=== PATIENT | male | born 1950 | race Caucasian/White ===

== ENCOUNTER 2023-08-07 17:28 | Inpatient (IN) | payer OTHER, SELFPAY ==
[2023-08-07] VITALS (11 sets, daily range): BP systolic 91–186; BP diastolic 47–79; BMI 28.7
--- NOTE | 2023-08-07 15:18 | ED.MUSCINJ ---
HPI-Injury
General
Chief Complaint: Fall
Source: patient
Exam Limitations: none
Time Seen by Provider: 08/07/23 14:55
Nursing documentation reviewed up to this point in time: agreed with
Travel History
Have you had any contact with someone who has COVID-19?: No
Do you have any symptoms of coronavirus? Fever > 100 degrees, chills, cough, shortness of breath, sore throat, loss of taste or smell, muscle aches, or headache?: No
History of Present Illness-Injury
Is this injury a work related problem?: No
Is pt an associate of [facility]?: No
Initial Injury comments:
Patient states he tripped and fell in his driveway yesterday afternoon. Denies hitting his head. States he crawled back into his home. Notice this AM that he has a large laceration to medial right ankle. Unable to bear weight. Brought to ED via
EMS for eval.
Past History
Past History
ED Past Medical History: HTN, NIDDM and Other (Diabetic neuropathy BLE)
ED Past Surgical History: Other (wisdom teeth, cataracts)
Social History
Tobacco: Non-smoker
Drug: None
Review of Systems
Review of Systems
Allergies reviewed?: Yes
All Other Systems: ROS reviewed and negative except as documented in HPI and ROS
Constitutional: Reports no symptoms
EENT: Reports no symptoms
Respiratory: Reports no symptoms
Cardiac: Reports no symptoms
ABD/GI: Reports no symptoms
Musculoskeletal: Reports joint pain (pain to right ankle)
Skin: Reports other (Large laceration to right medial ankle)
Neurological: Reports no symptoms
Psychiatric: Reports no symptoms
Musculoskeletal Injury Exam
Musculoskeletal Injury Exam
Right Ankle:
Pain with Movement?: Severe
Tender to palpation?: Moderate
Soft tissue swelling?: Moderate
External deformity and angulation?: Moderate
Joint effusion?: None
Contusion?: None
Hematoma-local bleeding into tissue?: Moderate
Strain- Sprain- Tear (Connective tissue injury)?: Moderate
Crepitus with movement?: No
Joint instability?: Yes
Malalignment/deformity?: Yes
Range of motion: Limited
Distal skin color and temperature: normal-warm & good color
Capillary Refill: normal
Normal distal neurovascular exam?: Yes
Peripheral Pulses: posterior tibial (right): 3+ and dorsalis pedis (right): 3+
Skin Exam
Laceration
Right Medial Ankle:
Orientation: horizontal
Type of Laceration: complex
Any active bleeding?: no active bleeding
Distal skin color and temperature: normal-warm & good color
Normal distal neurovascular exam: Yes
Range of motion: limited
Phy Exam
General Physical Exam
General Presentation: well appearing and no apparent distress
General age: appears stated age
General Skin: warm and dry
General Habitus: normal
General Mental: alert
Neurological Exam
Neurological Exam: alert, oriented x3 and CN II-XII intact
Musculoskeletal Exam
Musculoskeletal Exam: neuro vasc intact and other (No tenderness proximal tib/fib)
Skin Exam
Skin Exam: warm/dry, no rash and other (large laceration over medial malleolus, suspect exposed bone)
Psychiatric Exam
Psychiatric Exam: normal mood/affect
Injury Course
Orders/Labs/Results
Orders:
Orders
08/07/23 15:11
Ankle, Right 3 view CR [CR Ankle - Right Min 3 Views *] Urgent
Comment:
Reason For Exam: trauma
08/07/23 15:12
Complete Blood Count/With Diff Urgent
08/07/23 15:14
CMP [Comprehensive Metabolic Panel] Urgent
08/07/23 15:30
HYDROmorphone [Dilaudid] 0.5 mg IV NOW STA
Ondansetron Injectable [Zofran] 4 mg IV NOW STA
08/07/23 15:31
HYDROmorphone [Dilaudid] 0.5 mg .ROUTE .STK-MED ONE
Ondansetron Injectable [Zofran] 4 mg .ROUTE .STK-MED ONE
08/07/23 15:34
Vancomycin [Vancocin] 2,000 mg 0.9% Sodium Chloride 500 ml [Nss] 500 ml IV NOW
08/07/23 16:18
Tetanus/Diphth/Acelpertussis [Adacel] 0.5 ml IM .ONCE ONE
08/07/23 16:52
EKG [Electrocardiogram (*1)] Stat
Reason for Study: PreOp
08/07/23 16:54
Admit/Transfer Patient As Directed
Co-Sign Provider:
Level of Care: Inpatient admission
Assign to:: Telemetry
Physician / Group: [place]get[place]/Hospitalist
Diagnosis: open right ankle fracture
Reason for Telemetry: Arrhythmia
Date to Stop Telemetry: 08/10/23
Time to Stop Telemetry: 11:00
Reason for Hospitalization: open right ankle fracture, IDDM
Expected length of stay greater than two midnights?: Yes
ELOS- Estimated Length of Stay in days: 3
I certify the patient meets the requirements for IP care: Yes
0.9% Sodium Chloride 500 ml [Nss] 500 ml IV BOLUS
08/07/23 17:01
Code Status As Directed
Resuscitation Status: Full Code
08/07/23 17:11
HYDROmorphone [Dilaudid] 0.25 mg IV PACU-Q5MPRN PRN
HYDROmorphone [Dilaudid] 0.5 mg IV PACU-Q5MPRN PRN
Meperidine [Demerol] 12.5 mg IV PACU-Q5MPRN PRN
Ondansetron Injectable [Zofran] 4 mg IV PACU-ONCEPRN PRN
Prochlorperazine [Compazine] 5 mg IV PACU-ONCEPRN PRN
Notify MD As Directed
Notify physician if: for SDS patients with known or suspected sleep obstructive sleep apnea, monitor in the
PACU.
Notify MD for any apneic/desaturation episodes
O2 Therapy [RESP] Urgent
Titrate/Wean O2 to maintain O2 sat greater than (%): 92
Special Instructions: -Provide supplemental oxygen to achieve O2 sat of 92% or greater.
-After 15 min, may wean O2 and discontinue if patient is able to maintain O2 sat of 92%
or greater during recovery period.
If patient is a discharge home, without oxygen therapy, notify anestheiologist if
unable to maintain O2 SAT of 92% or greater on room air for MD clearance.
08/07/23 17:12
Type+Screen Urgent
[employer] [facility] Wristband Number:
08/07/23 17:15
Normosol (Mult Electrolytes) [Normosol-R] 1,000 ml IV PER PROTOCOL
08/07/23 17:24
Dexamethasone Sod Phosphate [Decadron] 20 mg .ROUTE .STK-MED ONE
Fentanyl Citrate/Pf [Sublimaze] 100 mcg .ROUTE .STK-MED ONE
Lidocaine HCl/Pf [Xylocaine-Mpf 1% Vial] 50 mg .ROUTE .STK-MED ONE
Midazolam HCl [Versed] 2 mg .ROUTE .STK-MED ONE
Ondansetron Injectable [Zofran] 4 mg .ROUTE .STK-MED ONE
Propofol [Diprivan] 20 ml .ROUTE .STK-MED
Rocuronium [place] [Rocuronium] 50 mg .ROUTE .STK-MED ONE
08/07/23 20:13
0.9% Sodium Chloride 1000 ml [Nss] 1,000 ml IV 100 mls/hr
Acetaminophen [Tylenol] 650 mg PO Q4HWA
Dextrose 50%-Water [Dextrose 50% Syringe] 12.5 grams IV [id number] PRN
Docusate Sodium [Colace] 100 mg PO BID
Glucagon [GlucaGen] 1 mg IM PRN PRN
HYDROmorphone [Dilaudid] 0.5 mg IV Q3HPRN PRN
Magnesium Hydroxide [Milk of Magnesia] 30 ml PO DAILYPRN PRN
Oxycodone [Roxicodone] 5 mg PO Q4HPRN PRN
Sennosides [Senokot] 17.2 mg PO BID
Tamsulosin [Flomax] 0.4 mg PO DAILYPRN PRN
VANCOMYCIN Pharmacy to Dose [VANCOCIN Pharmacy to Dose] 1 each Pharmacy To Prepare [Call Pharmacy To Prepare] 0 ml IV PER PROTOCOL
08/07/23 20:13
ORTHOPEDIC CONSULT Routine
Consulting Provider: Willard Tinajero
Was physician already notified: Yes
Reason for consult: open ankle fracture, right
Activity As Directed
Activity Level: With Assistance
Bedside Glucose Monitoring As Directed
Frequency: AC&HS
Additional Instructions:: Change to q6h if pt on TPN, tube feeding or not eating
Bladder Scan As Directed
Follow Bladder Retention/Intermittent Cath Algorithm?: Yes
PRN if no void in __ hours: 6
Comment: if not voiding 6 hrs upon arrival to floor, bladder scan & follow algorithm
Cold Application As Directed
Location: apply ice to affected area
Frequency: PRN
Duration of Application: No longer than 20 minutes
Method of Delivery: Ice packs
Comment: R ankle
Elevate Extremity As Directed
Extremity:: RLE
Intake/ Output As Directed
Frequency: Per unit guidelines
Neurovascular Checks As Directed
Location: Right Lower extremity
Frequency: q4h
Pneumatic Compression Sleeves As Directed
Type: Knee high
Comment: LLE for now pending Orthopedic recs
Straight Cath As Directed
Frequency: Per Retention Algorithm
Additional Instructions: straight cath as needed per acute urinary retention algorithm for 24 hrs
Additional Instructions: for bladder scan greater than 400 mL
Vital Signs As Directed
Frequency: Per unit guidelines
Ot Eval And Treat Routine
Pt Eval And Treat Routine
Treatment: per Ortho, post-op
Activity Level: With Assistance
DX Deep Vein Thrombosis Video Routine
08/07/23 22:00
Pregabalin [Lyrica] 100 mg PO TID
08/08/23 07:07
Complete Blood Count/With Diff IN AM
Comprehensive Metabolic Panel IN AM
Glycohemoglobin (HgbA1c) IN AM
08/08/23 07:30
Insulin Aspart Corrective Mod [Novolog Flexpen-Moderate Resistance] See Protocol SC AC
08/08/23 08:00
Atorvastatin [Lipitor] 20 mg PO DAILY
Losartan [Cozaar] 25 mg PO DAILY
08/08/23 18:00
Enoxaparin Sodium [Lovenox] 40 mg SC QPM
08/10/23 11:00
DC Protocol for Telemetry ONCE
Abnormal Lab Results
08/07/23 08/07/23
15:12 15:14
WBC 14.6 H 10^3/uL
(4.8-10.8)
RBC 4.32 L 10^6/uL
(4.70-6.10)
Hct 36.9 L %
(39.0-52.0)
MPV 11.1 H fL
(7.4-10.4)
Abs Immat Gran (auto) 0.1 H 10^3/uL
(0-0.05)
Absolute Neuts (auto) 11.9 H 10^3/uL
(1.4-6.5)
Absolute Lymphs (auto) 1.1 L 10^3/uL
(1.2-3.4)
Absolute Monos (auto) 1.5 H 10^3/uL
(0.1-0.6)
Neutrophils % 81.2 H %
(42.2-75.2)
Lymphocytes % 7.3 L %
(20.5-51.1)
Monocytes % 10.5 H %
(1.7-9.3)
BUN 30 H mg/dl
(9-20)
Total Bilirubin 2.3 H mg/dl
(0.2-1.3)
08/07/23 15:12
08/07/23 15:14
*Radiology
Radiology exam reviewed: radiology read reviewed
*Pulse Oximetry
Patient hypoxic: no
*Critical Care Note
Total Time (30-74mins, 75-104mins- exclusive of procedures): Not Applicable
ED Attending Note
-
Portions of this chart may have been created with voice recognition software.� Occasional wrong word or��sound alike� substitutions may have occurred due to the inherent limitations of voice recognition software.
Discharge Plan
Departure
Patient Disposition: Admit
Date of Disposition: 08/07/23
Time of Disposition: 16:13
Presentation/result/management discussed w/ accepting MD/DO: Hospitalist
Patient with high blood pressure during this ER visit?: No
Condition: Fair
Covid-19: Not Applicable
Discharge Problem:
Open fracture ankle, bimalleolar
Interventions
Interventions:
*Risk Screen - Suicide Last Done: 08/07/23 14:53
*General Assessment Last Done: 08/07/23 14:53
*Neglect/Abuse Screening Last Done: 08/07/23 14:53
*ED COVID-19 Vaccine History Last Done: 08/07/23 14:53
*Nursing Disposition Last Done: 08/07/23 17:31
ED- Neurological Assessment Last Done: 08/07/23 15:43
ED-Skin Assessment Last Done: 08/07/23 16:45
Discharge Date and Time
Discharge Date/Time: 08/07/23 17:32
[2023-08-07 15:22] LABS: % Basophils 0.5 % (0-2); % Eosinophils 0.1 % (0-6); % Immature Granulocytes 0.4 % (0-0.5); % Lymphocytes 7.3 % (20.5-51.1); % Monocytes 10.5 % (1.7-9.3); % Neutrophils 81.2 % (42.2-75.2); Absolute Basophils 0.1 10^3/uL (0-0.2); Absolute Immature Granulocytes 0.1 10^3/uL (0-0.05); Absolute Lymphocytes 1.1 10^3/uL (1.2-3.4); Absolute Monocytes 1.5 10^3/uL (0.1-0.6); Absolute Neutrophils 11.9 10^3/uL (1.4-6.5); Hematocrit 36.9 % (39.0-52.0); Mean Corp Hgb Conc. 35.2 g/dL (33.0-37.0); Mean Corpuscular Hgb 30.1 pg (27.0-31.0); Mean Corpuscular Volume 85.4 fL (80.0-94.0); Mean Platelet Volume 11.1 fL (7.4-10.4); Nucleated Red Blood Cells % 0 % (-); Platelet Count 201 10^3/uL (130-400); Red Blood Cell Count 4.32 10^6/uL (4.70-6.10); Red Cell Dist. Width 13.6 % (11.5-14.5); White Blood Cell Count 14.6 10^3/uL (4.8-10.8)
[2023-08-07 15:34] LABS: ALT (SGPT) 22 U/L (0-50); AST (SGOT) 34 U/L (17-59); Albumin 3.9 g/dl (3.5-5.0); Alkaline Phosphatase 120 U/L (38-126); Blood Urea Nitrogen 30 mg/dl (9-20); Calcium 9.1 mg/dl (8.4-10.2); Carbon Dioxide 25 mmol/L (22-30); Chloride 105 mmol/L (98-107); Estimated Creatinine Clearance 48 ml/min; Glucose 98 mg/dl (70-99); Potassium 4.2 mmol/L (3.5-5.1); Sodium 139 mmol/L (135-145); Total Bilirubin 2.3 mg/dl (0.2-1.3); Total Protein 6.6 g/dl (6.3-8.2); eGFR 57.65
[2023-08-07] MEDS: ZOFRAN 4 MG IV (15:34)
[2023-08-07] MEDS: DILAUDID 0.5 MG IV (15:35)
[2023-08-07] MEDS: VANCOCIN 540 MG IV (15:52)
--- NOTE | 2023-08-07 16:26 | HPS.HSE ---
Family Physician
-
Family Physician: Asha Vivas
Chief Complaint
-
trip and fall
History of Present Illness
The patient is a 73 yo male with PMH significant for IDDM, retinopathy, and peripheral neuropathy, who presents to the ED via EMS due to trip and fall in his driveway yesterday afternoon. He notes that he fell twice over the past 2 days, and is not
clear on which day he may have broken the ankle. He denies noticing bleeding nor laceration. He had been crawling on his floor due to pain and inability to bear weight, for the past 2 days, with very little to no oral intake. He has not had food
since yesterday, and only 2 sips of water today. He was able to take his 31 units of long-acting insulin at 4 pm today, and has not had his oral Losartan as he could not reach it. He noticed a large laceration this morning. He called EMS today. He
denies LOC, no hitting his head, no syncope, no headache, no CP, no SOB, no palpitations, no n/v/d.
Labs in ED: WBC 14.6, Creat 1.3, T Bilirubin 2.3
Ankle x-ray- Possible nondisplaced medial malleolar fracture. Open. This could be confirmed by CT examination, Tibiotalar subluxation, Comminuted displaced right distal fibular metadiaphyseal fracture.
ED Txt: Ortho consulted, plan for OR 1.5 hours
Zofran 4 mg IV, Dilaudid 0.5 mg IV, TDAP, IV Vancomycin 2000 mg
Medical History
Past Medical History
Past Medical History: Reports HTN, Hypercholesterolemia, IDDM (Diabetic polyneuropathy, diabetic retinopathy) and Psychiatric (severe recurrent MDD)
Past Surgical History: Reports Other ([place] teeth, cataracts)
Social History
Tobacco: Non-smoker
Alcohol: None
Drug: None
Family History
Family History: Cancer
Allergies / Home Medications
Allergies reflects when Allergies were last updated in [facility].
Home Medications with original date entered in [facility]
Allergy/Medication List:
Allergies
Allergy/AdvReac Type Severity Reaction Status Date / Time
Penicillins Allergy at 9 Verified 08/07/23 15:22
years old,
shortness
of breath
Home Medications
atorvastatin 20 mg tablet 20 mg PO DAILY High Cholesterol 08/07/23
insulin aspart U-100 100 unit/mL (3 mL) subcutaneous pen (Novolog FlexPen U-100 Insulin aspart) 8 - 10 unit SC AC Diabetes 08/07/23
insulin degludec 100 unit/mL (3 mL) subcutaneous pen (Tresiba FlexTouch U-100 insulin) 31 unit SC BID Diabetes 08/07/23
losartan 25 mg tablet 25 mg PO DAILY Blood Pressure 08/07/23
metformin 500 mg tablet 1,000 mg PO DAILY@1700 Diabetes 08/07/23
metformin 500 mg tablet 500 mg PO DAILY@1200 Diabetes 08/07/23
oxycodone-acetaminophen 5 mg-325 mg tablet 1 tab PO BIDPRN PRN SEVERE PAIN 08/07/23
pregabalin 100 mg capsule 100 mg PO TID Pain 08/07/23
Review of Systems
-
A 12 point ROS was completed and negative except as noted: Yes
Physical Exam
Vital Signs
Vital Signs
Temp Pulse Resp BP Pulse Ox
99.6 F 90 13 186/66 99
08/07/23 14:53 08/07/23 14:53 08/07/23 14:53 08/07/23 14:53 08/07/23 14:53
Physical Exam
General: Well Developed, Well Nourished, No Apparent Distress, Comfortable and Conversant
HEENT: NormoCephalic, Anicteric and Moist mucous membranes
Respiratory: Clear
Cardiac: S1/S2 and Regular Rhythm
GI: Soft, Non Tender and Non Distended
Musculoskeletal: No Clubbing, No Cyanosis and Other (RLE adelia wrapped/bandaged)
Neuro: AO x 3, No Motor Deficits and Nonfocal/grossly intact
Psych: Calm
Laboratory Results
-
08/07/23 15:12
08/07/23 15:14
Laboratory Results
Total Bilirubin 2.3 mg/dl (0.2-1.3) H 08/07/23 15:14
AST 34 U/L (17-59) 08/07/23 15:14
ALT 22 U/L (0-50) 08/07/23 15:14
Alkaline Phosphatase 120 U/L (38-126) 08/07/23 15:14
Impression/Plan
-
IMPRESSION:The patient is a 73 yo male with PMH significant for IDDM, retinopathy, and peripheral neuropathy, who presents to the ED via EMS due to trip and fall in his driveway yesterday afternoon. He notes that he fell twice over the past 2 days,
and is not clear on which day he may have broken the ankle. He denies noticing bleeding nor laceration.
Labs in ED: WBC 14.6, Creat 1.3, T Bilirubin 2.3
Ankle x-ray- Possible nondisplaced medial malleolar fracture. Open. This could be confirmed by CT examination, Tibiotalar subluxation, Comminuted displaced right distal fibular metadiaphyseal fracture.
ED Txt: Ortho consulted, plan for OR 1.5 hours
Zofran 4 mg IV, Dilaudid 0.5 mg IV, TDAP, IV Vancomycin 2000 mg
# Open right ankle fracture, medial malleolar fracture with tibiotalar subluxation and comminuted displaced right distal fibular metadiaphyseal fracture following mechanical fall, no evidence for syncope, likely due to peripheral neuropathy. Higher
risk for infection due to open fracture.
-Orthopedic consulted from ED and plan is to take emergently to the OR today
-admit to tele
-EKG pending for pre-op work-up
-IVF 1 Liter bolus followed by 100 mL per hour for 1 bag
-IV Vancomycin in ED and daily for now
-NPO
-elevate extremity, neurovascular checks q4H
-pain management - scheduled Tylenol and prn opioids
-bowel regimen
#Leukocytosis, likely reactive
-monitor, repeat CBC in am and monitor for signs and symptoms of acute infection from fracture
#IDDM
-will reduce long-acting insulin by half while NPO - typically he takes 31 u BID Tresiba, will half to 16 u BID for now until he is eating
-SSI prn
-hold metformin for now
#Likely NATA due to pre-renal azotemia, dehydration from decreased oral intake for 2 days, patient denies history of CKD
-IVF for now
-repeat electrolytes and kidney function in am
-monitor I/O
-renally dose Vancomycin per Pharmacy protocol
#HTN
-continue Losartan daily for now and monitor lytes, renal function
#Peripheral neuropathy
-continue Pregabalin
-he takes percocet BID prn, will use post-op pain regimen here and monitor
#TBili 2.3
-no abdominal symptoms, repeat CMP in am, monitor, LFTs otherwise WNL
DVT Proph- Lovenox to start post-op tomorrow, PCSs LLE for now and per Ortho recs post-op
Full Code
[2023-08-07] MEDS: ADACEL 0.5 ML IM (16:34)
[2023-08-07] MEDS: NSS 500 IV (17:11)
[2023-08-07 18:02] LABS: Glucose - Point of Care 72 mg/dl (70-99)
[2023-08-07 20:06] LABS: Glucose - Point of Care 80 mg/dl (70-99)
[2023-08-07] MEDS: NSS 1000 IV (20:51)
[2023-08-07 21:26] LABS: Glucose - Point of Care 90 mg/dl (70-99)
--- NOTE | 2023-08-07 21:29 | PHA.VAN.IN ---
Assessment
- Assessment
Renal Function: Unknown baseline
Plan
- Plan
Initial / Loading Dose: vanc 2000mg administered @ 1552
Maintenance Regimen: dosing by level
Monitoring: random level 08/07 0600
Pharmacokinetics Vancomycin I
- -
Patient Age: 73
Patient Sex: Male
Vancomycin Day #: 1
Indication: Bone And Joint
Requesting Provider: Dr. Dalal
Pertinent Antimicrobial Allergies:
penicillin - at 9 years of age; shortness of breath
Height / Weight:
Height 5 ft 8 in
Actual Weight 85.6 kg
- Vital Signs / Lab Results
Temp Pulse Resp BP Pulse Ox
99.8 F 93 18 165/73 97
08/07/23 21:07 08/07/23 21:07 08/07/23 21:07 08/07/23 21:07 08/07/23 21:07
Lab Results - Hematology
08/07/23
15:12
WBC 14.6 H
Lab Results - Chemistry
08/07/23
15:14
BUN 30 H
Creatinine 1.3
Estimated Creat Clear 48
Albumin 3.9
[2023-08-07 21:55] LABS: INR 1.29; PT 15.9 Sec (11.4-14.6)
[2023-08-07] MEDS: LYRICA 100 MG PO (22:42)
[2023-08-07] MEDS: COLACE PO (22:42)
[2023-08-07] MEDS: TYLENOL PO ×2 (22:42→23:56)
[2023-08-07] MEDS: SENOKOT PO (22:42)
[2023-08-07] MEDS: LANTUS SC (22:43)
--- NOTE | 2023-08-07 23:44 | TRANSFER ---
Report received from PROCESSING SUPERVISOR Graciela - pt arrived to floor at 2056 via bed s/p ORIF right ankle. 1/2 splint wrapped w adelia CDI. pt w chronic neuropathy - however can feel toes being touched, + right pedal pulse. Denied pain. Oriented to room, unit, and
weight bearing status. Call tristan within reach, bed in lowest position. Assessment ongoing.
[2023-08-08] VITALS (8 sets, daily range): BP systolic 127–156; BP diastolic 60–80; PULSE 81–82; O2SAT 99
[2023-08-08] MEDS: ROXICODONE 5 MG PO ×3 (01:59→22:52)
[2023-08-08] MEDS: TYLENOL PO (04:59)
[2023-08-08 07:21] LABS: Glucose - Point of Care 80 mg/dl (70-99)
[2023-08-08] MEDS: NOVOLOG FLEXPEN-MODERATE RESISTANCE SC (07:21)
[2023-08-08] MEDS: LANTUS SC (07:23)
[2023-08-08 07:51] LABS: % Basophils 0.3 % (0-2); % Immature Granulocytes 0.6 % (0-0.5); % Lymphocytes 6.1 % (20.5-51.1); % Monocytes 8.7 % (1.7-9.3); % Neutrophils 84.3 % (42.2-75.2); Absolute Immature Granulocytes 0.1 10^3/uL (0-0.05); Absolute Monocytes 1.4 10^3/uL (0.1-0.6); Absolute Neutrophils 13.4 10^3/uL (1.4-6.5); Hematocrit 35.3 % (39.0-52.0); Hemoglobin 11.9 g/dL (13.0-18.0); Mean Corp Hgb Conc. 33.7 g/dL (33.0-37.0); Mean Corpuscular Hgb 29.5 pg (27.0-31.0); Mean Corpuscular Volume 87.6 fL (80.0-94.0); Mean Platelet Volume 11.4 fL (7.4-10.4); Nucleated Red Blood Cells % 0 % (-); Platelet Count 192 10^3/uL (130-400); Red Blood Cell Count 4.03 10^6/uL (4.70-6.10); Red Cell Dist. Width 13.9 % (11.5-14.5); White Blood Cell Count 15.9 10^3/uL (4.8-10.8)
[2023-08-08] MEDS: COLACE PO ×2 (07:52→21:49)
[2023-08-08] MEDS: LIPITOR 20 MG PO (07:52)
[2023-08-08] MEDS: LYRICA 100 MG PO ×3 (07:52→21:55)
[2023-08-08] MEDS: TYLENOL 650 MG PO ×4 (07:52→21:57)
[2023-08-08] MEDS: COZAAR 25 MG PO (07:53)
[2023-08-08] MEDS: SENOKOT PO ×2 (07:53→21:50)
--- NOTE | 2023-08-08 07:58 | W.PN.ORTHO ---
Today's Communication / Plan
-
73 yo M POD1 right ankle ORIF under the direction of Dr. Carmona
--Strict non-weight bearing to RLE. We appreciate the assistance of PT/OT.
--Recommend ASA 325 mg daily x4 weeks for DVT ppx.
--Maintain splint until 2 week post-op visit.
--Case management consult for dc planning. Dc once medically stable.
--Patient stable post-operatively from an orthopedic standpoint. Orthopedics will sign off for now. Please reach out with any additional orthopedic questions or concerns.
Assessment
.
Distal Motor Intact: Yes
Dressing:
Clean, dry and intact.
Plan
.
Surgery / Date: ORIF R ankle
DVT Prophylaxis: Aspirin
Activity:
Out of bed.
PT/OT
Subjective
.
.:
Mr. Horowitz is POD1 following his right ankle ORIF performed by Dr. Tinajero. He is resting comfortably in bed, and reports any pain is well controlled at present. He has no questions or concerns at this time.
Vital Signs and Labs
.
Vital Signs and Labs:
Lab Results
08/08/23 07:07
Temp Pulse Resp BP Pulse Ox
98.9 F 80 18 152/69 98
08/08/23 03:27 08/08/23 07:53 08/08/23 03:27 08/08/23 07:53 08/08/23 03:27
PT 15.9 Sec (11.4-14.6) H 08/07/23 21:37
INR 1.29 08/07/23 21:37
Physical Exam
-
Directed exam of the right ankle reveals post-operative splint clean, dry and intact. Good color of toes. Patient able to wiggle toes. Sensation intact to light touch above and below splint. Capillary refill <2 seconds.
[2023-08-08 08:08] LABS: Vancomycin Random 12.2 ug/ml
[2023-08-08 08:18] LABS: ALT (SGPT) 20 U/L (0-50); AST (SGOT) 35 U/L (17-59); Albumin 3.3 g/dl (3.5-5.0); Alkaline Phosphatase 109 U/L (38-126); Blood Urea Nitrogen 29 mg/dl (9-20); Calcium 8.2 mg/dl (8.4-10.2); Carbon Dioxide 21 mmol/L (22-30); Chloride 106 mmol/L (98-107); Estimated Creatinine Clearance 52 ml/min; Glucose 83 mg/dl (70-99); Potassium 4.4 mmol/L (3.5-5.1); Sodium 140 mmol/L (135-145); Total Bilirubin 1.6 mg/dl (0.2-1.3); eGFR > 60.00
--- NOTE | 2023-08-08 08:47 | W.PN.HOSP.TC ---
Addendum entered and electronically signed by Jaye Moy MD 08/08/23 13:50:
Addendum
Patient needs a wheelchair to ambulate in the home and to perform activities of daily living. Patient needs a bedside commode since he will be confined to the first floor which does not have bathroom facility.
end
Original Note:
Today's Communication/Plan
-
.
Assessment / Plan
Assessment / Plan
Physical Exam
General: Well Developed, Well Nourished, No Apparent Distress, Comfortable and Conversant
HEENT: Normocephalic, Anicteric and Moist mucous membranes
Respiratory: Clear
Cardiac: S1/S2 and Regular Rhythm
GI: Soft, Non Tender and Non Distended
Musculoskeletal: No Clubbing, No Cyanosis and Other (RLE dressing)
Neuro: AO x 3, No Motor Deficits and Nonfocal/grossly intact
Psych: Calm
# Open right ankle fracture, medial malleolar fracture with tibiotalar subluxation and comminuted displaced right distal fibular metadiaphyseal fracture following mechanical fall, no evidence for syncope, likely due to peripheral neuropathy.
S/P right ankle ORIF on 08/[address] Tinajero.
Ortho recommended : Strict non-weight bearing to RLE. Recommend ASA 325 mg daily x4 weeks for DVT ppx. Maintain splint until 2 week post-op visit.
- c/w pain control
# mild acute blood loss anemia.
#Leukocytosis, likely reactive
-No fevers.
#IDDM
- post op now, can resume his home regimen
start diabetic diet
#Mild renal insufficiency
His creatinine 1.3 then down to 1.2 with GFR >60
Patient denied history of CKD
-s/p IVF
#Essential HTN
-continue Losartan daily for now and monitor lytes, renal function
#Peripheral diabetic neuropathy/ Chronic pain syndrome with opioid dependency
-continue Pregabalin
-he takes Percocet BID prn,
#TBili 2.3
-no abdominal symptoms, LFTs otherwise WNL
DVT Proph- DVT prophylaxis with Aspirin.
Full Code
Total time spent to see the patient, examine the patient on the floor, review data and lab results, discuss treatment plan with patient, ortho, nursing staff around 55 minutes
Anticipated Discharge: 24 - 48 hours
Subjective/Interval History
-
Date of Service: August 08, 2023
He feels better, no chest pain, no sob
No significant pain in leg
Objective Data
-
Labs:
Laboratory Results
08/07/23 08/08/23
21:37 07:07
WBC 15.9 H
Hgb 11.9 L
Hct 35.3 L
Plt Count 192
PT 15.9 H
INR 1.29
Sodium 140
Potassium 4.4
Chloride 106
Carbon Dioxide 21 L
BUN 29 H
Creatinine 1.2
Glucose 83
Calcium 8.2 L
Total Bilirubin 1.6 H
AST 35
ALT 20
Alkaline Phosphatase 109
Vital Signs:
Vital Signs
Temp Pulse Resp BP Pulse Ox
99.4 F 80 17 152/69 94
08/08/23 07:30 08/08/23 07:53 08/08/23 07:30 08/08/23 07:53 08/08/23 07:30
I&O
08/07/23 08/08/23 08/09/23
06:59 06:59 06:59
Intake Total 1580 / 1580
Output Total 300 / 300
Balance 1280 / 1280
--- NOTE | 2023-08-08 08:47 | PHA.VAN.FU ---
Vancomycin Assessment / Plan
- Assessment
Renal Function: Stable
WBC's are: Trending Up
In the past 24 hrs, patient has been: Afebrile
- Assessment - Therapeutic Drug Monitoring
Random Level: 12.2 - drawn ~15H after 2g loading dose
- Dosing Plan
Dosing by Level: Re-dose today (Vanc 1250mg)
- Monitoring Plan
Random Level: 08/08 0600
- Follow Up
Pharmacy will continue to follow.
Vancomycin Follow UP
- -
Patient Age: 73
Patient Sex: Male
Vancomycin Day #: 2
Indication: Bone And Joint
Requesting Provider: Dr. Dalal
Pertinent Antimicrobial Allergies:
penicillin - at 9 years of age; shortness of breath
Height / Weight:
Height 5 ft 8 in
Actual Weight 85.6 kg
Pertinent Past Medical History: DM
- Vital Signs / Lab Results
Temp Pulse Resp BP Pulse Ox
99.4 F 80 17 152/69 94
08/08/23 07:30 08/08/23 07:53 08/08/23 07:30 08/08/23 07:53 08/08/23 07:30
Lab Results - Hematology
08/07/23 08/08/23
15:12 07:07
WBC 14.6 H 15.9 H
Lab Results - Chemistry
08/07/23 08/08/23
15:14 07:07
BUN 30 H 29 H
Creatinine 1.3 1.2
Estimated Creat Clear 48 52
Albumin 3.9 3.3 L
Therapeutic Drug Monitoring
Random Vancomycin 12.2 ug/ml 08/08/23 07:07
[2023-08-08 08:53] LABS: Glycohemoglobin (HgbA1c) 6.6 % (4.0-5.6)
[2023-08-08] MEDS: VANCOCIN 275 MG IV (09:39)
--- NOTE | 2023-08-08 12:10 | CON.ID ---
Consultation
-
Date/Time Consultation Requested: August 08, 2023 0610
Date/Time Consultation Performed: August 08, 2023 1211
Requesting Provider: Dr. Gwen Moy
Performing Provider: Dr. Alondra Medrano
Reason for Consultation: Ankle open fracture
Chief Complaint / Past History
Chief Complaint
Ankle fracture
History of Present Illness
73-year-old male with diabetes mellitus, neuropathy, who fell twice once at his friend's home and then on his driveway. He developed significant right ankle pain but did not seek medical care. He was crawling on his knees for 2 days. He tried to
keep his ankle off of the floor. He was dressing the laceration himself. When he undressed the bandage he noted a large deep wound and therefore he called EMS. He was brought to the hospital yesterday. Wound was deemed, type III with bone
exposed. X-ray shows comminuted distal fibula fracture. He was taken to the OR right away status post incision, and irrigation, debridement down to bone followed by ORIF. He received vancomycin preop and postop. Regarding penicillin allergy, it
occurred at age 9 when he developed shortness of breath. He reports he has tolerated penicillins substitute.
Past History
Additional Past Medical History:
Diabetes mellitus
Neuropathy
Hypertension
Dyslipidemia
Depression
Allergy History:
Penicillins Allergy (Verified 08/07/23 15:22)
at 9 years old, shortness of breath
Medications Reviewed: Yes
Current Antibiotics:
Vancomycin
Social History
Tobacco: Non-Smoker
Alcohol: None
Drug: None
Living: Alone
Family History
Family History: Not Pertinent
Review of Systems
Review of Systems
General: Negative Fever or Chills
HEENT: Negative Sinus Problems, Headache or Pharyngitis
Respiratory: Negative Dyspnea or Cough
Gasteroenterology: Other (no diarrhea); Negative Nausea or Vomiting
Genital / Urological: Negative Dysuria or Flank Pain
Endocrine: Negative Weakness
Skin / Hair / Nails: Negative Rash
Neurological: Negative Headache or Dizziness
All systems: All other systems were reviewed and were negative
Vital Signs
Temp Pulse Resp BP Pulse Ox
99.2 F 91 18 151/61 97
08/08/23 11:05 08/08/23 11:05 08/08/23 11:05 08/08/23 11:05 08/08/23 11:05
Physical Exam
Physical Exam
Constitutional: No Acute Distress and Comfortable
Eyes: No Conjunctival Hemorrhage and Sclera Anicteric
Cardiovascular: Regular Rate and S1/S2
Pulmonary: Clear
Gastrointestinal: Soft, Non Tender, Non Distended and Normal Bowel Sounds
Wound: Other (Right foot dressing dry)
Neurological: AO x 3
Lab / Diagnostic Study Results
08/08/23 07:07
08/08/23 07:07
Abs Immat Gran (auto) 0.1 10^3/uL (0-0.05) H 08/08/23 07:07
Absolute Neuts (auto) 13.4 10^3/uL (1.4-6.5) H 08/08/23 07:07
Absolute Lymphs (auto) 1.0 10^3/uL (1.2-3.4) L 08/08/23 07:07
Absolute Monos (auto) 1.4 10^3/uL (0.1-0.6) H 08/08/23 07:07
Absolute Basos (auto) 0.0 10^3/uL (0-0.2) 08/08/23 07:07
Immature Gran % 0.6 % (0-0.5) H 08/08/23 07:07
Neutrophils % 84.3 % (42.2-75.2) H 08/08/23 07:07
Lymphocytes % 6.1 % (20.5-51.1) L 08/08/23 07:07
Monocytes % 8.7 % (1.7-9.3) 08/08/23 07:07
Eosinophils % 0.0 % (0-6) 08/08/23 07:07
Basophils % 0.3 % (0-2) 08/08/23 07:07
PT 15.9 Sec (11.4-14.6) H 08/07/23 21:37
INR 1.29 08/07/23 21:37
Microbiology Results
08/07/23 ankle XRAY: Possible nondisplaced medial malleolar fracture. Open. Tibiotalar subluxation. Comminuted displaced right distal fibular metadiaphyseal fracture.
Assessment / Plan
# Open bilateral malleolar ankle fracture with exposed bone
# Leukocytosis - reactive
# PCN allergy, tolerated cephalosporins
- 08/06 s/p I+D, ORIF
- Add ceftriaxone and metronidazole.
- At time of discharge, transition to cefdinir 300mg po bid plus metronidazole 500mg po tid through 08/10/23.
[2023-08-08 12:15] LABS: Glucose - Point of Care 216 mg/dl (70-99)
[2023-08-08] MEDS: NOVOLOG FLEXPEN-MODERATE RESISTANCE 3 UNITS SC (12:42)
[2023-08-08] MEDS: STERILE WATER FOR INJECTION 20 ML IV (13:21)
[2023-08-08] MEDS: FLAGYL 500 MG PO ×2 (13:21→21:55)
[2023-08-08] MEDS: ROCEPHIN 2000 MG IV (13:21)
--- NOTE | 2023-08-08 15:13 | CM ---
met with patient at bedside.patient lives alone in house with 1 carine,his bed and bathroom is on the second level.he has no bathroom on the first level where he will be sleeping on the couch on that level.his pcp is dr huang and he uses [facility] in
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
he is pod#1 sp right ankle orif after he fell and fx his right ankle.he is non wt bearing on r leg.he is on iv abx.patient was seen by therapy who rec home with assistance vs snf.patient does not want to go to snf.i have ordered a bedside commode
and wc from megan at [facility].patient will need a walker for dc home.he will also need home pt.call placed to skylar jarrett with vn.plan home with home pt.he states he does have a friend who can give him some assistance.
[2023-08-08 16:23] LABS: Glucose - Point of Care 257 mg/dl (70-99)
[2023-08-08] MEDS: NOVOLOG FLEXPEN-MODERATE RESISTANCE 5 UNITS SC (16:37)
[2023-08-08 21:48] LABS: Glucose - Point of Care 299 mg/dl (70-99)
[2023-08-08] MEDS: LANTUS 0.160000000000000003 UNITS SC (21:54)
[2023-08-09] VITALS (7 sets, daily range): BP systolic 124–167; BP diastolic 56–94; PULSE 86; O2SAT 98
[2023-08-09] MEDS: TYLENOL PO ×2 (00:53→04:56)
[2023-08-09] MEDS: FLAGYL 500 MG PO ×3 (05:10→21:14)
[2023-08-09 06:06] LABS: Hematocrit 33.8 % (39.0-52.0); Hemoglobin 11.6 g/dL (13.0-18.0); Mean Corp Hgb Conc. 34.3 g/dL (33.0-37.0); Mean Corpuscular Hgb 29.7 pg (27.0-31.0); Mean Corpuscular Volume 86.4 fL (80.0-94.0); Mean Platelet Volume 10.9 fL (7.4-10.4); Platelet Count 199 10^3/uL (130-400); Red Blood Cell Count 3.91 10^6/uL (4.70-6.10); Red Cell Dist. Width 13.8 % (11.5-14.5); White Blood Cell Count 12.3 10^3/uL (4.8-10.8)
[2023-08-09 06:20] LABS: Vancomycin Random 12.4 ug/ml
[2023-08-09 06:32] LABS: Blood Urea Nitrogen 37 mg/dl (9-20); Calcium 7.8 mg/dl (8.4-10.2); Carbon Dioxide 21 mmol/L (22-30); Chloride 107 mmol/L (98-107); Estimated Creatinine Clearance 52 ml/min; Glucose 279 mg/dl (70-99); Potassium 4.4 mmol/L (3.5-5.1); Sodium 138 mmol/L (135-145); eGFR > 60.00
--- NOTE | 2023-08-09 07:25 | W.PN.ORTHO ---
Today's Communication / Plan
-
PT/OT
Nonweightbearing right lower extremity
Ice with elevation to control swelling and pain
Aspirin for DVT prophylactics
Antibiotics per ID recommendations
Return to office 2 weeks
Assessment
.
Distal Motor Intact: Yes
Dressing:
Clean, dry and intact.
Plan
.
Surgery / Date: ORIF R ankle
DVT Prophylaxis: Aspirin
Activity:
Out of bed.
PT/OT
Subjective
.
.:
Patient resting comfortably.
Vital Signs and Labs
.
Vital Signs and Labs:
Lab Results
08/09/23 05:26
08/09/23 05:26
Temp Pulse Resp BP Pulse Ox
99.4 F 88 19 160/94 96
08/09/23 04:22 08/09/23 04:22 08/09/23 04:22 08/09/23 04:22 08/09/23 04:22
PT 15.9 Sec (11.4-14.6) H 08/07/23 21:37
INR 1.29 08/07/23 21:37
[2023-08-09] MEDS: NOVOLOG FLEXPEN-MODERATE RESISTANCE 5 UNITS SC ×2 (07:26→17:40)
[2023-08-09] MEDS: LANTUS 0.160000000000000003 UNITS SC ×2 (07:26→21:13)
[2023-08-09 07:27] LABS: Glucose - Point of Care 298 mg/dl (70-99)
[2023-08-09] MEDS: TYLENOL 650 MG PO ×4 (07:28→21:00)
[2023-08-09] MEDS: LYRICA 100 MG PO ×3 (07:28→21:14)
[2023-08-09] MEDS: SENOKOT PO ×2 (07:29→21:13)
[2023-08-09] MEDS: COLACE PO ×2 (07:29→21:13)
[2023-08-09] MEDS: LIPITOR 20 MG PO (07:29)
[2023-08-09] MEDS: COZAAR 25 MG PO (07:30)
--- NOTE | 2023-08-09 09:14 | W.PN.HOSP.TC ---
Today's Communication/Plan
-
likely dc in am
Assessment / Plan
Assessment / Plan
Physical Exam
General: Well Developed, Well Nourished, No Apparent Distress, Comfortable and Conversant
HEENT: Normocephalic, Anicteric and Moist mucous membranes
Respiratory: Clear
Cardiac: S1/S2 and Regular Rhythm
GI: Soft, Non Tender and Non Distended
Musculoskeletal: No Clubbing, No Cyanosis and Other (RLE dressing)
Neuro: AO x 3, No Motor Deficits and Nonfocal/grossly intact
Psych: Calm
# Open right ankle fracture, medial malleolar fracture with tibiotalar subluxation and comminuted displaced right distal fibular metadiaphyseal fracture following mechanical fall, no evidence for syncope, likely due to peripheral neuropathy.
S/P right ankle ORIF on 08/[address] Tinajero.
Ortho recommended : Strict non-weight bearing to RLE. Recommend ASA 325 mg daily x4 weeks for DVT ppx. Maintain splint until 2 week post-op visit.
- c/w pain control
# Open wound and exposed bone X 2 days
d/w ortho, reported that wound looked not clean
d/w ID doctor, started on Rocephin and Flagyl. WBC is coming down. No fevers. Appreciate ID help
# mild acute blood loss anemia.
# Soft heart murmur
pt denies cardiac symptoms, offered to have echo but he would like to do Echo in OP setting setting with his PCP.
#Leukocytosis, likely reactive
-No fevers.
#IDDM
- AM BS 298
HGB A1C 6.6
started diabetic diet
#Mild renal insufficiency
His creatinine 1.3 then down to 1.2 with GFR >60
Patient denied history of CKD
-s/p IVF
#Essential HTN
-continue Losartan daily for now and monitor lytes, renal function
#Peripheral diabetic neuropathy/ Chronic pain syndrome with opioid dependency
-continue Pregabalin
-he takes Percocet BID prn,
#TBili 2.3, down to 1.6
-no abdominal symptoms, LFTs otherwise WNL
DVT Proph- DVT prophylaxis with Aspirin.
Full Code
Total time spent to see the patient, examine the patient on the floor, review data and lab results, discuss treatment plan with patient, ID doctor, nursing staff around 55 minutes
Anticipated Discharge: Within 24 hours
Subjective/Interval History
-
Date of Service: August 09, 2023
No significant pain in leg
No chest pain or sob
Objective Data
-
Labs:
Laboratory Results
08/09/23
05:26
WBC 12.3 H
Hgb 11.6 L
Hct 33.8 L
Plt Count 199
Sodium 138
Potassium 4.4
Chloride 107
Carbon Dioxide 21 L
BUN 37 H
Creatinine 1.2
Glucose 279 H
Calcium 7.8 L
Vital Signs:
Vital Signs
Temp Pulse Resp BP Pulse Ox
99.2 F 90 17 167/71 96
08/09/23 07:45 08/09/23 07:45 08/09/23 07:45 08/09/23 07:45 08/09/23 08:00
I&O
08/08/23 08/09/23 08/10/23
06:59 06:59 06:59
Intake Total 1580 / 1580 775 / 775
Output Total 300 / 300 950 / 950
Balance 1280 / 1280 -175 / -175
--- NOTE | 2023-08-09 09:26 | PHA.VAN.FU ---
Vancomycin Assessment / Plan
- Assessment
Renal Function: Stable
WBC's are: Trending Down
In the past 24 hrs, patient has been: Afebrile
Concomitant Antimicrobials: ceftriaxone, metronidazole
- Assessment - Therapeutic Drug Monitoring
Random Level: 12.4 - drawn ~20H after previous dose of 1250mg
- Dosing Plan
Dosing by Level: Re-dose today (1250mg)
- Monitoring Plan
Random Level: 08/09 06
- Follow Up
Pharmacy will continue to follow.
Vancomycin Follow UP
- -
Patient Age: 73
Patient Sex: Male
Vancomycin Day #: 3
Indication: [facility]
Requesting Provider: Dr. Dalal / Mitchell
Pertinent Antimicrobial Allergies:
penicillin - at 9 years of age; shortness of breath
Height / Weight:
Height 5 ft 8 in
Actual Weight 85.6 kg
Pertinent Past Medical History: DM
- Vital Signs / Lab Results
Temp Pulse Resp BP Pulse Ox
99.2 F 90 17 167/71 96
08/09/23 07:45 08/09/23 07:45 08/09/23 07:45 08/09/23 07:45 08/09/23 08:00
Lab Results - Hematology
08/07/23 08/08/23 08/09/23
15:12 07:07 05:26
WBC 14.6 H 15.9 H 12.3 H
Lab Results - Chemistry
08/07/23 08/08/23 08/09/23
15:14 07:07 05:26
BUN 30 H 29 H 37 H
Creatinine 1.3 1.2 1.2
Estimated Creat Clear 48 52 52
Albumin 3.9 3.3 L
Therapeutic Drug Monitoring
Random Vancomycin 12.4 ug/ml 08/09/23 05:26
[2023-08-09] MEDS: VANCOCIN 275 MG IV (09:44)
--- NOTE | 2023-08-09 11:52 | W.PN.ID1 ---
Date of Service
Date of Service: August 09, 2023
Today's Communication
Tomorrow last day of abx's.
Assessment / Plan
# Open bilateral malleolar ankle fracture with exposed bone
# Leukocytosis - reactive, trending down
# PCN allergy, tolerated cephalosporins
- 08/06 s/p I+D, ORIF
- Continue Vancomycin, ceftriaxone and metronidazole.
- At time of discharge, transition to cefdinir 300mg po bid plus metronidazole 500mg po tid through 08/10/23.
#Additional Past Medical History:
Diabetes mellitus
Neuropathy
Hypertension
Dyslipidemia
Depression
Chief Complaint
-: Other (open fracture)
Subjective / Review of Systems
No post-op pain.
Vital Signs / Physical Exam
Vital Signs
Vital Signs
Temp Pulse Resp BP Pulse Ox
100.0 F 83 17 124/56 97
08/09/23 11:39 08/09/23 11:39 08/09/23 11:39 08/09/23 11:39 08/09/23 11:39
Physical Exam
Constitutional: No Acute Distress and Comfortable
Cardiovascular: Regular Rate and S1/S2
Pulmonary: Clear
Gastrointestinal: Soft, Non Tender, Non Distended and Normal Bowel Sounds
Neurological: AO x 3
Objective Data
Lab Data
Lab Results
08/09/23 05:26
08/09/23 05:26
PT 15.9 Sec (11.4-14.6) H 08/07/23 21:37
INR 1.29 08/07/23 21:37
Estimated Creat Clear 52 ml/min 08/09/23 05:26
Total Bilirubin 1.6 mg/dl (0.2-1.3) H 08/08/23 07:07
AST 35 U/L (17-59) 08/08/23 07:07
ALT 20 U/L (0-50) 08/08/23 07:07
Alkaline Phosphatase 109 U/L (38-126) 08/08/23 07:07
Most recent labs reviewed.
08/07/23 ankle XRAY: Possible nondisplaced medial malleolar fracture. Open. Tibiotalar subluxation. Comminuted displaced right distal fibular metadiaphyseal fracture.
[2023-08-09 12:01] LABS: Glucose - Point of Care 194 mg/dl (70-99)
[2023-08-09] MEDS: NOVOLOG FLEXPEN-MODERATE RESISTANCE 1 UNITS SC (12:03)
[2023-08-09] MEDS: ROCEPHIN 2000 MG IV (13:22)
[2023-08-09] MEDS: STERILE WATER FOR INJECTION 20 ML IV (13:22)
--- NOTE | 2023-08-09 15:37 | CM ---
met with patient at bedside.he is sp orif right ankle open fracture.he will be finished his iv abx tomorrow.he will probably dc home tomorrow.i have ordered a bedside commode from [employer] and he can call them at [phone] before he leaves the
hospital to let thn know when he will arrive home so they can deliver the commode.i have asked pt if they can offer patient a walker for home use.e has declined a w/c and has declined home physical therapy stating he is a private person.patient
signed imm letter.he will have a friend transport him home.plan home with no services.
[2023-08-09 17:25] LABS: Glucose - Point of Care 256 mg/dl (70-99)
[2023-08-09 21:11] LABS: Glucose - Point of Care 245 mg/dl (70-99)
[2023-08-10] VITALS (8 sets, daily range): BP systolic 136–189; BP diastolic 59–89; PULSE 88–89; O2SAT 98
[2023-08-10] MEDS: TYLENOL PO ×2 (01:00→09:41)
[2023-08-10] MEDS: TYLENOL 650 MG PO ×4 (03:23→21:47)
[2023-08-10] MEDS: FLAGYL 500 MG PO ×3 (05:45→21:49)
[2023-08-10 07:57] LABS: Glucose - Point of Care 294 mg/dl (70-99)
--- NOTE | 2023-08-10 09:13 | W.PN.HOSP.TC ---
Today's Communication/Plan
-
dc in am
Assessment / Plan
Assessment / Plan
Physical Exam
General: Well Developed, Well Nourished, No Apparent Distress, Comfortable and Conversant
HEENT: Normocephalic, Anicteric and Moist mucous membranes
Respiratory: Clear
Cardiac: S1/S2 and Regular Rhythm
GI: Soft, Non Tender and Non Distended
Musculoskeletal: No Clubbing, No Cyanosis and Other (RLE dressing)
Neuro: AO x 3, No Motor Deficits and Nonfocal/grossly intact
Psych: Calm
# Open right ankle fracture, medial malleolar fracture with tibiotalar subluxation and comminuted displaced right distal fibular metadiaphyseal fracture following mechanical fall, no evidence for syncope, likely due to peripheral neuropathy.
S/P right ankle ORIF on 08/[address] Tinajero.
Ortho recommended : Strict non-weight bearing to RLE. Recommend ASA 325 mg daily x4 weeks for DVT ppx. Maintain splint until 2 week post-op visit.
- c/w pain control
# Open wound and exposed bone X 2 days
d/w ortho, reported that wound looked not clean
d/w ID doctor, started on Rocephin and Flagyl. WBC is coming down. had fever 100.6 at 3 am, recheck WBC
Appreciate ID help: ok to go on oral ABx when ready
# mild acute blood loss anemia.
# Soft heart murmur
pt denies cardiac symptoms, offered to have echo but he would like to do Echo in OP setting setting with his PCP.
#Leukocytosis, likely reactive
-No fevers.
#IDDM
- AM BS 294
HGB A1C 6.6
started diabetic diet
#Mild renal insufficiency
His creatinine 1.3 then down to 1.2 with GFR >60
Patient denied history of CKD
-s/p IVF
#Essential HTN
-continue Losartan daily for now and monitor lytes, renal function
#Peripheral diabetic neuropathy/ Chronic pain syndrome with opioid dependency
-continue Pregabalin
-he takes Percocet BID prn,
#TBili 2.3, down to 1.6
-no abdominal symptoms, LFTs otherwise WNL
DVT Proph- DVT prophylaxis with Aspirin.
Full Code
Total time spent to see the patient, examine the patient on the floor, review data and lab results, discuss treatment plan with patient, ID doctor, nursing staff around 55 minutes
Anticipated Discharge: Within 24 hours
Subjective/Interval History
-
Date of Service: August 10, 2023
No chest pain, no sob
Had fever one time earlier today
Objective Data
-
Vital Signs:
Vital Signs
Temp Pulse Resp BP Pulse Ox
98.9 F 84 17 153/74 96
08/10/23 07:18 08/10/23 07:18 08/10/23 07:18 08/10/23 07:18 08/10/23 07:18
I&O
08/09/23 08/10/23 08/11/23
06:59 06:59 06:59
Intake Total 775 / 775 1475 / 1475
Output Total 950 / 950 950 / 950
Balance -175 / -175 525 / 525
[2023-08-10] MEDS: NOVOLOG FLEXPEN-MODERATE RESISTANCE 5 UNITS SC ×2 (09:20→12:02)
[2023-08-10] MEDS: LIPITOR 20 MG PO (09:21)
[2023-08-10] MEDS: COZAAR 25 MG PO (09:21)
[2023-08-10] MEDS: LYRICA 100 MG PO ×3 (09:24→21:50)
[2023-08-10] MEDS: COLACE PO ×2 (09:25→20:00)
[2023-08-10] MEDS: SENOKOT PO ×2 (09:25→20:00)
[2023-08-10] MEDS: ROXICODONE 5 MG PO ×3 (09:28→21:53)
[2023-08-10] MEDS: LANTUS 0.160000000000000003 UNITS SC (09:30)
[2023-08-10 11:22] LABS: Glucose - Point of Care 278 mg/dl (70-99)
[2023-08-10] MEDS: LANTUS 0.149999999999999994 UNITS SC (12:02)
[2023-08-10] MEDS: NOVOLOG FLEXPEN 8 UNITS SC ×2 (12:03→17:30)
--- NOTE | 2023-08-10 12:40 | W.PN.ID1 ---
Date of Service
Date of Service: August 10, 2023
Today's Communication
Follow fever.
Assessment / Plan
# Open bilateral malleolar ankle fracture with exposed bone;
POD #3 I+D, ORIF
# Leukocytosis - trending down
# Low grade fever today - suspect post-op fever within the 72 hour window
- Today is last day prophylactic Vancomycin, ceftriaxone and metronidazole (72h post-op)
- Monitor temps. Can dc home tomorrow if afebrile x 24hrs.
#Additional Past Medical History:
Diabetes mellitus
Neuropathy
Hypertension
Dyslipidemia
Depression
Chief Complaint
-: Other (open fracture)
Subjective / Review of Systems
Did not notice fever overnight.
No cough/diarrhea/urinary sxs.
Vital Signs / Physical Exam
Vital Signs
Vital Signs
Temp Pulse Resp BP Pulse Ox
100.4 F H 87 16 165/75 98
08/10/23 11:12 08/10/23 11:12 08/10/23 11:12 08/10/23 11:12 08/10/23 11:12
Selected Entries
08/10/23
03:21 08/10/23
11:12
Temp 100.6 F H 100.4 F H
Physical Exam
Constitutional: No Acute Distress and Comfortable
Eyes: Sclera Anicteric
Cardiovascular: Regular Rate and S1/S2
Pulmonary: Clear
Gastrointestinal: Soft, Non Tender, Non Distended and Normal Bowel Sounds
Wound: Other (right foot dressing dry)
Neurological: AO x 3
Objective Data
Lab Data
Lab Results
08/09/23 05:26
08/09/23 05:26
PT 15.9 Sec (11.4-14.6) H 08/07/23 21:37
INR 1.29 08/07/23 21:37
Estimated Creat Clear 52 ml/min 08/09/23 05:26
Total Bilirubin 1.6 mg/dl (0.2-1.3) H 08/08/23 07:07
AST 35 U/L (17-59) 08/08/23 07:07
ALT 20 U/L (0-50) 08/08/23 07:07
Alkaline Phosphatase 109 U/L (38-126) 08/08/23 07:07
Most recent labs reviewed.
08/07/23 ankle XRAY: Possible nondisplaced medial malleolar fracture. Open. Tibiotalar subluxation. Comminuted displaced right distal fibular metadiaphyseal fracture.
[2023-08-10] MEDS: VANCOCIN 275 MG IV (13:38)
[2023-08-10] MEDS: STERILE WATER FOR INJECTION 20 ML IV (13:44)
[2023-08-10] MEDS: ROCEPHIN 2000 MG IV (13:44)
--- NOTE | 2023-08-10 16:31 | CM ---
met with patient at bedside.he is sp i+D/orif right ankle pod#3.finished iv abx.spiked a fever and dc held today.patient reused wc because he states it will not fit into his apt.i have asked attending to write a script for home walker.she will
placed in chart tomorrow.therapy will them deliver a walker to patient.megan from [employer] will deliver bedside commode to patient's house when he returns home.i have instructed patient to call main office at [phone] to let them know patient
is home.he again refused home pt.plan home with no services.patient signed imm letter.
[2023-08-10 16:55] LABS: Glucose - Point of Care 220 mg/dl (70-99)
[2023-08-10] MEDS: NOVOLOG FLEXPEN-MODERATE RESISTANCE 3 UNITS SC (17:31)
--- NOTE | 2023-08-10 20:14 | PTCARENOTE ---
Low grade fever through-out shift. NV checks, no drainage on dressing. Comfortable with Oxycodone 5mg. Did notify Dr. Moy, she said ID will see him tomorrow.
[2023-08-10 21:47] LABS: Glucose - Point of Care 185 mg/dl (70-99)
[2023-08-10] MEDS: LANTUS 0.309999999999999998 UNITS SC (21:49)
[2023-08-11 03:17] VITALS: BP 155/80
[2023-08-11] MEDS: ROXICODONE 5 MG PO ×4 (03:19→22:18)
[2023-08-11] MEDS: TYLENOL 650 MG PO ×4 (03:19→21:11)
[2023-08-11] MEDS: FLAGYL 500 MG PO (06:14)
[2023-08-11] MEDS: LYRICA 100 MG PO ×3 (06:19→21:11)
[2023-08-11 07:30] LABS: Glucose - Point of Care 172 mg/dl (70-99)
[2023-08-11 08:04] VITALS: BP 170/89
[2023-08-11] MEDS: LANTUS 0.309999999999999998 UNITS SC ×2 (08:09→22:19)
[2023-08-11] MEDS: NOVOLOG FLEXPEN-MODERATE RESISTANCE 1 UNITS SC ×3 (08:09→16:29)
[2023-08-11] MEDS: COZAAR 25 MG PO (08:09)
[2023-08-11] MEDS: NOVOLOG FLEXPEN SC ×3 (08:13→16:27)
[2023-08-11] MEDS: COLACE PO (08:13)
[2023-08-11] MEDS: SENOKOT PO (08:13)
[2023-08-11] MEDS: TYLENOL PO ×2 (08:13)
--- NOTE | 2023-08-11 10:17 | W.PN.HOSP.TC ---
Today's Communication/Plan
-
f/w ID recommendation
Monitor fever
Assessment / Plan
Assessment / Plan
Physical Exam
General: Well Developed, Well Nourished, No Apparent Distress, Comfortable and Conversant
HEENT: Normocephalic, Anicteric and Moist mucous membranes
Respiratory: Clear
Cardiac: S1/S2 and Regular Rhythm
GI: Soft, Non Tender and Non Distended
Musculoskeletal: No Clubbing, No Cyanosis and Other (RLE dressing)
Neuro: AO x 3, No Motor Deficits and Nonfocal/grossly intact
Psych: Calm
# Open right ankle fracture, medial malleolar fracture with tibiotalar subluxation and comminuted displaced right distal fibular metadiaphyseal fracture following mechanical fall, no evidence for syncope, likely due to peripheral neuropathy.
S/P right ankle ORIF on 08/[address] Tinajero.
Ortho recommended : Strict non-weight bearing to RLE. Recommend ASA 325 mg daily x4 weeks for DVT ppx. Maintain splint until 2 week post-op visit.
- c/w pain control
# Open wound and exposed bone X 2 days
some fever in last 24 hours, will d/w ID
started on Rocephin and Flagyl. WBC was coming down.
Appreciate ID help:
# mild acute blood loss anemia.
# Soft heart murmur
pt denies cardiac symptoms, offered to have echo but he would like to do Echo in OP setting setting with his PCP.
#Leukocytosis, likely reactive
-No fevers.
#IDDM
- AM BS 294
HGB A1C 6.6
started diabetic diet
#Mild renal insufficiency
His creatinine 1.3 then down to 1.2 with GFR >60
Patient denied history of CKD
-s/p IVF
#Essential HTN
-continue Losartan daily for now and monitor lytes, renal function
#Peripheral diabetic neuropathy/ Chronic pain syndrome with opioid dependency
-continue Pregabalin
-he takes Percocet BID prn,
#TBili 2.3, down to 1.6
-no abdominal symptoms, LFTs otherwise WNL
DVT Proph- DVT prophylaxis with Aspirin.
Full Code
Total time spent to see the patient, examine the patient on the floor, review data and lab results, discuss treatment plan with patient, ID doctor, nursing staff around 55 minutes
Anticipated Discharge: Within 24 hours
Subjective/Interval History
-
Date of Service: August 11, 2023
fever last night
low grade this morning at 99
No pain in leg
Objective Data
-
Vital Signs:
Vital Signs
Temp Pulse Resp BP Pulse Ox
99.6 F 84 16 170/89 97
08/11/23 08:04 08/11/23 08:04 08/11/23 08:04 08/11/23 08:09 08/11/23 08:04
I&O
08/10/23 08/11/23 08/12/23
06:59 06:59 06:59
Intake Total 1475 / 1475 900 / 900
Output Total 950 / 950
Balance 525 / 525 900 / 900
--- NOTE | 2023-08-11 11:14 | W.PN.ID1 ---
Date of Service
Date of Service: August 11, 2023
Today's Communication
Check CBC and CXR.
Assessment / Plan
# Open bilateral malleolar ankle fracture with exposed bone;
POD #3 I+D, ORIF
# Leukocytosis - trending down
# fever again today
- Yesterday was last day prophylactic Vancomycin, ceftriaxone and metronidazole (72h post-op)
- Given ongoing fever, will recheck CBC, CXR. Further workup thereafter if necessary.
- Continue to monitor temps.
#Additional Past Medical History:
Diabetes mellitus
Neuropathy
Hypertension
Dyslipidemia
Depression
Chief Complaint
-: Fever and Other (open fracture right ankle)
Subjective / Review of Systems
Patient seen and examined. Fever recorded overnight. At present, patient admits to some mild right inguinal discomfort, but denies specific pain or swelling in the right lower extremity. He denies any cough or congestion.
Vital Signs / Physical Exam
Vital Signs
Vital Signs
Temp Pulse Resp BP Pulse Ox
99.6 F 84 16 170/89 97
08/11/23 08:04 08/11/23 08:04 08/11/23 08:04 08/11/23 08:09 08/11/23 08:04
Physical Exam
Constitutional: No Acute Distress, Comfortable and Non-toxic
Head: Normocephalic
Eyes: Pupils Equal, Pupils Round and Sclera Anicteric
Cardiovascular: S1/S2; Negative S3/S4 or Murmur
Pulmonary: Clear; Negative Wheezes, Rales or Rhonchi
Gastrointestinal: Soft, Non Tender and Non Distended
Extremities: Edema (RLE) and Other (No inguinal adenopathy or swelling.); Negative Erythema
Skin: Warm and Dry
Neurological: Awake and Alert
Psychological: Calm
Objective Data
Lab Data
Lab Results
08/09/23 05:26
08/09/23 05:26
PT 15.9 Sec (11.4-14.6) H 08/07/23 21:37
INR 1.29 08/07/23 21:37
Estimated Creat Clear 52 ml/min 08/09/23 05:26
Total Bilirubin 1.6 mg/dl (0.2-1.3) H 08/08/23 07:07
AST 35 U/L (17-59) 08/08/23 07:07
ALT 20 U/L (0-50) 08/08/23 07:07
Alkaline Phosphatase 109 U/L (38-126) 08/08/23 07:07
Most recent labs reviewed.
08/07/23 ankle XRAY: Possible nondisplaced medial malleolar fracture. Open. Tibiotalar subluxation. Comminuted displaced right distal fibular metadiaphyseal fracture.
Care Review
Plan reviewed with: Physician (Hospitalist)
[2023-08-11 11:36] LABS: Glucose - Point of Care 171 mg/dl (70-99)
[2023-08-11 11:59] LABS: % Basophils 0.6 % (0-2); % Eosinophils 1.8 % (0-6); % Immature Granulocytes 0.4 % (0-0.5); % Lymphocytes 10.9 % (20.5-51.1); % Monocytes 9.2 % (1.7-9.3); % Neutrophils 77.1 % (42.2-75.2); Absolute Basophils 0.1 10^3/uL (0-0.2); Absolute Eosinophils 0.2 10^3/uL (0-0.7); Absolute Lymphocytes 1.1 10^3/uL (1.2-3.4); Absolute Monocytes 0.9 10^3/uL (0.1-0.6); Absolute Neutrophils 7.8 10^3/uL (1.4-6.5); Hematocrit 33.6 % (39.0-52.0); Hemoglobin 11.8 g/dL (13.0-18.0); Mean Corp Hgb Conc. 35.1 g/dL (33.0-37.0); Mean Corpuscular Hgb 29.9 pg (27.0-31.0); Mean Corpuscular Volume 85.1 fL (80.0-94.0); Mean Platelet Volume 10.5 fL (7.4-10.4); Nucleated Red Blood Cells % 0 % (-); Platelet Count 273 10^3/uL (130-400); Red Blood Cell Count 3.95 10^6/uL (4.70-6.10); Red Cell Dist. Width 13.8 % (11.5-14.5); White Blood Cell Count 10.1 10^3/uL (4.8-10.8)
[2023-08-11] MEDS: COMPAZINE 10 MG IV (13:12)
[2023-08-11 15:46] VITALS: BP 127/5
[2023-08-11] MEDS: LIPITOR 20 MG PO (16:24)
[2023-08-11 16:30] LABS: Glucose - Point of Care 151 mg/dl (70-99)
[2023-08-11 21:05] LABS: Glucose - Point of Care 97 mg/dl (70-99)
[2023-08-11] MEDS: COLACE 100 MG PO (21:12)
[2023-08-11] MEDS: SENOKOT 17.1999999999999993 MG PO (21:12)
[2023-08-11 23:00] VITALS: BP 162/77
[2023-08-12] MEDS: TYLENOL PO ×2 (00:28→04:52)
[2023-08-12 07:36] VITALS: BP 193/92
[2023-08-12] MEDS: COZAAR 25 MG PO (07:42)
[2023-08-12] MEDS: NOVOLOG FLEXPEN-MODERATE RESISTANCE SC ×2 (07:42→12:23)
[2023-08-12] MEDS: NOVOLOG FLEXPEN SC (07:42)
[2023-08-12] MEDS: ROXICODONE 5 MG PO ×2 (07:43→13:40)
[2023-08-12] MEDS: LYRICA 100 MG PO (07:43)
[2023-08-12] MEDS: LIPITOR 20 MG PO (07:43)
[2023-08-12] MEDS: COLACE 100 MG PO (07:44)
[2023-08-12] MEDS: LANTUS 0.309999999999999998 UNITS SC (07:44)
[2023-08-12] MEDS: TYLENOL 650 MG PO ×2 (07:44→13:40)
[2023-08-12] MEDS: SENOKOT 17.1999999999999993 MG PO (07:44)
[2023-08-12 07:48] LABS: Glucose - Point of Care 112 mg/dl (70-99)
--- NOTE | 2023-08-12 11:18 | W.PN.HOSP.TC ---
Today's Communication/Plan
-
dc
Assessment / Plan
Assessment / Plan
Physical Exam
General: Well Developed, Well Nourished, No Apparent Distress, Comfortable and Conversant
HEENT: Normocephalic, Anicteric and Moist mucous membranes
Respiratory: Clear
Cardiac: S1/S2 and Regular Rhythm
GI: Soft, Non Tender and Non Distended
Musculoskeletal: No Clubbing, No Cyanosis and Other (RLE dressing)
Neuro: AO x 3, No Motor Deficits and Nonfocal/grossly intact
Psych: Calm
# Open right ankle fracture, medial malleolar fracture with tibiotalar subluxation and comminuted displaced right distal fibular metadiaphyseal fracture following mechanical fall, no evidence for syncope, likely due to peripheral neuropathy.
S/P right ankle ORIF on 08/[address] Tinajero.
Ortho recommended : Strict non-weight bearing to RLE. Recommend ASA 325 mg daily x4 weeks for DVT ppx. Maintain splint until 2 week post-op visit.
- c/w pain control
# Open wound and exposed bone
He had fever last night also, d/w ID, keep off ABx for now and can go home w/o ABx as pt finished course in the hospital, possible drug fever.
started on Rocephin and Flagyl. WBC is normal. Chest x ray no acute findings.
Appreciate ID help.
# mild acute blood loss anemia.
# Soft heart murmur
pt denies cardiac symptoms, offered to have echo but he would like to do Echo in OP setting setting with his PCP.
#Leukocytosis, likely reactive
-No fevers.
#IDDM
- AM BS 294
HGB A1C 6.6
started diabetic diet
#Mild renal insufficiency
His creatinine 1.3 then down to 1.2 with GFR >60
Patient denied history of CKD
-s/p IVF
#Essential HTN
-continue Losartan daily for now and monitor lytes, renal function
#Peripheral diabetic neuropathy/ Chronic pain syndrome with opioid dependency
-continue Pregabalin
-he takes Percocet BID prn,
#TBili 2.3, down to 1.6
-no abdominal symptoms, LFTs otherwise WNL
DVT Proph- DVT prophylaxis with Aspirin.
Full Code
Total discharge time spent to see the patient, examine the patient on the floor, review data and lab results, discuss discharge plan with patient, ID doctor, nursing staff around 67 minutes
Anticipated Discharge: Today
Subjective/Interval History
-
Date of Service: August 12, 2023
he is feeling better
No fevers
Objective Data
-
Vital Signs:
Vital Signs
Temp Pulse Resp BP Pulse Ox
99 F 88 18 193/92 98
08/12/23 07:36 08/12/23 07:36 08/12/23 07:36 08/12/23 07:42 08/12/23 07:36
I&O
08/11/23 08/12/23 08/13/23
06:59 06:59 06:59
Intake Total 900 / 900 620 / 620
Output Total 775 / 775
Balance 900 / 900 -155 / -155
[2023-08-12 11:31] VITALS: BP 152/85
[2023-08-12 12:21] LABS: Glucose - Point of Care 82 mg/dl (70-99)
--- NOTE | 2023-08-12 13:14 | CM ---
Reviewed the chart notes and spoke with the patient at the bedside. IMM signed and placed on chart. Patient to be discharged today to home. Patient declined VN offer. Patient provided with Arik from [employer]'s phone number to call when home
for bsc delivery. Patient's friend will provide transportation. CM continues to be available to patient/family and is monitoring medical plan for needs at discharge.
Plan: Discharge to home today.
--- NOTE | 2023-08-12 13:19 | W.DCSUMMARY ---
Discharge Summary
Discharge Data
Date of Admission: 08/07/23
Date of Discharge: 08/12/23
-
Pending Results: No
Hospital Course
73 years old male who had a history of falls twice developed significant right ankle pain with skin laceration but did not seek medical care. He was crawling on his knees for 2 days. Patient had history of diabetes and diabetic neuropathy. He
was dressing the laceration himself. He later noticed that he had a large deep wound and called ambulance. Imaging studies showed comminuted distal fibula fracture. He was taken to the operation room by orthopedic doctor Dr Tinajero for wound
cleaning, irrigation, debridement down to the bone followed by open reduction and internal fixation. He received intravenous antibiotic perioperatively. Patient was followed by orthopedic doctor. He was also followed by infectious diseases
publicity consultant. He received intravenous antibiotic and finished course of treatment in the hospital. Leukocytosis resolved. Patient developed fever and gastrointestinal symptoms. He did not have urinary symptoms or respiratory symptoms. Chest
radiography came back with no acute findings. Infectious disease doctor suspected drug fever and discontinued antibiotic. Fever resolved and patient started to feel better. Infectious disease doctor recommended to keep off antibiotic and follow
with wound care as instructed by the orthopedic doctor. Patient remained hemodynamically stable. He was evaluated by physical therapy and recommended home health services. Patient was followed by adult protective caseworker. He was discharged in a stable
condition on short course of doxycycline(he verbalized understanding to potential side effects) and 325 mg aspirin for deep venous thrombosis prophylaxis. Patient had pain medicine at home and was advised to follow-up with his pain management
doctor.
Discharge Plan
-
Patient Disposition: Home with Home Care
Discharge Diagnosis/Procedures: Open right ankle fracture, medial malleolar fracture with tibiotalar subluxation and comminuted displaced right distal fibular metadiaphyseal fracture following mechanical fall s/p right ankle open reduction and
internal fixation on 08/[address] Tinajero.
Doxycycline is a prophylactic antibiotic, use for short course. It can cause photosensitivity so avoid direct sun exposure. Use Aspirin 325 mg for deep venous thrombosis of prophylaxis.
Diet: As tolerated and Diabetic, Carb Controlled
Referrals:
Willard Tinajero MD [Active] - in two weeks
Asha Vivas MD [Family Provider] -
Prescriptions:
New
aspirin 325 mg tablet
325 mg PO DAILY Qty: 30 0RF
doxycycline hyclate 100 mg capsule
100 mg PO BID Qty: 6 0RF
Continued
metformin 500 mg tablet
500 mg PO DAILY@1200
metformin 500 mg tablet
1,000 mg PO DAILY@1700
atorvastatin 20 mg tablet
20 mg PO DAILY
oxycodone-acetaminophen 5-325 mg tablet
1 tab PO BIDPRN PRN (Reason: SEVERE PAIN)
losartan 25 mg tablet
25 mg PO DAILY
insulin aspart U-100 [Novolog FlexPen U-100 Insulin] 100 unit/mL (3 mL) insulin pen
8 - 10 unit SC AC
pregabalin 100 mg capsule
100 mg PO TID
insulin degludec [Tresiba FlexTouch U-100] 100 unit/mL (3 mL) insulin pen
31 unit SC BID
Discharge Orders:
Discharge Patient (As Directed); Ordered 08/12/23
Ordered By: Jaye Moy
Discharge Date and Time
Discharge Date/Time: 08/12/23 15:06
Print Language: TOGOLESE
[2023-08-12] MEDS: NOVOLOG FLEXPEN 8 UNITS SC (13:41)
[2023-08-12 14:54] VITALS: BP 150/75
[2023-08-12] MEDS: ASPIRIN 325 MG PO (14:56)
--- NOTE | 2023-08-12 15:28 | PTCARENOTE ---
Discharge instructions given to patient. Rn educated patient on the importance of taking the aspirin and antibiotics as prescribed. Discharged with walker. Patient confirmed that he had the number to call for the delivery of the commode. Patient
discharged to [facility] via wheelchair with staff.
== END 2023-08-12 15:06 | disposition home or self-care (01) | DRG 493 ==
LOC: 2 SOUTH 17:28
PROVIDERS: Internal Medicine Infectious Disease; Nurse Practitioner; ADMITTING PHYSICIAN Internal Medicine; ATTENDING PHYSICIAN Internal Medicine; CONSULT PHYSICIAN Internal Medicine Infectious Disease; CONSULT PHYSICIAN Orthopaedic Surgery Hand Surgery; EMERGENCY PHYSICIAN Emergency Medicine; FAMILY PHYSICIAN Family Medicine
PROC: 3E0234Z Introduction of Serum, Toxoid and Vaccine into Muscle, Percutaneous Approach (ICD-10-PCS; 2023-08-07)
PROC: 0QDG0ZZ Extraction of Right Tibia, Open Approach (ICD-10-PCS; 2023-08-07)
PROC: 0QSJ04Z Reposition Right Fibula with Internal Fixation Device, Open Approach (ICD-10-PCS; 2023-08-07)
DX: S82.841B Displaced bimalleolar fracture of right lower leg, initial encounter for open fracture type I or II (principal); D62 Acute posthemorrhagic anemia; F33.8 Other recurrent depressive disorders; N17.8 Other acute kidney failure; E11.42 Type 2 diabetes mellitus with diabetic polyneuropathy; E11.319 Type 2 diabetes mellitus with unspecified diabetic retinopathy without macular edema; S93.01XA Subluxation of right ankle joint, initial encounter; T36.8X5A Adverse effect of other systemic antibiotics, initial encounter; E78.00 Pure hypercholesterolemia, unspecified; E80.7 Disorder of bilirubin metabolism, unspecified; D72.828 Other elevated white blood cell count; E86.0 Dehydration; R79.89 Other specified abnormal findings of blood chemistry; N28.9 Disorder of kidney and ureter, unspecified; I10 Essential (primary) hypertension; R01.1 Cardiac murmur, unspecified; R50.2 Drug induced fever; G89.4 Chronic pain syndrome; Z88.0 Allergy status to penicillin; Z79.4 Long term (current) use of insulin; Z79.84 Long term (current) use of oral hypoglycemic drugs; Z79.891 Long term (current) use of opiate analgesic; W01.0XXA Fall on same level from slipping, tripping and stumbling without subsequent striking against object, initial encounter; Z23 Encounter for immunization
CPT/HCPCS: 71046; 73610; 80048; 80053; 80202; 82962; 83036; 85025; 85027; 85610; 86850; 86900; 86901; 90471; 90715; 93005; 96365; 96366; 96375; 97116; 97163; 97167; 97535; 99285; C1713

== ENCOUNTER 2023-08-30 18:11 | Inpatient (IN) | payer OTHER, SELFPAY ==
[2023-08-30 14:31] VITALS: BP 166/67
--- NOTE | 2023-08-30 15:40 | ED.GENMED ---
History of Present Illness
General
Chief Complaint: Post Operative Problem(s)
Source: patient
Exam Limitations: none
Time Seen by Provider: 08/30/23 15:15
Nursing documentation reviewed up to this point in time: agreed with
History of Present Illness
History of Present Illness:
73 y/o M with h/o IDDM, diabetic neuropathy
fell 08/04 and presented on 08/06 for NWB juni pain and laceration
he apparently had been crawling around for a day before coming in
he had ORIF of his open bimall fx on 08/[address] guevara
continued IV abx (had ID consult) was sent home with a few days of cefdinir
lives alone
has been partially weight bearing or dragging the leg and trying to avoid weight bearing
no fever/chills
went to post op ortho check 2 days ago, and saw the PA. went home and yesterday was called after the PA spoke with dr. lyons from ID. after that discussion itw as recommended that pt come for IV abx. i reviewed the note written in [facility] regarding
the converstaion between ortho and serena and they recommended deep wound culture and iv cefepime
pt says he couldn't get here until a neighbor could drive him today
no complaints
pt was poor historian
Past History
Past History
ED Past Medical History: HTN, NIDDM and Other (Diabetic neuropathy BLE)
ED Past Surgical History: Other (wisdom teeth, cataracts)
Social History
Tobacco: Non-smoker
Drug: None
Review of Systems
Review of Systems
Allergies reviewed?: Yes
All Other Systems: Not applicable
Phy Exam
Physical Exam
Physical Exam:
GENERAL: Alert , in no apparent distress, comfortable at rest
HEAD: NCAT
CV: 2+ DP PULSES B/L
NEUROLOGICAL: Alert and oriented, no focal neuro deficits, , 5/5 strength, diminished overall sensation foot on right
SKIN: Warm and dry,
right lateral incision site closed, no erythhema, nontender
left medial horizontal incision with sutures and appears to have some granulation within the center of the incision and some 3 cm surrounding erythema
no weeping
nontender but pt has neuropathy
MUSCULOSKELETAL:some overal swelling of the ankle
the incision sites are apprxoimated
medially with some erythema
no weeping
normal foot
PSYCH: Normal and appropriate interaction.
Course
Orders/Labs/Results
Orders:
Orders
08/30/23 15:52
Ankle, Right 3 view CR [CR Ankle - Right Min 3 Views *] Urgent
Comment:
Reason For Exam: right ankle ORIF, oncern for infection
08/30/23 15:58
Basic Metabolic Panel Urgent
CRP [C-Reactive Protein] Urgent
Complete Blood Count/With Diff Urgent
ESR [Erythrocyte Sed Rate] Urgent
Blood Culture Urgent
MARIA T Source: Blood/Venous
Specimen Description:
08/30/23 16:48
Wound Culture [Wound/Abscess/Other Culture] Urgent
MARIA T Source: Ankle
Specimen Description: Right
Date Specimen was Collected: 08/30/23
Time Specimen was Collected: 17:01
Cefepime HCl [Maxipime] 2,000 mg IV NOW STA
08/30/23 16:57
Sterile Water [Sterile Water For Injection] 10 ml .ROUTE .ST-MED ONE
Abnormal Lab Results
08/30/23
15:58
RBC 4.17 L 10^6/uL
(4.70-6.10)
Hgb 11.7 L g/dL
(13.0-18.0)
Hct 36.4 L %
(39.0-52.0)
MCHC 32.1 L g/dL
(33.0-37.0)
MPV 10.8 H fL
(7.4-10.4)
Absolute Neuts (auto) 7.2 H 10^3/uL
(1.4-6.5)
Absolute Monos (auto) 0.8 H 10^3/uL
(0.1-0.6)
Lymphocytes % 14.9 L %
(20.5-51.1)
Glucose 162 H mg/dl
(70-99)
C-Reactive Protein 67.20 H mg/L
(0.0-10.00)
08/30/23 15:58
08/30/23 15:58
Vital Signs
Initial and Last Documented VS:
Initial Vital Signs
Temp Pulse Resp BP Pulse Ox
98.2 F 82 16 166/67 98
08/30/23 14:31 08/30/23 14:31 08/30/23 14:31 08/30/23 14:31 08/30/23 14:31
Last Documented Vital Signs
Temp Pulse Resp BP Pulse Ox
98.2 F 82 16 166/67 98
08/30/23 14:31 08/30/23 14:31 08/30/23 14:31 08/30/23 14:31 08/30/23 14:31
MDM/Problems Addressed
Differential Diagnosis Includes:
post op infection, cellulitis, granulation tissue
MDM/Problems Addressed:
73 y/o M IDDM, s/p ORIF of open R ankle fx ritting on 08/06 after crawling around for 2 days on it; dirty wound; on iv abx and d/c 08/11 on cefdinir for a few days; here after seeing ortho 2 days ago concerned for post op infx; d/w serena who
recommended deep culture and iv cefepime
*Critical Care Note
Total Time (30-74mins, 75-104mins- exclusive of procedures): Not Applicable
ED Attending Note
-
Portions of this chart may have been created with voice recognition software.� Occasional wrong word or��sound alike� substitutions may have occurred due to the inherent limitations of voice recognition software.
Discharge Plan
Departure
Patient Disposition: Admit
Date of Disposition: 08/30/23
Time of Disposition: 16:49
Admit to: Med/Surg
Presentation/result/management discussed w/ accepting MD/DO: Hospitalist
Condition: Fair
Covid-19: Not Applicable
Discharge Problem:
Post op infection
Prescriptions:
No Action
metformin 500 mg tablet
500 mg PO NOON PRN (Reason: Diabetes)
Patient Comments:
08/30/2023, when pt. skips lunch they do not take this med.
metformin 500 mg tablet
1,000 mg PO QPM
atorvastatin 20 mg tablet
20 mg PO DAILY
oxycodone-acetaminophen 5-325 mg tablet
1 tab PO Q8HPRN PRN (Reason: SEVERE PAIN)
losartan 25 mg tablet
25 mg PO DAILY
insulin aspart U-100 [Novolog FlexPen U-100 Insulin] 100 unit/mL (3 mL) insulin pen
5 - 10 sliding scale dose SC AC
Patient Comments:
08/30/2023, pt. unsure of sliding scale.
pregabalin 100 mg capsule
100 mg PO Q8H@0700,15,23
insulin degludec [Tresiba FlexTouch U-100] 100 unit/mL (3 mL) insulin pen
31 - 32 unit SC BID
aspirin 325 mg tablet
325 mg PO DAILY Qty: 30 0RF
sulfamethoxazole-trimethoprim 800-160 mg tablet
1 tab PO BID
Patient Comments:
08/30/2023, filled on 08/28/2023 and instructed to take 1 tab BID for 10 days. Pt. has taken 3 pills so far.
Referrals:
Asha Vivas MD [Family Provider] -
Interventions
Interventions:
*Risk Screen - Suicide Last Done: 08/30/23 14:31
*General Assessment Last Done: 08/30/23 14:31
*Neglect/Abuse Screening Last Done: 08/30/23 14:31
Discharge Date and Time
Print Language: YI
[2023-08-30 16:20] LABS: % Basophils 0.9 % (0-2); % Eosinophils 3.6 % (0-6); % Immature Granulocytes 0.2 % (0-0.5); % Lymphocytes 14.9 % (20.5-51.1); % Monocytes 7.8 % (1.7-9.3); % Neutrophils 72.6 % (42.2-75.2); Absolute Basophils 0.1 10^3/uL (0-0.2); Absolute Eosinophils 0.4 10^3/uL (0-0.7); Absolute Lymphocytes 1.5 10^3/uL (1.2-3.4); Absolute Monocytes 0.8 10^3/uL (0.1-0.6); Absolute Neutrophils 7.2 10^3/uL (1.4-6.5); Hematocrit 36.4 % (39.0-52.0); Hemoglobin 11.7 g/dL (13.0-18.0); Mean Corp Hgb Conc. 32.1 g/dL (33.0-37.0); Mean Corpuscular Hgb 28.1 pg (27.0-31.0); Mean Corpuscular Volume 87.3 fL (80.0-94.0); Mean Platelet Volume 10.8 fL (7.4-10.4); Nucleated Red Blood Cells % 0 % (-); Platelet Count 292 10^3/uL (130-400); Red Blood Cell Count 4.17 10^6/uL (4.70-6.10); Red Cell Dist. Width 13.3 % (11.5-14.5); White Blood Cell Count 9.9 10^3/uL (4.8-10.8)
[2023-08-30 16:31] LABS: Blood Urea Nitrogen 18 mg/dl (9-20); Calcium 9.2 mg/dl (8.4-10.2); Carbon Dioxide 25 mmol/L (22-30); Chloride 104 mmol/L (98-107); Glucose 162 mg/dl (70-99); Sodium 138 mmol/L (135-145); eGFR > 60.00
[2023-08-30] MEDS: MAXIPIME 2000 MG IV (17:07)
[2023-08-30 17:10] LABS: Erythrocyte Sed Rate 53 mm/hour (0-20)
--- NOTE | 2023-08-30 18:02 | HPS.HSE ---
Family Physician
-
Family Physician: Asha Vivas
Chief Complaint
-
ankle infection
History of Present Illness
73-year-old male past medical history of recent open right ankle fracture status post ORIF on 08/06, heart murmur, diabetes, CKD, hypertension, diabetes, diabetic neuropathy, diabetic retinopathy, chronic pain with opiate dependency, blood loss
anemia sent in by orthopedic doctor for potential postoperative wound infection.
Patient recently fell and had a open right ankle fracture with a dirty wound status post ORIF on 08/06. He received postoperative IV antibiotics and was discharged on 08/11 on cefdinir. He saw orthopedics 2 days ago who was concerned for
postoperative infection. He was started on Bactrim and recommended to come to the hospital today. He denies any fevers or chills. He denies any worsening pain of the ankle.
He denies smoking or alcohol use.
Medical History
Past Medical History
Past Medical History: Reports Other (recent open right ankle fracture status post ORIF on 08/06, heart murmur, diabetes, CKD, hypertension, diabetes, diabetic neuropathy, diabetic retinopathy, chronic pain with opiate dependency, blood loss anemia)
Past Surgical History: Reports Other ((wisdom teeth, cataracts))
Social History
Tobacco: Non-smoker
Alcohol: None
Drug: None
Family History
Family History: Not pertinent
Allergies / Home Medications
Allergies reflects when Allergies were last updated in [employer].
Home Medications with original date entered in [employer]
Allergy/Medication List:
Allergies
Allergy/AdvReac Type Severity Reaction Status Date / Time
Penicillins Allergy at 9 Verified 08/30/23 14:30
years old,
shortness
of breath
Home Medications
atorvastatin 20 mg tablet 20 mg PO DAILY High Cholesterol 08/07/23
insulin aspart U-100 100 unit/mL (3 mL) subcutaneous pen (Novolog FlexPen U-100 Insulin aspart) 5 - 10 sliding scale dose SC AC Diabetes 08/07/23
insulin degludec 100 unit/mL (3 mL) subcutaneous pen (Tresiba FlexTouch U-100 insulin) 31 - 32 unit SC BID Diabetes 08/07/23
losartan 25 mg tablet 25 mg PO DAILY Blood Pressure 08/07/23
metformin 500 mg tablet 1,000 mg PO QPM Diabetes 08/07/23
metformin 500 mg tablet 500 mg PO NOON PRN Diabetes 08/07/23
oxycodone-acetaminophen 5 mg-325 mg tablet 1 tab PO Q8HPRN PRN SEVERE PAIN 08/07/23
pregabalin 100 mg capsule 100 mg PO Q8H@0700,15,23 Pain 08/07/23
aspirin 325 mg tablet 325 mg PO DAILY #30 tabs 08/12/23
sulfamethoxazole 800 mg-trimethoprim 160 mg tablet 1 tab PO BID 08/30/23
Review of Systems
-
History Source: Patient
A 12 point ROS was completed and negative except as noted: Yes
Constitutional: Reports No Symptoms
EENT: Reports No Symptoms
Respiratory: Reports No Symptoms
Cardiac: Reports No Symptoms
Abdomen/GI: Reports No Symptoms
: Reports No Symptoms
Musculoskeletal: Reports No Symptoms
Skin: Reports See HPI
Neurological: Reports No Symptoms
Endocrine: Reports No Symptoms
Hematologic/Lymphatic: Reports No Symptoms
Psych: Reports No Symptoms
Physical Exam
Vital Signs
Vital Signs
Temp Pulse Resp BP Pulse Ox
98.2 F 82 16 166/67 98
08/30/23 14:31 08/30/23 14:31 08/30/23 14:31 08/30/23 14:31 08/30/23 14:31
Physical Exam
General: Well Developed, Well Nourished and No Apparent Distress
HEENT: NormoCephalic, Moist mucous membranes and Atraumatic
Respiratory: Clear
Cardiac: S1/S2 and Regular Rhythm; No Murmur or Rub
GI: Soft, Non Tender, Non Distended and Normal Bowel Sounds; No Organomegaly
Rectal: Deferred by Provider
Musculoskeletal: No Clubbing, No Cyanosis and No Edema
Skin: No Rash
Neuro: Nonfocal/grossly intact
Laboratory Results
-
08/30/23 15:58
08/30/23 15:58
Laboratory Results
Total Bilirubin Cancelled 08/30/23 15:58
AST Cancelled 08/30/23 15:58
ALT Cancelled 08/30/23 15:58
Alkaline Phosphatase Cancelled 08/30/23 15:58
Data Reviewed
-
Lab Data: Labs Reviewed by me
Old Records: Reviewed
Impression/Plan
-
IMPRESSION:
PLAN:
# Possible postoperative wound infection
# Open right ankle fracture/wound with exposed bone, medial malleolus fracture tibiotalar subluxation comminuted displaced right distal fibular metadiaphyseal fracture following mechanical fall status post ORIF on 08/06
-Check wound culture
-Check blood culture
-ID recommending cefepime
-Ortho consulted
Postoperative blood loss anemia
-Hemoglobin 11.7 from 13 previous
Heart murmur
-Outpatient follow-up with primary for echo
Type 2 diabetes
-Continue 31 units Lantus
-Insulin sliding scale
-Hold metformin
Diabetic neuropathy/chronic pain with opiate dependence
-Continue pregabalin
-Continue Percocet
Diabetic retinopathy
Chronic kidney disease
-Renal function at baseline
-Continue losartan
Essential hypertension
Full code
DVT prophylaxis�aspirin
Diabetic diet
[2023-08-30 19:57] VITALS: BP 125/53; BMI 27.5
[2023-08-30 21:21] LABS: Glucose - Point of Care 73 mg/dl (70-99)
[2023-08-30] MEDS: PERCOCET 5/325 1 TABLET PO (21:28)
[2023-08-30] MEDS: LANTUS 0.31 UNITS SC (21:31)
[2023-08-30] MEDS: LYRICA 100 MG PO (22:07)
[2023-08-30 23:37] VITALS: BP 141/63
[2023-08-31] MEDS: MAXIPIME 2000 MG IV ×2 (06:01→17:28)
[2023-08-31] MEDS: STERILE WATER FOR INJECTION 10 ML IV ×2 (06:02→17:29)
[2023-08-31 06:52] LABS: % Eosinophils 6.5 % (0-6); % Immature Granulocytes 0.3 % (0-0.5); % Lymphocytes 18.5 % (20.5-51.1); % Monocytes 8.7 % (1.7-9.3); Absolute Basophils 0.1 10^3/uL (0-0.2); Absolute Eosinophils 0.6 10^3/uL (0-0.7); Absolute Lymphocytes 1.6 10^3/uL (1.2-3.4); Absolute Monocytes 0.8 10^3/uL (0.1-0.6); Absolute Neutrophils 5.6 10^3/uL (1.4-6.5); Hematocrit 33.1 % (39.0-52.0); Hemoglobin 10.5 g/dL (13.0-18.0); Mean Corp Hgb Conc. 31.7 g/dL (33.0-37.0); Mean Corpuscular Hgb 27.9 pg (27.0-31.0); Mean Corpuscular Volume 87.8 fL (80.0-94.0); Mean Platelet Volume 10.7 fL (7.4-10.4); Nucleated Red Blood Cells % 0 % (-); Platelet Count 268 10^3/uL (130-400); Red Blood Cell Count 3.77 10^6/uL (4.70-6.10); Red Cell Dist. Width 13.3 % (11.5-14.5); White Blood Cell Count 8.6 10^3/uL (4.8-10.8)
[2023-08-31 07:00] VITALS: BP 107/54
[2023-08-31 07:19] LABS: ALT (SGPT) 17 U/L (0-50); AST (SGOT) 24 U/L (17-59); Alkaline Phosphatase 97 U/L (38-126); Blood Urea Nitrogen 17 mg/dl (9-20); Calcium 8.7 mg/dl (8.4-10.2); Carbon Dioxide 29 mmol/L (22-30); Chloride 106 mmol/L (98-107); Estimated Creatinine Clearance 57 ml/min; Glucose 35 mg/dl (70-99); Potassium 4.3 mmol/L (3.5-5.1); Sodium 140 mmol/L (135-145); Total Bilirubin 0.5 mg/dl (0.2-1.3); Total Protein 5.5 g/dl (6.3-8.2); eGFR > 60.00
[2023-08-31 07:45] LABS: Glucose - Point of Care 51 mg/dl (70-99)
[2023-08-31] MEDS: ASPIRIN 325 MG PO (07:46)
[2023-08-31] MEDS: PERCOCET 5/325 1 TABLET PO ×2 (07:46→16:20)
[2023-08-31] MEDS: LIPITOR 20 MG PO (07:46)
[2023-08-31] MEDS: COZAAR 25 MG PO (07:47)
[2023-08-31] MEDS: LYRICA 100 MG PO ×3 (07:48→22:10)
--- NOTE | 2023-08-31 07:53 | CON.ID ---
Consultation
-
Date/Time Consultation Requested: 08/30/20231945
Date/Time Consultation Performed: 08/31/2023 07:30
Requesting Provider: Dr. Hummel
Performing Provider: Dr. Ricardo
Reason for Consultation: Right medial ankle wound
Chief Complaint / Past History
History of Present Illness
Jacques Horowitz is a 73-year-old man being evaluated at the request of Cornelio Lopez in regards to a right medial ankle wound. History is obtained from chart review, along with patient interview.
The patient has an underlying history of diabetes mellitus, along with neuropathy, and was recently admitted to [facility] on 08/06 following several falls. According to reviewed notes, around that time he fell once at his friend's home,
and then on his driveway. Following the falls he developed significant ankle pain, but did not immediately seek medical care and was reportedly crawling on his knees for approximately 2 days to keep his ankle off the floor. When evaluated in the
ER he was found to have a large and deep wound of the ankle, with imaging revealing a comminuted distal fibular fracture. He was taken to the OR emergently and underwent ORIF. He received appropriate postop prophylactic antibiotics, and was
discharged to home on 08/11.
He recently followed up with Orthopedics in the outpatient setting, and was noted to have dehiscence of the medial ankle wound. ID at that point recommended admission to the hospital for further care, and the patient presented yesterday to the
hospital.
Patient reports strict nonweightbearing at home. He notes that the dressing had not been changed between the time of his discharge and evaluation through orthopedics office. He denies any pain in the area.
Past History
Additional Past Medical History:
DM
Neuropathy
HTN
Dyslipidemia
Depression
Additional Past Surgical History:
Right comminuted distal fibula fracture, s/p ORIF 08/08/2023
Allergy History:
Penicillins Allergy (Verified 08/30/23 14:30)
at 9 years old, shortness of breath
Medications Reviewed: Yes
Current Antibiotics:
Cefepime 2 g IV every 12 hours
Social History
Tobacco: Non-Smoker
Alcohol: None
Drug: None
Personal: Single
Living: Alone
Employment: Retired
Family History
Family History: Not Pertinent
Review of Systems
Vital Signs
Temp Pulse Resp BP Pulse Ox
97.7 F 74 17 107/54 95
08/31/23 07:00 08/31/23 07:47 08/31/23 07:00 08/31/23 07:47 08/31/23 07:00
Physical Exam
Physical Exam
Constitutional: No Acute Distress, Comfortable and Non-toxic
Head: Normocephalic
Eyes: Pupils Equal, Pupils Round, No Conjunctival Hemorrhage and Sclera Anicteric
Oral: No Thrush
Cardiovascular: Regular Rate and S1/S2; Negative S3/S4
Pulmonary: Clear; Negative Wheezes, Rales or Rhonchi
Gastrointestinal: Soft, Non Tender and Non Distended
Genito-Urinary: Negative Ferguson
Extremities: Negative Edema, Cyanosis or Erythema
Wound: Other (Right medial ankle wound essentially dry. Wound dehiscence noted prior, but little drainage at this point in time. Positive periwound erythema with moderate warmth.)
Neurological: Awake and Alert
Psychological: Calm
.
Lab / Diagnostic Study Results
08/31/23 06:25
08/31/23 06:25
Abs Immat Gran (auto) 0.0 10^3/uL (0-0.05) 08/31/23 06:25
Absolute Neuts (auto) 5.6 10^3/uL (1.4-6.5) 08/31/23 06:25
Absolute Lymphs (auto) 1.6 10^3/uL (1.2-3.4) 08/31/23 06:25
Absolute Monos (auto) 0.8 10^3/uL (0.1-0.6) H 08/31/23 06:25
Absolute Basos (auto) 0.1 10^3/uL (0-0.2) 08/31/23 06:25
Immature Gran % 0.3 % (0-0.5) 08/31/23 06:25
Neutrophils % 65.0 % (42.2-75.2) 08/31/23 06:25
Lymphocytes % 18.5 % (20.5-51.1) L 08/31/23 06:25
Monocytes % 8.7 % (1.7-9.3) 08/31/23 06:25
Eosinophils % 6.5 % (0-6) H 08/31/23 06:25
Basophils % 1.0 % (0-2) 08/31/23 06:25
ESR 53 mm/hour (0-20) H 08/30/23 15:58
C-Reactive Protein 67.20 mg/L (0.0-10.00) H 08/30/23 15:58
Microbiology Results
Micro:
08/30/23 17:11 Wound Culture - Pending
Ankle - Right Gram Stain - Pending
08/30/23 15:58 Blood Culture - Pending
Blood/Venous
Imaging:
08/30/2023 X-ray right ankle: Plate and screw hardware transfixing is a comminuted fracture of the distal fibula. No periprosthetic osteolysis. The alignment at the ankle mortise is maintained. Small displaced fracture fragments are noted around
the ankle. Soft tissue swelling is noted in the ankle area. Mild soft tissue gas in the posterior soft tissues at the level of the tibiotalar and subtalar joints is noted.
08/29/2023 Right ankle photo (as taken in Orthopedics office)
Assessment / Plan
Right medial ankle wound with dehiscence
Suspected wound infection
Right ankle cellulitis
Hx recent right ankle comminuted fracture with exposed bone
DM
Neuropathy
HTN
Dyslipidemia
Depression
Recommendations:
Given initial open fracture and exposure to the environment, patient at risk for deeper infection. Additionally wound healing may be difficult secondary to underlying DM and neuropathy.
Continue with empiric cefepime for the present.
Wound culture was obtained in the ER. I have obtained an additional wound culture from a small area of drainage.
Await further culture data to guide antimicrobial selection and de-escalation.
Continue with local care to the wound bed. I have discussed with [facility] nurse extensively.
Care Review
Plan reviewed with: Physician (Orthopedics)
[2023-08-31 08:17] LABS: Glucose - Point of Care 50 mg/dl (70-99)
--- NOTE | 2023-08-31 08:35 | WOUNDNOTE ---
L 2ND TOE
[2023-08-31] MEDS: NOVOLOG FLEXPEN-LOW RESISTANCE SC ×3 (08:37→17:16)
[2023-08-31] MEDS: LANTUS SC (08:38)
[2023-08-31 08:44] LABS: Glucose - Point of Care 75 mg/dl (70-99)
--- NOTE | 2023-08-31 08:48 | WOUNDNOTE ---
[facility] RN note: Patient admitted with post op wound infection R medial ankle. s/p ORIF 08/07/23 from previous fall. Patient lives alone.
See H&P for complete history.
PMH: ORIF 08/07/23, heart murmur, DM, CKD, HTN, neuropathy, chronic pain with opiate dependency.
Wound Location and type/assessment: Patient admitted with: R medial ankle full thickness incisional wound, unsure of tissue depth d/t bernal/brown necrotic cover, small serous drainage. +Surrounding erythema. +Palpable R pedal pulse. R lateral ankle
incision dry/scabbed with steri-strips covering. Scabbed abrasion on R dorsal great toe and L dorsal 2nd toe with local erythema. Sacrum blanchable red.
Appetite: good.
Pressure redistribution devices in place: [employer] Accumax. Patient can move self. He is aware he is NWB RLE. RLE splint in place.
Plan: RLE splint removed and reapplied after wound care with help from Dr. Ricardo and then ANA LILIA Powell. Dr. Ricardo obtained a wound culture. Notified RN Graciela who will send to lab. Instructed patient pressure injury prevention measures. Patient stated
he hasn't been checking his blood sugars at home. RLE elevated on pillow. Air chair cushion under LLE. Instructed patient to make appointment next week with [facility].
Discussed care and confirmed orders with Dr. Ricardo and Rashid Vickers, Daryl ALTAMIRANO.
Care plan updated and will follow as needed.
Note to case management requested for discharge: VN for wound care.
Recommend follow up at wound care center upon discharge.
--- NOTE | 2023-08-31 09:45 | W.PN.UPDATE ---
Update Note
Progress Note Update
Patient pleasantly conversational this morning, enjoying breakfast. No significant complaints, just a little frustrated. Patient is just beyond 3 weeks from his RIGHT ankle ORIF for OPEN fracture. Procedure was performed by Dr. Tinajero (06 August
24). Last Sunday outpatient we had some concerns for his wound. He was started on po ABX but ultimately presented to the ER for admission and IV ABX. appreciate Dr. Ricardo and the wound care team's efforts at this point. Deeper culture of
the wound (pending) was obtained today by Dr. Ricardo. anticipate polymicrobial findings, but this may help better direct IV ABX. he is currently splinted but the wound was viewed via pictures today. Sutures are in place. Definitely looks better
than it did earlier in the week. Wound edges are sloughing. There is some granulation noted. At this point no surgical indication. Will continue with wound care as an inpatient with home care wound care planned 3xs weekly upon D/c. Dr. Ricardo
to determine outpatient oral ABX treatment. We will be adding some Santyl to the wound as well. He will remain NWB in his splint. Close follow-up outpatient with Dr. Ricardo as well as our office (mid next week for suture removal). Would leave
the sutures in place for now. Will follow
--- NOTE | 2023-08-31 10:35 | W.PN.HOSP.TC ---
Addendum entered and electronically signed by Cornelio Veras MD 08/31/23 21:57:
Attending Addendum-
I saw and evaluated the patient. I reviewed the resident�s note and agree with findings and plan as documented in the resident�s note. Sub: Patient denies pain as has decreased sensation in b/l LE. Denies CP SOB called by nursing re hypoglycemia
this am. resolved with OJ. Full 12 point ROS reviewed and negative except as documented Exam: Vitals reviewed in chart GEN-NAD, Heart RRR no M/R/G lungs clear abd soft RLE bandaged moves toes + sensation- LLE foot second toe healing ulcer present
+sensation, DP pulses present but faint
# Open right ankle fracture/wound with exposed bone, medial malleolus fracture tibiotalar subluxation comminuted displaced right distal fibular metadiaphyseal fracture following mechanical fall status post ORIF on 08/06
- NWB ortho input appreciated
# Postoperative wound infection
- Appreciate ID input- deep cx taken an sent for analysis- 08/30
- follow wound culture
- follow blood culture
- cont cefepime for now day #2
- await sensitivities- likely to be polymicrobial
- wound care c/s placed
# Left 2nd toe ulcer
- POA
- check art us/jonas
# Postoperative blood loss anemia
-Hemoglobin 10.5 from 13 previous
- cont to monitor closely for transfusion
# IDDM
- hypoglycemia this am
- last hba1c 6.6 (08/19)
- home dose tresiba 31u BID
- change to lantus 31 units q hs
- patient requires extensive diabetic education- c/s placed
- start Insulin sliding scale
- Hold metformin for now
# Diabetic neuropathy/chronic pain with opiate dependence
-Continue pregabalin
-Continue Percocet
Diabetic retinopathy
# CKD3a
-CR @ baseline 1.1
-Continue losartan
# Essential hypertension
- cont losartan
- astable monitor
# HLD- cont atorvastatin
Full code
DVT prophylaxis�aspirin
Diabetic diet
Time spent coordinating care, review of plan of care with resident, personally reviewed records in EMR, med rec, consults, notes, labs, radiology, d/w nursing � 60 mins
Original Note:
Today's Communication/Plan
-
Wound management, IV antibiotics, culture and sensitivity pending
Assessment / Plan
Assessment / Plan
# Possible postoperative wound infection
# Open right ankle fracture/wound with exposed bone, medial malleolus fracture tibiotalar subluxation comminuted displaced right distal fibular metadiaphyseal fracture following mechanical fall status post ORIF on 08/06
-Wound culture was obtained in the ER and additional wound culture was obtained the morning after.
-Blood cultures were drawn in the ED, ID recommended to not order second set as they are not needed and there is a blood culture shortage currently.
-ID recommending continuing empiric IV cefepime 2000 mg,
-Once culture and sensitivities have returned at which point he can be transition to p.o. antibiotics.
-Bilateral arterial lower extremity Doppler and JONAS was ordered.
-Case management was consulted, to help alleviate barriers of care the patient was facing. There were multiple occasions where the patient had to delay his care due to living alone.
-Wound care consulted
-Ortho consulted
Postoperative blood loss anemia
-Hemoglobin 10.5 decreased from 11.7 yesterday
Likely represents dilutional anemia
Heart murmur
-Outpatient follow-up with primary for echo
Type 2 diabetes
-Sugars were 162 on admission
-Patient had episodes of hypoglycemia this morning his sugars were 35 and 51 on Accu-Cheks. Patient received orange juice and sugars returned to normal levels afterwards. He reports having no symptoms at the time.
-Insulin Lantus was changed from twice daily to once a day.
-Insulin sliding scale
-Hold metformin
Diabetic neuropathy/chronic pain with opiate dependence
-Continue pregabalin
-Continue Percocet
Diabetic retinopathy
Chronic kidney disease
-Renal function at baseline
-Continue losartan
Essential hypertension
Full code
DVT prophylaxis�aspirin
Diabetic diet
Anticipated Discharge: > 48 hours
Subjective/Interval History
-
Date of Service: August 31, 2023
Patient was having episodes of hypoglycemia in the morning which resolved with orange juice
Objective Data
-
Labs:
Laboratory Results
08/31/23
06:25
WBC 8.6
Hgb 10.5 L
Hct 33.1 L
Plt Count 268
Sodium 140
Potassium 4.3
Chloride 106
Carbon Dioxide 29
BUN 17
Creatinine 1.1
Glucose 35 L*
Calcium 8.7
Total Bilirubin 0.5
AST 24
ALT 17
Alkaline Phosphatase 97
Vital Signs:
Vital Signs
Temp Pulse Resp BP Pulse Ox
97.7 F 74 17 107/54 95
08/31/23 07:00 08/31/23 07:47 08/31/23 07:00 08/31/23 07:47 08/31/23 07:00
I&O
08/30/23 08/31/23 09/01/23
06:59 06:59 06:59
Output Total 400 / 400
Balance -400 / -400
Review of Systems
-
History Source: Patient
Constitutional: Reports No Symptoms; Denies Fever, Fatigue, Night Sweats or Chills
Respiratory: Reports No Symptoms
Cardiac: Reports No Symptoms
Abdomen/GI: Reports No Symptoms; Denies Abdominal Pain
Genitourinary: Reports No Symptoms
Physical Exam
-
General: Well Developed
Respiratory: Clear to Auscultation; Negative Wheezes
Cardiac: Regular Rhythm and S1/S2; Negative Murmur
GI: Soft, Nontender and Nondistended
Skin: Warm
Neuro: Awake, Alert, Oriented and AO x 3
Psych: Calm
Data Reviewed
-
Labs: Labs Reviewed by me and Discussed with Physician
[2023-08-31 11:03] LABS: Glucose - Point of Care 124 mg/dl (70-99)
[2023-08-31 14:29] VITALS: BP 170/83
--- NOTE | 2023-08-31 15:24 | PN.DE ---
Diabetes Education
- -
08/31/2023 Diabetes Education Consult
Patient admitted with non healing wound. PMH type 2 diabetes, neuropathy, HTN, hyperlipidemia, depression. 08/04 fracture R ankle, repaired 08/06, went to ortho recheck 08/27, told to come to hospital for IV antibiotic. Prior to admission patient
states he was taking Tresiba 31 units BID with metformin 500 mg @ 12 noon and 1000 mg BID and 8 to 10 units of novolog AC. A1C 6.6
Patient glucose this AM 35.
Discussed with patient his insulin doses and injection technique. He is quite annoyed to discuss this, he states he does what he is told [address] Vivas and 8 to 10 novolog. He states he cannot get to his glucose monitor due to his
ankle injury. Recommended he place the meter in a convenient location for when he is home.
I did suggest that his glucose may be running low at home and reviewed the s/s of hypoglycemia. He states he does NOT need instruction or a refresher on insulin administration.
Discussed with patient that his doses of insulin may be changed after this admission. His response is 'Whatever'.
--- NOTE | 2023-08-31 15:56 | CM ---
Reviewed chart, met with patient to obtain information for assessment. Patient is
--- NOTE | 2023-08-31 15:57 | CM ---
Reviewed chart, met with patient to obtain information for assessment. Patient stated that he lives in a two story home with one step to enter by himself. He has a brother who lives nearby who is supportive. Patient stated that he is independent
with his ADLs, personal care, dressing, bathing and ambulates with a walker. 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
Patient has not had VN services in the past.
He has not been to a SNF.
Patient has a prescription plan and uses, [facility] in [place] for all medications.
His PCP is, Dr. Asha Vivas.
Patient stated that he feels he will be able to return home at discharge and hopes to switch to PO abx.
Plan: Case management will continue to follow and assist with discharge planning. Patient will return home when stable.
[2023-08-31 16:52] LABS: Glucose - Point of Care 126 mg/dl (70-99)
[2023-08-31 21:46] LABS: Glucose - Point of Care 193 mg/dl (70-99)
[2023-08-31] MEDS: LANTUS 0.31 UNITS SC (22:10)
[2023-08-31 23:05] VITALS: BP 143/70
[2023-09-01] MEDS: PERCOCET 5/325 1 TABLET PO ×2 (00:21→08:22)
[2023-09-01 03:02] LABS: Glucose - Point of Care 40 mg/dl (70-99)
[2023-09-01 03:24] LABS: Glucose - Point of Care 45 mg/dl (70-99)
[2023-09-01 03:44] LABS: Glucose - Point of Care 48 mg/dl (70-99)
[2023-09-01] MEDS: DEXTROSE 50% SYRINGE 12.5 GRAMS IV (04:00)
[2023-09-01 04:25] LABS: Glucose - Point of Care 126 mg/dl (70-99)
[2023-09-01] MEDS: MAXIPIME 2000 MG IV ×2 (05:38→17:37)
[2023-09-01] MEDS: STERILE WATER FOR INJECTION 10 ML IV ×2 (05:38→17:36)
--- NOTE | 2023-09-01 06:18 | PTCARENOTE ---
Patients BS @0300 is 40, 4 oz juice given, recheck in 15 mins BS 45, 4 oz juice given, recheck in 15 mins BS 48. [employer] made aware, ordered to give D50. D50 given per protocol, Recheck in 15 mins BS 126. Patient was AAOx3 and asymptomatic throughout
hypoglycemic episode.
[2023-09-01 07:00] VITALS: BP 148/88
[2023-09-01 07:43] LABS: Glucose - Point of Care 57 mg/dl (70-99)
[2023-09-01 08:02] LABS: Glucose - Point of Care 53 mg/dl (70-99)
[2023-09-01] MEDS: LYRICA 100 MG PO ×3 (08:20→23:34)
[2023-09-01] MEDS: COZAAR 25 MG PO (08:20)
[2023-09-01] MEDS: ASPIRIN 325 MG PO (08:21)
[2023-09-01] MEDS: LIPITOR 20 MG PO (08:21)
[2023-09-01] MEDS: SANTYL OINTMENT 1 APPLIC TOPICAL (08:21)
[2023-09-01] MEDS: NOVOLOG FLEXPEN-LOW RESISTANCE SC (08:22)
[2023-09-01] MEDS: BACTROBAN 2% OINTMENT 1 APPLIC TOPICAL (08:25)
[2023-09-01 08:31] LABS: Glucose - Point of Care 73 mg/dl (70-99)
--- NOTE | 2023-09-01 09:55 | W.PN.ORTHO ---
Today's Communication / Plan
-
73-year-old male status post right ankle ORIF for open ankle fracture DOS 07 August 2023.
-Nonweightbearing right lower extremity; splint in place
-Infectious disease on board; no growth to date on current cultures blood present of likely polymicrobial.
-Dressing was taken down today; topical mupirocin and Santyl was applied towards medial wound and rewrapped with nonadherent dressing followed by Kerlix and reapplied splint
-Wound care planned 3 times weekly for dressing changes and monitoring.
-Close follow-up next week for monitoring with wound. Will continue to follow while in house
-DVT PPx 325 mg daily
Assessment
.
Dressing:
Clean, dry and intact.
Plan
.
Activity:
Out of bed.
PT/OT
Subjective
.
.:
Patient resting comfortably.
Vital Signs and Labs
.
Vital Signs and Labs:
Lab Results
08/31/23 06:25
08/31/23 06:25
Temp Pulse Resp BP Pulse Ox
97.8 F 73 14 148/88 96
09/01/23 07:00 09/01/23 07:00 09/01/23 07:00 09/01/23 07:00 09/01/23 07:00
--- NOTE | 2023-09-01 10:06 | W.PN.HOSP.TC ---
Addendum entered and electronically signed by Cornelio Veras MD 09/01/23 23:12:
Attending Addendum-
I saw and evaluated the patient. I reviewed the resident�s note and agree with findings and plan as documented in the resident�s note. Sub: Patient denies pain. Would like to go home. Denies CP SOB. Full 12 point ROS reviewed and negative except as
documented Exam: Vitals reviewed in chart GEN-NAD, Heart RRR no M/R/G lungs clear abd soft RLE bandaged moves toes + sensation- LLE foot second toe healing ulcer present +sensation, DP pulses present but faint
Plan:
# Open right ankle fracture/wound with exposed bone, medial malleolus fracture tibiotalar subluxation comminuted displaced right distal fibular metadiaphyseal fracture following mechanical fall status post ORIF on 08/06
- NWB ortho input appreciated cont splint
# Postoperative wound infection
- Appreciate ID input- deep cx taken an sent for analysis- 08/30
- wound culture- NGTD
- blood culture-NGTD
- cont cefepime for now day #3
- add metronidazole- day #1
- await sensitivities- did receive abx prior to cx
- wound care c/s appreciated
- cont wound care per surgery
# Left 2nd toe ulcer
- POA
- check art us/jonas- 08/30-
1. Right ankle-brachial indices were not obtained secondary to bandages. The right toe brachial index is in the normal range at 0.88. Right lower extremity arteries show no signs of significant inflow disease. No focal flow-limiting arterial
stenosis is identified.
2. Left ankle-brachial index in the normal range at 1.21. The toe brachial index is slightly diminished at 0.56. As on the right, there are multiphasic waveforms from the common femoral artery through the popliteal artery. No focal flow-limiting
stenosis is identified. Findings therefore suggest infrapopliteal small vessel disease on the left.
- f/u vasc as OP
# Postoperative blood loss anemia
-Hemoglobin 11.3 from 13 previous
- cont to monitor closely for transfusion
# IDDM
- better controlled
- last hba1c 6.6 (08/19)
- home dose Tresiba 31u BID
- cont lantus 31 units q hs
- patient requires extensive diabetic education- continue to reinforce daily
- cont Insulin sliding scale
- restart metformin at 500mg PO bid
# Diabetic neuropathy/chronic pain with opiate dependence
-Continue pregabalin
-Continue Percocet
Diabetic retinopathy
# CKD3a
-CR @ baseline 1.1
-Continue losartan
# Essential hypertension
- cont losartan
- stable monitor
# HLD- cont atorvastatin
Full code
DVT prophylaxis�aspirin
Dispo- DC home in am if able
Time spent coordinating care, review of plan of care with resident, personally reviewed records in EMR, med rec, consults, notes, labs, d/w nursing � 52 mins
Original Note:
Today's Communication/Plan
-
Wound care, diabetes education consults
Assessment / Plan
Assessment / Plan
# Possible postoperative wound infection
# Open right ankle fracture/wound with exposed bone, medial malleolus fracture tibiotalar subluxation comminuted displaced right distal fibular metadiaphyseal fracture following mechanical fall status post ORIF on 08/06
-Wound culture was obtained in the ER and additional wound culture was obtained the morning after.
-Blood cultures were drawn in the ED, ID recommended to not order second set as they are not needed and there is a blood culture shortage currently.
-ID recommending continuing empiric IV cefepime 2000 mg, day 3
-ID also recommended starting empiric metronidazole 500 mg p.o. 3 times daily
-Metronidazole initiated, day 1
-MRSA screen sent
-Once culture and sensitivities have returned at which point he can be transition to p.o. antibiotics.
-Bilateral arterial lower extremity Doppler and JONAS performed yesterday, results showed no stenosis in the right leg right toe JONAS 0.88. Left leg has infrapopliteal small vessel disease left leg JONAS was 1.21, left toe JONAS was 0.56.
-Case management was consulted, to help alleviate barriers of care the patient was facing. There were multiple occasions where the patient had to delay his care due to living alone.
-Wound care consulted
-Ortho consulted
-Orthopedics mention that wound healing, they recommended setting up home wound care 3 times per week. They recommended following up with their office next week for suture removal. Orthopedics will follow
-Ortho initiated Santyl
Postoperative blood loss anemia
-Hemoglobin stable at 11.3
-No active bleeding
Heart murmur
-Outpatient follow-up with primary for echo
Type 2 diabetes
-Sugars were 162 on admission
-Patient had episodes of hypoglycemia this morning his sugars were 52 this morning, resolved to 73 with breakfast.
-Patient still experiencing episode of hypoglycemia overnight, patient states he did not eat dinner. Unknown if hypoglycemia is due to not eating or high dose of basal insulin.
-Will continue to monitor on current regiment
-Insulin Lantus was changed from twice daily to once a day yesterday
-Insulin sliding scale
-Restart metformin 500 mg twice daily p.o.
Diabetic neuropathy/chronic pain with opiate dependence
-Continue pregabalin 100 mg p.o. every 8 hours
-Continue Percocet 5/325 p.o. every 8 hours as needed
Chronic kidney disease
-Renal function at baseline
-Continue losartan
Essential hypertension
-Patient takes losartan 25 mg p.o.
-Continue home meds
Full code
DVT prophylaxis�aspirin
Diabetic diet
Anticipated Discharge: 24 - 48 hours
Subjective/Interval History
-
Date of Service: September 01, 2023
Event of hypoglycemia in morning blood sugar 52, patient did not eat dinner last night
Objective Data
-
Labs:
Laboratory Results
09/01/23
09:59
WBC Pending
Hgb Pending
Hct Pending
Plt Count Pending
Sodium Pending
Potassium Pending
Chloride Pending
Carbon Dioxide Pending
BUN Pending
Creatinine Pending
Glucose Pending
Calcium Pending
Vital Signs:
Vital Signs
Temp Pulse Resp BP Pulse Ox
97.8 F 73 14 148/88 96
09/01/23 07:00 09/01/23 07:00 09/01/23 07:00 09/01/23 07:00 09/01/23 07:00
I&O
08/31/23 09/01/23 09/02/23
06:59 06:59 06:59
Intake Total 1320 / 1320
Output Total 400 / 400 1000 / 1000
Balance -400 / -400 320 / 320
Review of Systems
-
History Source: Patient
Constitutional: Reports No Appetite; Denies Fever, Night Sweats or Chills
Respiratory: Reports No Symptoms
Cardiac: Reports No Symptoms
Abdomen/GI: Reports No Symptoms
Musculoskeletal: Reports No Symptoms
Skin: Reports Sores
Neuro: Reports No Symptoms
Physical Exam
-
General: Well Developed, Well Nourished, No Apparent Distress and Comfortable
Respiratory: Clear to Auscultation; Negative Wheezes
Cardiac: Regular Rhythm and S1/S2; Negative Murmur
GI: Soft, Nontender and Nondistended
Musculoskeletal: No Edema; Negative Cyanosis, Edema, Right Lower Extrem or Edema, Left Lower Extrem
Skin: Warm, Dry and Other (Wounds present on bilateral feet, healing)
Neuro: Awake, Alert, Oriented, AO x 3 and No Motor Deficits
Psych: Calm
Data Reviewed
-
Ultrasound: Report Reviewed by me and Discussed with Physician
Labs: Labs Reviewed by me and Discussed with Physician
[2023-09-01 11:33] LABS: % Basophils 1.3 % (0-2); % Eosinophils 7.5 % (0-6); % Immature Granulocytes 0.3 % (0-0.5); % Lymphocytes 17.7 % (20.5-51.1); % Monocytes 8.6 % (1.7-9.3); % Neutrophils 64.6 % (42.2-75.2); Absolute Basophils 0.1 10^3/uL (0-0.2); Absolute Eosinophils 0.6 10^3/uL (0-0.7); Absolute Lymphocytes 1.3 10^3/uL (1.2-3.4); Absolute Monocytes 0.7 10^3/uL (0.1-0.6); Absolute Neutrophils 4.9 10^3/uL (1.4-6.5); Hematocrit 33.8 % (39.0-52.0); Hemoglobin 11.3 g/dL (13.0-18.0); Mean Corp Hgb Conc. 33.4 g/dL (33.0-37.0); Mean Corpuscular Hgb 28.6 pg (27.0-31.0); Mean Corpuscular Volume 85.6 fL (80.0-94.0); Mean Platelet Volume 10.5 fL (7.4-10.4); Nucleated Red Blood Cells % 0 % (-); Platelet Count 301 10^3/uL (130-400); Red Blood Cell Count 3.95 10^6/uL (4.70-6.10); Red Cell Dist. Width 13.2 % (11.5-14.5); White Blood Cell Count 7.6 10^3/uL (4.8-10.8)
[2023-09-01 11:52] LABS: Glucose - Point of Care 173 mg/dl (70-99)
[2023-09-01 11:58] LABS: Blood Urea Nitrogen 17 mg/dl (9-20); Carbon Dioxide 29 mmol/L (22-30); Chloride 102 mmol/L (98-107); Estimated Creatinine Clearance 57 ml/min; Glucose 169 mg/dl (70-99); Potassium 5.1 mmol/L (3.5-5.1); Sodium 138 mmol/L (135-145); eGFR > 60.00
[2023-09-01] MEDS: NOVOLOG FLEXPEN-LOW RESISTANCE 1 UNITS SC (12:42)
--- NOTE | 2023-09-01 12:52 | W.PN.ID1 ---
Date of Service
Date of Service: September 01, 2023
Today's Communication
continue cefepime
mrsa screen
add metronidazole
follow clinically
Assessment / Plan
Right medial ankle wound with dehiscence
Suspected wound infection
Right ankle cellulitis
Hx recent right ankle comminuted fracture with exposed bone
DM
Neuropathy
HTN
Dyslipidemia
Depression
Recommendations:
Given initial open fracture and exposure to the environment, patient at risk for deeper infection. Additionally wound healing may be difficult secondary to underlying DM and neuropathy. Note patient was on bactrim prior to obtaining the current
cultures.
Has been seen by orthopedics service and no surgery or debridement is planned at this time
Continue with empiric cefepime for the present.
Start empiric metronidazole 500 mg PO TID. Gas in the tissues on our Xray which could be post operative. Agree that most likely a polymicrobial infection.
MRSA screen sent
Wound cultures x2 gram stain negative, no growth
Will try to coordinate my visit tomorrow with nursing to minimize dressing take downs
Continue with local care to the wound bed. Dr Ricardo discussed with [facility] nurse extensively 08/30
Follow clinically
Chief Complaint
-: Other
Subjective / Review of Systems
afebrile
bp stable
without leukocytosis or L shift
cr stable
wound culture x2 no growth
JONAS suggests infrapopliteal disease
reviewed records available in ecw from orthopedics office.
There were no cultures sent outpatient. At the time of that evaluation not reporting fevers, chills or night sweats. Dehiscence was noted i nthe office with purulence. Xray was done image not found though I can see that it was supposed to be
attached to the note. Surgical PAs interpretation shows screw fixation of right bimalleolar equivalent ankle fracture without hardwear complication.
Patient was started empirically on bactrim 08/27
Xray here: Plate and screw hardware transfixes a comminuted fracture of the distal fibula. No periprosthetic osteolysis. The alignment at the ankle mortise is maintained. Small displaced fracture fragments about the ankle. Soft tissue swelling about
the ankle, nonspecific. Mild soft tissue gas in the posterior soft tissues at the level of the tibiotalar and subtalar joints.
Pateint is noncommittal on his progress. He states that providers have been saying that the wound is improving but he hasnt seen it himself.
Vital Signs / Physical Exam
Vital Signs
Vital Signs
Temp Pulse Resp BP Pulse Ox
97.8 F 73 14 148/88 96
09/01/23 07:00 09/01/23 07:00 09/01/23 07:00 09/01/23 07:00 09/01/23 07:00
Physical Exam
Constitutional: No Acute Distress
Cardiovascular: Regular Rate and S1/S2; Negative Murmur or Rub
Pulmonary: Clear and Symmetric; Negative Wheezes or Rales
Gastrointestinal: Soft, Non Tender, Non Distended and Normal Bowel Sounds
Skin: Warm and Dry; Negative Rash or Jaundice
Objective Data
Lab Data
Lab Results
09/01/23 10:42
09/01/23 10:42
ESR 53 mm/hour (0-20) H 08/30/23 15:58
Estimated Creat Clear 57 ml/min 09/01/23 10:42
Total Bilirubin 0.5 mg/dl (0.2-1.3) 08/31/23 06:25
AST 24 U/L (17-59) 08/31/23 06:25
ALT 17 U/L (0-50) 08/31/23 06:25
Alkaline Phosphatase 97 U/L (38-126) 08/31/23 06:25
C-Reactive Protein 67.20 mg/L (0.0-10.00) H 08/30/23 15:58
Most recent labs reviewed.
Micro Results:
08/30/23 17:11 Wound Culture - Preliminary
Ankle - Right No growth
Gram Stain - Preliminary
08/31/23 08:40 Wound Culture - Preliminary
Ankle - Right No growth
Gram Stain - Preliminary
08/30/23 15:58 Blood Culture - Preliminary
Blood/Venous No Growth in 24 hours- Final report to follow
Imaging:
08/30/2023 X-ray right ankle: Plate and screw hardware transfixing is a comminuted fracture of the distal fibula. No periprosthetic osteolysis. The alignment at the ankle mortise is maintained. Small displaced fracture fragments are noted around
the ankle. Soft tissue swelling is noted in the ankle area. Mild soft tissue gas in the posterior soft tissues at the level of the tibiotalar and subtalar joints is noted.
08/29/2023 Right ankle photo (as taken in Orthopedics office)
[2023-09-01 13:51] LABS: Glucose - Point of Care 249 mg/dl (70-99)
[2023-09-01 15:00] VITALS: BP 154/62
[2023-09-01] MEDS: FLAGYL 500 MG PO (15:55)
[2023-09-01 16:11] LABS: Glucose - Point of Care 219 mg/dl (70-99)
[2023-09-01] MEDS: NOVOLOG FLEXPEN-LOW RESISTANCE 2 UNITS SC (16:43)
[2023-09-01 21:17] LABS: Glucose - Point of Care 188 mg/dl (70-99)
[2023-09-01] MEDS: LANTUS 0.31 UNITS SC (22:14)
[2023-09-01 23:00] VITALS: BP 168/73
[2023-09-02] MEDS: MAXIPIME 2000 MG IV ×2 (05:50→17:11)
[2023-09-02] MEDS: STERILE WATER FOR INJECTION 10 ML IV ×2 (05:50→17:09)
[2023-09-02] MEDS: LYRICA 100 MG PO ×3 (06:03→22:15)
[2023-09-02 06:10] LABS: % Eosinophils 9.6 % (0-6); % Immature Granulocytes 0.3 % (0-0.5); % Lymphocytes 25.1 % (20.5-51.1); % Monocytes 11.2 % (1.7-9.3); % Neutrophils 51.8 % (42.2-75.2); Absolute Basophils 0.2 10^3/uL (0-0.2); Absolute Eosinophils 0.7 10^3/uL (0-0.7); Absolute Lymphocytes 1.9 10^3/uL (1.2-3.4); Absolute Monocytes 0.9 10^3/uL (0.1-0.6); Hematocrit 33.9 % (39.0-52.0); Hemoglobin 11.3 g/dL (13.0-18.0); Mean Corp Hgb Conc. 33.3 g/dL (33.0-37.0); Mean Corpuscular Hgb 28.4 pg (27.0-31.0); Mean Corpuscular Volume 85.2 fL (80.0-94.0); Mean Platelet Volume 10.3 fL (7.4-10.4); Nucleated Red Blood Cells % 0 % (-); Platelet Count 283 10^3/uL (130-400); Red Blood Cell Count 3.98 10^6/uL (4.70-6.10); White Blood Cell Count 7.6 10^3/uL (4.8-10.8)
[2023-09-02 07:26] LABS: ALT (SGPT) 16 U/L (0-50); AST (SGOT) 20 U/L (17-59); Albumin 3.1 g/dl (3.5-5.0); Alkaline Phosphatase 104 U/L (38-126); Blood Urea Nitrogen 19 mg/dl (9-20); Calcium 8.8 mg/dl (8.4-10.2); Carbon Dioxide 31 mmol/L (22-30); Chloride 105 mmol/L (98-107); Estimated Creatinine Clearance 57 ml/min; Glucose 33 mg/dl (70-99); Potassium 4.7 mmol/L (3.5-5.1); Sodium 140 mmol/L (135-145); Total Bilirubin 0.6 mg/dl (0.2-1.3); Total Protein 5.7 g/dl (6.3-8.2); eGFR > 60.00
[2023-09-02 07:30] VITALS: BP 142/72
[2023-09-02 07:58] LABS: Glucose - Point of Care 64 mg/dl (70-99)
[2023-09-02] MEDS: NOVOLOG FLEXPEN-LOW RESISTANCE SC (08:02)
--- NOTE | 2023-09-02 08:15 | W.PN.UPDATE ---
Update Note
Progress Note Update
73-year-old male status post right ankle ORIF for open ankle fracture DOS 07 August 2023.
-Nonweightbearing right lower extremity; splint in place
-Infectious disease on board; no growth to date on current cultures blood present of likely polymicrobial.
-Dressing changes 2-3x per week as noted by ID with wound care team
-Scheduled outpatient f/u with Dr. Tinajero for eval with x-rays to assess interval osseous healing given time from index surgery. Discharge info UTD.
-DVT PPx 325 mg daily
[2023-09-02 08:29] LABS: Glucose - Point of Care 103 mg/dl (70-99)
--- NOTE | 2023-09-02 09:58 | W.PN.HOSP.TC ---
Addendum entered and electronically signed by Cornelio Veras MD 09/02/23 22:59:
Attending Addendum-
I saw and evaluated the patient. I reviewed the resident�s note and agree with findings and plan as documented in the resident�s note. Sub: Patient denies pain. requesting to go home. Had episode of hypoglycemia this am. Denies CP SOB. Full 12
point ROS reviewed and negative except as documented Exam: Vitals reviewed in chart GEN-NAD, Heart RRR no M/R/G lungs clear abd soft RLE bandaged + sensation- LLE foot second toe healing ulcer present +sensation, DP pulses present but faint
Plan:
# Open right ankle fracture/wound with exposed bone, medial malleolus fracture tibiotalar subluxation comminuted displaced right distal fibular metadiaphyseal fracture following mechanical fall status post ORIF on 08/06
- [facility] ortho input appreciated cont splint
# Postoperative wound infection
- Appreciate ID input- deep cx taken an sent for analysis- 08/30
- wound culture- NGTD
- blood culture-NGTD
- cont cefepime for now day #4
- added metronidazole- day #2
- await sensitivities- did receive abx prior to cx
- wound care c/s appreciated
- cont wound care per surgery
- may need IV abx due to possibility of infected hardware
# Left 2nd toe ulcer
- POA
- art us/jonas- 08/30-
1. Right ankle-brachial indices were not obtained secondary to bandages. The right toe brachial index is in the normal range at 0.88. Right lower extremity arteries show no signs of significant inflow disease. No focal flow-limiting arterial
stenosis is identified.
2. Left ankle-brachial index in the normal range at 1.21. The toe brachial index is slightly diminished at 0.56. As on the right, there are multiphasic waveforms from the common femoral artery through the popliteal artery. No focal flow-limiting
stenosis is identified. Findings therefore suggest infrapopliteal small vessel disease on the left.
- f/u vasc as OP
# Postoperative blood loss anemia
-Hemoglobin 11.3 from 13 previous
- cont to monitor closely for transfusion
# IDDM
- labile
- last hba1c 6.6 (08/19)
- home dose Tresiba 31u BID
- decrease lantus 31->25 units q hs
- patient requires extensive diabetic education- continue to reinforce daily
- cont Insulin sliding scale
- restarted metformin at 500mg PO bid
# Diabetic neuropathy/chronic pain with opiate dependence
-Continue pregabalin
-Continue Percocet
# Diabetic retinopathy
# CKD3a
-CR @ baseline 1.1
-Continue losartan
# Essential hypertension
- cont losartan
- stable monitor
# HLD- cont atorvastatin
Full code
DVT prophylaxis�aspirin
Dispo- DC home vs SNF for wound care/IV abx - patient lives alone and unable to get transportation [facility] c/s CM c/s PT/OT
Time spent coordinating care, review of plan of care with resident, personally reviewed records in EMR, med rec, consults, notes, labs, d/w nursing, ID � 53 mins
Original Note:
Today's Communication/Plan
-
Await culture results
Assessment / Plan
Assessment / Plan
# Possible postoperative wound infection
# Open right ankle fracture/wound with exposed bone, medial malleolus fracture tibiotalar subluxation comminuted displaced right distal fibular metadiaphyseal fracture following mechanical fall status post ORIF on 08/06
-Wound culture was obtained in the ER and additional wound culture was obtained the morning after.
-Blood cultures were drawn in the ED, ID recommended to not order second set as they are not needed and there is a blood culture shortage currently.
-ID recommending continuing empiric IV cefepime 2000 mg, day 4
-ID also recommended starting empiric metronidazole 500 mg p.o. 3 times daily
-Metronidazole initiated, day 2
-MRSA screen sent
-Once culture and sensitivities have returned at which point he can be transition to p.o. antibiotics.
-Bilateral arterial lower extremity Doppler and JONAS, results showed no stenosis in the right leg right toe JONAS 0.88. Left leg has infrapopliteal small vessel disease left leg JONAS was 1.21, left toe JONAS was 0.56.
-Case management was consulted, to help alleviate barriers of care the patient was facing. There were multiple occasions where the patient had to delay his care due to living alone.
-Wound care consulted
-Ortho consulted
-Orthopedics mention that wound healing, they recommended setting up home wound care 3 times per week. They recommended following up with their office next week for suture removal. Orthopedics will follow
-Ortho initiated Santyl
-Will also refer to vascular surgery as outpatient
Postoperative blood loss anemia
-Hemoglobin stable at 11.3
-No active bleeding
Heart murmur
-Outpatient follow-up with primary for echo
Type 2 diabetes
-Sugars were 162 on admission
-Diabetes education met with patient the recommendations were explained to the patient. However unfortunately it seems that the patient is not interested hearing instructions or refresher on his insulin regimen
-Patient needs restructuring of insulin regiment, and has poor insight regarding management on his own
-Refer to endocrinology as outpatient
-Patient had episodes of hypoglycemia this morning his sugars were 33 this morning, resolved to 101 with breakfast.
-Patient still experiencing episode of hypoglycemia overnight, patient states he did eat dinner last night. hypoglycemia is likely due to high dose of basal insulin.
-Insulin Lantus was decreased to 25 daily
-Insulin sliding scale
-metformin 500 mg twice daily p.o.
Diabetic neuropathy/chronic pain with opiate dependence
-Continue pregabalin 100 mg p.o. every 8 hours
-Continue Percocet 5/325 p.o. every 8 hours as needed
Chronic kidney disease
-Renal function at baseline
-Continue losartan
Essential hypertension
-Patient takes losartan 25 mg p.o.
-Continue home meds
Full code
DVT prophylaxis�aspirin
Diabetic diet
Anticipated Discharge: 24 - 48 hours
Subjective/Interval History
-
Date of Service: September 02, 2023
Continue wound care, await culture results
Objective Data
-
Labs:
Laboratory Results
09/02/23
06:00
WBC 7.6
Hgb 11.3 L
Hct 33.9 L
Plt Count 283
Sodium 140
Potassium 4.7
Chloride 105
Carbon Dioxide 31 H
BUN 19
Creatinine 1.1
Glucose 33 L*
Calcium 8.8
Total Bilirubin 0.6
AST 20
ALT 16
Alkaline Phosphatase 104
Vital Signs:
Vital Signs
Temp Pulse Resp BP Pulse Ox
97.8 F 74 16 142/72 98
09/02/23 07:30 09/02/23 07:30 09/02/23 07:30 09/02/23 07:30 09/02/23 07:30
I&O
09/01/23 09/02/23 09/03/23
06:59 06:59 06:59
Intake Total 1320 / 1320 960 / 960
Output Total 1000 / 1000
Balance 320 / 320 960 / 960
Review of Systems
-
History Source: Patient
Constitutional: Reports No Symptoms; Denies Fatigue, Sleep Disturbance, Night Sweats or Chills
Respiratory: Reports No Symptoms
Cardiac: Reports No Symptoms
Abdomen/GI: Reports No Symptoms
Genitourinary: Reports No Symptoms
Skin: Reports No Symptoms
Physical Exam
-
General: Well Developed, Well Nourished, No Apparent Distress and Comfortable
Respiratory: Clear to Auscultation; Negative Wheezes
Cardiac: Regular Rhythm and S1/S2
GI: Soft, Nontender and Nondistended
Musculoskeletal: No Edema
Skin: Warm, Dry and Lesions
Neuro: Awake, Alert, Oriented and AO x 3
Psych: Calm and Intact Judgement/Insight
Data Reviewed
-
Labs: Labs Reviewed by me and Discussed with Physician
[2023-09-02] MEDS: LIPITOR 20 MG PO (10:06)
[2023-09-02] MEDS: FLAGYL 500 MG PO ×3 (10:07→17:12)
[2023-09-02] MEDS: SANTYL OINTMENT 1 APPLIC TOPICAL (10:07)
[2023-09-02] MEDS: COZAAR 25 MG PO (10:07)
[2023-09-02] MEDS: GLUCOPHAGE 500 MG PO ×2 (10:07→17:11)
[2023-09-02] MEDS: ASPIRIN 325 MG PO (10:07)
[2023-09-02] MEDS: BACTROBAN 2% OINTMENT 1 APPLIC TOPICAL (10:08)
[2023-09-02] MEDS: PERCOCET 5/325 1 TABLET PO ×3 (10:22→19:50)
--- NOTE | 2023-09-02 11:32 | W.PN.ID1 ---
Date of Service
Date of Service: September 02, 2023
Today's Communication
continue cefepime and metronidazole
Assessment / Plan
Right medial ankle wound with dehiscence
Suspected wound infection
Right ankle cellulitis
Hx recent right ankle comminuted fracture with exposed bone
DM
Neuropathy
HTN
Dyslipidemia
Depression
Recommendations:
Given initial open fracture and exposure to the environment, patient at risk for deeper infection. Additionally wound healing may be difficult secondary to underlying DM and neuropathy. Note patient was on bactrim prior to obtaining the current
cultures.
Has been seen by orthopedics service and no surgery or debridement is planned at this time
Continue with empiric cefepime for the present.
Start empiric metronidazole 500 mg PO TID. Gas in the tissues on our Xray which could be post operative. Agree that most likely a polymicrobial infection.
MRSA screen negative
Wound cultures x2 gram stain negative, no growth
Continue with local care to the wound bed. Dr Ricardo discussed with [facility] nurse extensively 08/30
Follow clinically
Chief Complaint
-: Other
Subjective / Review of Systems
afebrile
bp stable
without leukocytosis
cr stable
blood culture no growth to date
Vital Signs / Physical Exam
Vital Signs
Vital Signs
Temp Pulse Resp BP Pulse Ox
97.8 F 74 16 142/72 98
09/02/23 07:30 09/02/23 07:30 09/02/23 07:30 09/02/23 07:30 09/02/23 07:30
Physical Exam
Constitutional: No Acute Distress
Cardiovascular: Regular Rate and S1/S2; Negative Murmur or Rub
Pulmonary: Clear and Symmetric; Negative Wheezes or Rales
Gastrointestinal: Soft, Non Tender, Non Distended and Normal Bowel Sounds
Skin: Warm and Dry; Negative Rash or Jaundice
Wound: Other (eschar noted on medial and lateral surgical sites, sites with slough, moderate purulent drainage on the dressing, some erythema and swelling)
Objective Data
Lab Data
Lab Results
09/02/23 06:00
09/02/23 06:00
ESR 53 mm/hour (0-20) H 08/30/23 15:58
Estimated Creat Clear 57 ml/min 09/02/23 06:00
Total Bilirubin 0.6 mg/dl (0.2-1.3) 09/02/23 06:00
AST 20 U/L (17-59) 09/02/23 06:00
ALT 16 U/L (0-50) 09/02/23 06:00
Alkaline Phosphatase 104 U/L (38-126) 09/02/23 06:00
C-Reactive Protein 67.20 mg/L (0.0-10.00) H 08/30/23 15:58
Most recent labs reviewed.
Micro Results:
08/31/23 08:40 Wound Culture - Final
Ankle - Right No growth
Gram Stain - Final
08/30/23 17:11 Wound Culture - Final
Ankle - Right No growth
Gram Stain - Final
09/01/23 17:29 Nasal Screen MRSA (PCR) - Final
Nose MRSA not detected - performed by PCR methodology.
08/30/23 15:58 Blood Culture - Preliminary
Blood/Venous No Growth in 48 hours- Final report to follow
Imaging:
08/30/2023 X-ray right ankle: Plate and screw hardware transfixing is a comminuted fracture of the distal fibula. No periprosthetic osteolysis. The alignment at the ankle mortise is maintained. Small displaced fracture fragments are noted around
the ankle. Soft tissue swelling is noted in the ankle area. Mild soft tissue gas in the posterior soft tissues at the level of the tibiotalar and subtalar joints is noted.
08/29/2023 Right ankle photo (as taken in Orthopedics office)
[2023-09-02 12:00] LABS: Glucose - Point of Care 168 mg/dl (70-99)
[2023-09-02] MEDS: NOVOLOG FLEXPEN-LOW RESISTANCE 1 UNITS SC (12:27)
[2023-09-02 15:45] VITALS: BP 99/63
--- NOTE | 2023-09-02 16:27 | CM ---
Spoke with pt he said he would like [facility] at dc.
[facility] referral placed in care port.
Requested MD entered PT OT order.PT has not seen pt yet.
Please review PT OT evals and adjust dc plan if needed.
PLAN Will need PT OT for dc plan
[2023-09-02] MEDS: NOVOLOG FLEXPEN-LOW RESISTANCE 3 UNITS SC (17:14)
[2023-09-02 17:15] LABS: Glucose - Point of Care 260 mg/dl (70-99)
--- NOTE | 2023-09-02 17:24 | PTCARENOTE ---
Pt had critical lab reading of Glucose 33. Pt asymptomatic and give orange juice to drink, repeat accucheck read 64, pt given more orange juice and repeat accucheck read 103. Pt with good appetite and not hypoglycemic for remained of shift. Lantus
decreased from 31 units at HS to 25 units. Wound care provided to R ankle during shift with ID present. Pt given Percocet with + effects prior to wound care.
[2023-09-02 21:55] LABS: Glucose - Point of Care 215 mg/dl (70-99)
[2023-09-02] MEDS: LANTUS 0.25 UNITS SC (22:14)
[2023-09-02 23:35] VITALS: BP 135/67
[2023-09-03] MEDS: FLAGYL 500 MG PO ×2 (01:56→08:30)
[2023-09-03 02:02] LABS: Glucose - Point of Care 152 mg/dl (70-99)
[2023-09-03] MEDS: LYRICA 100 MG PO ×2 (06:18→14:29)
[2023-09-03] MEDS: MAXIPIME 2000 MG IV (06:18)
[2023-09-03] MEDS: STERILE WATER FOR INJECTION 10 ML IV (06:18)
[2023-09-03] MEDS: PERCOCET 5/325 1 TABLET PO ×2 (06:27→14:29)
[2023-09-03 07:15] LABS: % Basophils 2.1 % (0-2); % Eosinophils 12.8 % (0-6); % Immature Granulocytes 0.4 % (0-0.5); % Lymphocytes 17.7 % (20.5-51.1); % Monocytes 8.6 % (1.7-9.3); % Neutrophils 58.4 % (42.2-75.2); Absolute Basophils 0.2 10^3/uL (0-0.2); Absolute Eosinophils 1.1 10^3/uL (0-0.7); Absolute Lymphocytes 1.5 10^3/uL (1.2-3.4); Absolute Monocytes 0.7 10^3/uL (0.1-0.6); Absolute Neutrophils 4.9 10^3/uL (1.4-6.5); Hematocrit 36.7 % (39.0-52.0); Hemoglobin 12.3 g/dL (13.0-18.0); Mean Corp Hgb Conc. 33.5 g/dL (33.0-37.0); Mean Corpuscular Hgb 28.7 pg (27.0-31.0); Mean Corpuscular Volume 85.5 fL (80.0-94.0); Mean Platelet Volume 10.4 fL (7.4-10.4); Nucleated Red Blood Cells % 0 % (-); Platelet Count 295 10^3/uL (130-400); Red Blood Cell Count 4.29 10^6/uL (4.70-6.10); Red Cell Dist. Width 13.1 % (11.5-14.5); White Blood Cell Count 8.5 10^3/uL (4.8-10.8)
[2023-09-03 07:30] VITALS: BP 166/78
[2023-09-03 07:43] LABS: Glucose - Point of Care 116 mg/dl (70-99)
[2023-09-03] MEDS: GLUCOPHAGE 500 MG PO (08:30)
[2023-09-03] MEDS: LIPITOR 20 MG PO (08:31)
[2023-09-03] MEDS: COZAAR 25 MG PO (08:31)
[2023-09-03] MEDS: ASPIRIN 325 MG PO (08:32)
[2023-09-03] MEDS: NOVOLOG FLEXPEN-LOW RESISTANCE SC (08:33)
[2023-09-03 09:17] VITALS: BP 167/79; PULSE 78; O2SAT 97
--- NOTE | 2023-09-03 09:47 | W.PN.HOSP.TC ---
Addendum entered and electronically signed by Rivera Maynard MD 09/04/23 14:18:
Add on to diagnosis list in response to CDI query:
Acute blood loss anemia - surgery done on 08/06 and not this admission. some dilutional anemia component as well.
Addendum entered and electronically signed by Rivera Maynard MD 09/03/23 17:34:
I personally performed a history and physical exam of the patient and discussed management with the resident. I reviewed the resident's note and agree with the documented findings and plan of care HPI/CC.
Patient not voicing any complains during rounds.
1. Right ankle surgical wound dehiscence
Suspected wound/soft tissue infection
History of recent right ankle comminuted fracture s/p ORIF on 08/06
-Patient underwent an ORIF of right ankle with hardware placement on 08/06 after having a right sided open comminuted bimalleolar equivalent ankle fracture
-Patient had developed some wound dehiscence was evaluated by orthopedic in office, who was referred to ID office. Patient was asked to come into ER for further evaluation.
-Patient initially maintained on empiric antibiotic with cefepime and Flagyl
-Superficial wound culture x 2 did not grow any clear pathology organism
-Blood culture 1 set growing gram positive cocci in clusters, presumed contaminant
-XR did not show any concern for osteomyelitis
-ID/Ortho evaluated and ID have recommended for patient to transition to doble strength bactrim at discharge. f/u in office .
-VN care to be provided with wound care .
2. IDDM
Episode of hypoglycemia
-Poorly controlled
-Hbg a1c of 6.6
-Patient not very insightful regarding management of insulin. Will require follow-up with PCP/endocrinology for further management
3. PAD
-Lower extremity arterial study showing JONAS within normal limit. LLE ultrasound showing some infrapopliteal small vessel disease
-Patient to follow-up with vascular surgery at high risk of vascular disease with diagnosis of diabetes
Case discussed with ID physician as well.
Patient to be discharged home with follow-up with ID and orthopedic surgery in office
Original Note:
Today's Communication/Plan
-
Discharge home with o/p follow up
Assessment / Plan
Assessment / Plan
# Possible postoperative wound infection
# Open right ankle fracture/wound with exposed bone, medial malleolus fracture tibiotalar subluxation comminuted displaced right distal fibular metadiaphyseal fracture following mechanical fall status post ORIF on 08/06
-Wound culture was obtained in the ER and additional wound culture was obtained the morning after.
-Blood cultures were drawn in the ED, ID recommended to not order second set as they are not needed and there is a blood culture shortage currently.
-ID recommending continuing empiric IV cefepime 2000 mg, day 5
-ID also recommended starting empiric metronidazole 500 mg p.o. 3 times daily
-Metronidazole initiated, day 3
-MRSA screen sent, and PCR was negative
-Once culture and sensitivities have returned at which point he can be transition to p.o. antibiotics.
-Bilateral arterial lower extremity Doppler and JONAS, results showed no stenosis in the right leg right toe JONAS 0.88. Left leg has infrapopliteal small vessel disease left leg JONAS was 1.21, left toe JONAS was 0.56.
-Case management was consulted, to help alleviate barriers of care the patient was facing. There were multiple occasions where the patient had to delay his care due to living alone.
-Wound care consulted, and is recommended to help patient 2-3 times per week as outpatient
-Ortho consulted
-Orthopedics mention that wound healing, they recommended setting up home wound care 3 times per week. They recommended following up with their office next week for suture removal. Orthopedics will follow
-Ortho initiated Santyl
-Will also refer to Dr Rancho Ferguson, vascular surgery as outpatient
-Patient's blood cultures were positive for gram-positive cocci in clusters, could potentially been skin contaminant patient is afebrile and has been. Denies chills and does not appear septic
-Pt will be started on Bactrim DS BID for 5 days total, until he can make his appointment with Dr. Ricardo
Postoperative blood loss anemia
-Hemoglobin stable at 11.3
-No active bleeding
Heart murmur
-Outpatient follow-up with primary for echo
Type 2 diabetes
-Sugars were 162 on admission
-Diabetes education met with patient the recommendations were explained to the patient. However unfortunately it seems that the patient is not interested hearing instructions or refresher on his insulin regimen
-Patient needs restructuring of insulin regiment, and has poor insight regarding management on his own
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
-Episodes of hypoglycemia have subsided on new basal insulin regimen
-Insulin Lantus was decreased to 25 daily
-Insulin sliding scale
-metformin 500 mg twice daily p.o.
Diabetic neuropathy/chronic pain with opiate dependence
-Continue pregabalin 100 mg p.o. every 8 hours
-Continue Percocet 5/325 p.o. every 8 hours as needed
Chronic kidney disease
-Renal function at baseline
-Continue losartan
Essential hypertension
-Patient takes losartan 25 mg p.o.
-Continue home meds
Full code
DVT prophylaxis�aspirin
Diabetic diet
Anticipated Discharge: Today
Subjective/Interval History
-
Date of Service: September 03, 2023
No acute events overnight, episode of hypoglycemia have subsided
Objective Data
-
Labs:
Laboratory Results
09/03/23
06:36
WBC 8.5
Hgb 12.3 L
Hct 36.7 L
Plt Count 295
Vital Signs:
Vital Signs
Temp Pulse Resp BP Pulse Ox
98.5 F 78 16 166/78 96
09/03/23 07:30 09/03/23 07:30 09/03/23 07:30 09/03/23 07:30 09/03/23 07:30
I&O
09/02/23 09/03/23 09/04/23
06:59 06:59 06:59
Intake Total 960 / 960 600 / 600
Output Total 425 / 425
Balance 960 / 960 175 / 175
Review of Systems
-
History Source: Patient
Constitutional: Reports No Symptoms; Denies Fever, Fatigue, Night Sweats, Chills or Weakness
Respiratory: Reports No Symptoms
Cardiac: Reports No Symptoms
Abdomen/GI: Reports No Symptoms
Genitourinary: Reports No Symptoms
Neuro: Reports No Symptoms
Physical Exam
-
General: Well Developed, Well Nourished, No Apparent Distress and Comfortable
Respiratory: Clear to Auscultation; Negative Wheezes
Cardiac: Regular Rhythm and S1/S2; Negative Murmur
GI: Soft, Nontender, Nondistended and Normal Bowel Sounds
Skin: Warm, Dry, Lesions and Decubitus Ulcers
Neuro: Awake, Alert, Oriented and AO x 3
Psych: Calm
Data Reviewed
-
Labs: Labs Reviewed by me and Discussed with Physician
[2023-09-03] MEDS: BACTROBAN 2% OINTMENT 1 APPLIC TOPICAL (09:50)
[2023-09-03] MEDS: SANTYL OINTMENT 1 APPLIC TOPICAL (09:50)
--- NOTE | 2023-09-03 10:26 | W.DCSUMMARY ---
Addendum entered and electronically signed by Rivera Maynard MD 09/04/23 14:11:
Read, reviewed, and agree. See same day progress note for additional details. Time spent coordinating care, DC planning, review of DC plan of care with resident, transition of care, review of records in EMR, med rec, consults, notes, d/w
consultants, nursing, family, and CM 37 mins
Original Note:
Documented by User: Sunny Rod DO, Resident 09/03/23 14:06
Discharge Summary
Discharge Data
Date of Admission: 08/30/23
Date of Discharge: 09/03/23
Hospital Course
Discharging Physician : Caesar Rod
Disposition :Home
Primary care physician : Dr. Vivas
Principal Discharge diagnosis : Postoperative wound infection
Chronic Discharge diagnosis : Chronic nonhealing wounds, postoperative blood loss anemia, type 2 diabetes, diabetic neuropathy, chronic pain with opioid dependence, diabetic retinopathy, CKD 3a, essential hypertension, hyperlipidemia
Hospital Course : 73-year-old male presented with recent right ankle fracture status post ORIF on 08/07/1901/16/2024. History significant for diabetes CKD hypertension diabetic neuropathy and retinopathy chronic pain with opiate dependence as well as
blood loss anemia secondary to surgery. Patient was follow-up with orthopedics after surgery it was noted that his wound was concerning for potential postop infection. He was started on Bactrim and recommended to come to the hospital. He denies
any fever chills and was afebrile throughout the length of the stay. Patient had a set of wound cultures, and 1 blood culture drawn. Infectious disease followed the patient's and recommended starting him on IV cefepime 2000 mg every 12 as empiric
therapy while wound cultures are pending. The patient stated he was noted to have multiple episodes of hypoglycemia overnight and in the morning throughout multiple days. Patient was on 31 Lantus twice daily. This was decreased to 31 once a day
patient was still having episode of hypoglycemia. Lantus was again decreased to 25 once a day. Patient has a very poor understanding of his diabetes and management diabetes education was consulted to speak to the patient patient was very
dismissive of their instructions. Diabetic education was reinforced every day with this patient is recommended that he follow-up with his rn charge to restructure his insulin. Patient states he understands. Orthopedics is also been
following the patient, they recommend following up in their office for suture removal once patient has been discharged. Blood cultures returned positive for gram-positive cocci in clusters suggestive of Staph aureus unknown if this is contaminant.
Patient has been afebrile and denies fever chills, no episodes of hypotension noted. Patient will be set up with outpatient referral to vascular surgery for his chronic nonhealing wounds, as well as his appointments with orthopedics and infectious
disease doctor Davion, regarding his antibiotic choice. He will take Bactrim DS BID for 5 days until he can establish care with Dr. Ricardo.
Important imaging findings : 08/30/2023 ankle x-ray, impressions:
Plate and screw hardware transfixes a comminuted fracture of the distal fibula. No periprosthetic osteolysis. The alignment at the ankle mortise is maintained. Small displaced fracture fragments about the ankle. Soft tissue swelling about the ankle,
nonspecific. Mild soft tissue gas in the posterior soft tissues at the level of the tibiotalar and subtalar joints.
08/31/2023 bilateral lower extremity arterial ultrasound with JONAS, impressions:
1. Right ankle-brachial indices were not obtained secondary to bandages. The right toe brachial index is in the normal range at 0.88. Right lower extremity arteries show no signs of significant inflow disease. No focal flow-limiting arterial
stenosis is identified.
2. Left ankle-brachial index in the normal range at 1.21. The toe brachial index is slightly diminished at 0.56. As on the right, there are multiphasic waveforms from the common femoral artery through the popliteal artery. No focal flow-limiting
stenosis is identified. Findings therefore suggest infrapopliteal small vessel disease on the left.
Procedure findings : No procedures performed
Discharge Plan
-
Patient Disposition: Home with Home Care
Discharge Diagnosis/Procedures: Postoperative wound infection of right ankle, left second toe ulcer, insulin-dependent diabetes mellitus type 2, diabetic neuropathy, diabetic retinopathy, CKD 3A, essential hypertension, hyperlipidemia, postoperative
blood loss anemia
Condition: Fair
Diet: Diabetic, Carb Controlled
Activity: As tolerated and Do not bear weight R leg
Driving Restrictions: As prior to admission
Bathing Restrictions: do not get splint wet
Other Services: VN
Wound Care: Wound care nurse 2-3 times weekly
Activity Restrictions/Additional Instructions:
Wound Care Instructions
R medial ankle incisional wound-clean with saline or Vashe wound cleanser, Santyl ointment, adaptic, 4x4 gauze pads, cover R lateral ankle incision with gauze pads, secure with Tessie or Kerlix, R knee high splint (cotton roll padding under splint,
apply splint, secure splint with Pato wraps), change dressing every Sunday, Sunday and Sunday and as needed for drainage.
Non weight bear RLE.
Elevate heels off bed with pillow/s.
Pressure redistributing chair cushion (i.e. Air chair cushion).
Follow up with orthopedic surgeon and Dr. Ricardo.
Follow up at wound care center call for an appointment.
Referrals:
Rancho Ferguson III, MD [Active] - in two to three days
Max Ricardo DO [Active] - in one week
Willard Tinajero MD [Active] - (Currently scheduled 10 September 2023 at 0800 at the office in [place], [address] Please arrive 15 minutes early for x-rays. Please contact the office if you need to reschedule. )
Asha Vivas MD [Family Provider] - in less than 1 week
Additional Discharge Medication Instructions: Take Bactrim, 1 tablet two times daily for 5 days, Lantus 25 units injection subcutaneously every night, metformin 500 mg by mouth 2 times daily,
Prescriptions:
New
sulfamethoxazole-trimethoprim [Bactrim DS] 800-160 mg tablet
1 tab PO BID Qty: 10 0RF
metformin 500 mg Tablet
500 mg PO BID@0800,1700 Qty: 30 0RF
Insulin Glargine Lantus [Lantus] 25 UNITS
Subcutaneous Insulin Syringe [Syringe-Insulin] 0 UNIT
As Directed mls/hr SC HS
Reason for use: Diabetes
Ordered By: Emeterio Wood MD, Resident
Last Taken: 09/02/23 22:14 0.25 mls
Continued
atorvastatin 20 mg tablet
20 mg PO DAILY
oxycodone-acetaminophen 5-325 mg tablet
1 tab PO Q8HPRN PRN (Reason: SEVERE PAIN)
losartan 25 mg tablet
25 mg PO DAILY
insulin aspart U-100 [Novolog FlexPen U-100 Insulin] 100 unit/mL (3 mL) insulin pen
5 - 10 sliding scale dose SC AC
Patient Comments:
08/30/2023, pt. unsure of sliding scale.
pregabalin 100 mg capsule
100 mg PO Q8H@0700,15,23
aspirin 325 mg tablet
325 mg PO DAILY Qty: 30 0RF
Discontinued
metformin 500 mg tablet
500 mg PO NOON PRN (Reason: Diabetes)
Patient Comments:
08/30/2023, when pt. skips lunch they do not take this med.
metformin 500 mg tablet
1,000 mg PO QPM
insulin degludec [Tresiba FlexTouch U-100] 100 unit/mL (3 mL) insulin pen
31 - 32 unit SC BID
sulfamethoxazole-trimethoprim 800-160 mg tablet
1 tab PO BID
Patient Comments:
08/30/2023, filled on 08/28/2023 and instructed to take 1 tab BID for 10 days. Pt. has taken 3 pills so far.
Discharge Orders:
Discharge Patient (As Directed); Ordered 09/03/23
Ordered By: Emeterio Wood
Discharge Date and Time
Discharge Date/Time: 09/03/23 16:29
Print Language: KAZAKH

Documented by User: Emeterio Wood MD, Resident 09/03/23 14:03
Discharge Summary
Discharge Data
Date of Admission: 08/30/23
Date of Discharge: 09/03/23
-
Pending Results: Yes
Additional Pending Results:
Wound cultures
Hospital Course
Discharging Physician : Caesar Rod
Disposition :Home
Primary care physician : Dr. Vivas
Principal Discharge diagnosis : Postoperative wound infection
Chronic Discharge diagnosis : Chronic nonhealing wounds, postoperative blood loss anemia, type 2 diabetes, diabetic neuropathy, chronic pain with opioid dependence, diabetic retinopathy, CKD 3a, essential hypertension, hyperlipidemia
Hospital Course : 73-year-old male presented with recent right ankle fracture status post ORIF on 08/07/1901/16/2024. History significant for diabetes CKD hypertension diabetic neuropathy and retinopathy chronic pain with opiate dependence as well as
blood loss anemia secondary to surgery. Patient was follow-up with orthopedics after surgery it was noted that his wound was concerning for potential postop infection. He was started on Bactrim and recommended to come to the hospital. He denies
any fever chills and was afebrile throughout the length of the stay. Patient had a set of wound cultures, and 1 blood culture drawn. Infectious disease followed the patient's and recommended starting him on IV cefepime 2000 mg every 12 as empiric
therapy while wound cultures are pending. The patient stated he was noted to have multiple episodes of hypoglycemia overnight and in the morning throughout multiple days. Patient was on 31 Lantus twice daily. This was decreased to 31 once a day
patient was still having episode of hypoglycemia. Lantus was again decreased to 25 once a day. Patient has a very poor understanding of his diabetes and management diabetes education was consulted to speak to the patient patient was very
dismissive of their instructions. Diabetic education was reinforced every day with this patient is recommended that he follow-up with his rn charge to restructure his insulin. Patient states he understands. Orthopedics is also been
following the patient, they recommend following up in their office for suture removal once patient has been discharged. Blood cultures returned positive for gram-positive cocci in clusters suggestive of Staph aureus unknown if this is contaminant.
Patient has been afebrile and denies fever chills, no episodes of hypotension noted. Patient will be set up with outpatient referral to vascular surgery for his chronic nonhealing wounds, as well as his appointments with orthopedics and infectious
disease doctor Davion, regarding his antibiotic choice.
Important imaging findings : 08/30/2023 ankle x-ray, impressions:
Plate and screw hardware transfixes a comminuted fracture of the distal fibula. No periprosthetic osteolysis. The alignment at the ankle mortise is maintained. Small displaced fracture fragments about the ankle. Soft tissue swelling about the ankle,
nonspecific. Mild soft tissue gas in the posterior soft tissues at the level of the tibiotalar and subtalar joints.
08/31/2023 bilateral lower extremity arterial ultrasound with JONAS, impressions:
1. Right ankle-brachial indices were not obtained secondary to bandages. The right toe brachial index is in the normal range at 0.88. Right lower extremity arteries show no signs of significant inflow disease. No focal flow-limiting arterial
stenosis is identified.
2. Left ankle-brachial index in the normal range at 1.21. The toe brachial index is slightly diminished at 0.56. As on the right, there are multiphasic waveforms from the common femoral artery through the popliteal artery. No focal flow-limiting
stenosis is identified. Findings therefore suggest infrapopliteal small vessel disease on the left.
Procedure findings : No procedures performed
Discharge Plan
-
Patient Disposition: Home with Home Care
Discharge Diagnosis/Procedures: Postoperative wound infection of right ankle, left second toe ulcer, insulin-dependent diabetes mellitus type 2, diabetic neuropathy, diabetic retinopathy, CKD 3A, essential hypertension, hyperlipidemia, postoperative
blood loss anemia
Condition: Fair
Diet: Diabetic, Carb Controlled
Activity: As tolerated and Do not bear weight R leg
Driving Restrictions: As prior to admission
Bathing Restrictions: do not get splint wet
Other Services: VN
Wound Care: Wound care nurse 2-3 times weekly
Activity Restrictions/Additional Instructions:
Wound Care Instructions
R medial ankle incisional wound-clean with saline or Vashe wound cleanser, Santyl ointment, adaptic, 4x4 gauze pads, cover R lateral ankle incision with gauze pads, secure with Tessie or Kerlix, R knee high splint (cotton roll padding under splint,
apply splint, secure splint with Pato wraps), change dressing every Sunday, Sunday and Sunday and as needed for drainage.
Non weight bear RLE.
Elevate heels off bed with pillow/s.
Pressure redistributing chair cushion (i.e. Air chair cushion).
Follow up with orthopedic surgeon and Dr. Ricardo.
Follow up at wound care center call for an appointment.
Referrals:
Rancho Ferguson III, MD [Active] - in two to three days
Max Ricardo DO [Active] - in one week
Willard Tinajero MD [Active] - (Currently scheduled 10 September 2023 at 0800 at the office in [place], [address] [facility]. Please arrive 15 minutes early for x-rays. Please contact the office if you need to reschedule. )
Asha Vivas MD [Family Provider] - in less than 1 week
Additional Discharge Medication Instructions: Take Bactrim, 1 tablet two times daily for 5 days, Lantus 25 units injection subcutaneously every night, metformin 500 mg by mouth 2 times daily,
Prescriptions:
New
sulfamethoxazole-trimethoprim [Bactrim DS] 800-160 mg tablet
1 tab PO BID Qty: 10 0RF
metformin 500 mg Tablet
500 mg PO BID@0800,1700 Qty: 30 0RF
Insulin Glargine Lantus [Lantus] 25 UNITS
Subcutaneous Insulin Syringe [Syringe-Insulin] 0 UNIT
As Directed mls/hr SC HS
Reason for use: Diabetes
Ordered By: Emeterio Wood MD, Resident
Last Taken: 09/02/23 22:14 0.25 mls
Continued
atorvastatin 20 mg tablet
20 mg PO DAILY
oxycodone-acetaminophen 5-325 mg tablet
1 tab PO Q8HPRN PRN (Reason: SEVERE PAIN)
losartan 25 mg tablet
25 mg PO DAILY
insulin aspart U-100 [Novolog FlexPen U-100 Insulin] 100 unit/mL (3 mL) insulin pen
5 - 10 sliding scale dose SC AC
Patient Comments:
08/30/2023, pt. unsure of sliding scale.
pregabalin 100 mg capsule
100 mg PO Q8H@0700,15,23
aspirin 325 mg tablet
325 mg PO DAILY Qty: 30 0RF
Discontinued
metformin 500 mg tablet
500 mg PO NOON PRN (Reason: Diabetes)
Patient Comments:
08/30/2023, when pt. skips lunch they do not take this med.
metformin 500 mg tablet
1,000 mg PO QPM
insulin degludec [Tresiba FlexTouch U-100] 100 unit/mL (3 mL) insulin pen
31 - 32 unit SC BID
sulfamethoxazole-trimethoprim 800-160 mg tablet
1 tab PO BID
Patient Comments:
08/30/2023, filled on 08/28/2023 and instructed to take 1 tab BID for 10 days. Pt. has taken 3 pills so far.
Discharge Orders:
Discharge Patient (As Directed); Ordered 09/03/23
Ordered By: Emeterio Wood
Discharge Date and Time
Discharge Date/Time: 09/03/23 16:29
Print Language: KAZAKH

Documented by User: Rivera Maynard MD 09/04/23 14:10
Discharge Summary
Discharge Data
Date of Admission: 08/30/23
Date of Discharge: 09/03/23
Discharge Plan
-
Patient Disposition: Home with Home Care
Discharge Diagnosis/Procedures: Postoperative wound infection of right ankle, left second toe ulcer, insulin-dependent diabetes mellitus type 2, diabetic neuropathy, diabetic retinopathy, CKD 3A, essential hypertension, hyperlipidemia, postoperative
blood loss anemia
Condition: Fair
Diet: Diabetic, Carb Controlled
Activity: As tolerated and Do not bear weight R leg
Driving Restrictions: As prior to admission
Bathing Restrictions: do not get splint wet
Other Services: VN
Wound Care: Wound care nurse 2-3 times weekly
Activity Restrictions/Additional Instructions:
Wound Care Instructions
R medial ankle incisional wound-clean with saline or Vashe wound cleanser, Santyl ointment, adaptic, 4x4 gauze pads, cover R lateral ankle incision with gauze pads, secure with Tessie or Kerlix, R knee high splint (cotton roll padding under splint,
apply splint, secure splint with Pato wraps), change dressing every Sunday, Sunday and Sunday and as needed for drainage.
Non weight bear RLE.
Elevate heels off bed with pillow/s.
Pressure redistributing chair cushion (i.e. Air chair cushion).
Follow up with orthopedic surgeon and Dr. Ricardo.
Follow up at wound care center call for an appointment.
Referrals:
Rancho Ferguson III, MD [Active] - in two to three days
Max Ricardo DO [Active] - in one week
Willard Tinajero MD [Active] - (Currently scheduled 10 September 2023 at 0800 at the office in [place], [address] Please arrive 15 minutes early for x-rays. Please contact the office if you need to reschedule. )
Asha Vivas MD [Family Provider] - in less than 1 week
Additional Discharge Medication Instructions: Take Bactrim, 1 tablet two times daily for 5 days, Lantus 25 units injection subcutaneously every night, metformin 500 mg by mouth 2 times daily,
Prescriptions:
New
sulfamethoxazole-trimethoprim [Bactrim DS] 800-160 mg tablet
1 tab PO BID Qty: 10 0RF
metformin 500 mg Tablet
500 mg PO BID@0800,1700 Qty: 30 0RF
Insulin Glargine Lantus [Lantus] 25 UNITS
Subcutaneous Insulin Syringe [Syringe-Insulin] 0 UNIT
As Directed mls/hr SC HS
Reason for use: Diabetes
Ordered By: Emeterio Wood MD, Resident
Last Taken: 09/02/23 22:14 0.25 mls
Continued
atorvastatin 20 mg tablet
20 mg PO DAILY
oxycodone-acetaminophen 5-325 mg tablet
1 tab PO Q8HPRN PRN (Reason: SEVERE PAIN)
losartan 25 mg tablet
25 mg PO DAILY
insulin aspart U-100 [Novolog FlexPen U-100 Insulin] 100 unit/mL (3 mL) insulin pen
5 - 10 sliding scale dose SC AC
Patient Comments:
08/30/2023, pt. unsure of sliding scale.
pregabalin 100 mg capsule
100 mg PO Q8H@0700,15,23
aspirin 325 mg tablet
325 mg PO DAILY Qty: 30 0RF
Discontinued
metformin 500 mg tablet
500 mg PO NOON PRN (Reason: Diabetes)
Patient Comments:
08/30/2023, when pt. skips lunch they do not take this med.
metformin 500 mg tablet
1,000 mg PO QPM
insulin degludec [Tresiba FlexTouch U-100] 100 unit/mL (3 mL) insulin pen
31 - 32 unit SC BID
sulfamethoxazole-trimethoprim 800-160 mg tablet
1 tab PO BID
Patient Comments:
08/30/2023, filled on 08/28/2023 and instructed to take 1 tab BID for 10 days. Pt. has taken 3 pills so far.
Discharge Orders:
Discharge Patient (As Directed); Ordered 09/03/23
Ordered By: Emeterio Wood
Discharge Date and Time
Discharge Date/Time: 09/03/23 16:29
Print Language: KAZAKH
--- NOTE | 2023-09-03 10:37 | W.PN.UPDATE ---
Update Note
Progress Note Update
Patient resting comfortable at the time of rounds. Splint and dressings in place. We are making slow progress here. Overall not having much pain. Will remain NWB in his splint. Continue with wound care. Santyl to the wound. Via pictures it
is slowly looking better. Positive culture in progress from 30 August 2023. This will likely be polymicrobial, but may help the ID team better direct his ABX. still no surgical indication at this time. Upon discharge wound care 3xs/week via the wound
care team and continuation of ABX. Would recommend an outpatient follow-up with Dr. Tinajero 2-3 days post D/c. Will follow for now
--- NOTE | 2023-09-03 11:18 | W.PN.ID1 ---
Documented by User: Jolanta Ramirez MD, Resident 09/03/23 12:16
Date of Service
Date of Service: September 03, 2023
Today's Communication
- Continue with local care to the wound .
-Discontinue metronidazole
� Switch to Bactrim DS , PO, BID.
-Outpatient follow-up in the ID office within a week.
Assessment / Plan
Assessment :
73-year-old male, with past medical history significant for diabetes, is being managed for postoperative wound infection S/P ORIF of right lower extremity on 08/07/2023.
Right medial ankle wound with dehiscence
Suspected wound infection
Right ankle cellulitis
Hx recent right ankle comminuted fracture with exposed bone
Conditions prior to admission:
DM
Neuropathy
HTN
Dyslipidemia
Depression
Recommendations:
Given initial open fracture and exposure to the environment, patient at risk for deeper infection. Additionally wound healing may be difficult secondary to underlying DM and neuropathy. Note patient was on bactrim prior to obtaining the current
cultures.
Has been seen by orthopedics service and no surgery or debridement is planned at this time.
Continue with empiric cefepime for the present.
Patient was started on empiric metronidazole 500 mg PO TID on 09/01/2039. Gas in the tissues on our Xray which could be post operative. Agree that most likely a polymicrobial infection.
MRSA screen negative.
Wound cultures x2 gram stain negative- no growth.
- Continue with local care to the wound .
-Discontinue metronidazole
� Switch to Bactrim DS , PO, BID.
-Outpatient follow-up in the ID office within a week.
Chief Complaint
-: Other
Subjective / Review of Systems
Patient feels comfortable. No acute overnight events.
Review of Systems: No Fever and No Chills
Vital Signs / Physical Exam
Vital Signs
Vital Signs
Temp Pulse Resp BP Pulse Ox
98.5 F 78 16 166/78 96
09/03/23 07:30 09/03/23 07:30 09/03/23 07:30 09/03/23 07:30 09/03/23 07:30
Physical Exam
Constitutional: No Acute Distress
Cardiovascular: Regular Rate and S1/S2
Pulmonary: Clear
Gastrointestinal: Soft, Non Tender, Non Distended and Normal Bowel Sounds
Skin: Warm and Dry
Wound: Other (Right medial ankle incision wound dry. No purulent drainage. Surrounding skin is dry and intact, mild erythema.)
Neurological: Awake, Alert, Oriented and AO x 3
Objective Data
Lab Data
Lab Results
09/03/23 06:36
08/30/23 15:58 Blood Culture - Preliminary
Blood/Venous Positive culture in progress
Gram Stain - Preliminary
08/31/23 08:40 Wound Culture - Final
Ankle - Right No growth
Gram Stain - Final
08/30/23 17:11 Wound Culture - Final
Ankle - Right No growth
Gram Stain - Final
09/01/23 17:29 Nasal Screen MRSA (PCR) - Final
Nose MRSA not detected - performed by PCR methodology.
09/02/23 06:00
ESR 53 mm/hour (0-20) H 08/30/23 15:58
Estimated Creat Clear 57 ml/min 09/02/23 06:00
Total Bilirubin 0.6 mg/dl (0.2-1.3) 09/02/23 06:00
AST 20 U/L (17-59) 09/02/23 06:00
ALT 16 U/L (0-50) 09/02/23 06:00
Alkaline Phosphatase 104 U/L (38-126) 09/02/23 06:00
C-Reactive Protein 67.20 mg/L (0.0-10.00) H 08/30/23 15:58
Most recent labs reviewed.
Micro Results:
08/30/23 15:58 Blood Culture - Preliminary
Blood/Venous Positive culture in progress
Gram Stain - Preliminary
08/31/23 08:40 Wound Culture - Final
Ankle - Right No growth
Gram Stain - Final
08/30/23 17:11 Wound Culture - Final
Ankle - Right No growth
Gram Stain - Final
09/01/23 17:29 Nasal Screen MRSA (PCR) - Final
Nose MRSA not detected - performed by PCR methodology.
Imaging:
08/30/2023 X-ray right ankle: Plate and screw hardware transfixing is a comminuted fracture of the distal fibula. No periprosthetic osteolysis. The alignment at the ankle mortise is maintained. Small displaced fracture fragments are noted around
the ankle. Soft tissue swelling is noted in the ankle area. Mild soft tissue gas in the posterior soft tissues at the level of the tibiotalar and subtalar joints is noted.
08/29/2023 Right ankle photo (as taken in Orthopedics office)

Documented by User: Max Ricardo DO 09/03/23 13:46
Today's Communication
Change to doxycycline 100 mg p.o. twice daily for an additional 5 days.
Assessment / Plan
Assessment :
73-year-old male, with past medical history significant for diabetes, is being managed for postoperative wound infection S/P ORIF of right lower extremity on 08/07/2023.
Right medial ankle wound with dehiscence
Suspected wound infection
Right ankle cellulitis
Hx recent right ankle comminuted fracture with exposed bone
Conditions prior to admission:
DM
Neuropathy
HTN
Dyslipidemia
Depression
Recommendations:
MRSA screen negative.
Wound cultures x2 gram stain negative- no growth.
- Continue with local care to the wound and Santyl.
- Discontinue metronidazole
- Patient initially on Bactrim DS BID at presentation, but had elevated potassium, possibly secondary to concomitant use of losartan.
- Change to doxycycline 100 mg p.o. twice daily for an additional 5 days.
- Outpatient follow-up in the ID office in 1-2 week.
����������������������������������������������������������
Chief Complaint
-: Other (Right ankle wound infection)
Objective Data
Lab Data
Imaging:
08/30/2023 X-ray right ankle: Plate and screw hardware transfixing is a comminuted fracture of the distal fibula. No periprosthetic osteolysis. The alignment at the ankle mortise is maintained. Small displaced fracture fragments are noted around
the ankle. Soft tissue swelling is noted in the ankle area. Mild soft tissue gas in the posterior soft tissues at the level of the tibiotalar and subtalar joints is noted.
09/03/2023 Right ankle photo
Care Review
Plan reviewed with: Physician (Hospitalist)
--- NOTE | 2023-09-03 11:38 | CM ---
Addendum entered by PATRICIO Pop 09/03/23 14:37:
Reviewed IMM. Patient signed and it is on chart.
Addendum entered by PATRICIO Pop 09/03/23 11:52:
Referral made to VN.
Original Note:
Reviewed chart. Spoke with director regarding patient safety as he expressed that he prefers to go home. Met with patient at bedside with air and water filler and PCT. Wound care stated that patient will need outpatient 1x a week and VN to come out 3x a
week. Patient was advised that SNF may be an option upon reviewing PT notes. Patient refused stating that he would like to return home with his VN services. He won't consider rehab at this time. Wound Care confirmed that as long as he has 3x a week
VN services, and goes to the wound center he will be good from a wound perspective.
Patient stated that between his friend and his brother checking on him, he feels he will be ok at home.
Patient inquired into transportation services. He was notified that BCT is an option, Uber, Lyft or Taxi. Patient declined information regarding BCT. He stated that Uber or Lyft is not an option as he does not have a smart phone. Patient stated that
he does have a friend who will take him to wound care.
Plan: Case management will continue to follow and assist with discharge planning. Patient will only consider going home with VN services. ([facility]).
[2023-09-03 12:06] LABS: Glucose - Point of Care 196 mg/dl (70-99)
--- NOTE | 2023-09-03 12:08 | WOUNDNOTE ---
R HEEL (blanchable mild red and intact)
--- NOTE | 2023-09-03 12:14 | WOUNDNOTE ---
[facility] RN note: Patient for possible discharge today. R medial ankle incisional wound dry yellow/brown with small pink tissue, small bernal serous drainage. Surrounding erythema improved. [place] texted R ankle wound pictures to Dr. Ricardo, Dr. Ramirez and
Rashid Vickers, ortho PA. Dr. Ricardo was in to evaluate ankle. R heel blanchable mild red and intact. Protective foam applied to R heel. Medial buttocks blanchable mild red and intact. Patient moves self independently and is lifting his RLE better.
Tolerating po. He reports compliance with NWB RLE. R lateral ankle incision remains the same, dry scabbed with steri strips in place. RLE dressings changed. L 2nd toe and R great toe scabs remain dry. Toe dressings changed. Wound care supplies
given. RLE elevated on pillow. Air chair cushion under L heel. VN planned. Patient to follow up with [facility] and orthopedic surgeon. Updated CHRISTIAN Mcgrath.
[2023-09-03] MEDS: NOVOLOG FLEXPEN-LOW RESISTANCE 1 UNITS SC (13:25)
[2023-09-03 15:15] VITALS: BP 155/89
--- NOTE | 2023-09-04 07:40 | PN.CDI ---
CDI
- -
CDI:
Physician Documentation Request
Admit Date: 08/30/23 18:11
Dear Doctor Viola,
Please review the following and provide your response in the progress notes.
Clinical Indicators:
- 7/8 PN 'Postoperative blood loss anemia' without specificity
- per H&P 'Hemoglobin 11.7 from 13 previous'
- pmh blood loss anemia
Please clarify which accurately represents the acuity of the blood loss anemia.
Acute blood loss anemia
Acute on chronic blood loss anemia
Other
Use of terms such as suspected, likely, concern for, or probable (associated with a specific diagnosis that is being evaluated, monitored, or treated as if it exists) are acceptable and can be coded in the inpatient setting, when documented at the
time of discharge.
Thank you,
Mark Pate RN
CDI Specialist
Please use your independent medical judgment in providing your response.
== END 2023-09-03 16:29 | disposition home health service (06) | DRG 863 ==
LOC: 3 WEST ACU 18:11
PROVIDERS: Family Medicine; Physician Assistant; ADMITTING PHYSICIAN Hospitalist; ATTENDING PHYSICIAN Hospitalist; CONSULT PHYSICIAN Internal Medicine Infectious Disease; EMERGENCY PHYSICIAN Emergency Medicine; FAMILY PHYSICIAN Family Medicine
DX: T81.41XA Infection following a procedure, superficial incisional surgical site, initial encounter (principal); T81.33XA Disruption of traumatic injury wound repair, initial encounter; D62 Acute posthemorrhagic anemia; L03.116 Cellulitis of left lower limb; F11.20 Opioid dependence, uncomplicated; E11.621 Type 2 diabetes mellitus with foot ulcer; E11.40 Type 2 diabetes mellitus with diabetic neuropathy, unspecified; E11.22 Type 2 diabetes mellitus with diabetic chronic kidney disease; E11.319 Type 2 diabetes mellitus with unspecified diabetic retinopathy without macular edema; E11.649 Type 2 diabetes mellitus with hypoglycemia without coma; E11.51 Type 2 diabetes mellitus with diabetic peripheral angiopathy without gangrene; I12.9 Hypertensive chronic kidney disease with stage 1 through stage 4 chronic kidney disease, or unspecified chronic kidney disease; N18.31 Chronic kidney disease, stage 3a; E78.5 Hyperlipidemia, unspecified; L97.521 Non-pressure chronic ulcer of other part of left foot limited to breakdown of skin; G89.29 Other chronic pain; F32.A Depression, unspecified; Z79.4 Long term (current) use of insulin; Z79.84 Long term (current) use of oral hypoglycemic drugs; Z79.82 Long term (current) use of aspirin; Y83.8 Other surgical procedures as the cause of abnormal reaction of the patient, or of later complication, without mention of misadventure at the time of the procedure
CPT/HCPCS: 73610; 80048; 80053; 82962; 85025; 85652; 86140; 87040; 87070; 87150; 87205; 87641; 93005; 93922; 93925; 96374; 97162; 97166; 99285

== ENCOUNTER → 2023-09-28 12:23 | Outpatient (REF) | payer OTHER, SELFPAY | LOC: WOUND 12:23 | PROVIDERS: ATTENDING PHYSICIAN Surgery; FAMILY PHYSICIAN Family Medicine | DX: S91.001A Unspecified open wound, right ankle, initial encounter (principal); E11.40 Type 2 diabetes mellitus with diabetic neuropathy, unspecified; S82.841A Displaced bimalleolar fracture of right lower leg, initial encounter for closed fracture; Z79.4 Long term (current) use of insulin; E11.65 Type 2 diabetes mellitus with hyperglycemia; E11.29 Type 2 diabetes mellitus with other diabetic kidney complication; N18.30 Chronic kidney disease, stage 3 unspecified; X58.XXXA Exposure to other specified factors, initial encounter | CPT/HCPCS: 99203 ==

== ENCOUNTER → 2023-10-09 13:46 | Outpatient (REF) | payer OTHER, SELFPAY | LOC: WOUND 13:46 | PROVIDERS: ATTENDING PHYSICIAN Surgery; FAMILY PHYSICIAN Family Medicine | DX: L97.324 Non-pressure chronic ulcer of left ankle with necrosis of bone (principal); L03.116 Cellulitis of left lower limb; S91.001A Unspecified open wound, right ankle, initial encounter; E11.40 Type 2 diabetes mellitus with diabetic neuropathy, unspecified; E11.65 Type 2 diabetes mellitus with hyperglycemia; E11.29 Type 2 diabetes mellitus with other diabetic kidney complication; N18.30 Chronic kidney disease, stage 3 unspecified | CPT/HCPCS: 11043 ==

== ENCOUNTER → 2023-10-16 14:29 | Outpatient (REF) | payer OTHER, SELFPAY | LOC: WOUND 14:29 | PROVIDERS: ATTENDING PHYSICIAN Surgery; FAMILY PHYSICIAN Family Medicine | DX: L97.324 Non-pressure chronic ulcer of left ankle with necrosis of bone (principal); L03.116 Cellulitis of left lower limb; S91.001A Unspecified open wound, right ankle, initial encounter; S82.841A Displaced bimalleolar fracture of right lower leg, initial encounter for closed fracture; E11.40 Type 2 diabetes mellitus with diabetic neuropathy, unspecified; E11.65 Type 2 diabetes mellitus with hyperglycemia; E11.29 Type 2 diabetes mellitus with other diabetic kidney complication; N18.30 Chronic kidney disease, stage 3 unspecified; Z87.81 Personal history of (healed) traumatic fracture; Z79.4 Long term (current) use of insulin; W19.XXXA Unspecified fall, initial encounter | CPT/HCPCS: 11044 ==

== ENCOUNTER → 2023-10-25 14:05 | Outpatient (REF) | payer OTHER, SELFPAY | LOC: WOUND 14:05 | PROVIDERS: ATTENDING PHYSICIAN Surgery; FAMILY PHYSICIAN Family Medicine | DX: L97.324 Non-pressure chronic ulcer of left ankle with necrosis of bone (principal); L03.116 Cellulitis of left lower limb; S91.001A Unspecified open wound, right ankle, initial encounter; Z87.81 Personal history of (healed) traumatic fracture; S82.841A Displaced bimalleolar fracture of right lower leg, initial encounter for closed fracture; E11.65 Type 2 diabetes mellitus with hyperglycemia; E11.29 Type 2 diabetes mellitus with other diabetic kidney complication; N18.30 Chronic kidney disease, stage 3 unspecified; Z79.4 Long term (current) use of insulin; W19.XXXA Unspecified fall, initial encounter | CPT/HCPCS: 11044 ==

== ENCOUNTER 2023-11-06 13:07 | Inpatient (IN) | payer OTHER, SELFPAY ==
[2023-11-06] VITALS (9 sets, daily range): BP systolic 127–161; BP diastolic 54–78; BMI 26.7
[2023-11-06 12:01] LABS: % Basophils 0.6 % (0-2); % Eosinophils 1.2 % (0-6); % Immature Granulocytes 0.5 % (0-0.5); % Lymphocytes 9.3 % (20.5-51.1); % Monocytes 8.4 % (1.7-9.3); Absolute Basophils 0.1 10^3/uL (0-0.2); Absolute Eosinophils 0.2 10^3/uL (0-0.7); Absolute Immature Granulocytes 0.1 10^3/uL (0-0.05); Absolute Lymphocytes 1.3 10^3/uL (1.2-3.4); Absolute Monocytes 1.2 10^3/uL (0.1-0.6); Absolute Neutrophils 11.4 10^3/uL (1.4-6.5); Hematocrit 28.4 % (39.0-52.0); Hemoglobin 9.3 g/dL (13.0-18.0); Mean Corp Hgb Conc. 32.7 g/dL (33.0-37.0); Mean Corpuscular Hgb 27.5 pg (27.0-31.0); Mean Platelet Volume 10.4 fL (7.4-10.4); Nucleated Red Blood Cells % 0 % (-); Platelet Count 460 10^3/uL (130-400); Red Blood Cell Count 3.38 10^6/uL (4.70-6.10); Red Cell Dist. Width 13.9 % (11.5-14.5); White Blood Cell Count 14.2 10^3/uL (4.8-10.8)
--- NOTE | 2023-11-06 12:01 | ED.GENMED ---
History of Present Illness
General
Chief Complaint: Skin Problem
Time Seen by Provider: 11/06/23 11:25
History of Present Illness
History of Present Illness:
73-year-old male presents to the emergency department for evaluation of worsening wound to the right medial ankle. He underwent ORIF of the right ankle due to an open bimalleolar fracture in late July at this hospital by Dr. Horvath, postoperative
course was complicated by wound infection for which she was admitted to this hospital and late August. He states that he remains on doxycycline at this time. Against his orthopedist recommendations he attempted to ambulate on the foot last week
without his orthopedic boot and states the wound seems to be worse since that time. He also does not reliably care for his wound, was seen by wound care visiting nurse today and referred to the emergency department. Denies any fevers
Past History
Past History
ED Past Medical History: HTN, NIDDM and Other (Diabetic neuropathy BLE)
ED Past Surgical History: Other (wisdom teeth, cataracts)
Social History
Tobacco: Non-smoker
Drug: None
Review of Systems
Review of Systems
Allergies reviewed?: Yes
All Other Systems: ROS reviewed and negative except as documented in HPI and ROS
Phy Exam
Physical Exam
Physical Exam:
GEN: Well appearing, NAD, WDWN
HEENT: Oral mucosa moist, no scleral icterus
Cardiac: Regular rate
Lung: No respiratory distress, no tachypnea
MSK: Severe deformity of the right ankle with lateral rotation, medial open wound with exposed bony tissue and purulent discharge
Skin: Good color, no pallor or jaundice, no rashes
Neuro: AO x3, moves all extremities freely
Psych: Calm, cooperative
Course
Orders/Labs/Results
Orders:
Orders
11/06/23 11:36
Ankle, Right 3 view CR [CR Ankle - Right Min 3 Views *] Urgent
Comment:
Reason For Exam: open wound medial ankle
11/06/23 11:42
Complete Blood Count/With Diff Urgent
Comprehensive Metabolic Panel Urgent
Wound Culture [Wound/Abscess/Other Culture] Urgent
MARIA T Source: Ankle
Specimen Description: Right
Date Specimen was Collected: 11/06/23
Time Specimen was Collected: 11:41
11/06/23 12:36
Admit/Transfer Patient As Directed
Co-Sign Provider:
Level of Care: Inpatient admission
Assign to:: Medical/Surgical
Physician / Group: terrence
Diagnosis: right ankle wound
Reason for Hospitalization: right ankle wound
Expected length of stay greater than two midnights?: Yes
ELOS- Estimated Length of Stay in days: 2
I certify the patient meets the requirements for IP care: Yes
Code Status As Directed
Resuscitation Status: Full Code
PRN Pain Medication Management As Directed
May give lesser potent ordered pain med per pt: Yes
preference::
Protocol:: Medication orders for pain may be administered in a
manner that supports deferring to patient preference
when the pt is:
- Requesting an ordered lesser potent pain medication.
Least to most potent pain medications are defined
as: acetaminophen < NSAID < tramadol < opioids
(morphine, oxycodone, hydromorphone).
- Requesting a lesser dose of the same medication IF
ORDERED.
- Requesting a less intrusive route of administration
if both routes are prescribed by the provider (PO <
IV).
11/06/23 12:38
MR Right Le Joint W W/o Routine
Reason For Exam: right ankle wound, surgical planning
Recent pill cam endoscopy?: No
11/06/23 12:49
Clindamycin 600 mg/50 ml [Cleocin] 600 mg in 50 ml IV NOW
11/06/23 12:51
Vancomycin [Vancocin] 1,500 mg 0.9% Sodium Chloride [Nss] 20 ml 0.9% Sodium Chloride 250 ml [Nss] 250 ml IV NOW
11/06/23 13:15
Pregabalin [Lyrica] 100 mg PO Q8H
11/06/23 14:38
Acetaminophen [Tylenol] 650 mg PO Q4HPRN PRN
Dextrose 50%-Water [Dextrose 50% Syringe] 12.5 grams IV [id number] PRN
Glucagon [GlucaGen] 1 mg IM PRN PRN
VANCOMYCIN Pharmacy to Dose [VANCOCIN Pharmacy to Dose] 1 each Pharmacy To Prepare [Call Pharmacy To Prepare] 0 ml IV PER PROTOCOL
11/06/23 14:38
INFECTIOUS DISEASE CONSULT Routine
Consulting Provider: Alondra Medrano
Was physician already notified: Yes
ORTHOPEDIC CONSULT Routine
Consulting Provider: Blaine Cardona
Was physician already notified: Yes
VTE Contraindication Routine
VTE Mechanical Device Contraindication: Medical Contraindication
Pharmocologic Contraindication: Medical Contraindication
Activity As Directed
Activity Level: As Tolerated
Bedside Glucose Monitoring As Directed
Frequency: AC&HS
Additional Instructions:: Change to q6h if pt on TPN, tube feeding or not eating
Vital Signs As Directed
Frequency: Per unit guidelines
11/06/23 Dinner
2000 calorie (17 carb) Diabetic
At Your Request: Full Participation
Does patient need a safe tray?: No
11/06/23 16:00
Cefepime HCl [Maxipime] 1,000 mg IV Q12H
11/06/23 16:30
Insulin Aspart Corrective Low [Novolog Flexpen-Low Resistance] See Protocol SC AC
11/06/23 20:00
Oxycodone/Acetaminophen [Percocet 5/325] 1 tablet PO BID
11/06/23 22:00
Insulin Glargine Lantus [Lantus] 25 units Subcutaneous Insulin Syringe [Syringe-Insulin] 0 unit SC HS
11/07/23 06:00
Complete Blood Count/With Diff IN AM
Comprehensive Metabolic Panel IN AM
Glycohemoglobin (HgbA1c) IN AM
11/07/23 08:00
Aspirin 325 mg PO DAILY
Atorvastatin [Lipitor] 20 mg PO DAILY
Losartan [Cozaar] 25 mg PO DAILY
Abnormal Lab Results
11/06/23
11:42
WBC 14.2 H 10^3/uL
(4.8-10.8)
RBC 3.38 L 10^6/uL
(4.70-6.10)
Hgb 9.3 L g/dL
(13.0-18.0)
Hct 28.4 L %
(39.0-52.0)
MCHC 32.7 L g/dL
(33.0-37.0)
Plt Count 460 H 10^3/uL
(130-400)
Abs Immat Gran (auto) 0.1 H 10^3/uL
(0-0.05)
Absolute Neuts (auto) 11.4 H 10^3/uL
(1.4-6.5)
Absolute Monos (auto) 1.2 H 10^3/uL
(0.1-0.6)
Neutrophils % 80.0 H %
(42.2-75.2)
Lymphocytes % 9.3 L %
(20.5-51.1)
Chloride 96 L mmol/L
(98-107)
BUN 34 H mg/dl
(9-20)
Glucose 156 H mg/dl
(70-99)
AST 134 H U/L
(17-59)
ALT 93 H U/L
(0-50)
Alkaline Phosphatase 198 H U/L
(38-126)
Total Protein 5.8 L g/dl
(6.3-8.2)
Albumin 3.0 L g/dl
(3.5-5.0)
11/06/23 11:42
11/06/23 11:42
Vital Signs
Initial and Last Documented VS:
Initial Vital Signs
Pulse Resp Pulse Ox
90 9 96
11/06/23 11:28 11/06/23 11:28 11/06/23 11:28
Last Documented Vital Signs
Temp Pulse Resp BP Pulse Ox
98.4 F 83 18 144/78 99
11/06/23 15:06 11/06/23 15:06 11/06/23 15:06 11/06/23 15:06 11/06/23 15:06
MDM/Problems Addressed
MDM/Problems Addressed:
Discussed case with orthopedics patient surgery and MRI will be encouraged for surgical planning. X-ray reveals severe tibiotalar dislocation with progression of fracture fragments to the fibula and likely ligamentous injury. The foot was gently
reduced and replaced into his orthopedic boot after wound was redressed and cultures were obtained. Will start broad-spectrum IV antibiotics, patient is allergic to penicillin thus will treat with clindamycin and vancomycin. Will be admitted to
the hospital service
*Critical Care Note
Total Time (30-74mins, 75-104mins- exclusive of procedures): Not Applicable
ED Attending Note
-
Portions of this chart may have been created with voice recognition software.� Occasional wrong word or��sound alike� substitutions may have occurred due to the inherent limitations of voice recognition software.
Discharge Plan
Departure
Patient Disposition: Admit
Date of Disposition: 11/06/23
Time of Disposition: 12:18
Admit to: Med/Surg
Presentation/result/management discussed w/ accepting MD/DO: Hospitalist
Discharge Problem:
Post op infection, Dislocation of ankle, right, open
Interventions
Interventions:
*Risk Screen - Suicide Last Done: 11/06/23 11:32
*General Assessment Last Done: 11/06/23 11:35
*Neglect/Abuse Screening Last Done: 11/06/23 11:32
ED- Fall Risk Assessment Last Done: 11/06/23 11:42
*ED COVID-19 Vaccine History Last Done: 11/06/23 11:32
*Nursing Disposition Last Done: 11/06/23 14:41
ED-Skin Assessment Last Done: 11/06/23 12:30
Discharge Date and Time
Discharge Date/Time: 11/06/23 14:35
[2023-11-06 12:11] LABS: ALT (SGPT) 93 U/L (0-50); AST (SGOT) 134 U/L (17-59); Alkaline Phosphatase 198 U/L (38-126); Blood Urea Nitrogen 34 mg/dl (9-20); Calcium 8.8 mg/dl (8.4-10.2); Carbon Dioxide 30 mmol/L (22-30); Chloride 96 mmol/L (98-107); Glucose 156 mg/dl (70-99); Potassium 4.2 mmol/L (3.5-5.1); Sodium 136 mmol/L (135-145); Total Bilirubin 0.7 mg/dl (0.2-1.3); Total Protein 5.8 g/dl (6.3-8.2); eGFR > 60.00
--- NOTE | 2023-11-06 12:48 | HPS.HSE ---
Family Physician
-
Family Physician: Asha Vivas
Chief Complaint
-
right ankle wound
History of Present Illness
73-year-old male past medical history of recent right ankle fracture status post ORIF on 08/06, diabetes, CKD, hypertension, diabetic neuropathy, retinopathy, chronic pain with opiate dependence, blood loss anemia from ORIF, presenting for worsening
of right ankle wound over the past week. His right ankle wound infection had resolved after admission in August. Over the past week the wound has gotten worse with drainage although he denies pain because he has neuropathy. He denies fevers or
chills. He has been on doxycycline for the past 2 months.
He was admitted from 08/29 to 09/02 for postoperative infection. He was treated with IV cefepime. Patient also had blood cultures which were positive for gram-positive cocci in clusters suggestive of Staph aureus unclear if this was contaminant.
Patient also had hypoglycemia during admission and Lantus was decreased to 25 units once a day. Outpatient referral to vascular surgery was recommend for chronic nonhealing wounds.
He denies smoking or alcohol use.
Medical History
Past Medical History
Past Medical History: Reports Other (recent right ankle fracture status post ORIF on 08/06, diabetes, CKD, hypertension, diabetic neuropathy, retinopathy, chronic pain with opiate dependence, blood loss anemia from ORIF)
Past Surgical History: Reports Other (ORIF on 08/06)
Social History
Tobacco: Non-smoker
Alcohol: None
Drug: None
Family History
Family History: Not pertinent
Allergies / Home Medications
Allergies reflects when Allergies were last updated in [facility].
Home Medications with original date entered in [facility]
Allergy/Medication List:
Allergies
Allergy/AdvReac Type Severity Reaction Status Date / Time
Penicillins Allergy at 9 Verified 11/06/23 11:41
years old,
shortness
of breath
Home Medications
atorvastatin 20 mg tablet 20 mg PO DAILY High Cholesterol 08/07/23
insulin aspart U-100 100 unit/mL (3 mL) subcutaneous pen (Novolog FlexPen U-100 Insulin aspart) 5 - 10 sliding scale dose SC AC Diabetes 08/07/23
losartan 25 mg tablet 25 mg PO DAILY Blood Pressure 08/07/23
oxycodone-acetaminophen 5 mg-325 mg tablet 1 tab PO Q8HPRN PRN SEVERE PAIN 08/07/23
pregabalin 100 mg capsule 100 mg PO Q8H@0700,15,23 Pain 08/07/23
aspirin 325 mg tablet 325 mg PO DAILY #30 tabs 08/12/23
Insulin Glargine Lantus [Lantus] 25 units As Directed mls/hr SC HS Diabetes 09/03/23
metformin 500 mg tablet 500 mg PO BID@0800,1700 Diabetes #30 tabs 09/03/23
sulfamethoxazole 800 mg-trimethoprim 160 mg tablet (Bactrim DS) 1 tab PO BID Infection #10 tabs 09/03/23
Review of Systems
-
History Source: Patient
A 12 point ROS was completed and negative except as noted: Yes
Constitutional: Reports No Symptoms
EENT: Reports No Symptoms
Respiratory: Reports No Symptoms
Cardiac: Reports No Symptoms
Abdomen/GI: Reports No Symptoms
: Reports No Symptoms
Musculoskeletal: Reports No Symptoms
Skin: Reports See HPI
Neurological: Reports No Symptoms
Endocrine: Reports No Symptoms
Hematologic/Lymphatic: Reports No Symptoms
Psych: Reports No Symptoms
Physical Exam
Vital Signs
Vital Signs
Temp Pulse Resp BP Pulse Ox
97.5 F 84 14 161/67 98
11/06/23 11:32 11/06/23 11:45 11/06/23 11:45 11/06/23 11:36 11/06/23 11:42
Physical Exam
General: Well Developed, Well Nourished and No Apparent Distress
HEENT: NormoCephalic, Moist mucous membranes and Atraumatic
Respiratory: Clear
Cardiac: S1/S2 and Regular Rhythm; No Murmur or Rub
GI: Soft, Non Tender, Non Distended and Normal Bowel Sounds; No Organomegaly
Rectal: Deferred by Provider
Musculoskeletal: No Clubbing, No Cyanosis and No Edema
Skin: No Rash
Neuro: Nonfocal/grossly intact
Laboratory Results
-
11/06/23 11:42
11/06/23 11:42
Laboratory Results
Total Bilirubin 0.7 mg/dl (0.2-1.3) 11/06/23 11:42
AST 134 U/L (17-59) H 11/06/23 11:42
ALT 93 U/L (0-50) H 11/06/23 11:42
Alkaline Phosphatase 198 U/L (38-126) H 11/06/23 11:42
Data Reviewed
-
Lab Data: Labs Reviewed by me
Old Records: Reviewed
Impression/Plan
-
IMPRESSION:
PLAN:
# Recurrent postoperative right ankle wound infection after recent dehiscence after right ankle fracture
# Open right ankle fracture/wound with exposed bone, medial malleolus fracture tibiotalar subluxation comminuted displaced right distal fibular metadiaphyseal fracture following mechanical fall status post ORIF on 08/06
-Ankle x-ray pending
-Wound culture sent
-Vancomycin/cefepime
-Ortho consulted and recommends MRI for surgical planning
-ID consulted
# Superficial knee wound left knee secondary to crawling
-Wound care consulted
# Postoperative blood loss anemia
-Hemoglobin of 9.3 down from 12.3 in August
-Continue to monitor
# Transaminitis unclear etiology possibly secondary to doxycycline
-Continue to monitor
PAD
-Patient had normal JONAS during recent admission
-continue ASA/statin
Recent hypoglycemia
Type 2 diabetes
-now resolved
-A1c of 6.6
-Continue Lantus 25 units
-ISS
-hold metformin
Diabetic neuropathy/chronic pain with opiate dependence
-continue pregabalin
-continue percocet
Diabetic retinopathy
Chronic kidney disease
-renal function baseline
Essential hypertension
-continue losartan
Full code
DVT prophylaxis�aspirin
Diabetic diet
[2023-11-06] MEDS: CLEOCIN 50 IV (13:09)
[2023-11-06] MEDS: VANCOCIN 300 MG IV (13:56)
[2023-11-06] MEDS: VANCOCIN 300 ML IV (13:56)
[2023-11-06] MEDS: LYRICA 100 MG PO ×2 (14:30→20:47)
--- NOTE | 2023-11-06 14:40 | EDRN ---
Patient taken to room 413-1 on stretcher with Vancomycin infusing by systems test technician.
--- NOTE | 2023-11-06 14:46 | PHA.VAN.IN ---
Assessment
- Assessment
Renal Function: Appears similar to baseline
Concomitant Antimicrobials: cefepime
Plan
- Plan
Initial / Loading Dose: 1500mg - 11/05 13:56 PLUS additional 500mg x1
Maintenance Regimen: dosing by level
Monitoring: random 11/06 0600
Pharmacokinetics Vancomycin I
- -
Patient Age: 73
Patient Sex: Male
Vancomycin Day #: 1
Indication: Skin And Soft Tissue
Requesting Provider: Dr Hummel
Pertinent Antimicrobial Allergies:
penicillin - SOB at 9 years old
Height / Weight:
Height 5 ft 8 in
Actual Weight 81.6 kg
Pertinent Past Medical History: DM, CKD, PAD
- Vital Signs / Lab Results
Temp Pulse Resp BP Pulse Ox
97.5 F 76 18 127/62 100
11/06/23 11:32 11/06/23 14:41 11/06/23 14:41 11/06/23 14:41 11/06/23 14:41
Lab Results - Hematology
11/06/23
11:42
WBC 14.2 H
Lab Results - Chemistry
11/06/23
11:42
BUN 34 H
Creatinine 1.1
Albumin 3.0 L
--- NOTE | 2023-11-06 15:10 | PTCARENOTE ---
Received patient from ED via stretcher. Pt AAOX3. Pox: 99% RA. IV vanco infusing without difficulty. Call tristan within reach. Plan of care ongoing.
[2023-11-06 15:26] LABS: Glucose - Point of Care 120 mg/dl (70-99)
[2023-11-06] MEDS: VANCOCIN HCL 500 MG 100 IV (15:28)
[2023-11-06] MEDS: NOVOLOG FLEXPEN-LOW RESISTANCE SC (15:30)
[2023-11-06] MEDS: STERILE WATER FOR INJECTION 10 ML IV (16:54)
[2023-11-06] MEDS: MAXIPIME 1000 MG IV (16:54)
--- NOTE | 2023-11-06 16:55 | W.PN.UPDATE ---
Update Note
Progress Note Update
73-year-old male with a significant past medical history of distal neuropathy status post right open ankle fracture bimalleolar equivalent operative invention of debridement and irrigation with ORIF [address] Tinajero with postoperative
complications of dehiscence of his wound site with protrusion of bone and failure of hardware. He was recently seen in the outpatient office on 02 November 2023 with the operating surgeon with complications and at that timeframe; he was pending
outpatient follow-up with our foot and ankle podiatric surgeon as his symptoms were reported subacute. Patient presented to the emergency room today at the recommendation of his wound care management given the appearance of his wound site.
Exam shows an approximate [id number] opening about the medial malleolus with exposur of bone and motion with foul odor and purulent border discharge. MF intact distally but minimal sensation to light touch.
X-rays shows fracture malalignment with failure of hardware and indication of open wound.
A new splint was applied for comfort, NVI to baseline after placement; poor fitting with existing cam boot as well as the foam padding was soiled with seepage from his wound
Recommend MRI with without contrast of the right lower extremity to look the extent of infection of assumed osteomyelitis
Pending MRI results will dictate operative intervention of either debridement with external fixation and hardware removal versus discussion of amputation. Possible for OR tomorrow if MRI is completed before then
recommend vascular consultation
Recommend continued symptomatic pain control, and pending MRI results will further dictate treatment as recommended follow-up with Dr. Willard Carmona of the podiatric surgical team
--- NOTE | 2023-11-06 17:15 | CON.ID ---
Consultation
-
Date/Time Consultation Requested: 11/06/23 14:38
Date/Time Consultation Performed: 11/06/23 17:16
Requesting Provider: Dr Hummel
Performing Provider: Dr Johnson
Reason for Consultation: wound infection
Chief Complaint / Past History
Chief Complaint
right ankle wound
History of Present Illness
Mr Horowitz is a 73 year old male with medical history of open right bilateral malleolar ankle fracture with exposed bone early July 2023- patient delayed presentation for about 2 days, status post ORIF on 08/06 uncomplicated procedure initially,
diabetes with neuropathy, chronic pain with opiate dependence, who presented here today for worsening of right ankle wound over the past week. He was admitted here 08/29-09/02 for dehiscence of the medial ankle wound, a single blood culture had
micrococcus, wound cultures x2 08/29 and 08/30 with no growth, mrsa screen 08/31 with no mrsa, he was treated with cefepime and metronidazole and then switched to bactrim DS 1 pill twice daily for another [address] Ricardo. Patient reports to me that
the wound never fully healed. He was started on doxycycline by orthopedics. He continued to follow up with orthopedics Dr Tinajero and was advised to be nonweight bearing, however he was not compliant with this recommendation. over the last few
days however, he has noted marked increase in size, drainage and pain. He was seen in orthopedics clinic 11/01 found to have collapse of the fixation with exposed bone medially and was referred to Dr Carmona for possible reconstruction, he continued
to follow up with wound care who referred him to the ER.
Since arrival here patient has been afebrile, bp stable, wbc 14.2, hgb 9.3, plt 460, L shift noted, cr 1.1, t bili 0.7, ast 134, alt 93, alk pohs 198,
ankle xray 'Fracture of the distal right fibula again seen with metal hardware... further mild fragmentation of the fracture of the right fibula with lateral angulation of the distal portion of the metal plate and screws as well as marked new
disruption of the ankle mortise' MRI is planned
Past History
Additional Past Medical History:
recent right ankle fracture status post ORIF on 08/06, diabetes, CKD, hypertension, diabetic neuropathy, retinopathy, chronic pain with opiate dependence, blood loss anemia from ORIF
Additional Past Surgical History:
ORIF on 08/06
Allergy History:
Penicillins Allergy (Verified 11/06/23 11:41)
at 9 years old, shortness of breath
Medications Reviewed: Yes
Social History
Tobacco: Non-Smoker
Alcohol: None
Drug: None
Family History
Family History: Not Pertinent
Review of Systems
Review of Systems
General: Negative Fever or Chills
All systems: All other systems were reviewed and were negative
Vital Signs
Temp Pulse Resp BP Pulse Ox
98.4 F 83 18 144/78 98
11/06/23 15:06 11/06/23 15:06 11/06/23 15:06 11/06/23 15:06 11/06/23 15:55
Physical Exam
Physical Exam
Constitutional: No Acute Distress
Cardiovascular: Regular Rate and S1/S2; Negative Murmur or Rub
Pulmonary: Clear and Symmetric; Negative Wheezes, Rales or Rhonchi
Gastrointestinal: Soft, Non Tender, Non Distended and Normal Bowel Sounds
Skin: Warm and Dry; Negative Rash or Jaundice
Wound: Other (deferred dressing take down at patient request )
Lab / Diagnostic Study Results
11/06/23 11:42
11/06/23 11:42
Abs Immat Gran (auto) 0.1 10^3/uL (0-0.05) H 11/06/23 11:42
Absolute Neuts (auto) 11.4 10^3/uL (1.4-6.5) H 11/06/23 11:42
Absolute Lymphs (auto) 1.3 10^3/uL (1.2-3.4) 11/06/23 11:42
Absolute Monos (auto) 1.2 10^3/uL (0.1-0.6) H 11/06/23 11:42
Absolute Basos (auto) 0.1 10^3/uL (0-0.2) 11/06/23 11:42
Immature Gran % 0.5 % (0-0.5) 11/06/23 11:42
Neutrophils % 80.0 % (42.2-75.2) H 11/06/23 11:42
Lymphocytes % 9.3 % (20.5-51.1) L 11/06/23 11:42
Monocytes % 8.4 % (1.7-9.3) 11/06/23 11:42
Eosinophils % 1.2 % (0-6) 11/06/23 11:42
Basophils % 0.6 % (0-2) 11/06/23 11:42
Microbiology Results
Micro:
11/06/23 11:42 Wound Culture - Pending
Ankle - Right Gram Stain - Preliminary
Assessment / Plan
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
Leukocytosis
Transaminitis
H/o shortness of breath with penicillin
- deferred dressing take down at patient request as changes are quite painful, will attempt to coordinate with nursing staff tomorrow to limit dressing changes
- send blood cultures x2 given complicated, chronic infection
- superficial wound culture sent from the ER on 11/05
- previous MRSA screen negative - repeat today
- would consider hardwear removal - please obtain bone cultures from the OR - orthopedics following
- daily cmp
- currently on vanc and cefepime - switched to ertapenem
- not stable for discharge, daily assessment
[2023-11-06] MEDS: INVANZ 60 MG IV (18:10)
[2023-11-06] MEDS: PERCOCET 5/325 1 TABLET PO (19:24)
[2023-11-06 21:14] LABS: Glucose - Point of Care 215 mg/dl (70-99)
[2023-11-06] MEDS: LANTUS 0.25 UNITS SC (21:15)
[2023-11-07] VITALS (8 sets, daily range): BP systolic 134–183; BP diastolic 56–80; BMI 26.5
[2023-11-07] MEDS: LYRICA 100 MG PO ×3 (05:00→20:39)
--- NOTE | 2023-11-07 05:14 | PTCARENOTE ---
Patient transported to MRI
[2023-11-07 07:53] LABS: Glucose - Point of Care 159 mg/dl (70-99)
[2023-11-07] MEDS: NOVOLOG FLEXPEN-LOW RESISTANCE SC ×3 (08:00→16:30)
[2023-11-07 08:01] LABS: % Basophils 0.5 % (0-2); % Eosinophils 1.2 % (0-6); % Immature Granulocytes 0.6 % (0-0.5); % Lymphocytes 9.8 % (20.5-51.1); % Monocytes 10.4 % (1.7-9.3); % Neutrophils 77.5 % (42.2-75.2); Absolute Basophils 0.1 10^3/uL (0-0.2); Absolute Eosinophils 0.2 10^3/uL (0-0.7); Absolute Immature Granulocytes 0.1 10^3/uL (0-0.05); Absolute Lymphocytes 1.3 10^3/uL (1.2-3.4); Absolute Monocytes 1.4 10^3/uL (0.1-0.6); Absolute Neutrophils 10.3 10^3/uL (1.4-6.5); Hematocrit 25.1 % (39.0-52.0); Hemoglobin 8.3 g/dL (13.0-18.0); Mean Corp Hgb Conc. 33.1 g/dL (33.0-37.0); Mean Corpuscular Hgb 27.4 pg (27.0-31.0); Mean Corpuscular Volume 82.8 fL (80.0-94.0); Mean Platelet Volume 10.3 fL (7.4-10.4); Nucleated Red Blood Cells % 0 % (-); Platelet Count 421 10^3/uL (130-400); Red Blood Cell Count 3.03 10^6/uL (4.70-6.10); White Blood Cell Count 13.3 10^3/uL (4.8-10.8)
[2023-11-07 08:13] LABS: Vancomycin Random 10.5 ug/ml
[2023-11-07 08:19] LABS: ALT (SGPT) 70 U/L (0-50); AST (SGOT) 78 U/L (17-59); Albumin 2.6 g/dl (3.5-5.0); Alkaline Phosphatase 235 U/L (38-126); Blood Urea Nitrogen 23 mg/dl (9-20); Calcium 8.5 mg/dl (8.4-10.2); Carbon Dioxide 28 mmol/L (22-30); Chloride 101 mmol/L (98-107); Estimated Creatinine Clearance 70 ml/min; Glucose 153 mg/dl (70-99); Potassium 4.3 mmol/L (3.5-5.1); Sodium 139 mmol/L (135-145); Total Bilirubin 0.6 mg/dl (0.2-1.3); Total Protein 5.3 g/dl (6.3-8.2); eGFR > 60.00
--- NOTE | 2023-11-07 08:31 | VNURNOTE ---
Chart reviewed. Patient is current with [facility] nursing. Will continue to follow hospital course and DC plans.
[2023-11-07] MEDS: LIPITOR 20 MG PO (08:53)
[2023-11-07] MEDS: PERCOCET 5/325 1 TABLET PO ×2 (08:53→20:39)
[2023-11-07] MEDS: ASPIRIN 325 MG PO (08:53)
[2023-11-07] MEDS: COZAAR 25 MG PO (08:53)
[2023-11-07 09:27] LABS: Glycohemoglobin (HgbA1c) 7.7 % (4.0-5.6)
[2023-11-07] MEDS: MORPHINE SULFATE 2 MG IV (09:28)
--- NOTE | 2023-11-07 10:34 | WOUNDNOTE ---
ROSHAN RN note: Patient admitted with post op wound infection R medial ankle. s/p ORIF 08/07/23 from previous fall. Patient lives alone. Goes to [facility] on scheduled basis, reviewed current care with wound care nurse Ryan.
See H&P for complete history.
PMH: ORIF 08/07/23, heart murmur, DM, CKD, HTN, neuropathy, chronic pain with opiate dependency.
Wound Location and type/assessment: Patient admitted with: R medial ankle full thickness surgical wound, moist bernal/red tissue, bone exposed, +Surrounding erythema. Patient premedicated for pain by nurse Darnell. Assessed wound and changed dressing
with padding and splint/adelia wrap placed back on along with Dr. Johnson. Depth approximately 2cm, deeper culture taken by Dr. Redmond MRI + for osteomyelitis, for surgery later today, ortho following. Cam boot at bedside from home. Knees with abrasions
both sides, R nearly healed. Patient reports he was crawling on the floor causing ulcers. Toe abrasions appear to be healed compared to last admission. L heel intact, Achilles with dry scab abrasion, patient confirms. Patient turned to R side,
sacrum blanchable red.
Appetite: NPO for surgery.
Pressure redistribution devices in place: [employer] Accumax. Patient can move self.
Plan: Dressings changed, applied Exuderm thin to R knee and adaptic, dry dressing to L knee. Silicone foam applied to L achilles. Will confirm orders with hospitalist and updated nurse Darnell. Will follow for post op needs as needed.
Note to case management requested for discharge: VN for wound care.
Recommend follow up at wound care center upon discharge.
[2023-11-07 10:39] LABS: Iron < 20 ug/dl (49-181)
[2023-11-07 11:17] LABS: Total Iron Binding Capacity 156 ug/dl (261-462)
--- NOTE | 2023-11-07 11:32 | W.PN.ID1 ---
Date of Service
Date of Service: November 07, 2023
Today's Communication
- c/w ertapenem
- await further orthopedics input
Assessment / Plan
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
Leukocytosis
DM2 - moderate control
Transaminitis
H/o shortness of breath with penicillin
- wound probes to bone/hardwear and ankle unstable, would consider hardwear removal
- please obtain bone cultures (aerobic and anaerboic) if taken to the OR
- blood cultures x2 in progress
- I send deep wound culture today - pending
- superficial wound culture sent from the ER on 11/05 - moderate GPCs IDd
- previous MRSA screen negative - repeat pending
- ast/alt improving, alk phos elevation likely reflecting bone involvement
- c/w ertapenem
- await further orthopedics input
Chief Complaint
-: Other (hardwear infection, osteomyelitis, right ankle)
Subjective / Review of Systems
afebrile
wound probes to bone/hardwear in two locations
ankle is unstable
drainage is serosanguinous
asked patient how swab in the er was obtained - confirmed just superficial; I obtained a deep swab from the area of the bone/hardwear
Vital Signs / Physical Exam
Vital Signs
Vital Signs
Temp Pulse Resp BP Pulse Ox
99 F 78 16 158/70 97
11/07/23 07:50 11/07/23 08:53 11/07/23 07:50 11/07/23 08:53 11/07/23 07:50
Physical Exam
Constitutional: No Acute Distress
Cardiovascular: Regular Rate and S1/S2; Negative Murmur or Rub
Pulmonary: Clear and Symmetric; Negative Wheezes or Rales
Gastrointestinal: Soft, Non Tender, Non Distended and Normal Bowel Sounds
Skin: Warm and Dry; Negative Rash or Jaundice
Wound: Other (probes to bone, ankle unstable, no visible bone, some granulation tissue in the wound bed, serosanguinous drainage)
Objective Data
Lab Data
Lab Results
11/07/23 07:22
11/07/23 07:22
Estimated Creat Clear 70 ml/min 11/07/23 07:22
Total Bilirubin 0.6 mg/dl (0.2-1.3) 11/07/23 07:22
AST 78 U/L (17-59) H 11/07/23 07:22
ALT 70 U/L (0-50) H 11/07/23 07:22
Alkaline Phosphatase 235 U/L (38-126) H 11/07/23 07:22
Most recent labs reviewed.
Micro Results:
11/07/23 10:01 Wound Culture - Pending
Bone Gram Stain - Pending
11/06/23 19:11 Blood Culture - Pending
Blood/Venous
11/06/23 18:14 Blood Culture - Pending
Blood/Venous
11/06/23 17:41 MRSA Screen - Pending
Nose
11/06/23 11:42 Wound Culture - Pending
Ankle - Right Gram Stain - Preliminary
Care Review
Plan reviewed with: Physician (Dr Carmona - left tiger text message to confirm he was notified of patient)
[2023-11-07 12:23] LABS: Glucose - Point of Care 143 mg/dl (70-99)
--- NOTE | 2023-11-07 13:19 | CM ---
transport company manager reviewed patient's chart and met with patient and patient lives alone in multilevel home in a apartment, patient is independent with adl's and uses a walker with ambulation. Patient [facility] with [facility].
Patient had ORIF 08/06, and is now requiring reconstructive surgery per notes, case aide discussed with patient possible rehab after surgery and patient declined stating that he wants to return to home after discharge.
Pharmacy: [facility]
PCP: Asha Vivas
Plan; Home with EDUARD with VN
--- NOTE | 2023-11-07 14:37 | W.PN.HOSP.TC ---
Today's Communication/Plan
-
await ortho recs/possible intervention
f/u bone cultures during procedure
cont iv abx, f/u cultures
monitor hgb
Assessment / Plan
Assessment / Plan
Constitutional: No Acute Distress
Cardiovascular: Regular Rate and S1/S2; Negative Murmur or Rub
Pulmonary: Clear and Symmetric; Negative Wheezes or Rales
Gastrointestinal: Soft, Non Tender, Non Distended and Normal Bowel Sounds
Skin: Warm and Dry; Negative Rash or Jaundice
Wound: Other (probes to bone, ankle unstable, no visible bone, some granulation tissue in the wound bed, serosanguinous drainage)
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
#Leukocytosis
-nonenhancing fluid lateral to the talocalcaneal articulation inferior to the fibula, which is complex joint fluid, and septic arthritis is certainly a consideration.
-Ortho recs
-ID recs apprecaited
-IV abx
-most likely will need hardware removal
-F/u bone cultures as rec by ID
-f/u blood cultures, wound cultures
#Transaminitis
-most likely 22/ to acute infection, bone involvement
-trend
# Postoperative blood loss anemia
#Iron defiecnecy anemia
-Hemoglobin from 12.3 in August
-Continue to monitor for source of bleed - no evidence at this time of active bleeding
-hold on iron supplementation until acute infection resolved
-primary/secondary screening outpatient
PAD
-Patient had normal JONAS during recent admission
-continue ASA/statin
Recent hypoglycemia
Type 2 diabetes
-now resolved
-A1c of 7.7
-Continue Lantus 25 units
-ISS
-hold metformin
Diabetic neuropathy/chronic pain with opiate dependence
-continue pregabalin
-continue percocet
Diabetic retinopathy
Chronic kidney disease
-renal function baseline
Essential hypertension
-continue losartan
Full code
DVT prophylaxis�aspirin 325 -monitoring for bleeding
Diabetic diet
Total time spent on today's encounter was 50 minutes which included time spent in counseling the patient/family regarding diagnosis and treatment plan as listed above, goals of care, and symptom management. Case was discussed with nursing staff,
specialists, and care coordinators/case management. All labs and imaging personally reviewed by me. Remainder the time spent in detailed review of previous records, lab data, imaging, and other medical provider documentation.
Anticipated Discharge: > 48 hours
Subjective/Interval History
-
Date of Service: November 07, 2023
Wound dressing changed, await orthopedic's recommendations
Follow-up MRI
Objective Data
-
Labs:
Laboratory Results
11/07/23
07:22
WBC 13.3 H
Hgb 8.3 L
Hct 25.1 L
Plt Count 421 H
Sodium 139
Potassium 4.3
Chloride 101
Carbon Dioxide 28
BUN 23 H
Creatinine 0.9
Glucose 153 H
Calcium 8.5
Total Bilirubin 0.6
AST 78 H
ALT 70 H
Alkaline Phosphatase 235 H
Vital Signs:
Vital Signs
Temp Pulse Resp BP Pulse Ox
99 F 78 16 158/70 97
11/07/23 07:50 11/07/23 08:53 11/07/23 07:50 11/07/23 08:53 11/07/23 09:00
I&O
11/06/23 11/07/23 11/08/23
06:59 06:59 06:59
Intake Total 340 / 340
Balance 340 / 340
Review of Systems
-
History Source: Patient
All other systems: Not reviewed unless documented
Data Reviewed
-
Diagnostic Radiology: Image personally visualized and interpreted and Report Reviewed by me
MRI: Report Reviewed by me
Labs: Labs Reviewed by me
--- NOTE | 2023-11-07 15:40 | PTCARENOTE ---
Received patient this am AAOx3. Pt NPO for OR today. Pt complained of pain this am. Medicated with scheduled Percocet. Wound Care saw patient with ID. Pt medicated with Morphine 2mg IV prior to wound care. Made pt comfortable. Cont to assess
patient status.
--- NOTE | 2023-11-07 15:47 | PTCARENOTE ---
Report call to OR an patient sent at 1240.
[2023-11-07 15:56] LABS: Glucose - Point of Care 126 mg/dl (70-99)
--- NOTE | 2023-11-07 17:40 | W.PN.UPDATE ---
Update Note
Progress Note Update
s/p right septic ankle debridement and pinning, possible plan for salvage reconstruction
-Would VAC change q3 days
-ID consult, appreciate recs, will anticipate need for 6 weeks unless patient ops for ampuation
-STRICT NWB RLE, patient has two large plantar pins
-PT/OT consults
-Will follow
[2023-11-07 17:45] LABS: Glucose - Point of Care 131 mg/dl (70-99)
[2023-11-07] MEDS: DILAUDID 0.25 MG IV ×3 (17:47→23:02)
--- NOTE | 2023-11-07 18:10 | SUR.PHASEI ---
On admiit, wound vac alarm for potential negative pressure blockage. Dr weinberg informed by TT. Reset Wound vac, leg repositioned and wound vac warning is actice. Dr clinton contacted by TT. Rt leg elevated. Elvis weaver RN BSN.
[2023-11-07] MEDS: INVANZ IV (19:03)
--- NOTE | 2023-11-07 19:30 | PTCARENOTE ---
Pt arrived from PACU. Pt is AAOx3, VSS, and complaints of 5/10 aching pain but stated it is tolerable. Pt has a R ankle wound vac in place with a 4inch doreen visible, soft cast and TALIA wrap dressing intact. RN instructed on non-weight bearing status.
Pt is resting comfortably w/ call tristan within reach.
[2023-11-07 21:52] LABS: Glucose - Point of Care 111 mg/dl (70-99)
[2023-11-07] MEDS: LANTUS 0.25 UNITS SC (22:11)
[2023-11-07] MEDS: TYLENOL 650 MG PO (22:21)
[2023-11-08] VITALS (8 sets, daily range): BP systolic 100–155; BP diastolic 42–77; PULSE 87–89; O2SAT 97; BMI 26.2
--- NOTE | 2023-11-08 04:00 | PTCARENOTE ---
Throughout shift, wound vac alarming about a blockage. Ensured all tubing was not kinked, drainage still seen going through tube. PRINT PRODUCER made aware. Attempted reinforcement of dressing, unsuccessful. Canister changed on wound vac, was successful. RN
notified PRINT PRODUCER of no order for wound vac, no new orders obtained. Plan of care ongoing. Pt is resting comfortably w/ call tristan within reach.
[2023-11-08] MEDS: LYRICA 100 MG PO ×3 (06:08→21:47)
[2023-11-08 06:21] LABS: Glucose - Point of Care 88 mg/dl (70-99)
--- NOTE | 2023-11-08 07:17 | W.PN.ORTHO ---
Today's Communication / Plan
-
Strict nonweightbearing right lower extremity
Dressings to remain in place
Wound VAC changed every 3 days per wound care nurse
Antibiotics per infectious disease
Await cultures/biopsies
Ice and elevate to control swelling/pain
Aspirin for DVT prophylaxis
Future surgeries are possible with circular frame and possible amputation
Orthopedics will continue to follow
Assessment
.
Distal Motor Intact: Yes
Dressing:
Clean, dry and intact.
Plan
.
Surgery / Date: S/P R ankle I&D/pins with wound VAC 11/06 [facility]
DVT Prophylaxis: Aspirin
Activity:
Out of bed.
PT/OT
Discharge Plan: SNF
Subjective
.
.:
Patient resting comfortably.
Vital Signs and Labs
.
Vital Signs and Labs:
Temp Pulse Resp BP Pulse Ox
98.8 F 87 17 132/75 96
11/08/23 04:41 11/08/23 04:41 11/08/23 04:41 11/08/23 04:41 11/08/23 04:41
[2023-11-08] MEDS: NOVOLOG FLEXPEN-LOW RESISTANCE SC ×2 (07:48→12:40)
[2023-11-08 07:54] LABS: Hematocrit 26.1 % (39.0-52.0); Hemoglobin 8.5 g/dL (13.0-18.0); Mean Corp Hgb Conc. 32.6 g/dL (33.0-37.0); Mean Corpuscular Hgb 26.6 pg (27.0-31.0); Mean Corpuscular Volume 81.6 fL (80.0-94.0); Mean Platelet Volume 10.9 fL (7.4-10.4); Platelet Count 474 10^3/uL (130-400); Red Cell Dist. Width 14.2 % (11.5-14.5); White Blood Cell Count 17.8 10^3/uL (4.8-10.8)
[2023-11-08 08:12] LABS: ALT (SGPT) 54 U/L (0-50); AST (SGOT) 53 U/L (17-59); Albumin 2.8 g/dl (3.5-5.0); Alkaline Phosphatase 218 U/L (38-126); Blood Urea Nitrogen 21 mg/dl (9-20); Calcium 8.5 mg/dl (8.4-10.2); Carbon Dioxide 29 mmol/L (22-30); Chloride 101 mmol/L (98-107); Estimated Creatinine Clearance 78 ml/min; Glucose 78 mg/dl (70-99); Potassium 4.8 mmol/L (3.5-5.1); Sodium 140 mmol/L (135-145); Total Bilirubin 0.8 mg/dl (0.2-1.3); Total Protein 5.5 g/dl (6.3-8.2); eGFR > 60.00
[2023-11-08 08:23] LABS: Glucose - Point of Care 103 mg/dl (70-99)
[2023-11-08] MEDS: ASPIRIN 325 MG PO (08:27)
[2023-11-08] MEDS: PERCOCET 5/325 1 TABLET PO ×2 (08:27→20:07)
[2023-11-08] MEDS: LIPITOR 20 MG PO (08:28)
[2023-11-08] MEDS: COZAAR 25 MG PO (08:28)
[2023-11-08] MEDS: MORPHINE SULFATE 2 MG IV ×3 (09:40→21:50)
--- NOTE | 2023-11-08 11:29 | W.PN.ID1 ---
Date of Service
Date of Service: November 08, 2023
Today's Communication
- switched to cefazolin IV and metronidazole - patient aware that I will continue to follow cultures and adjust PRN
- patient would likely benefit from rehab, not sure that he would be safe at home by himself with restroom on the second floor and needing complete non weight bearing
Assessment / Plan
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
Leukocytosis
DM2 - moderate control
Transaminitis
H/o shortness of breath with penicillin
- 11/05 superficial culture MSSA
- 11/06 deep culture of bone by wa - also MSSA
- 11/06 OR culture aerobic and anaerobic - gram stain negative - follow up culture
- blood cultures x2 in progress no growth to date
- PICC ordered
- switched to cefazolin IV and metronidazole - patient aware that I will continue to follow cultures and adjust PRN
- patient would likely benefit from rehab, not sure that he would be safe at home by himself with restroom on the second floor and needing complete non weight bearing
- appreciate Dr Carmona's input
Chief Complaint
-: Other (hardwear infection, osteomyelitis, right ankle)
Subjective / Review of Systems
post op fever to 101.5
bp stable
underwent Right ankle debridement with tibial saucerization, deep bone biopsies x2, and repair of dislocated ankle with pinning and application of large wound VAC
vanc powder applied into the wound; hardwear retained
Vital Signs / Physical Exam
Vital Signs
Vital Signs
Temp Pulse Resp BP Pulse Ox
99.5 F 94 12 155/77 98
11/08/23 08:10 11/08/23 08:28 11/08/23 08:10 11/08/23 08:28 11/08/23 08:10
Physical Exam
Constitutional: No Acute Distress
Cardiovascular: Regular Rate and S1/S2; Negative Murmur or Rub
Pulmonary: Clear and Symmetric; Negative Wheezes or Rales
Gastrointestinal: Soft, Non Tender, Non Distended and Normal Bowel Sounds
Skin: Warm and Dry; Negative Rash or Jaundice
Wound: Other (wound vac in place, no surrounding erythema)
Objective Data
Lab Data
Lab Results
11/08/23 06:30
11/08/23 06:30
Estimated Creat Clear 78 ml/min 11/08/23 06:30
Total Bilirubin 0.8 mg/dl (0.2-1.3) 11/08/23 06:30
AST 53 U/L (17-59) 11/08/23 06:30
ALT 54 U/L (0-50) H 11/08/23 06:30
Alkaline Phosphatase 218 U/L (38-126) H 11/08/23 06:30
Most recent labs reviewed.
Micro Results:
11/06/23 11:42 Wound Culture - Final
Ankle - Right S aureus-Methicillin Sensitive
Gram Stain - Final
11/08/23 09:34 Blood Culture - Pending
Blood/Venous
11/06/23 17:41 MRSA Screen - Final
Nose No Methicillin Resistant Staphylococcus aureus isolated.
11/07/23 17:20 Wound Culture - Pending
Ankle - Right Gram Stain - Preliminary
11/06/23 19:11 Blood Culture - Preliminary
Blood/Venous No Growth in 24 hours- Final report to follow
11/06/23 18:14 Blood Culture - Preliminary
Blood/Venous No Growth in 24 hours- Final report to follow
11/07/23 17:20 Anaerobic Culture - Pending
Ankle - Right
11/07/23 10:01 Wound Culture - Pending
Bone Gram Stain - Preliminary
--- NOTE | 2023-11-08 11:45 | WOUNDNOTE ---
WOC RN note: Patient's sacral skin intact. Patient adamant about going home instead of rehab. Patient lives alone and crawls up the stairs to sleep and have BM. Informed patient concern for safety with his R NWB status along with having a home vac
attached in home setting by himself. He is not interested in a hospital bed and use bs commode. [place] texted Dr. Carmona to clarify if next vac change is tomorrow with black foam, pump setting 125mm hg continuous, change q 48-72 hours and home vac
form placed in front of chart asking Dr. Carmona to sign form. Patient is aware is his NWB RLE. Instructed heel elevation to prevent pressure injury.
[2023-11-08 12:26] LABS: Glucose - Point of Care 140 mg/dl (70-99)
--- NOTE | 2023-11-08 13:29 | WOUNDNOTE ---
[facility] RN note: CHRISTIAN Mayberry notified this lead technical writer that patient's wound vac alarming 'blockage'. Unwrapped Webrill and Wce to change Sensatrac pad and rewrapped leg. No VAC alarm noted and have a good vac seal. Patient is out of bed in recliner. R heel skin
intact.
--- NOTE | 2023-11-08 13:33 | W.PN.HOSP.TC ---
Today's Communication/Plan
-
switch to cefazolin, wound cultures MSSA
f/u final cultures
wound care/vac
id, ortho recs
pain control
PT/OT
Assessment / Plan
Assessment / Plan
Constitutional: No Acute Distress
Cardiovascular: Regular Rate and S1/S2; Negative Murmur or Rub
Pulmonary: Clear and Symmetric; Negative Wheezes or Rales
Gastrointestinal: Soft, Non Tender, Non Distended and Normal Bowel Sounds
Skin: Warm and Dry; Negative Rash or Jaundice
Wound: Other (probes to bone, ankle unstable, no visible bone, some granulation tissue in the wound bed, serosanguinous drainage)
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
#Leukocytosis
#Sepsis
-MSSA
-febrile episode 11/06 most likely post op
-s/p right septic ankle debridement and pinning 11/06
-nonenhancing fluid lateral to the talocalcaneal articulation inferior to the fibula, which is complex joint fluid, and septic arthritis is certainly a consideration.
-Ortho recs
-ID recs appreciated
-IV abx
-most likely will need hardware removal
-F/u bone cultures as rec by ID
-f/u blood cultures, wound cultures
-possible plan for salvage reconstruction
-Would VAC change q3 days
-STRICT NWB RLE, patient has two large plantar pins
-PT/OT consults
#Transaminitis
-most likely 22/ to acute infection, bone involvement
-trend
-improving
# Postoperative blood loss anemia
#Iron defiecnecy anemia
-Hemoglobin from 12.3 in August
-Continue to monitor for source of bleed - no evidence at this time of active bleeding
-hold on iron supplementation until acute infection resolved
-primary/secondary screening outpatient
PAD
-Patient had normal JONAS during recent admission
-continue ASA/statin
Recent hypoglycemia
Type 2 diabetes
-now resolved
-A1c of 7.7
-Continue Lantus 25 units
-ISS
-hold metformin
Diabetic neuropathy/chronic pain with opiate dependence
-continue pregabalin
-continue percocet
Diabetic retinopathy
Chronic kidney disease
-renal function baseline
Essential hypertension
-continue losartan
Full code
DVT prophylaxis�aspirin 325 -monitoring for bleeding
Diabetic diet
Anticipated Discharge: > 48 hours
Subjective/Interval History
-
Date of Service: November 08, 2023
pain at surgical site
Objective Data
-
Labs:
Laboratory Results
11/08/23
06:30
WBC 17.8 H
Hgb 8.5 L
Hct 26.1 L
Plt Count 474 H
Sodium 140
Potassium 4.8
Chloride 101
Carbon Dioxide 29
BUN 21 H
Creatinine 0.8
Glucose 78
Calcium 8.5
Total Bilirubin 0.8
AST 53
ALT 54 H
Alkaline Phosphatase 218 H
Vital Signs:
Vital Signs
Temp Pulse Resp BP Pulse Ox
97.9 F 89 20 100/67 100
11/08/23 12:00 11/08/23 12:25 11/08/23 12:25 11/08/23 12:25 11/08/23 12:00
I&O
11/07/23 11/08/23 11/09/23
06:59 06:59 06:59
Intake Total 340 / 340 1125 / 1125
Output Total 400 / 400
Balance 340 / 340 725 / 725
Review of Systems
-
History Source: Patient
All other systems: Not reviewed unless documented
Data Reviewed
-
Diagnostic Radiology: Image personally visualized and interpreted and Report Reviewed by me
MRI: Report Reviewed by me
Labs: Labs Reviewed by me
--- NOTE | 2023-11-08 13:39 | WOUNDNOTE ---
[facility] RN note: CHRISTIAN Mayberry notified this contract technical writer that patient's wound vac alarming 'blockage'. Unwrapped Webrill and Pato to change Sensatrac pad and rewrapped leg. No VAC alarm noted with a good vac seal. Patient is out of bed in recliner. R heel skin
intact. Patient declined air chair cushion. Instructed patient heel elevation with pillow to prevent pressure injury.
[2023-11-08] MEDS: ANCEF 10 IV ×2 (13:53→21:50)
--- NOTE | 2023-11-08 15:36 | WOUNDNOTE ---
[facility] RN note: Confirmed with Dr. Carmona to change patient's R medial ankle wound vac tomorrow with black foam, pump setting 125mmhg, change q 48-72hours.
[2023-11-08] MEDS: FLAGYL 500 MG PO (15:59)
[2023-11-08 17:10] LABS: Glucose - Point of Care 219 mg/dl (70-99)
[2023-11-08] MEDS: NOVOLOG FLEXPEN-LOW RESISTANCE 2 UNITS SC (17:10)
[2023-11-08 21:12] LABS: Glucose - Point of Care 233 mg/dl (70-99)
[2023-11-08] MEDS: LANTUS 0.25 UNITS SC (21:50)
[2023-11-08] MEDS: COLACE 100 MG PO (21:50)
[2023-11-09] MEDS: FLAGYL 500 MG PO ×4 (01:49→23:51)
[2023-11-09] MEDS: MORPHINE SULFATE 2 MG IV ×3 (01:55→17:58)
[2023-11-09 04:54] VITALS: BP 143/60
[2023-11-09] MEDS: TYLENOL 650 MG PO (05:30)
[2023-11-09] MEDS: LYRICA 100 MG PO ×3 (05:31→21:42)
[2023-11-09] MEDS: ANCEF 10 IV ×3 (05:32→21:42)
[2023-11-09 06:19] LABS: Hematocrit 22.9 % (39.0-52.0); Hemoglobin 7.5 g/dL (13.0-18.0); Mean Corp Hgb Conc. 32.8 g/dL (33.0-37.0); Mean Corpuscular Hgb 27.6 pg (27.0-31.0); Mean Corpuscular Volume 84.2 fL (80.0-94.0); Mean Platelet Volume 10.3 fL (7.4-10.4); Platelet Count 531 10^3/uL (130-400); Red Blood Cell Count 2.72 10^6/uL (4.70-6.10); Red Cell Dist. Width 14.4 % (11.5-14.5); White Blood Cell Count 13.8 10^3/uL (4.8-10.8)
[2023-11-09 06:47] LABS: ALT (SGPT) 45 U/L (0-50); AST (SGOT) 49 U/L (17-59); Albumin 2.6 g/dl (3.5-5.0); Alkaline Phosphatase 202 U/L (38-126); Blood Urea Nitrogen 26 mg/dl (9-20); Calcium 8.2 mg/dl (8.4-10.2); Carbon Dioxide 30 mmol/L (22-30); Chloride 100 mmol/L (98-107); Estimated Creatinine Clearance 70 ml/min; Glucose 165 mg/dl (70-99); Potassium 4.8 mmol/L (3.5-5.1); Sodium 138 mmol/L (135-145); Total Bilirubin 0.4 mg/dl (0.2-1.3); Total Protein 5.2 g/dl (6.3-8.2); eGFR > 60.00
[2023-11-09 06:55] VITALS: BP 116/48
--- NOTE | 2023-11-09 08:09 | VNURNOTE ---
[facility] Resumption referral placed in [facility].
[2023-11-09 08:12] LABS: Glucose - Point of Care 168 mg/dl (70-99)
--- NOTE | 2023-11-09 08:23 | W.PN.ORTHO ---
Today's Communication / Plan
-
Strict nonweightbearing right lower extremity
Continue to monitor H&H
Dressings to remain in place
Wound VAC changed every 3 days per wound care nurse
Antibiotics per infectious disease
Await cultures/biopsies
Ice and elevate to control swelling/pain
Aspirin for DVT prophylaxis
Future surgeries are possible with circular frame and possible amputation
Orthopedics will continue to follow
Assessment
.
Dressing:
Clean, dry and intact.
Plan
.
Surgery / Date: S/P R ankle I&D/pins with wound VAC 11/06 Kristine
Activity:
Out of bed.
PT/OT
Subjective
.
.:
Patient resting comfortably.
Vital Signs and Labs
.
Vital Signs and Labs:
Lab Results
11/09/23 05:13
11/09/23 05:13
Temp Pulse Resp BP Pulse Ox
99.9 F 82 18 143/60 96
11/09/23 05:40 11/09/23 04:54 11/09/23 04:54 11/09/23 04:54 11/09/23 04:54
[2023-11-09] MEDS: COZAAR 25 MG PO (08:38)
[2023-11-09] MEDS: NOVOLOG FLEXPEN-LOW RESISTANCE 1 UNITS SC ×2 (08:38→12:38)
[2023-11-09] MEDS: LIPITOR 20 MG PO (08:39)
[2023-11-09] MEDS: ASPIRIN 325 MG PO (08:39)
[2023-11-09] MEDS: PERCOCET 5/325 1 TABLET PO ×2 (08:39→21:41)
[2023-11-09] MEDS: COLACE 100 MG PO ×2 (08:39→21:42)
--- NOTE | 2023-11-09 10:17 | WOUNDNOTE ---
R CALF (LATERAL LOWER)
--- NOTE | 2023-11-09 10:22 | WOUNDNOTE ---
[facility] RN note: Patient's R medial ankle wound vac dressing changed. Wound full thickness mostly pink, moderate ss drainage with scant cloudy serous drainage. Patient tolerated vac dressing well. RN Shawanda premedicated patient with oral pain med. Skin
on heels intact. R plantar heel dry with small dry abrasion. R lateral lower calf with faint abraded skin, protective silicone border foam applied. L ankle and L knee dressing changed. L knee with moderate yellow, slightly green tinged drainage,
wound granular. R heel off bed with pillow. Instructed patient pressure relief measures. Patient moves self in bed. He now willing to go to rehab when discharged. Mario texted Dr. Carmona asking if any plantar heel pin care to be done. Pin site D+I.
Appetite fairly good. Next vac changed due Sunday.
[2023-11-09 12:17] LABS: Glucose - Point of Care 199 mg/dl (70-99)
--- NOTE | 2023-11-09 13:31 | CM ---
Chart reviewed and patient is agreeable to skilled placement, patient will need IV Ancef Q 8, referrals sent to [facility], [facility], [facility] and [facility], but there are no beds available, [facility] could accept
patient but patient is not agreeable to this facility as it is too far from his home, patient to review skilled list for alternative referrals .
Plan Skilled placement, patient to provide more options.
--- NOTE | 2023-11-09 13:59 | W.PN.ID1 ---
Date of Service
Date of Service: November 09, 2023
Today's Communication
- add vancomycin
- continue cefazolin IV and metronidazole
- patient aware that I will continue to follow cultures and adjust PRN
Assessment / Plan
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
Leukocytosis
DM2 - moderate control
Transaminitis
H/o shortness of breath with penicillin
- 11/05 superficial culture MSSA
- 11/06 deep culture of bone by fl - also MSSA
- 11/06 OR culture aerobic and anaerobic - MSSA and enterococcus
- blood cultures x2 in progress no growth to date
- PICC ordered
- add vancomycin
- continue cefazolin IV and metronidazole
- patient aware that I will continue to follow cultures and adjust PRN
- patient would likely benefit from rehab, not sure that he would be safe at home by himself with restroom on the second floor and needing complete non weight bearing
- appreciate Dr Carmona's input
Chief Complaint
-: Other (hardwear infection, osteomyelitis, right ankle)
Subjective / Review of Systems
afebrile
bp stable
enterococcus IDd in OR culture awaiting sensi
patient recalls episode of severe difficulty breathing as a child that was reproducible with penicillin
Vital Signs / Physical Exam
Vital Signs
Vital Signs
Temp Pulse Resp BP Pulse Ox
99.1 F 80 20 116/48 97
11/09/23 06:55 11/09/23 08:38 11/09/23 06:55 11/09/23 08:38 11/09/23 06:55
Physical Exam
Constitutional: No Acute Distress
Cardiovascular: Regular Rate and S1/S2; Negative Murmur or Rub
Pulmonary: Clear and Symmetric; Negative Wheezes or Rales
Gastrointestinal: Soft, Non Tender, Non Distended and Normal Bowel Sounds
Extremities: Other (wound vac in place)
Skin: Warm and Dry; Negative Rash or Jaundice
Wound: Other (dressing clean, dry, intact)
Objective Data
Lab Data
Lab Results
11/09/23 05:13
11/09/23 05:13
Estimated Creat Clear 70 ml/min 11/09/23 05:13
Total Bilirubin 0.4 mg/dl (0.2-1.3) 11/09/23 05:13
AST 49 U/L (17-59) 11/09/23 05:13
ALT 45 U/L (0-50) 11/09/23 05:13
Alkaline Phosphatase 202 U/L (38-126) H 11/09/23 05:13
Most recent labs reviewed.
Micro Results:
11/08/23 09:34 Blood Culture - Preliminary
Blood/Venous No Growth in 24 hours- Final report to follow
11/07/23 17:20 Wound Culture - Preliminary
Ankle - Right Enterococcus species
S aureus-Methicillin Sensitive
Gram Stain - Preliminary
11/07/23 17:20 Anaerobic Culture - Preliminary
Ankle - Right Culture pending. Anaerobic cultures are examined after 3
days incubation. Additional information to follow.
11/06/23 19:11 Blood Culture - Preliminary
Blood/Venous No Growth in 48 hours- Final report to follow
11/06/23 18:14 Blood Culture - Preliminary
Blood/Venous No Growth in 48 hours- Final report to follow
11/07/23 10:01 Wound Culture - Final
Bone S aureus-Methicillin Sensitive
Gram Stain - Final
11/06/23 11:42 Wound Culture - Final
Ankle - Right S aureus-Methicillin Sensitive
Gram Stain - Final
11/06/23 17:41 MRSA Screen - Final
Nose No Methicillin Resistant Staphylococcus aureus isolated.
--- NOTE | 2023-11-09 14:04 | W.PN.HOSP.TC ---
Today's Communication/Plan
-
f/u cultures
cont abx
monitor hgb, start iron supplementation'
wound care/vac
asa 81
Assessment / Plan
Assessment / Plan
Constitutional: No Acute Distress
Cardiovascular: Regular Rate and S1/S2; Negative Murmur or Rub
Pulmonary: Clear and Symmetric; Negative Wheezes or Rales
Gastrointestinal: Soft, Non Tender, Non Distended and Normal Bowel Sounds
Skin: Warm and Dry; Negative Rash or Jaundice
Wound: Other (probes to bone, ankle unstable, no visible bone, some granulation tissue in the wound bed, serosanguinous drainage)
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
#Leukocytosis
#Sepsis
-MSSA
-febrile episode 11/06 most likely post op
-s/p right septic ankle debridement and pinning 11/06
-nonenhancing fluid lateral to the talocalcaneal articulation inferior to the fibula, which is complex joint fluid, and septic arthritis is certainly a consideration.
-Ortho recs
-ID recs appreciated
-IV abx
-Ice and elevate to control swelling/pain
-ASA for DVT ppx
-most likely will need hardware removal
-F/u bone cultures as rec by ID
-f/u blood cultures, wound cultures
-possible plan for salvage reconstruction
-Would VAC change q3 days
-STRICT NWB RLE, patient has two large plantar pins
-PT/OT consults
#Transaminitis
-most likely 22/ to acute infection, bone involvement
-trend
-improving
# Postoperative blood loss anemia
#Iron deficiency anemia
-Hemoglobin from 12.3 in August
-Continue to monitor for source of bleed - no evidence at this time of active bleeding
-start oral iron supplements
-primary/secondary screening outpatient
PAD
-Patient had normal JONAS during recent admission
-continue ASA/statin
Recent hypoglycemia
Type 2 diabetes
-now resolved
-A1c of 7.7
-Continue Lantus 25 units
-ISS
-hold metformin
Diabetic neuropathy/chronic pain with opiate dependence
-continue pregabalin
-continue percocet
Diabetic retinopathy
Chronic kidney disease
-renal function baseline
Essential hypertension
-continue losartan
Full code
DVT prophylaxis�aspirin 325 -monitoring for bleeding
Diabetic diet
Anticipated Discharge: 24 - 48 hours
Subjective/Interval History
-
Date of Service: November 09, 2023
wound dressing being changed, no issues overnight
Objective Data
-
Labs:
Laboratory Results
11/09/23
05:13
WBC 13.8 H
Hgb 7.5 L
Hct 22.9 L
Plt Count 531 H
Sodium 138
Potassium 4.8
Chloride 100
Carbon Dioxide 30
BUN 26 H
Creatinine 0.9
Glucose 165 H
Calcium 8.2 L
Total Bilirubin 0.4
AST 49
ALT 45
Alkaline Phosphatase 202 H
Vital Signs:
Vital Signs
Temp Pulse Resp BP Pulse Ox
99.1 F 80 20 116/48 97
11/09/23 06:55 11/09/23 08:38 11/09/23 06:55 11/09/23 08:38 11/09/23 06:55
I&O
11/08/23 11/09/23 11/10/23
06:59 06:59 06:59
Intake Total 1125 / 1125
Output Total 400 / 400 900 / 900
Balance 725 / 725 -900 / -900
Review of Systems
-
History Source: Patient
All other systems: Not reviewed unless documented
Data Reviewed
-
Diagnostic Radiology: Image personally visualized and interpreted and Report Reviewed by me
MRI: Report Reviewed by me
Labs: Labs Reviewed by me
--- NOTE | 2023-11-09 14:22 | PHA.VAN.IN ---
Assessment
- Assessment
Renal Function: Appears similar to baseline
Concomitant Antimicrobials: cefazolin, metronidazole PO
- Previous Dosing Experience
Previous Regimen: dose by level 11/06/23 ( pt recd 1500 mg then additional 500 mg x 1)
Patient's SCR is: Decreased compared to previous dosing experience (1.1->0.9)
Patient's weight is: Similar to previous dosing experience (81.6 vs 78.1 kg)
Random the next AM was 10.5
AUC Dosing Plan
- Dosing Variables
Dosing Weight (kg): 78
Dosing CrCl (ml/min): 70
Vd coefficient (L/kg): 0.7
- Empiric Dosing
Initial / Loading Dose: 750 mg - administration pending
Maintenance Regimen: 750 mg q12h - start at 1800 in lieu of LD
Estimated AUC (mcg*h/mL): 453
Estimated Peak (mcg*h/mL): 26
Estimated Trough (mcg/ml): 13.1
Estimated Half Life (H): 11.1
- Monitoring
No levels ordered at this time: consider levels when pt reaches steady state
Pharmacokinetics Vancomycin I
- -
Patient Age: 73
Patient Sex: Male
Vancomycin Day #: 1
Indication: Bone And Joint
Requesting Provider: EFREN
Pertinent Antimicrobial Allergies:
penicillin - SOB at 9 years old
Height / Weight:
Height 5 ft 8 in
Actual Weight 78.16 kg
Pertinent Past Medical History: DM, CKD, PAD
- Vital Signs / Lab Results
Temp Pulse Resp BP Pulse Ox
99.1 F 80 20 116/48 97
11/09/23 06:55 11/09/23 08:38 11/09/23 06:55 11/09/23 08:38 11/09/23 06:55
Lab Results - Hematology
11/07/23 11/08/23 11/09/23
07:22 06:30 05:13
WBC 13.3 H 17.8 H 13.8 H
Lab Results - Chemistry
11/07/23 11/08/23 11/09/23
07:22 06:30 05:13
BUN 23 H 21 H 26 H
Creatinine 0.9 0.8 0.9
Estimated Creat Clear 70 78 70
Albumin 2.6 L 2.8 L 2.6 L
Microbiology Results
11/08/23 09:34 Blood Culture - Preliminary
Blood/Venous No Growth in 24 hours- Final report to follow
11/07/23 17:20 Wound Culture - Preliminary
Ankle - Right Enterococcus species
S aureus-Methicillin Sensitive
Gram Stain - Preliminary
11/07/23 17:20 Anaerobic Culture - Preliminary
Ankle - Right Culture pending. Anaerobic cultures are examined after 3
days incubation. Additional information to follow.
11/06/23 19:11 Blood Culture - Preliminary
Blood/Venous No Growth in 48 hours- Final report to follow
11/06/23 18:14 Blood Culture - Preliminary
Blood/Venous No Growth in 48 hours- Final report to follow
11/07/23 10:01 Wound Culture - Final
Bone S aureus-Methicillin Sensitive
Gram Stain - Final
11/06/23 11:42 Wound Culture - Final
Ankle - Right S aureus-Methicillin Sensitive
Gram Stain - Final
11/06/23 17:41 MRSA Screen - Final
Nose No Methicillin Resistant Staphylococcus aureus isolated.
[2023-11-09] MEDS: VANCOCIN 150 IV ×2 (14:37→17:55)
[2023-11-09 15:02] VITALS: BP 116/57
[2023-11-09] MEDS: FEOSOL 325 MG PO (15:56)
--- NOTE | 2023-11-09 16:05 | WOUNDNOTE ---
[facility] RN Note: Updated Dr. Ramirez re: L knee wound with some green tinged drainage, wound pink granular. Hospitalist approved amending wound care to include cleansing L knee wound with Vashe wound cleanser to soap and water. Dr. Carmona responded
to tiger text to confirm R heel pin care with each vac dressing change: clean with saline, apply gauze dressing. Care plan and discharge instructions updated.
[2023-11-09 16:26] VITALS: BP 120/70
[2023-11-09 16:26] LABS: Glucose - Point of Care 205 mg/dl (70-99)
[2023-11-09] MEDS: NOVOLOG FLEXPEN-LOW RESISTANCE 2 UNITS SC (17:33)
[2023-11-09 21:01] LABS: Glucose - Point of Care 185 mg/dl (70-99)
[2023-11-09] MEDS: LANTUS 0.25 UNITS SC (21:42)
[2023-11-09 23:00] VITALS: BP 135/57
[2023-11-10 05:15] LABS: Hematocrit 23.2 % (39.0-52.0); Hemoglobin 7.7 g/dL (13.0-18.0); Mean Corp Hgb Conc. 33.2 g/dL (33.0-37.0); Mean Corpuscular Hgb 27.9 pg (27.0-31.0); Mean Corpuscular Volume 84.1 fL (80.0-94.0); Mean Platelet Volume 9.7 fL (7.4-10.4); Platelet Count 535 10^3/uL (130-400); Red Blood Cell Count 2.76 10^6/uL (4.70-6.10); Red Cell Dist. Width 14.2 % (11.5-14.5); White Blood Cell Count 13.5 10^3/uL (4.8-10.8)
[2023-11-10 05:42] LABS: ALT (SGPT) 21 U/L (0-50); AST (SGOT) 32 U/L (17-59); Albumin 2.5 g/dl (3.5-5.0); Alkaline Phosphatase 196 U/L (38-126); Blood Urea Nitrogen 26 mg/dl (9-20); Calcium 8.3 mg/dl (8.4-10.2); Carbon Dioxide 29 mmol/L (22-30); Chloride 100 mmol/L (98-107); Estimated Creatinine Clearance 70 ml/min; Glucose 170 mg/dl (70-99); Potassium 4.5 mmol/L (3.5-5.1); Sodium 139 mmol/L (135-145); Total Bilirubin 0.3 mg/dl (0.2-1.3); Total Protein 5.2 g/dl (6.3-8.2); eGFR > 60.00
[2023-11-10] MEDS: LYRICA 100 MG PO ×3 (05:44→21:38)
[2023-11-10] MEDS: VANCOCIN 150 IV ×2 (05:45→17:58)
[2023-11-10] MEDS: ANCEF 10 IV ×3 (05:45→21:38)
[2023-11-10] MEDS: MORPHINE SULFATE 2 MG IV ×3 (06:02→17:59)
[2023-11-10 07:47] LABS: Glucose - Point of Care 205 mg/dl (70-99)
[2023-11-10 07:55] VITALS: BP 151/61
[2023-11-10] MEDS: PERCOCET 5/325 1 TABLET PO ×2 (08:23→21:38)
[2023-11-10] MEDS: FLAGYL 500 MG PO ×2 (08:24→17:23)
[2023-11-10] MEDS: LIPITOR 20 MG PO (08:24)
[2023-11-10] MEDS: COLACE 100 MG PO ×2 (08:24→21:38)
[2023-11-10] MEDS: COZAAR 25 MG PO (08:24)
[2023-11-10] MEDS: FEOSOL 325 MG PO (08:24)
[2023-11-10] MEDS: ASPIRIN 325 MG PO (08:24)
[2023-11-10] MEDS: NOVOLOG FLEXPEN-LOW RESISTANCE 2 UNITS SC (08:25)
--- NOTE | 2023-11-10 08:37 | PHA.VAN.FU ---
Vancomycin Assessment / Plan
- Assessment
Renal Function: Stable
WBC's are: Stable
In the past 24 hrs, patient has been: Afebrile
Concomitant Antimicrobials: Cefazolin, Metronidazole
- Dosing Plan
Continue: Vanc 750mg IV Q12H
- Monitoring Plan
Peak Level: 11/09 at 2030
Trough Level: 11/10 at 0530
- Follow Up
Pharmacy will continue to follow.
Vancomycin Follow UP
- -
Patient Age: 73
Patient Sex: Male
Vancomycin Day #: 2
Indication: Bone And Joint
Requesting Provider: EFREN
Pertinent Antimicrobial Allergies:
penicillin - SOB at 9 years old
Height / Weight:
Height 5 ft 8 in
Actual Weight 78.16 kg
Pertinent Past Medical History: DM, CKD, PAD
- Vital Signs / Lab Results
Temp Pulse Resp BP Pulse Ox
99.3 F 75 14 151/61 97
11/10/23 07:55 11/10/23 08:24 11/10/23 07:55 11/10/23 08:24 11/10/23 07:55
Lab Results - Hematology
11/08/23 11/09/23 11/10/23
06:30 05:13 05:05
WBC 17.8 H 13.8 H 13.5 H
Lab Results - Chemistry
11/08/23 11/09/23 11/10/23
06:30 05:13 05:04
BUN 21 H 26 H 26 H
Creatinine 0.8 0.9 0.9
Estimated Creat Clear 78 70 70
Albumin 2.8 L 2.6 L 2.5 L
Microbiology Results
11/06/23 19:11 Blood Culture - Preliminary
Blood/Venous No Growth in 72 hours- Final report to follow
11/06/23 18:14 Blood Culture - Preliminary
Blood/Venous No Growth in 72 hours- Final report to follow
11/08/23 09:34 Blood Culture - Preliminary
Blood/Venous No Growth in 24 hours- Final report to follow
11/07/23 17:20 Wound Culture - Preliminary
Ankle - Right Enterococcus species
S aureus-Methicillin Sensitive
Gram Stain - Preliminary
11/07/23 17:20 Anaerobic Culture - Preliminary
Ankle - Right Culture pending. Anaerobic cultures are examined after 3
days incubation. Additional information to follow.
11/07/23 10:01 Wound Culture - Final
Bone S aureus-Methicillin Sensitive
Gram Stain - Final
11/06/23 11:42 Wound Culture - Final
Ankle - Right S aureus-Methicillin Sensitive
Gram Stain - Final
11/06/23 17:41 MRSA Screen - Final
Nose No Methicillin Resistant Staphylococcus aureus isolated.
Therapeutic Drug Monitoring
Random Vancomycin 10.5 ug/ml 11/07/23 07:22
--- NOTE | 2023-11-10 08:47 | W.PN.UPDATE ---
Update Note
Progress Note Update
Mr. Horowitz is postop day 3 following his right ankle I&D with pins and wound VAC placement performed by Dr. Carmona on 11/07/2023. He is resting comfortably in bed this morning. He reports ongoing pain about the right ankle, but states it is
controlled with his current pain management regimen. He has no other questions or concerns at this time.
Directed exam of the right ankle reveals surgical dressing in place, clean dry and intact. Wound VAC with scant serosanguineous drainage, vac at 125 mmHg. Good color of the toes. Sensation to light touch diminished about the foot consistent with
baseline neuropathy. Capillary refill less than 2 seconds.
WBC 13.8-->13.5. Hgb 7.7 this AM, stable from yesterday.
OR culture from ankle growing enterococcus and MSSA.
Plan:
--Strict nonweightbearing right lower extremity. We appreciate the assistance of PT/OT.
--Continue to monitor H&H. Iron supplementation per IM.
--Dressings to remain in place. Wound VAC changed every 3 days per wound care nurse.
--Cx with enterococcus and MSSA. Continue abx per ID, currently cefazolin, metronidazole and vanco.
--Ice and elevate to control swelling/pain. Pain control prn.
--Aspirin for DVT prophylaxis.
--Future surgeries are possible with circular frame and possible amputation.
--Orthopedics will continue to follow.
--We appreciate the assistance of all teams in care of this patient.
--- NOTE | 2023-11-10 12:42 | W.PN.HOSP.TC ---
Today's Communication/Plan
-
cont abx
f/u cultures
ortho recs
iron supplementation
pt/ot
Assessment / Plan
Assessment / Plan
Constitutional: No Acute Distress
Cardiovascular: Regular Rate and S1/S2; Negative Murmur or Rub
Pulmonary: Clear and Symmetric; Negative Wheezes or Rales
Gastrointestinal: Soft, Non Tender, Non Distended and Normal Bowel Sounds
Skin: Warm and Dry; Negative Rash or Jaundice
Wound: Other (probes to bone, ankle unstable, no visible bone, some granulation tissue in the wound bed, serosanguinous drainage)
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
#Leukocytosis
#Sepsis
-MSSA
-febrile episode 11/06 most likely post op
-s/p right septic ankle debridement and pinning 11/06
-nonenhancing fluid lateral to the talocalcaneal articulation inferior to the fibula, which is complex joint fluid, and septic arthritis is certainly a consideration.
-Ortho recs
-ID recs appreciated
-IV abx
-Ice and elevate to control swelling/pain
-ASA for DVT ppx
-F/u bone cultures as rec by ID
-f/u blood cultures, wound cultures
-possible plan for salvage reconstruction
-Would VAC change q3 days
-STRICT NWB RLE, patient has two large plantar pins
-PT/OT consults
#Transaminitis
-most likely 2/2 to acute infection, bone involvement
-trend
-improving
# Postoperative blood loss anemia
#Iron deficiency anemia
-Hemoglobin from 12.3 in August
-Continue to monitor for source of bleed - no evidence at this time of active bleeding
-start oral iron supplements
-primary/secondary screening outpatient
PAD
-Patient had normal JONAS during recent admission
-continue ASA/statin
Recent hypoglycemia
Type 2 diabetes
-now resolved
-A1c of 7.7
-Continue Lantus 25 units
-ISS
-hold metformin
Diabetic neuropathy/chronic pain with opiate dependence
-continue pregabalin
-continue percocet , add prn and morphine
Diabetic retinopathy
Chronic kidney disease
-renal function baseline
Essential hypertension
-continue losartan
Full code
DVT prophylaxis�aspirin 325 -monitoring for bleeding
Diabetic diet
Anticipated Discharge: > 48 hours
Subjective/Interval History
-
Date of Service: November 10, 2023
still with pain
Objective Data
-
Labs:
Laboratory Results
11/10/23 11/10/23
05:04 05:05
WBC 13.5 H
Hgb 7.7 L
Hct 23.2 L
Plt Count 535 H
Sodium 139
Potassium 4.5
Chloride 100
Carbon Dioxide 29
BUN 26 H
Creatinine 0.9
Glucose 170 H
Calcium 8.3 L
Total Bilirubin 0.3
AST 32
ALT 21
Alkaline Phosphatase 196 H
Vital Signs:
Vital Signs
Temp Pulse Resp BP Pulse Ox
99.3 F 75 14 151/61 97
11/10/23 07:55 11/10/23 08:24 11/10/23 07:55 11/10/23 08:24 11/10/23 07:55
I&O
11/09/23 11/10/23 11/11/23
06:59 06:59 06:59
Intake Total 760 / 760
Output Total 900 / 900 1200 / 1200
Balance -900 / -900 -440 / -440
Review of Systems
-
History Source: Patient
All other systems: Not reviewed unless documented
Data Reviewed
-
Diagnostic Radiology: Image personally visualized and interpreted and Report Reviewed by me
MRI: Report Reviewed by me
Labs: Labs Reviewed by me
[2023-11-10 12:48] LABS: Glucose - Point of Care 151 mg/dl (70-99)
[2023-11-10] MEDS: NOVOLOG FLEXPEN-LOW RESISTANCE 1 UNITS SC (13:08)
[2023-11-10 15:00] VITALS: BP 143/65
[2023-11-10] MEDS: ROXICODONE 5 MG PO (15:35)
[2023-11-10 16:53] LABS: Glucose - Point of Care 188 mg/dl (70-99)
[2023-11-10] MEDS: NOVOLOG FLEXPEN-LOW RESISTANCE SC (17:21)
[2023-11-10 21:01] LABS: Vancomycin Peak 21.7 ug/ml (18-26)
[2023-11-10 21:17] LABS: Glucose - Point of Care 198 mg/dl (70-99)
[2023-11-10] MEDS: LANTUS 0.25 UNITS SC (21:37)
[2023-11-10] MEDS: SENOKOT 8.6 MG PO (21:38)
[2023-11-10 23:00] VITALS: BP 140/64
[2023-11-11] MEDS: FLAGYL 500 MG PO ×3 (01:03→20:30)
[2023-11-11] MEDS: VANCOCIN 150 IV ×2 (05:48→17:50)
[2023-11-11] MEDS: LYRICA 100 MG PO ×3 (05:48→20:30)
[2023-11-11] MEDS: ANCEF 10 IV ×3 (05:48→22:11)
[2023-11-11 05:49] LABS: Hematocrit 24.1 % (39.0-52.0); Hemoglobin 7.8 g/dL (13.0-18.0); Mean Corp Hgb Conc. 32.4 g/dL (33.0-37.0); Mean Corpuscular Hgb 27.1 pg (27.0-31.0); Mean Corpuscular Volume 83.7 fL (80.0-94.0); Mean Platelet Volume 9.4 fL (7.4-10.4); Platelet Count 566 10^3/uL (130-400); Red Blood Cell Count 2.88 10^6/uL (4.70-6.10); Red Cell Dist. Width 14.2 % (11.5-14.5); White Blood Cell Count 12.3 10^3/uL (4.8-10.8)
[2023-11-11] MEDS: MORPHINE SULFATE 2 MG IV ×4 (05:55→22:09)
[2023-11-11 06:18] LABS: ALT (SGPT) 13 U/L (0-50); AST (SGOT) 30 U/L (17-59); Albumin 2.5 g/dl (3.5-5.0); Alkaline Phosphatase 174 U/L (38-126); Blood Urea Nitrogen 20 mg/dl (9-20); Calcium 8.4 mg/dl (8.4-10.2); Carbon Dioxide 28 mmol/L (22-30); Chloride 101 mmol/L (98-107); Estimated Creatinine Clearance 90 ml/min; Glucose 152 mg/dl (70-99); Potassium 4.4 mmol/L (3.5-5.1); Sodium 139 mmol/L (135-145); Total Bilirubin 0.4 mg/dl (0.2-1.3); Total Protein 5.2 g/dl (6.3-8.2); eGFR > 60.00
[2023-11-11 06:21] LABS: Vancomycin Trough 12.6 ug/ml (5-20)
--- NOTE | 2023-11-11 07:26 | PHA.VAN.FU ---
Vancomycin Assessment / Plan
- Assessment
Renal Function: SCR Decreasing
WBC's are: Trending Down
In the past 24 hrs, patient has been: Afebrile
Concomitant Antimicrobials: Cefazolin, Metronidazole
- Assessment - Therapeutic Drug Monitoring
Extrapolated Cmax (mcg/mL): 23.8
Peak level was drawn: Appropriately
Extrapolated Cmin (mcg/mL): 12.3
Trough Drawn: Appropriately
Levels were drawn: At steady state
Calculated AUC (mcg*h/mL): 419
Calculated ke: 0.06
Calculated half life (H): 11.6
Calculated Vd (L): 59.7
Calculated Vanc CL (ml/min): 59.7
- Dosing Plan
Continue: Vanc 750mg IV Q12H
- Monitoring Plan
Level(s) appropriate: Recheck trough at minimum of weekly intervals, Repeat sooner for changes in renal function or clinical status
- Follow Up
Pharmacy will continue to follow.
Vancomycin Follow UP
- -
Patient Age: 73
Patient Sex: Male
Vancomycin Day #: 3
Indication: Bone And Joint
Requesting Provider: EFREN
Pertinent Antimicrobial Allergies:
penicillin - SOB at 9 years old
Height / Weight:
Height 5 ft 8 in
Actual Weight 78.16 kg
Pertinent Past Medical History: DM, CKD, PAD
- Vital Signs / Lab Results
Temp Pulse Resp BP Pulse Ox
98.9 F 84 18 140/64 98
11/10/23 23:00 11/10/23 23:00 11/10/23 23:00 11/10/23 23:00 11/10/23 23:00
Lab Results - Hematology
11/08/23 11/09/23 11/10/23
06:30 05:13 05:05
WBC 17.8 H 13.8 H 13.5 H
11/11/23
05:33
WBC 12.3 H
Lab Results - Chemistry
11/08/23 11/09/23 11/10/23
06:30 05:13 05:04
BUN 21 H 26 H 26 H
Creatinine 0.8 0.9 0.9
Estimated Creat Clear 78 70 70
Albumin 2.8 L 2.6 L 2.5 L
11/11/23
05:33
BUN 20
Creatinine 0.7
Estimated Creat Clear 90
Albumin 2.5 L
Microbiology Results
11/06/23 19:11 Blood Culture - Preliminary
Blood/Venous No Growth in 4 days- Final report to follow
11/06/23 18:14 Blood Culture - Preliminary
Blood/Venous No Growth in 4 days- Final report to follow
11/07/23 17:20 Anaerobic Culture - Preliminary
Ankle - Right Culture pending. Anaerobic cultures are examined after 3
days incubation. Additional information to follow.
11/07/23 17:20 Wound Culture - Preliminary
Ankle - Right Enterococcus faecalis
S aureus-Methicillin Sensitive
Gram Stain - Preliminary
11/08/23 09:34 Blood Culture - Preliminary
Blood/Venous No Growth in 48 hours- Final report to follow
Therapeutic Drug Monitoring
Vancomycin Peak 21.7 ug/ml (18-26) 11/10/23 20:29
Vancomycin Trough 12.6 ug/ml (5-20) 11/11/23 05:33
Random Vancomycin 10.5 ug/ml 11/07/23 07:22
[2023-11-11 07:38] LABS: Glucose - Point of Care 153 mg/dl (70-99)
[2023-11-11] MEDS: PERCOCET 5/325 1 TABLET PO ×2 (07:39→20:29)
[2023-11-11] MEDS: LIPITOR 20 MG PO (07:39)
[2023-11-11] MEDS: COZAAR 25 MG PO (07:39)
[2023-11-11] MEDS: SENOKOT 8.6 MG PO ×2 (07:39→20:30)
[2023-11-11] MEDS: ASPIRIN 325 MG PO (07:39)
[2023-11-11] MEDS: FEOSOL 325 MG PO ×2 (07:39→14:37)
[2023-11-11] MEDS: COLACE 100 MG PO ×2 (07:39→20:30)
[2023-11-11] MEDS: NOVOLOG FLEXPEN-LOW RESISTANCE SC ×2 (07:42→12:57)
[2023-11-11 07:55] VITALS: BP 146/79
--- NOTE | 2023-11-11 07:59 | W.PN.UPDATE ---
Update Note
Progress Note Update
Mr. Horowitz is postop day 4 following his right ankle I&D with pins and wound VAC placement performed by Dr. Carmona on 11/07/2023. He just received medications this morning, and is currently having difficulty with nausea. Per nursing, he has had a
low appetite since surgery, and has not been eating well. He reports ongoing pain about the right ankle, but states it is controlled with his current pain management regimen. He denies any significant changes in his symptoms overnight. He has no
other questions or concerns at this time.
Directed exam of the right ankle reveals surgical dressing in place, clean dry and intact. Wound VAC with scant serosanguineous drainage, vac at 125 mmHg. Good color of the toes. Sensation to light touch diminished about the foot consistent with
baseline neuropathy. Capillary refill less than 2 seconds.
WBC 13.5-->12.3. Hgb 7.8 this AM, stable from yesterday.
OR culture from ankle growing Enterococcus faecalis and MSSA. Blood culture negative after 48 hours. Bone cx from OR pending.
Plan:
--Strict nonweightbearing right lower extremity. We appreciate the assistance of PT/OT.
--Continue to monitor H&H. Hgb stable. Iron supplementation per IM.
--Dressings to remain in place. Wound VAC changed every 3 days per wound care nurse.
--Cx with Enterococcus faecalis and MSSA. Continue abx per ID, currently cefazolin, metronidazole and vanco.
--Ice and elevate to control swelling/pain. Pain control prn.
--Aspirin for DVT prophylaxis.
--Future surgeries are possible with circular frame and possible amputation.
--Orthopedics will continue to follow.
--We appreciate the assistance of all teams in care of this patient.
--- NOTE | 2023-11-11 10:20 | W.PN.ID1 ---
Date of Service
Date of Service: November 11, 2023
Today's Communication
- c/w vancomycin
- continue cefazolin
- decreased metronidazole dose to 500 mg PO BID; if nausea ongoing tomorrow may switched cefazolin/metro to ertapenem
- continue through 12/17/23
Assessment / Plan
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
Leukocytosis
DM2 - moderate control
Transaminitis
H/o shortness of breath with penicillin
- 11/05 superficial culture MSSA
- 11/06 deep culture of bone by [place] - also MSSA
- 11/06 OR culture aerobic and anaerobic - MSSA and enterococcus
- blood cultures x2 in progress no growth to date
- PICC ordered
- c/w vancomycin
- continue cefazolin
- decreased metronidazole dose to 500 mg PO BID; if nausea ongoing tomorrow may switched cefazolin/metro to ertapenem
- continue through 12/17/23
Chief Complaint
-: Other (hardwear infection, osteomyelitis, right ankle)
Subjective / Review of Systems
afebrile
bp stable
complaining of severe nausea
bucket at bedside
Vital Signs / Physical Exam
Vital Signs
Vital Signs
Temp Pulse Resp BP Pulse Ox
99.0 F 86 16 146/79 98
11/11/23 07:55 11/11/23 07:55 11/11/23 07:55 11/11/23 07:55 11/11/23 07:55
Physical Exam
Constitutional: No Acute Distress
Cardiovascular: Regular Rate and S1/S2; Negative Murmur or Rub
Pulmonary: Clear and Symmetric; Negative Wheezes or Rales
Gastrointestinal: Soft, Non Tender, Non Distended and Normal Bowel Sounds
Extremities: Other (dressing clean, dry, intact and wound vac in place)
Skin: Warm and Dry; Negative Rash or Jaundice
Objective Data
Lab Data
Lab Results
11/11/23 05:33
11/11/23 05:33
Estimated Creat Clear 90 ml/min 11/11/23 05:33
Total Bilirubin 0.4 mg/dl (0.2-1.3) 11/11/23 05:33
AST 30 U/L (17-59) 11/11/23 05:33
ALT 13 U/L (0-50) 11/11/23 05:33
Alkaline Phosphatase 174 U/L (38-126) H 11/11/23 05:33
Most recent labs reviewed.
Micro Results:
11/08/23 09:34 Blood Culture - Preliminary
Blood/Venous No Growth in 72 hours- Final report to follow
11/07/23 17:20 Anaerobic Culture - Preliminary
Ankle - Right Culture pending. Anaerobic cultures are examined after 3
days incubation. Additional information to follow.
11/06/23 19:11 Blood Culture - Preliminary
Blood/Venous No Growth in 4 days- Final report to follow
11/06/23 18:14 Blood Culture - Preliminary
Blood/Venous No Growth in 4 days- Final report to follow
11/07/23 17:20 Wound Culture - Preliminary
Ankle - Right Enterococcus faecalis
S aureus-Methicillin Sensitive
Gram Stain - Preliminary
11/07/23 10:01 Wound Culture - Final
Bone S aureus-Methicillin Sensitive
Gram Stain - Final
11/06/23 11:42 Wound Culture - Final
Ankle - Right S aureus-Methicillin Sensitive
Gram Stain - Final
11/06/23 17:41 MRSA Screen - Final
Nose No Methicillin Resistant Staphylococcus aureus isolated.
[2023-11-11] MEDS: ZOFRAN 4 MG IV (10:22)
[2023-11-11 12:17] LABS: Glucose - Point of Care 150 mg/dl (70-99)
--- NOTE | 2023-11-11 12:39 | W.PN.HOSP.TC ---
Today's Communication/Plan
-
Antiemetic control
Ensure
Continue antibiotics
If nausea/vomiting continue, can consider changing antibiotics tomorrow
PT OT
Assessment / Plan
Assessment / Plan
Constitutional: No Acute Distress
Cardiovascular: Regular Rate and S1/S2; Negative Murmur or Rub
Pulmonary: Clear and Symmetric; Negative Wheezes or Rales
Gastrointestinal: Soft, Non Tender, Non Distended and Normal Bowel Sounds
Skin: Warm and Dry; Negative Rash or Jaundice
Wound: Other (probes to bone, ankle unstable, no visible bone, some granulation tissue in the wound bed, serosanguinous drainage)
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
#Leukocytosis
#Sepsis
- 11/05 superficial culture MSSA
- 11/06 deep culture of bone by de - also MSSA
- 11/06 OR culture aerobic and anaerobic - MSSA and enterococcus
- blood cultures x2 in progress no growth to date
-febrile episode 11/06 most likely post op
-s/p right septic ankle debridement and pinning 11/06
-nonenhancing fluid lateral to the talocalcaneal articulation inferior to the fibula, which is complex joint fluid, and septic arthritis is certainly a consideration.
-Ortho recs
-ID recs appreciated
-IV abx - continue through 12/17/23
-Ice and elevate to control swelling/pain
-ASA for DVT ppx
-possible plan for salvage reconstruction
-Would VAC change q3 days
-STRICT NWB RLE, patient has two large plantar pins
-PT/OT consults
#Transaminitis
-most likely 2/2 to acute infection, bone involvement
-trend
-improving
# Postoperative blood loss anemia
#Iron deficiency anemia
-Hemoglobin from 12.3 in August
-Continue to monitor for source of bleed - no evidence at this time of active bleeding
-start oral iron supplements
-primary/secondary screening outpatient
#Nausea/vomiting
--may be related to opiates v abx
-antiemetics
-add on ensure to promote diet
-change abx tomorrow if n/v continues
PAD
-Patient had normal JONAS during recent admission
-continue ASA/statin
Recent hypoglycemia
Type 2 diabetes
-now resolved
-A1c of 7.7
-Continue Lantus 25 units
-ISS
-hold metformin
Diabetic neuropathy/chronic pain with opiate dependence
-continue pregabalin
-continue percocet , add prn and morphine
Diabetic retinopathy
Chronic kidney disease
-renal function baseline
Essential hypertension
-continue losartan
Full code
DVT prophylaxis�aspirin 325 -monitoring for bleeding
Diabetic diet
Anticipated Discharge: Within 24 hours
Subjective/Interval History
-
Date of Service: November 11, 2023
issues with tolerating diet due to nausea
Objective Data
-
Labs:
Laboratory Results
11/11/23
05:33
WBC 12.3 H
Hgb 7.8 L
Hct 24.1 L
Plt Count 566 H
Sodium 139
Potassium 4.4
Chloride 101
Carbon Dioxide 28
BUN 20
Creatinine 0.7
Glucose 152 H
Calcium 8.4
Total Bilirubin 0.4
AST 30
ALT 13
Alkaline Phosphatase 174 H
Vital Signs:
Vital Signs
Temp Pulse Resp BP Pulse Ox
99.0 F 86 16 146/79 98
11/11/23 07:55 11/11/23 07:55 11/11/23 07:55 11/11/23 07:55 11/11/23 07:55
I&O
11/10/23 11/11/23 11/12/23
06:59 06:59 06:59
Intake Total 760 / 760 1680 / 1680
Output Total 1200 / 1200 500 / 500
Balance -440 / -440 1180 / 1180
Review of Systems
-
History Source: Patient
All other systems: Not reviewed unless documented
Data Reviewed
-
Diagnostic Radiology: Image personally visualized and interpreted and Report Reviewed by me
MRI: Report Reviewed by me
Labs: Labs Reviewed by me
[2023-11-11 13:04] VITALS: BP 141/61
[2023-11-11] MEDS: ROXICODONE 5 MG PO (14:52)
[2023-11-11 15:00] VITALS: BP 140/61
[2023-11-11 17:19] LABS: Glucose - Point of Care 231 mg/dl (70-99)
[2023-11-11] MEDS: NOVOLOG FLEXPEN-LOW RESISTANCE 2 UNITS SC (17:51)
[2023-11-11 21:43] LABS: Glucose - Point of Care 234 mg/dl (70-99)
[2023-11-11] MEDS: LANTUS 0.25 UNITS SC (22:11)
[2023-11-11 23:42] VITALS: BP 157/64
[2023-11-12 03:00] VITALS: BP 114/51
[2023-11-12] MEDS: VANCOCIN 150 IV ×2 (05:33→17:48)
[2023-11-12] MEDS: LYRICA 100 MG PO ×3 (05:33→20:35)
[2023-11-12] MEDS: ANCEF 10 IV (05:34)
[2023-11-12] MEDS: MORPHINE SULFATE 2 MG IV ×2 (05:36→17:02)
[2023-11-12] MEDS: ZOFRAN 4 MG IV (06:11)
[2023-11-12 07:26] LABS: Glucose - Point of Care 210 mg/dl (70-99)
--- NOTE | 2023-11-12 07:46 | W.PN.UPDATE ---
Update Note
Progress Note Update
73-year-old male postop day #5 right ankle I&D with pins and wound VAC placement performed by Dr. Carmona on 11/07/2023. Patient resting comfortably in bed this morning.
PE: Directed exam of the right ankle reveals surgical dressing in place, clean dry and intact. Wound VAC with scant serosanguineous drainage, vac at 125 mmHg. Good color of the toes. Sensation to light touch diminished about the foot consistent
with baseline neuropathy. Capillary refill less than 2 seconds.
AM labs pending this morning.
OR culture from ankle growing Enterococcus faecalis and MSSA. Blood culture negative after 72 hours. Bone cx from OR pending.
Plan:
--Strict nonweightbearing right lower extremity. We appreciate the assistance of PT/OT.
--Continue to monitor H&H. Iron supplementation per IM.
--Dressings to remain in place. Wound VAC changed every 3 days per wound care nurse.
--Cx with Enterococcus faecalis and MSSA. Continue abx per ID, currently cefazolin, metronidazole and vanco.
--Ice and elevate to control swelling/pain. Pain control prn.
--Aspirin for DVT prophylaxis.
--Future surgeries are possible with circular frame and possible amputation.
--Orthopedics will continue to follow.
--We appreciate the assistance of all teams in care of this patient.
[2023-11-12 07:56] LABS: Hematocrit 24.6 % (39.0-52.0); Mean Corp Hgb Conc. 32.5 g/dL (33.0-37.0); Mean Corpuscular Hgb 27.1 pg (27.0-31.0); Mean Corpuscular Volume 83.4 fL (80.0-94.0); Mean Platelet Volume 9.5 fL (7.4-10.4); Platelet Count 551 10^3/uL (130-400); Red Blood Cell Count 2.95 10^6/uL (4.70-6.10); Red Cell Dist. Width 14.2 % (11.5-14.5); White Blood Cell Count 14.3 10^3/uL (4.8-10.8)
--- NOTE | 2023-11-12 08:02 | W.PN.HOSP.TC ---
Today's Communication/Plan
-
Antiemetic control
pain control
Ensure
abx as per ID
PT OT
Assessment / Plan
Assessment / Plan
Physical Exam
Constitutional: No Acute Distress
Cardiovascular: Regular Rate and S1/S2; Negative Murmur or Rub
Pulmonary: Clear and Symmetric; Negative Wheezes or Rales
Gastrointestinal: Soft, Non Tender, Non Distended and Normal Bowel Sounds
Skin: Warm and Dry; Negative Rash or Jaundice
Ext: RLE bandaging clean dry intact wound vac in place
Neuro: Awake alert conversant coherent
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
#Leukocytosis
#Sepsis
- 11/05 superficial culture MSSA
- 11/06 deep culture of bone by [place] - also MSSA
- 11/06 OR culture aerobic and anaerobic - MSSA and enterococcus
- blood cultures x2 in progress no growth to date
-febrile episode 11/06 most likely post op
-s/p right septic ankle debridement and pinning 11/06
-nonenhancing fluid lateral to the talocalcaneal articulation inferior to the fibula, which is complex joint fluid, and septic arthritis is certainly a consideration.
-Ortho recs
-ID recs appreciated
-IV abx - continue through 12/17/23
-Ice and elevate to control swelling/pain
-ASA for DVT ppx
-possible plan for salvage reconstruction
-Would VAC change q3 days
-STRICT NWB RLE, patient has two large plantar pins
-PT/OT consults
#Transaminitis
-most likely 2/2 to acute infection, bone involvement
-trend
-improving
# Postoperative blood loss anemia
#Iron deficiency anemia
-Hemoglobin from 12.3 in August
-Continue to monitor for source of bleed - no evidence at this time of active bleeding
-start oral iron supplements
-primary/secondary screening outpatient
#Nausea/vomiting
--may be related to opiates v abx
-antiemetics
-cont ensure
-abx as per ID
PAD
-Patient had normal JONAS during recent admission
-continue ASA/statin
Recent hypoglycemia
Type 2 diabetes
-now resolved
-A1c of 7.7
-Continue Lantus 25 units
-ISS
-hold metformin
Diabetic neuropathy/chronic pain with opiate dependence
-continue pregabalin
-continue percocet , add prn and morphine
Diabetic retinopathy
Chronic kidney disease
-renal function baseline
Essential hypertension
-continue losartan
Full code
DVT prophylaxis�aspirin 325 -monitoring for bleeding
Diabetic diet
I spent a total of 50 minutes with the patient or on the floor. More than 50% of this time involved counseling and coordination of care.
Anticipated Discharge: > 48 hours
Subjective/Interval History
-
Date of Service: November 12, 2023
reports nausea poor appetite
Objective Data
-
Labs:
Laboratory Results
11/12/23
07:32
WBC 14.3 H
Hgb 8.0 L
Hct 24.6 L
Plt Count 551 H
Sodium Pending
Potassium Pending
Chloride Pending
Carbon Dioxide Pending
BUN Pending
Creatinine Pending
Glucose Pending
Calcium Pending
Total Bilirubin Pending
AST Pending
ALT Pending
Alkaline Phosphatase Pending
Vital Signs:
Vital Signs
Temp Pulse Resp BP Pulse Ox
98 F 83 16 157/64 97
11/11/23 23:42 11/11/23 23:42 11/11/23 23:42 11/11/23 23:42 11/11/23 23:42
I&O
11/11/23 11/12/23 11/13/23
06:59 06:59 06:59
Intake Total 1680 / 1680 1560 / 1560
Output Total 500 / 500 730 / 730
Balance 1180 / 1180 830 / 830
[2023-11-12] MEDS: LIPITOR 20 MG PO (08:07)
[2023-11-12] MEDS: COZAAR 25 MG PO (08:07)
[2023-11-12] MEDS: ASPIRIN 325 MG PO (08:07)
[2023-11-12] MEDS: FLAGYL 500 MG PO (08:07)
[2023-11-12] MEDS: SENOKOT 8.6 MG PO ×2 (08:08→20:35)
[2023-11-12] MEDS: PERCOCET 5/325 1 TABLET PO ×2 (08:08→20:35)
[2023-11-12] MEDS: COLACE PO (08:08)
[2023-11-12] MEDS: NOVOLOG FLEXPEN-LOW RESISTANCE 2 UNITS SC ×2 (08:09→12:11)
[2023-11-12 08:16] VITALS: BP 159/78
[2023-11-12 08:52] LABS: ALT (SGPT) 13 U/L (0-50); AST (SGOT) 32 U/L (17-59); Albumin 2.5 g/dl (3.5-5.0); Alkaline Phosphatase 168 U/L (38-126); Blood Urea Nitrogen 16 mg/dl (9-20); Calcium 8.3 mg/dl (8.4-10.2); Carbon Dioxide 28 mmol/L (22-30); Chloride 100 mmol/L (98-107); Estimated Creatinine Clearance 90 ml/min; Glucose 215 mg/dl (70-99); Potassium 4.4 mmol/L (3.5-5.1); Sodium 139 mmol/L (135-145); Total Bilirubin 0.2 mg/dl (0.2-1.3); Total Protein 5.2 g/dl (6.3-8.2); eGFR > 60.00
--- NOTE | 2023-11-12 09:09 | PHA.VAN.FU ---
Vancomycin Assessment / Plan
- Assessment
Renal Function: Stable
In the past 24 hrs, patient has been: Afebrile
Concomitant Antimicrobials: cefazolin; PO metronidazole
- Dosing Plan
Continue: Vancomycin 750 mg q12
- Monitoring Plan
Level(s) appropriate: Recheck trough at minimum of weekly intervals, Repeat sooner for changes in renal function or clinical status
- Follow Up
Pharmacy will continue to follow.
Vancomycin Follow UP
- -
Patient Age: 73
Patient Sex: Male
Vancomycin Day #: 4
Indication: Bone And Joint
Requesting Provider: EFREN
Pertinent Antimicrobial Allergies:
penicillin - SOB at 9 years old
Height / Weight:
Height 5 ft 8 in
Actual Weight 78.16 kg
Pertinent Past Medical History: DM, CKD, PAD
- Vital Signs / Lab Results
Temp Pulse Resp BP Pulse Ox
98.4 F 86 18 159/78 98
11/12/23 08:16 11/12/23 08:16 11/12/23 08:16 11/12/23 08:16 11/12/23 08:16
Lab Results - Hematology
11/10/23 11/11/23 11/12/23
05:05 05:33 07:32
WBC 13.5 H 12.3 H 14.3 H
Lab Results - Chemistry
11/10/23 11/11/23 11/12/23
05:04 05:33 07:32
BUN 26 H 20 16
Creatinine 0.9 0.7 0.7
Estimated Creat Clear 70 90 90
Albumin 2.5 L 2.5 L 2.5 L
Microbiology Results
11/07/23 17:20 Wound Culture - Final
Ankle - Right Enterococcus faecalis
S aureus-Methicillin Sensitive
Gram Stain - Final
11/07/23 17:20 Anaerobic Culture - Final
Ankle - Right NO ANAEROBES ISOLATED
11/06/23 19:11 Blood Culture - Final
Blood/Venous No Growth - Final Report
11/06/23 18:14 Blood Culture - Final
Blood/Venous No Growth - Final Report
11/08/23 09:34 Blood Culture - Preliminary
Blood/Venous No Growth in 72 hours- Final report to follow
Therapeutic Drug Monitoring
Vancomycin Peak 21.7 ug/ml (18-26) 11/10/23 20:29
Vancomycin Trough 12.6 ug/ml (5-20) 11/11/23 05:33
Random Vancomycin 10.5 ug/ml 11/07/23 07:22
[2023-11-12 09:37] VITALS: BMI 26.2
[2023-11-12] MEDS: COMPAZINE 5 MG IV (10:30)
[2023-11-12] MEDS: ROXICODONE 5 MG PO (10:36)
--- NOTE | 2023-11-12 10:38 | WOUNDNOTE ---
WOC RN note: Patient's R medial ankle wound vac changed. Wound pink with white fibrin. Minimal local skin maceration. Patient tolerated dressing fairly well. Skin on heels intact. Pin care plantar heel done. Sacral skin blanchable mild red and
intact. Reinstructed pressure injury prevention measures. Patient turns self in bed. RLE elevated on pillow. Patient c/o nausea. RN Jovan medicating patient for nausea. Patient has ensure on order. Next vac change due Sunday. On day of transfer to
SNF rehab, nursing to remove vac dressing and apply saline gauze dressing for transfer and SNF rehab to apply their vac equipment. Mario texted JEAN Jha who stated she doesn't expect patient to leave today.
[2023-11-12 12:03] LABS: Glucose - Point of Care 229 mg/dl (70-99)
[2023-11-12 12:04] VITALS: BP 97/51
--- NOTE | 2023-11-12 13:13 | W.PN.ID1 ---
Date of Service
Date of Service: November 12, 2023
Today's Communication
follow for tolerance of ertapenem
Assessment / Plan
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
Leukocytosis
DM2 - moderate control
Transaminitis
H/o shortness of breath with penicillin
- 11/05 superficial culture MSSA
- 11/06 deep culture of bone by [place] - also MSSA
- 11/06 OR culture aerobic and anaerobic - MSSA and enterococcus
- blood cultures x2 in progress no growth to date
- PICC ordered
- c/w vancomycin
- switched cefazolin/metro to ertapenem given severe nausea
- continue through 12/17/23
Chief Complaint
-: Other (hardwear infection, osteomyelitis, right ankle)
Subjective / Review of Systems
ongoing severe nausea
afebrile
wound vac in place
Vital Signs / Physical Exam
Vital Signs
Vital Signs
Temp Pulse Resp BP Pulse Ox
98.4 F 86 18 159/78 98
11/12/23 08:16 11/12/23 08:16 11/12/23 08:16 11/12/23 08:16 11/12/23 08:16
Physical Exam
Constitutional: No Acute Distress
Cardiovascular: Regular Rate and S1/S2; Negative Murmur or Rub
Pulmonary: Clear and Symmetric; Negative Wheezes or Rales
Gastrointestinal: Soft, Non Tender, Non Distended and Normal Bowel Sounds
Skin: Warm and Dry; Negative Rash or Jaundice
Lines: Other (wound vac)
Objective Data
Lab Data
Lab Results
11/12/23 07:32
11/12/23 07:32
Estimated Creat Clear 90 ml/min 11/12/23 07:32
Total Bilirubin 0.2 mg/dl (0.2-1.3) 11/12/23 07:32
AST 32 U/L (17-59) 11/12/23 07:32
ALT 13 U/L (0-50) 11/12/23 07:32
Alkaline Phosphatase 168 U/L (38-126) H 11/12/23 07:32
Most recent labs reviewed.
Micro Results:
11/08/23 09:34 Blood Culture - Preliminary
Blood/Venous No Growth in 4 days- Final report to follow
11/07/23 17:20 Wound Culture - Final
Ankle - Right Enterococcus faecalis
S aureus-Methicillin Sensitive
Gram Stain - Final
11/07/23 17:20 Anaerobic Culture - Final
Ankle - Right NO ANAEROBES ISOLATED
11/06/23 19:11 Blood Culture - Final
Blood/Venous No Growth - Final Report
11/06/23 18:14 Blood Culture - Final
Blood/Venous No Growth - Final Report
11/07/23 10:01 Wound Culture - Final
Bone S aureus-Methicillin Sensitive
Gram Stain - Final
11/06/23 11:42 Wound Culture - Final
Ankle - Right S aureus-Methicillin Sensitive
Gram Stain - Final
11/06/23 17:41 MRSA Screen - Final
Nose No Methicillin Resistant Staphylococcus aureus isolated.
[2023-11-12 15:00] VITALS: BP 114/51
--- NOTE | 2023-11-12 15:31 | CM ---
CM reviewed chart, patient with wound vac, on IV antibiotics. PT recommending SNF, awaiting to hear if [facility] can offer patient bed. Per Shawn, no male beds. No beds at [facility]. [facility] does not accept wound vacs, [facility] does not
accept patients insurance. CM will continue to follow for all discharge planning needs.
Plan; SNF pending accepting facility, will need insurance auth.
[2023-11-12 17:00] LABS: Glucose - Point of Care 259 mg/dl (70-99)
[2023-11-12] MEDS: INVANZ 60 MG IV (17:02)
[2023-11-12] MEDS: NOVOLOG FLEXPEN-LOW RESISTANCE 3 UNITS SC (17:04)
[2023-11-12] MEDS: COLACE 100 MG PO (20:35)
[2023-11-12 21:19] LABS: Glucose - Point of Care 297 mg/dl (70-99)
[2023-11-12] MEDS: LANTUS 0.25 UNITS SC (22:08)
[2023-11-12 23:02] VITALS: BP 131/60
[2023-11-13] MEDS: MORPHINE SULFATE 2 MG IV (04:38)
[2023-11-13] MEDS: LYRICA 100 MG PO ×3 (04:39→20:14)
[2023-11-13 04:42] LABS: Hematocrit 25.3 % (39.0-52.0); Hemoglobin 8.3 g/dL (13.0-18.0); Mean Corp Hgb Conc. 32.8 g/dL (33.0-37.0); Mean Corpuscular Hgb 27.5 pg (27.0-31.0); Mean Corpuscular Volume 83.8 fL (80.0-94.0); Mean Platelet Volume 9.5 fL (7.4-10.4); Platelet Count 523 10^3/uL (130-400); Red Blood Cell Count 3.02 10^6/uL (4.70-6.10); Red Cell Dist. Width 14.3 % (11.5-14.5)
[2023-11-13 05:20] LABS: Blood Urea Nitrogen 17 mg/dl (9-20); Calcium 8.3 mg/dl (8.4-10.2); Carbon Dioxide 30 mmol/L (22-30); Chloride 100 mmol/L (98-107); Estimated Creatinine Clearance 78 ml/min; Glucose 209 mg/dl (70-99); Magnesium 1.9 mg/dl (1.6-2.3); Phosphorus 2.6 mg/dl (2.5-4.5); Sodium 138 mmol/L (135-145); eGFR > 60.00
--- NOTE | 2023-11-13 05:52 | PTCARENOTE ---
Pharmacy reports at this time that pt does not require any lab work prior to Vanco, reports proper current dosing this AM
[2023-11-13] MEDS: VANCOCIN 150 IV ×2 (06:03→17:57)
--- NOTE | 2023-11-13 07:30 | W.PN.HOSP.TC ---
Today's Communication/Plan
-
cont abx as per ID
npo after 7am 11/13 for podiatry procedure
reduced Lantus in anticipation NPO
cont pain wound nausea control
Assessment / Plan
Assessment / Plan
Physical Exam
Constitutional: No Acute Distress
Cardiovascular: Regular Rate and S1/S2; Negative Murmur or Rub
Pulmonary: Clear and Symmetric; Negative Wheezes or Rales
Gastrointestinal: Soft, Non Tender, Non Distended and Normal Bowel Sounds
Skin: Warm and Dry; Negative Rash or Jaundice
Ext: RLE bandaging clean dry intact wound vac in place
Neuro: Awake alert conversant coherent
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
#Leukocytosis
#Sepsis
- 11/05 superficial culture MSSA
- 11/06 deep culture of bone by [place] - also MSSA
- 11/06 OR culture aerobic and anaerobic - MSSA and enterococcus
- blood cultures x2 in progress no growth to date
-febrile episode 11/06 most likely post op
-s/p right septic ankle debridement and pinning 11/06
-nonenhancing fluid lateral to the talocalcaneal articulation inferior to the fibula, which is complex joint fluid, and septic arthritis is certainly a consideration.
-Podiatry eval appreciated n.p.o. after 7 AM 11/13. Plan for right ankle debridement with right lower extremity external fixator application 11/13 afternoon.
-ID recs appreciated vancomycin ertapenem
-IV abx - continue through 12/17/23
-Ice and elevate to control swelling/pain
-ASA for DVT ppx
-Wound VAC change q3 days
-STRICT NWB RLE, patient has two large plantar pins
-PT/OT consults
#Transaminitis
-most likely 2/2 to acute infection, bone involvement
-trend
-improving
# Postoperative blood loss anemia
#Iron deficiency anemia
-Hemoglobin from 12.3 in August
-Continue to monitor for source of bleed - no evidence at this time of active bleeding
-start oral iron supplements
-primary/secondary screening outpatient
#Nausea/vomiting
--improving follow switch from flagyll/cefazolin to ertapenem as per ID
-antiemetics prn
PAD
-Patient had normal JONAS during recent admission
-continue ASA/statin
Recent hypoglycemia
Type 2 diabetes
-now resolved
-A1c of 7.7
-Lantus 25 units reduced to 13U in anticipation npo surgical procedure 11/13
-ISS
-hold metformin
Diabetic neuropathy/chronic pain with opiate dependence
-continue pregabalin
-continue percocet , add prn and morphine
Diabetic retinopathy
Chronic kidney disease
-renal function baseline
Essential hypertension
-continue losartan
Full code
DVT prophylaxis�aspirin 325 -monitoring for bleeding
Diabetic diet
I spent a total of 50 minutes with the patient or on the floor. More than 50% of this time involved counseling and coordination of care.
Anticipated Discharge: > 48 hours
Subjective/Interval History
-
Date of Service: November 13, 2023
reports nausea appetite improving.
Objective Data
-
Labs:
Laboratory Results
11/13/23
04:27
WBC 14.0 H
Hgb 8.3 L
Hct 25.3 L
Plt Count 523 H
Sodium 138
Potassium 4.0
Chloride 100
Carbon Dioxide 30
BUN 17
Creatinine 0.8
Glucose 209 H
Calcium 8.3 L
Vital Signs:
Vital Signs
Temp Pulse Resp BP Pulse Ox
97.9 F 78 16 131/60 96
11/12/23 23:02 11/12/23 23:02 11/12/23 23:02 11/12/23 23:02 11/12/23 23:02
I&O
11/12/23 11/13/23 11/14/23
06:59 06:59 06:59
Intake Total 1560 / 1560 1320 / 1320
Output Total 730 / 730 300 / 300
Balance 830 / 830 1020 / 1020
--- NOTE | 2023-11-13 07:35 | W.PN.ORTHO ---
Today's Communication / Plan
-
--Strict nonweightbearing right lower extremity. We appreciate the assistance of PT/OT.
--Continue to monitor H&H. Iron supplementation per IM.
--Dressings to remain in place. Wound VAC changed every 3 days per wound care nurse.
--Cx with Enterococcus faecalis and MSSA. Continue abx per ID, currently cefazolin, metronidazole and vanco.
--Ice and elevate to control swelling/pain. Pain control prn.
--Aspirin for DVT prophylaxis.
--Future surgeries are possible with circular frame and possible amputation.
--Orthopedics will continue to follow.
--We appreciate the assistance of all teams in care of this patient.
Assessment
.
Dressing:
Clean, dry and intact.
Plan
.
Surgery / Date: S/P R ankle I&D/pins with wound VAC 11/06 [facility]
Activity:
Out of bed.
PT/OT
Subjective
.
.:
Patient resting comfortably.
Vital Signs and Labs
.
Vital Signs and Labs:
Lab Results
11/13/23 04:27
11/13/23 04:27
Temp Pulse Resp BP Pulse Ox
97.9 F 78 16 131/60 96
11/12/23 23:02 11/12/23 23:02 11/12/23 23:02 11/12/23 23:02 11/12/23 23:02
[2023-11-13 07:50] VITALS: BP 158/67
[2023-11-13 08:06] LABS: Glucose - Point of Care 215 mg/dl (70-99)
--- NOTE | 2023-11-13 08:33 | PHA.VAN.FU ---
Vancomycin Assessment / Plan
- Assessment
Renal Function: Stable
WBC's are: Stable
In the past 24 hrs, patient has been: Afebrile
Concomitant Antimicrobials: ertapenem
- Dosing Plan
Continue: Vanc 750mg Q12H
- Monitoring Plan
Level(s) appropriate: Recheck trough at minimum of weekly intervals, Repeat sooner for changes in renal function or clinical status
Next Level Due (Date): ~11/17
- Follow Up
Pharmacy will continue to follow.
Vancomycin Follow UP
- -
Patient Age: 73
Patient Sex: Male
Vancomycin Day #: 5
Indication: Bone And Joint
Requesting Provider: Dr. Johnson
Pertinent Antimicrobial Allergies:
penicillin - SOB at 9 years old
Height / Weight:
Height 5 ft 8 in
Actual Weight 78.16 kg
Pertinent Past Medical History: DM, CKD, PAD
- Vital Signs / Lab Results
Temp Pulse Resp BP Pulse Ox
98.8 F 80 16 158/67 100
11/13/23 07:50 11/13/23 07:50 11/13/23 07:50 11/13/23 07:50 11/13/23 07:50
Lab Results - Hematology
11/11/23 11/12/23 11/13/23
05:33 07:32 04:27
WBC 12.3 H 14.3 H 14.0 H
Lab Results - Chemistry
11/11/23 11/12/23 11/13/23
05:33 07:32 04:27
BUN 20 16 17
Creatinine 0.7 0.7 0.8
Estimated Creat Clear 90 90 78
Albumin 2.5 L 2.5 L
Microbiology Results
11/08/23 09:34 Blood Culture - Preliminary
Blood/Venous No Growth in 4 days- Final report to follow
11/07/23 17:20 Wound Culture - Final
Ankle - Right Enterococcus faecalis
S aureus-Methicillin Sensitive
Gram Stain - Final
11/07/23 17:20 Anaerobic Culture - Final
Ankle - Right NO ANAEROBES ISOLATED
11/06/23 19:11 Blood Culture - Final
Blood/Venous No Growth - Final Report
11/06/23 18:14 Blood Culture - Final
Blood/Venous No Growth - Final Report
Therapeutic Drug Monitoring
Vancomycin Peak 21.7 ug/ml (18-26) 11/10/23 20:29
Vancomycin Trough 12.6 ug/ml (5-20) 11/11/23 05:33
Random Vancomycin 10.5 ug/ml 11/07/23 07:22
[2023-11-13] MEDS: NOVOLOG FLEXPEN-LOW RESISTANCE 2 UNITS SC ×2 (09:18→12:41)
[2023-11-13] MEDS: COZAAR 25 MG PO (09:18)
[2023-11-13] MEDS: COLACE PO ×2 (09:20→20:17)
[2023-11-13] MEDS: ASPIRIN 325 MG PO (09:20)
[2023-11-13] MEDS: LIPITOR 20 MG PO (09:20)
[2023-11-13] MEDS: SENOKOT PO ×2 (09:21→20:17)
[2023-11-13] MEDS: PERCOCET 5/325 1 TABLET PO ×2 (09:21→20:14)
--- NOTE | 2023-11-13 10:33 | W.PN.ID1 ---
Date of Service
Date of Service: November 13, 2023
Today's Communication
- c/w vancomycin
- c/w ertapenem given severe nausea
- continue through 12/17/23
- follow overnight for resolution of nausea
Assessment / Plan
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
Leukocytosis
DM2 - moderate control
Transaminitis
H/o shortness of breath with penicillin
- 11/05 superficial culture MSSA
- 11/06 deep culture of bone by wa - also MSSA
- 11/06 OR culture aerobic and anaerobic - MSSA and enterococcus
- blood cultures x2 in progress no growth to date
- PICC in place
- c/w vancomycin
- c/w ertapenem given severe nausea
- continue through 12/17/23
- follow overnight for resolution of nausea
Chief Complaint
-: Other (hardwear infection, osteomyelitis, right ankle)
Subjective / Review of Systems
afebrile
nausea improved but not resolved
Vital Signs / Physical Exam
Vital Signs
Vital Signs
Temp Pulse Resp BP Pulse Ox
98.8 F 80 16 158/67 100
11/13/23 07:50 11/13/23 09:18 11/13/23 07:50 11/13/23 09:18 11/13/23 07:50
Physical Exam
Constitutional: No Acute Distress
Cardiovascular: Regular Rate and S1/S2; Negative Murmur or Rub
Pulmonary: Clear and Symmetric; Negative Wheezes or Rales
Gastrointestinal: Soft, Non Tender, Non Distended and Normal Bowel Sounds
Skin: Warm and Dry; Negative Rash or Jaundice
Lines: Other (wound vac in place)
Objective Data
Lab Data
Lab Results
11/13/23 04:27
11/13/23 04:27
Estimated Creat Clear 78 ml/min 11/13/23 04:27
Total Bilirubin 0.2 mg/dl (0.2-1.3) 11/12/23 07:32
AST 32 U/L (17-59) 11/12/23 07:32
ALT 13 U/L (0-50) 11/12/23 07:32
Alkaline Phosphatase 168 U/L (38-126) H 11/12/23 07:32
Most recent labs reviewed.
Micro Results:
11/08/23 09:34 Blood Culture - Final
Blood/Venous No Growth - Final Report
11/07/23 17:20 Wound Culture - Final
Ankle - Right Enterococcus faecalis
S aureus-Methicillin Sensitive
Gram Stain - Final
11/07/23 17:20 Anaerobic Culture - Final
Ankle - Right NO ANAEROBES ISOLATED
11/06/23 19:11 Blood Culture - Final
Blood/Venous No Growth - Final Report
11/06/23 18:14 Blood Culture - Final
Blood/Venous No Growth - Final Report
11/07/23 10:01 Wound Culture - Final
Bone S aureus-Methicillin Sensitive
Gram Stain - Final
11/06/23 11:42 Wound Culture - Final
Ankle - Right S aureus-Methicillin Sensitive
Gram Stain - Final
11/06/23 17:41 MRSA Screen - Final
Nose No Methicillin Resistant Staphylococcus aureus isolated.
[2023-11-13] MEDS: ZOFRAN 4 MG IV (12:02)
[2023-11-13] MEDS: ROXICODONE 5 MG PO ×3 (12:04→22:49)
[2023-11-13 12:10] LABS: Glucose - Point of Care 213 mg/dl (70-99)
--- NOTE | 2023-11-13 12:14 | CM ---
Addendum entered by Sheela Jha 11/13/23 14:56:
[facility] unable to accept patient due to patients insurance. Patient seen bedside, updated, discussed no beds at [place] at this time. Patient agreeable to referral to [facility], will send in [facility].
Original Note:
Patient seen bedside, discussed plan for short term rehab when medically stable. Patient would prefer a facility close to [facility] or [place]. CM awaiting response from [facility]. Patient will require insurance auth. Patient
remains on Iv antibiotics, wound vac. CM will continue to follow for all discharge planning needs.
Plan; SNF pending accepting facility, will require auth.
[2023-11-13] MEDS: FEOSOL 325 MG PO (12:49)
--- NOTE | 2023-11-13 15:00 | PN.CDI ---
CDI
- -
CDI:
Physician Documentation Request
Admit Date: 11/06/23 13:07
Dear Doctor Kristine,
Patient admitted with osteomyelitis and hardware infection of the right ankle.
11/05 Op note, 'The wound was thoroughly debrided with sharp and
blunt dissection and it was deemed appropriate for relocation of
tibia with ankle dislocation pinning.'
'
Please provide, in the progress notes further clarification regarding the debridement:
Please specify the type of debridement performed:
1. Excisional Debridement - defined as removal by excision of devitalized tissue, necrosis or slough
2. Non-excisional debridement - defined as removal of devitalized tissue, necrosis or slough by such methods as irrigation, brushing, scrubbing or washing.
If the debridement was excisional, please also include:
1. Type of instrument used (#11 blade, #15 blade etc.)
2. What was excised (necrotic tissue, gangrenous tissue, slough etc.)
For excisional or non-excisional, please also include:
1. Depth of debridement (skin, subcutaneous tissue, fascia, muscle, bone etc)
2. Size and appearance of the wound (L, W, D, color of wound, drainage)
Use of terms such as suspected, likely, concern for, or probable (associated with a specific diagnosis that is being evaluated, monitored, or treated as if it exists) are acceptable and can be coded in the inpatient setting, when documented at the
time of discharge.
Thank you,
Norma CASTILLO,RN,CCDS
CDI Specialist
Available via [place] text
Please use your independent medical judgment in providing your response.
[2023-11-13 15:40] VITALS: BP 163/74
[2023-11-13 16:10] LABS: Glucose - Point of Care 150 mg/dl (70-99)
--- NOTE | 2023-11-13 16:24 | W.PN.SURGUPD ---
Surgical Update
Surgical Update
Patient was seen and evaluated at bedside. We discussed surgical plans in detail, including external fixation for offloading and hopeful wound healing.
� Please keep patient n.p.o. after 7 AM 11/13. Plan for right ankle debridement with right lower extremity external fixator application 11/13 afternoon.
� Please continue IV antibiotics per infectious disease guidelines. Recommend that patient get full course of 6 weeks of IV antibiotics.
� Strict nonweightbearing to right lower extremity.
[2023-11-13] MEDS: INVANZ 60 MG IV (17:05)
[2023-11-13] MEDS: NOVOLOG FLEXPEN-LOW RESISTANCE 1 UNITS SC (17:05)
[2023-11-13 21:06] LABS: Glucose - Point of Care 305 mg/dl (70-99)
[2023-11-13] MEDS: LANTUS 0.13 UNITS SC (21:24)
[2023-11-13 23:35] VITALS: BP 162/64
[2023-11-14] VITALS (10 sets, daily range): BP systolic 0–168; BP diastolic 56–84
[2023-11-14] MEDS: ROXICODONE 5 MG PO ×2 (05:12→23:16)
[2023-11-14] MEDS: LYRICA 100 MG PO ×3 (05:13→21:07)
[2023-11-14] MEDS: VANCOCIN 150 IV (05:13)
--- NOTE | 2023-11-14 05:33 | DOWNTIME ---
There was a [employer] Downtime on 11/14/2023 from 0100 to 11/14/2023 at 0300. Downtime documentation of patient's care, including medication administrations, has been reconciled in the electronic record per guidelines. Refer to the
patient's paper chart under the miscellaneous tab to see printed paper medication records and downtime forms.
[2023-11-14 06:00] LABS: Glucose - Point of Care 208 mg/dl (70-99)
[2023-11-14] MEDS: NOVOLOG FLEXPEN-LOW RESISTANCE 2 UNITS SC (06:02)
[2023-11-14 06:20] LABS: Hematocrit 24.3 % (39.0-52.0); Hemoglobin 7.8 g/dL (13.0-18.0); Mean Corp Hgb Conc. 32.1 g/dL (33.0-37.0); Mean Corpuscular Hgb 26.2 pg (27.0-31.0); Mean Corpuscular Volume 81.5 fL (80.0-94.0); Mean Platelet Volume 9.6 fL (7.4-10.4); Platelet Count 503 10^3/uL (130-400); Red Blood Cell Count 2.98 10^6/uL (4.70-6.10); Red Cell Dist. Width 14.6 % (11.5-14.5); White Blood Cell Count 13.7 10^3/uL (4.8-10.8)
[2023-11-14 06:45] LABS: Blood Urea Nitrogen 16 mg/dl (9-20); Carbon Dioxide 29 mmol/L (22-30); Chloride 100 mmol/L (98-107); Estimated Creatinine Clearance 78 ml/min; Glucose 207 mg/dl (70-99); Magnesium 1.9 mg/dl (1.6-2.3); Phosphorus 2.9 mg/dl (2.5-4.5); Sodium 137 mmol/L (135-145); eGFR > 60.00
--- NOTE | 2023-11-14 08:08 | W.PN.HOSP.TC ---
Today's Communication/Plan
-
cont abx as per ID
NPO for podiatry procedure
glycemic conrol
pain control
prn antiemetic
Assessment / Plan
Assessment / Plan
Physical Exam
Constitutional: No Acute Distress
Cardiovascular: Regular Rate and S1/S2; Negative Murmur or Rub
Pulmonary: Clear and Symmetric; Negative Wheezes or Rales
Gastrointestinal: Soft, Non Tender, Non Distended and Normal Bowel Sounds
Skin: Warm and Dry; Negative Rash or Jaundice
Ext: RLE bandaging clean dry intact wound vac in place
Neuro: Awake alert conversant coherent
#Acute Osteomyelitis and hardware infection of the right ankle
#Leukocytosis
#Sepsis
- 11/05 superficial culture MSSA
- 11/06 deep culture of bone by mi - also MSSA
- 11/06 OR culture aerobic and anaerobic - MSSA and enterococcus
- blood cultures x2 in progress no growth to date
-febrile episode 11/06 most likely post op
-s/p right septic ankle debridement and pinning 11/06
-nonenhancing fluid lateral to the talocalcaneal articulation inferior to the fibula, which is complex joint fluid, and septic arthritis is certainly a consideration.
-Podiatry eval appreciated n.p.o. after 7 AM 11/13. Plan for right ankle debridement with right lower extremity external fixator application 11/13 afternoon.
-ID recs appreciated vancomycin ertapenem
-IV abx - continue through 12/17/23
-Ice and elevate to control swelling/pain
-ASA for DVT ppx
-Wound VAC change q3 days
-STRICT NWB RLE, patient has two large plantar pins
-PT/OT consults
#Transaminitis
-most likely 2/2 to acute infection, bone involvement
-trend
-improving
# Postoperative blood loss anemia
#Iron deficiency anemia
-Hemoglobin from 12.3 in August
-Continue to monitor for source of bleed - no evidence at this time of active bleeding
-start oral iron supplements
-primary/secondary screening outpatient
#Nausea/vomiting
--improving follow switch from flagyll/cefazolin to ertapenem as per ID
-antiemetics prn
PAD
-Patient had normal JONAS during recent admission
-continue ASA/statin
Recent hypoglycemia
Type 2 diabetes
-now resolved
-A1c of 7.7
-Lantus 25 units reduced to 13U in anticipation npo surgical procedure 11/13
-ISS
-hold metformin
Diabetic neuropathy/chronic pain with opiate dependence
-continue pregabalin
-continue percocet , add prn and morphine
Diabetic retinopathy
Chronic kidney disease
-renal function baseline
Essential hypertension
-continue losartan
Full code
DVT prophylaxis�aspirin 325 -monitoring for bleeding
Diabetic diet
I spent a total of 50 minutes with the patient or on the floor. More than 50% of this time involved counseling and coordination of care.
Anticipated Discharge: 24 - 48 hours
Subjective/Interval History
-
Date of Service: November 14, 2023
No acute distress. Resting comfortably in bed. Reports significant improvement in nausea. NPO awaiting podiatry procedure today.
Objective Data
-
Labs:
Laboratory Results
11/14/23
06:05
WBC 13.7 H
Hgb 7.8 L
Hct 24.3 L
Plt Count 503 H
Sodium 137
Potassium 4.0
Chloride 100
Carbon Dioxide 29
BUN 16
Creatinine 0.8
Glucose 207 H
Calcium 8.0 L
Vital Signs:
Vital Signs
Temp Pulse Resp BP Pulse Ox
98.4 F 81 18 162/64 98
11/13/23 23:35 11/13/23 23:35 11/13/23 23:35 11/13/23 23:35 11/13/23 23:35
I&O
11/13/23 11/14/23 11/15/23
06:59 06:59 06:59
Intake Total 1320 / 1320
Output Total 300 / 300 900 / 900
Balance 1020 / 1020 -900 / -900
[2023-11-14] MEDS: COZAAR 25 MG PO (08:22)
[2023-11-14] MEDS: LIPITOR 20 MG PO (08:24)
[2023-11-14] MEDS: ASPIRIN 325 MG PO (08:24)
[2023-11-14] MEDS: PERCOCET 5/325 1 TABLET PO ×2 (08:25→21:07)
[2023-11-14] MEDS: SENOKOT PO ×2 (08:27→21:08)
[2023-11-14] MEDS: COLACE PO ×2 (08:27→21:08)
--- NOTE | 2023-11-14 08:42 | PHA.VAN.FU ---
Addendum entered and electronically signed by Isabel Burgos [facility] 11/14/23 16:13:
Patient for OR today. Will cancel orders for now and consider re-ordering tomorrow.
Original Note:
Vancomycin Assessment / Plan
- Assessment
Renal Function: Stable
WBC's are: Stable
In the past 24 hrs, patient has been: Afebrile
Concomitant Antimicrobials: ertapenem
- Dosing Plan
Continue: Vanc 750mg Q12H
- Monitoring Plan
Peak Level: 11/13 20:30
Trough Level: 11/14 05:30
Monitoring Comments: levels to be drawn after 10th maintenance dose
Will assess for any accumulation as may not have fully been at steady state with initial levels
- Follow Up
Pharmacy will continue to follow.
Vancomycin Follow UP
- -
Patient Age: 73
Patient Sex: Male
Vancomycin Day #: 6
Indication: Bone And Joint
Requesting Provider: Dr. Johnson
Pertinent Antimicrobial Allergies:
penicillin - SOB at 9 years old
Height / Weight:
Height 5 ft 8 in
Actual Weight 78.16 kg
Pertinent Past Medical History: DM, CKD, PAD
- Vital Signs / Lab Results
Temp Pulse Resp BP Pulse Ox
98.9 F 75 14 117/56 97
11/14/23 07:00 11/14/23 08:22 11/14/23 07:00 11/14/23 08:22 11/14/23 07:00
Lab Results - Hematology
11/12/23 11/13/23 11/14/23
07:32 04:27 06:05
WBC 14.3 H 14.0 H 13.7 H
Lab Results - Chemistry
11/12/23 11/13/23 11/14/23
07:32 04:27 06:05
BUN 16 17 16
Creatinine 0.7 0.8 0.8
Estimated Creat Clear 90 78 78
Albumin 2.5 L
Microbiology Results
11/08/23 09:34 Blood Culture - Final
Blood/Venous No Growth - Final Report
11/07/23 17:20 Wound Culture - Final
Ankle - Right Enterococcus faecalis
S aureus-Methicillin Sensitive
Gram Stain - Final
11/07/23 17:20 Anaerobic Culture - Final
Ankle - Right NO ANAEROBES ISOLATED
Therapeutic Drug Monitoring
Vancomycin Peak 21.7 ug/ml (18-26) 11/10/23 20:29
Vancomycin Trough 12.6 ug/ml (5-20) 11/11/23 05:33
Random Vancomycin 10.5 ug/ml 11/07/23 07:22
--- NOTE | 2023-11-14 10:25 | W.PN.ID1 ---
Date of Service
Date of Service: November 14, 2023
Today's Communication
- follow up OR note
- c/w vancomycin
- c/w ertapenem
- continue antibiotics through 12/17/23 - updated script written
Assessment / Plan
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
Leukocytosis
DM2 - moderate control
Transaminitis
H/o shortness of breath with penicillin
- 11/05 superficial culture MSSA
- 11/06 deep culture of bone by ia - also MSSA
- 11/06 OR culture aerobic and anaerobic - MSSA and enterococcus
- blood cultures x2 in progress no growth to date
- note plans for right ankle debridement with right lower extremity external fixator application 11/13 afternoon - follow up OR note
- PICC in place
- c/w vancomycin
- c/w ertapenem
- continue antibiotics through 12/17/23 - updated script written
- follow overnight for resolution of nausea
Chief Complaint
-: Other (hardwear infection, osteomyelitis, right ankle)
Subjective / Review of Systems
afebrile
no events overnight
Vital Signs / Physical Exam
Vital Signs
Vital Signs
Temp Pulse Resp BP Pulse Ox
98.9 F 75 14 117/56 97
11/14/23 07:00 11/14/23 08:22 11/14/23 07:00 11/14/23 08:22 11/14/23 07:00
Physical Exam
Constitutional: No Acute Distress
Cardiovascular: Regular Rate and S1/S2; Negative Murmur or Rub
Pulmonary: Clear and Symmetric; Negative Wheezes or Rales
Gastrointestinal: Soft, Non Tender, Non Distended and Normal Bowel Sounds
Skin: Warm and Dry; Negative Rash or Jaundice
Wound: Other (wound vac in place)
Objective Data
Lab Data
Lab Results
11/14/23 06:05
11/14/23 06:05
Estimated Creat Clear 78 ml/min 11/14/23 06:05
Total Bilirubin 0.2 mg/dl (0.2-1.3) 11/12/23 07:32
AST 32 U/L (17-59) 11/12/23 07:32
ALT 13 U/L (0-50) 11/12/23 07:32
Alkaline Phosphatase 168 U/L (38-126) H 11/12/23 07:32
Most recent labs reviewed.
Micro Results:
11/08/23 09:34 Blood Culture - Final
Blood/Venous No Growth - Final Report
11/07/23 17:20 Wound Culture - Final
Ankle - Right Enterococcus faecalis
S aureus-Methicillin Sensitive
Gram Stain - Final
11/07/23 17:20 Anaerobic Culture - Final
Ankle - Right NO ANAEROBES ISOLATED
11/06/23 19:11 Blood Culture - Final
Blood/Venous No Growth - Final Report
11/06/23 18:14 Blood Culture - Final
Blood/Venous No Growth - Final Report
11/07/23 10:01 Wound Culture - Final
Bone S aureus-Methicillin Sensitive
Gram Stain - Final
11/06/23 11:42 Wound Culture - Final
Ankle - Right S aureus-Methicillin Sensitive
Gram Stain - Final
11/06/23 17:41 MRSA Screen - Final
Nose No Methicillin Resistant Staphylococcus aureus isolated.
[2023-11-14 11:50] LABS: Glucose - Point of Care 192 mg/dl (70-99)
[2023-11-14] MEDS: NOVOLOG FLEXPEN-LOW RESISTANCE 1 UNITS SC (12:29)
--- NOTE | 2023-11-14 14:55 | PN.CDI ---
CDI
- -
CDI:
Physician Documentation Request
Admit Date: 11/06/23 13:07
Dear Doctor Giovanna,
Patient admitted with osteomyelitis and hardware infection of the right ankle.
11/12 PN, ' Osteomyelitis... sepsis....IV abx - continue through 12/17/23.'
Please clarify which of the following accurately represents the acuity of the osteomyelitis:
Acute
Acute on chronic
Chronic
Other
Use of terms such as suspected, likely, concern for, or probable (associated with a specific diagnosis that is being evaluated, monitored, or treated as if it exists) are acceptable and can be coded in the inpatient setting, when documented at the
time of discharge.
Thank you,
Norma CASTILLO,RN
CDI Specialist
Available via [place] text
Please use your independent medical judgment in providing your response.
--- NOTE | 2023-11-14 15:12 | CM ---
Patient off floor, for OR today. Per Shawn, [facility] Patient will require new PT/OT notes for SNF auth. Patient will require 6 weeks of IV antibiotics. CM will continue to follow for all discharge
planning needs.
Plan; SNF when stable, [facility], will need auth.
[2023-11-14 15:51] LABS: Glucose - Point of Care 172 mg/dl (70-99)
--- NOTE | 2023-11-14 18:54 | W.PN.SURGUPD ---
Surgical Update
Surgical Update
Patient is status post right ankle wound debridement, external fixator application, Integra and wound VAC application.
� Strict nonweightbearing to right lower extremity
�No further surgical plans currently
� Continue antibiotics per infectious disease guidelines. Recommend 6 weeks IV antibiotics
� Wound VAC dressing to remain intact until 11/18
� Wound VAC dressing changes 3X weekly thereafter.
[2023-11-14 19:02] LABS: Glucose - Point of Care 202 mg/dl (70-99)
[2023-11-14] MEDS: DILAUDID 0.5 MG IV (19:17)
[2023-11-14] MEDS: VANCOCIN IV (19:20)
[2023-11-14] MEDS: INVANZ IV (19:20)
[2023-11-14] MEDS: NOVOLOG vial 1 UNITS SC (19:21)
[2023-11-14] MEDS: NOVOLOG FLEXPEN-LOW RESISTANCE SC (20:38)
[2023-11-14 21:38] LABS: Glucose - Point of Care 230 mg/dl (70-99)
[2023-11-14] MEDS: LANTUS 0.13 UNITS SC (23:12)
[2023-11-15] MEDS: NOVOLOG FLEXPEN-LOW RESISTANCE SC (02:17)
[2023-11-15 03:36] VITALS: BP 116/75
[2023-11-15] MEDS: ROXICODONE 5 MG PO ×3 (03:46→14:30)
[2023-11-15] MEDS: VANCOCIN 150 IV ×2 (05:58→18:15)
[2023-11-15] MEDS: LYRICA 100 MG PO ×3 (05:58→21:14)
[2023-11-15 06:53] LABS: Hematocrit 25.2 % (39.0-52.0); Hemoglobin 8.2 g/dL (13.0-18.0); Mean Corp Hgb Conc. 32.5 g/dL (33.0-37.0); Mean Corpuscular Hgb 26.4 pg (27.0-31.0); Platelet Count 515 10^3/uL (130-400); Red Blood Cell Count 3.11 10^6/uL (4.70-6.10); Red Cell Dist. Width 14.6 % (11.5-14.5); White Blood Cell Count 20.7 10^3/uL (4.8-10.8)
[2023-11-15 06:55] LABS: Blood Urea Nitrogen 18 mg/dl (9-20); Calcium 7.9 mg/dl (8.4-10.2); Carbon Dioxide 21 mmol/L (22-30); Chloride 100 mmol/L (98-107); Estimated Creatinine Clearance 78 ml/min; Glucose 235 mg/dl (70-99); Magnesium 1.9 mg/dl (1.6-2.3); Phosphorus 3.6 mg/dl (2.5-4.5); Potassium 4.8 mmol/L (3.5-5.1); Sodium 139 mmol/L (135-145); eGFR > 60.00
--- NOTE | 2023-11-15 07:32 | W.PN.HOSP.TC ---
Today's Communication/Plan
-
discharge planning SNF rehab
cont abx as per ID
wound care as per Podiatry
PT/OT
Assessment / Plan
Assessment / Plan
Physical Exam
Constitutional: No Acute Distress
Cardiovascular: Regular Rate and S1/S2; Negative Murmur or Rub
Pulmonary: Clear and Symmetric; Negative Wheezes or Rales
Gastrointestinal: Soft, Non Tender, Non Distended and Normal Bowel Sounds
Skin: Warm and Dry; Negative Rash or Jaundice
Ext: RLE bandaging clean dry intact wound vac in place
Neuro: Awake alert conversant coherent
#Acute Osteomyelitis and hardware infection of the right ankle
#Leukocytosis
#Sepsis
- 11/05 superficial culture MSSA
- 11/06 deep culture of bone by wy - also MSSA
- 11/06 OR culture aerobic and anaerobic - MSSA and enterococcus
- blood cultures x2 in progress no growth to date
-febrile episode 11/06 most likely post op
-s/p right septic ankle debridement and pinning 11/06
-nonenhancing fluid lateral to the talocalcaneal articulation inferior to the fibula, which is complex joint fluid, and septic arthritis is certainly a consideration.
-Podiatry eval appreciated n.p.o. after 7 AM 11/13. Plan for right ankle debridement with right lower extremity external fixator application 11/13 afternoon.
-ID recs appreciated vancomycin ertapenem
-IV abx - continue through 12/17/23
-Ice and elevate to control swelling/pain
-ASA for DVT ppx
-Wound VAC change q3 days
-STRICT NWB RLE, patient has two large plantar pins
-PT/OT consults
#Transaminitis
-most likely 2/2 to acute infection, bone involvement
-improved
# Postoperative blood loss anemia
#Iron deficiency anemia
-Hemoglobin from 12.3 in August
-Continue to monitor for source of bleed - no evidence at this time of active bleeding
-oral iron supplements
-primary/secondary screening outpatient
#Nausea/vomiting
--improving follow switch from flagyll/cefazolin to ertapenem as per ID
-antiemetics prn
PAD
-Patient had normal JONAS during recent admission
-continue ASA/statin
Recent hypoglycemia
Type 2 diabetes
-now resolved
-A1c of 7.7
-Lantus 25 units, Novolog 5U
-ISS
-hold metformin
Diabetic neuropathy/chronic pain with opiate dependence
-continue pregabalin
-continue percocet, prn oxycodone morphine
Diabetic retinopathy
Chronic kidney disease
-renal function baseline
Essential hypertension
-continue losartan
Full code
DVT prophylaxis�aspirin 325
Diabetic diet
I spent a total of 40 minutes with the patient or on the floor. More than 50% of this time involved counseling and coordination of care.
Anticipated Discharge: 24 - 48 hours
Subjective/Interval History
-
Date of Service: November 15, 2023
Overall reports feeling well. Nausea and appetite improved.
Objective Data
-
Labs:
Laboratory Results
11/15/23
05:40
WBC 20.7 H
Hgb 8.2 L
Hct 25.2 L
Plt Count 515 H
Sodium 139
Potassium 4.8
Chloride 100
Carbon Dioxide 21 L
BUN 18
Creatinine 0.8
Glucose 235 H
Calcium 7.9 L
Vital Signs:
Vital Signs
Temp Pulse Resp BP Pulse Ox
98.0 F 86 18 116/75 98
11/15/23 03:36 11/15/23 03:36 11/15/23 03:36 11/15/23 03:36 11/15/23 03:36
I&O
11/14/23 11/15/23 11/16/23
06:59 06:59 06:59
Intake Total 1160 / 1160
Output Total 900 / 900 420 / 420
Balance -900 / -900 740 / 740
[2023-11-15 07:35] VITALS: BP 100/66
[2023-11-15 07:40] LABS: Glucose - Point of Care 266 mg/dl (70-99)
[2023-11-15] MEDS: NOVOLOG FLEXPEN 5 UNITS SC ×3 (08:00→17:17)
[2023-11-15] MEDS: NOVOLOG FLEXPEN-LOW RESISTANCE 3 UNITS SC ×3 (08:00→17:15)
[2023-11-15] MEDS: COZAAR 25 MG PO (08:01)
[2023-11-15] MEDS: PERCOCET 5/325 1 TABLET PO ×2 (08:02→21:14)
[2023-11-15] MEDS: LIPITOR 20 MG PO (08:02)
[2023-11-15] MEDS: ASPIRIN 325 MG PO (08:02)
[2023-11-15] MEDS: SENOKOT PO ×2 (08:02→21:14)
[2023-11-15] MEDS: COLACE PO ×2 (08:06→21:14)
--- NOTE | 2023-11-15 08:20 | W.PN.ORTHO ---
Today's Communication / Plan
-
Strict nonweightbearing right lower extremity
Wound VAC in place-leave in place for 3 days
Aspirin for DVT prophylaxis
Antibiotics per infectious disease
Orthopedics to follow along
Assessment
.
Distal Motor Intact: Yes
Dressing:
Clean, dry and intact.
Plan
.
Surgery / Date: S/P R ankle I &D Ex Fix w/ wound vac 11/14 [facility]
DVT Prophylaxis: Aspirin
Activity:
Out of bed.
PT/OT
Subjective
.
.:
Patient resting comfortably.
Vital Signs and Labs
.
Vital Signs and Labs:
Lab Results
11/15/23 05:40
11/15/23 05:40
Temp Pulse Resp BP Pulse Ox
98.0 F 86 18 116/75 98
11/15/23 03:36 11/15/23 03:36 11/15/23 03:36 11/15/23 03:36 11/15/23 03:36
Physical Exam
-
Circular external fixator frame in place with Pato wrap over top and wound VAC
--- NOTE | 2023-11-15 09:15 | PHA.VAN.FU ---
Vancomycin Assessment / Plan
- Assessment
Renal Function: Stable
WBC's are: Trending Up
In the past 24 hrs, patient has been: Afebrile
Concomitant Antimicrobials: ertapenem
- Dosing Plan
Continue: Vanc 750mg Q12H
- Monitoring Plan
Peak Level: 11/14 20:30
Trough Level: 11/15 05:30
Monitoring Comments: levels to be drawn after 13th maintenance dose
- Follow Up
Pharmacy will continue to follow.
Vancomycin Follow UP
- -
Patient Age: 73
Patient Sex: Male
Vancomycin Day #: 7
Indication: Bone And Joint
Requesting Provider: Dr. Johnson
Pertinent Antimicrobial Allergies:
penicillin - SOB at 9 years old
Height / Weight:
Height 5 ft 8 in
Actual Weight 78.16 kg
Pertinent Past Medical History: DM, CKD, PAD
- Vital Signs / Lab Results
Temp Pulse Resp BP Pulse Ox
98.8 F 84 18 100/66 97
11/15/23 07:35 11/15/23 07:35 11/15/23 07:35 11/15/23 07:35 11/15/23 07:35
Lab Results - Hematology
11/13/23 11/14/23 11/15/23
04:27 06:05 05:40
WBC 14.0 H 13.7 H 20.7 H
Lab Results - Chemistry
11/13/23 11/14/23 11/15/23
04:27 06:05 05:40
BUN 17 16 18
Creatinine 0.8 0.8 0.8
Estimated Creat Clear 78 78 78
Microbiology Results
11/08/23 09:34 Blood Culture - Final
Blood/Venous No Growth - Final Report
Therapeutic Drug Monitoring
Vancomycin Peak Cancelled 11/14/23 20:30
Vancomycin Trough 12.6 ug/ml (5-20) 11/11/23 05:33
Random Vancomycin 10.5 ug/ml 11/07/23 07:22
[2023-11-15 11:18] VITALS: BP 113/49
[2023-11-15 11:41] LABS: Glucose - Point of Care 283 mg/dl (70-99)
[2023-11-15] MEDS: FEOSOL 325 MG PO (12:59)
--- NOTE | 2023-11-15 14:55 | PTOTSP ---
Pt s/p R ankle salvage reconstruction, and external fixator and wound vac placement on 11/14/23 under general anesthesia. Will need new orders to resume OT when stable for activity.
[2023-11-15 15:11] VITALS: BP 128/58
--- NOTE | 2023-11-15 16:44 | W.PN.ID1 ---
Date of Service
Date of Service: November 15, 2023
Today's Communication
- c/w vancomycin
- c/w ertapenem
- continue antibiotics through 12/17/23 - updated script written
- stable for dc from ID perspective
Assessment / Plan
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
Leukocytosis
DM2 - moderate control
Transaminitis
H/o shortness of breath with penicillin
- 11/05 superficial culture MSSA
- 11/06 deep culture of bone by az - also MSSA
- 11/06 OR culture aerobic and anaerobic - MSSA and enterococcus
- blood cultures x2 in progress no growth to date
- note plans for right ankle debridement with right lower extremity external fixator application 11/13 afternoon - follow up OR note
- PICC in place
- c/w vancomycin
- c/w ertapenem
- continue antibiotics through 12/17/23 - updated script written
- stable for dc from ID perspective
Chief Complaint
-: Other (hardwear infection, osteomyelitis, right ankle)
Subjective / Review of Systems
afebrile
less nausea each day
loose but not liquid stools
Vital Signs / Physical Exam
Vital Signs
Vital Signs
Temp Pulse Resp BP Pulse Ox
98.2 F 76 14 128/58 98
11/15/23 15:11 11/15/23 15:11 11/15/23 15:11 11/15/23 15:11 11/15/23 15:11
Physical Exam
Constitutional: No Acute Distress
Cardiovascular: Regular Rate and S1/S2; Negative Murmur or Rub
Pulmonary: Clear and Symmetric; Negative Wheezes or Rales
Gastrointestinal: Soft, Non Tender, Non Distended and Normal Bowel Sounds
Skin: Warm and Dry; Negative Rash or Jaundice
Objective Data
Lab Data
Lab Results
11/15/23 05:40
11/15/23 05:40
Estimated Creat Clear 78 ml/min 11/15/23 05:40
Total Bilirubin 0.2 mg/dl (0.2-1.3) 11/12/23 07:32
AST 32 U/L (17-59) 11/12/23 07:32
ALT 13 U/L (0-50) 11/12/23 07:32
Alkaline Phosphatase 168 U/L (38-126) H 11/12/23 07:32
Most recent labs reviewed.
Micro Results:
11/08/23 09:34 Blood Culture - Final
Blood/Venous No Growth - Final Report
11/07/23 17:20 Wound Culture - Final
Ankle - Right Enterococcus faecalis
S aureus-Methicillin Sensitive
Gram Stain - Final
11/07/23 17:20 Anaerobic Culture - Final
Ankle - Right NO ANAEROBES ISOLATED
11/06/23 19:11 Blood Culture - Final
Blood/Venous No Growth - Final Report
11/06/23 18:14 Blood Culture - Final
Blood/Venous No Growth - Final Report
11/07/23 10:01 Wound Culture - Final
Bone S aureus-Methicillin Sensitive
Gram Stain - Final
11/06/23 11:42 Wound Culture - Final
Ankle - Right S aureus-Methicillin Sensitive
Gram Stain - Final
11/06/23 17:41 MRSA Screen - Final
Nose No Methicillin Resistant Staphylococcus aureus isolated.
[2023-11-15 17:07] LABS: Glucose - Point of Care 280 mg/dl (70-99)
[2023-11-15] MEDS: VISBIOME 2 CAP PO (17:14)
[2023-11-15] MEDS: INVANZ 60 MG IV (17:15)
[2023-11-15 19:29] VITALS: BP 114/52
[2023-11-15 21:14] LABS: Glucose - Point of Care 379 mg/dl (70-99)
[2023-11-15] MEDS: LANTUS 0.25 UNITS SC (21:16)
[2023-11-15 22:20] LABS: Vancomycin Peak 26.7 ug/ml (18-26)
[2023-11-15 23:34] VITALS: BP 137/61
[2023-11-16 05:30] LABS: Hematocrit 24.4 % (39.0-52.0); Hemoglobin 7.9 g/dL (13.0-18.0); Mean Corp Hgb Conc. 32.4 g/dL (33.0-37.0); Mean Corpuscular Volume 83.3 fL (80.0-94.0); Mean Platelet Volume 9.8 fL (7.4-10.4); Platelet Count 448 10^3/uL (130-400); Red Blood Cell Count 2.93 10^6/uL (4.70-6.10); White Blood Cell Count 14.4 10^3/uL (4.8-10.8)
[2023-11-16 05:52] LABS: Blood Urea Nitrogen 20 mg/dl (9-20); Calcium 7.6 mg/dl (8.4-10.2); Carbon Dioxide 27 mmol/L (22-30); Chloride 100 mmol/L (98-107); Estimated Creatinine Clearance 63 ml/min; Glucose 309 mg/dl (70-99); Phosphorus 2.7 mg/dl (2.5-4.5); Potassium 4.1 mmol/L (3.5-5.1); Sodium 138 mmol/L (135-145); eGFR > 60.00
[2023-11-16] MEDS: VANCOCIN 150 IV (06:00)
[2023-11-16] MEDS: LYRICA 100 MG PO ×3 (06:03→21:49)
[2023-11-16] MEDS: ROXICODONE 5 MG PO ×2 (06:16→15:45)
--- NOTE | 2023-11-16 07:32 | W.PN.HOSP.TC ---
Today's Communication/Plan
-
abx as per ID
wound care as per orthopedic
PT/OT
Glycemic control
Discharge planning SNF rehab
Assessment / Plan
Assessment / Plan
Physical Exam
Constitutional: No Acute Distress
Cardiovascular: Regular Rate and S1/S2; Negative Murmur or Rub
Pulmonary: Clear and Symmetric; Negative Wheezes or Rales
Gastrointestinal: Soft, Non Tender, Non Distended and Normal Bowel Sounds
Skin: Warm and Dry; Negative Rash or Jaundice
Ext: RLE bandaging clean dry intact wound vac in place
Neuro: Awake alert conversant coherent
#Acute Osteomyelitis and hardware infection of the right ankle
#Leukocytosis
#Sepsis
- 11/05 superficial culture MSSA
- 11/06 deep culture of bone by ca - also MSSA
- 11/06 OR culture aerobic and anaerobic - MSSA and enterococcus
- blood cultures x2 in progress no growth to date
-febrile episode 11/06 most likely post op
-s/p right septic ankle debridement and pinning 11/06
-nonenhancing fluid lateral to the talocalcaneal articulation inferior to the fibula, which is complex joint fluid, and septic arthritis is certainly a consideration.
-Podiatry eval appreciated n.p.o. after 7 AM 11/13. Plan for right ankle debridement with right lower extremity external fixator application 11/13 afternoon.
-ID recs appreciated vancomycin ertapenem
-IV abx - continue through 12/17/23
-Ice and elevate to control swelling/pain
-ASA for DVT ppx
-Wound VAC change q3 days
-STRICT NWB RLE, patient has two large plantar pins
-PT/OT consults
#Transaminitis
-most likely 2/2 to acute infection, bone involvement
-improved
# Postoperative blood loss anemia
#Iron deficiency anemia
-Hemoglobin from 12.3 in August
-Continue to monitor for source of bleed - no evidence at this time of active bleeding
-oral iron supplements
-primary/secondary screening outpatient
#Nausea/vomiting
--improving follow switch from flagyll/cefazolin to ertapenem as per ID
-antiemetics prn
PAD
-Patient had normal JONAS during recent admission
-continue ASA/statin
Recent hypoglycemia
Type 2 diabetes
-now resolved
-A1c of 7.7
-Lantus 30 units, Novolog 8U
-ISS
-hold metformin
Diabetic neuropathy/chronic pain with opiate dependence
-continue pregabalin
-continue percocet, prn oxycodone morphine
Diabetic retinopathy
Chronic kidney disease
-renal function baseline
Essential hypertension
-continue losartan
Full code
DVT prophylaxis�aspirin 325
Diabetic diet
I spent a total of 40 minutes with the patient or on the floor. More than 50% of this time involved counseling and coordination of care.
Anticipated Discharge: 24 - 48 hours
Subjective/Interval History
-
Date of Service: November 16, 2023
No acute distress. Continues to report improvement in nausea and appetite.
Objective Data
-
Labs:
Laboratory Results
11/16/23
05:22
WBC 14.4 H
Hgb 7.9 L
Hct 24.4 L
Plt Count 448 H
Sodium 138
Potassium 4.1
Chloride 100
Carbon Dioxide 27
BUN 20
Creatinine 1.0
Glucose 309 H
Calcium 7.6 L
Vital Signs:
Vital Signs
Temp Pulse Resp BP Pulse Ox
98.0 F 84 16 137/61 96
11/15/23 23:34 11/15/23 23:34 11/15/23 23:34 11/15/23 23:34 09/19/24 23:34
I&O
11/15/23 11/16/23 11/17/23
06:59 06:59 06:59
Intake Total 1160 / 1160 1200 / 1200
Output Total 420 / 420 780 / 780
Balance 740 / 740 420 / 420
[2023-11-16 07:43] LABS: Glucose - Point of Care 348 mg/dl (70-99)
[2023-11-16 07:55] VITALS: BP 104/74
--- NOTE | 2023-11-16 07:56 | PHA.VAN.FU ---
Vancomycin Assessment / Plan
- Assessment
Renal Function: SCR Increasing
WBC's are: Trending Down
In the past 24 hrs, patient has been: Afebrile (0.8 --> 1)
Concomitant Antimicrobials: ertapenem
- Assessment - Therapeutic Drug Monitoring
Extrapolated Cmax (mcg/mL): 30.1
Peak level was drawn: Appropriately (drawn ~2.65 H after end of previous infusion)
Extrapolated Cmin (mcg/mL): 18.3
Trough Drawn: Appropriately
Levels were drawn: At steady state (levels drawn after 13th maintenance dose)
Calculated AUC (mcg*h/mL): 570
Calculated ke: 0.0456
Calculated half life (H): 15.2
Calculated Vd (L): 58 (~0.74 L/kg)
Calculated Vanc CL (ml/min): 43.9
- Dosing Plan
Adjust Regimen to: Vanc 1250mg Q24H starting 11/16 0600
New Regimen Predicts: AUC (491), Peak (32.5), Trough (11.7)
Dosing Comments: hold off on further dosing today
- Monitoring Plan
No level(s) ordered at this time: consider levels in next few days
Monitoring Comments: follow renal function
If SCR continues to increase may require change to dose by level
- Follow Up
Pharmacy will continue to follow.
Vancomycin Follow UP
- -
Patient Age: 73
Patient Sex: Male
Vancomycin Day #: 8
Indication: Bone And Joint
Requesting Provider: Dr. Johnson
Pertinent Antimicrobial Allergies:
penicillin - SOB at 9 years old
Height / Weight:
Height 5 ft 8 in
Actual Weight 78.16 kg
Pertinent Past Medical History: DM, CKD, PAD
- Vital Signs / Lab Results
Temp Pulse Resp BP Pulse Ox
98.0 F 84 16 137/61 96
09/19/24 23:34 11/15/23 23:34 11/15/23 23:34 11/15/23 23:34 11/15/23 23:34
Lab Results - Hematology
11/14/23 11/15/23 11/16/23
06:05 05:40 05:22
WBC 13.7 H 20.7 H 14.4 H
Lab Results - Chemistry
11/14/23 11/15/23 11/16/23
06:05 05:40 05:22
BUN 16 18 20
Creatinine 0.8 0.8 1.0
Estimated Creat Clear 78 78 63
Therapeutic Drug Monitoring
Vancomycin Peak 26.7 ug/ml (18-26) H 11/15/23 21:54
Vancomycin Trough 19.0 ug/ml (5-20) 11/16/23 05:22
Random Vancomycin 10.5 ug/ml 11/07/23 07:22
[2023-11-16] MEDS: NOVOLOG FLEXPEN-LOW RESISTANCE 4 UNITS SC ×2 (08:30→12:19)
[2023-11-16] MEDS: NOVOLOG FLEXPEN 5 UNITS SC (08:31)
[2023-11-16] MEDS: COZAAR 25 MG PO (08:32)
[2023-11-16] MEDS: LIPITOR 20 MG PO (08:32)
[2023-11-16] MEDS: COLACE PO ×2 (08:32→20:01)
[2023-11-16] MEDS: ASPIRIN 325 MG PO (08:32)
[2023-11-16] MEDS: VISBIOME 2 CAP PO (08:32)
[2023-11-16] MEDS: PERCOCET 5/325 1 TABLET PO ×2 (08:33→20:01)
[2023-11-16] MEDS: SENOKOT PO ×2 (08:33→20:01)
--- NOTE | 2023-11-16 09:02 | W.PN.ORTHO ---
Today's Communication / Plan
-
--Strict nonweightbearing right lower extremity
--Wound VAC in place. set at 100mmHg. very small amount of drainage in canister. Wound VAC dressing to remain intact until 11/18. Wound VAC dressing changes 3X weekly thereafter.
--wound care consult
--Aspirin for DVT prophylaxis
--Antibiotics per infectious disease
--Orthopedics/podiatry to follow along
Assessment
.
Distal Motor Intact: Yes
Dressing:
Clean, dry and intact.
Plan
.
Surgery / Date: S/P R ankle I &D Ex Fix w/ wound vac 11/14 [facility]
Activity:
Out of bed.
PT/OT
Subjective
.
.:
Patient resting comfortably in bed
Vital Signs and Labs
.
Vital Signs and Labs:
Lab Results
11/16/23 05:22
11/16/23 05:22
Temp Pulse Resp BP Pulse Ox
97.9 F 81 20 104/74 99
11/16/23 07:55 11/16/23 08:32 11/16/23 07:55 11/16/23 08:32 11/16/23 07:55
Physical Exam
-
Circular external fixator frame in place with Pato wrap over top and wound VAC
[2023-11-16 11:43] LABS: Glucose - Point of Care 304 mg/dl (70-99)
--- NOTE | 2023-11-16 11:53 | W.PN.ID1 ---
Date of Service
Date of Service: November 16, 2023
Today's Communication
Continue antibiotics.
Assessment / Plan
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
- s/p right ankle debridement with right lower extremity external fixator application
Leukocytosis
DM2 - moderate control
Transaminitis
H/o shortness of breath with penicillin
- 11/05 superficial culture - MSSA
- 11/06 deep culture of bone - MSSA
- 11/06 OR culture aerobic and anaerobic - MSSA and enterococcus
- blood cultures - no growth to date
- PICC in place
Continue with vancomycin and ertapenem through 12/17/2023.
Closely following Vanco levels.
����������������������������������������������������������
Chief Complaint
-: Other (hardwear infection, osteomyelitis, right ankle)
Subjective / Review of Systems
Review of Systems: No Fever and No Chills
Vital Signs / Physical Exam
Vital Signs
Vital Signs
Temp Pulse Resp BP Pulse Ox
97.9 F 81 20 104/74 99
11/16/23 07:55 11/16/23 08:32 11/16/23 07:55 11/16/23 08:32 11/16/23 07:55
Physical Exam
Constitutional: No Acute Distress
Cardiovascular: Regular Rate and S1/S2; Negative Murmur or Rub
Pulmonary: Clear and Symmetric; Negative Wheezes or Rales
Gastrointestinal: Soft, Non Tender, Non Distended and Normal Bowel Sounds
Musculoskeletal: Other (Ex-Fix and VAC in place to right lower extremity.)
Skin: Warm and Dry; Negative Rash or Jaundice
Neurological: Awake and Alert
Psychological: Calm
Objective Data
Lab Data
Lab Results
11/16/23 05:22
11/16/23 05:22
Estimated Creat Clear 63 ml/min 11/16/23 05:22
Total Bilirubin 0.2 mg/dl (0.2-1.3) 11/12/23 07:32
AST 32 U/L (17-59) 11/12/23 07:32
ALT 13 U/L (0-50) 11/12/23 07:32
Alkaline Phosphatase 168 U/L (38-126) H 11/12/23 07:32
Most recent labs reviewed.
Micro Results:
11/08/23 09:34 Blood Culture - Final
Blood/Venous No Growth - Final Report
11/07/23 17:20 Wound Culture - Final
Ankle - Right Enterococcus faecalis
S aureus-Methicillin Sensitive
Gram Stain - Final
11/07/23 17:20 Anaerobic Culture - Final
Ankle - Right NO ANAEROBES ISOLATED
11/06/23 19:11 Blood Culture - Final
Blood/Venous No Growth - Final Report
11/06/23 18:14 Blood Culture - Final
Blood/Venous No Growth - Final Report
11/07/23 10:01 Wound Culture - Final
Bone S aureus-Methicillin Sensitive
Gram Stain - Final
11/06/23 11:42 Wound Culture - Final
Ankle - Right S aureus-Methicillin Sensitive
Gram Stain - Final
11/06/23 17:41 MRSA Screen - Final
Nose No Methicillin Resistant Staphylococcus aureus isolated.
Care Review
Plan reviewed with: Other (Clinical Infectious Diseases Pharmacist)
[2023-11-16] MEDS: NOVOLOG FLEXPEN 8 UNITS SC ×2 (12:19→17:07)
--- NOTE | 2023-11-16 12:42 | W.PN.UPDATE ---
Update Note
Progress Note Update
Patient had excisional debridement to the level of bone with removal of nonviable bone
[2023-11-16 14:12] VITALS: BP 122/81; PULSE 79; O2SAT 97
[2023-11-16 15:31] VITALS: BP 132/67
--- NOTE | 2023-11-16 15:35 | PTCARENOTE ---
Pt AAO x3, EAST; OOB to chair with assist x1/walker, NWB RLE; brad well. VSS. On room air- pulse ox 98%, no SOB noted. Abd soft, rounded, brad PO well, no c/o loose BM so far this shift. Voiding in urinal/incont at times. Rt ankle dsg/external
fixation device intact; wound VAC to site set @ 100 mm/Hg continuous- scanty amts serosanguinoous drainage. Resting in chair at present, no c/o. Will continue to monitor.
--- NOTE | 2023-11-16 15:44 | CM ---
Patient seen in bed, reports doing ok, feeling some pain, requesting pain meds, nurse updated. Updated PT/OT notes recommending SNF. [facility] prefers [facility], agreeable to [facility] if [facility] can not accept. Per [facility], no beds today, check over
weekend to see. Patient will require wound vac, iv antibiotics, authorization. CM will continue to follow for all discharge planning needs.
Plan; SNF pending accepting SNF, will need auth.
[2023-11-16 17:06] LABS: Glucose - Point of Care 236 mg/dl (70-99)
[2023-11-16] MEDS: NOVOLOG FLEXPEN-LOW RESISTANCE 2 UNITS SC (17:07)
[2023-11-16] MEDS: FLUSH (NSS) 1 FLUSH IV (17:41)
[2023-11-16] MEDS: INVANZ 60 MG IV (17:41)
[2023-11-16 21:48] LABS: Glucose - Point of Care 248 mg/dl (70-99)
[2023-11-16] MEDS: LANTUS 0.3 UNITS SC (21:49)
[2023-11-16 23:41] VITALS: BP 145/61
[2023-11-17] MEDS: VANCOCIN 275 MG IV (05:42)
[2023-11-17] MEDS: LYRICA 100 MG PO ×3 (05:42→21:48)
[2023-11-17 07:15] VITALS: BP 141/68
--- NOTE | 2023-11-17 07:27 | W.PN.HOSP.TC ---
Today's Communication/Plan
-
abx as per ID
wound care as per orthopedic
PT/OT
Glycemic control
Discharge planning SNF rehab
Assessment / Plan
Assessment / Plan
Physical Exam
Constitutional: No Acute Distress
Cardiovascular: Regular Rate and S1/S2; Negative Murmur or Rub
Pulmonary: Clear and Symmetric; Negative Wheezes or Rales
Gastrointestinal: Soft, Non Tender, Non Distended and Normal Bowel Sounds
Skin: Warm and Dry; Negative Rash or Jaundice
Ext: RLE bandaging clean dry intact wound vac in place
Neuro: Awake alert conversant coherent
#Acute Osteomyelitis and hardware infection of the right ankle
#Leukocytosis
#Sepsis
- 11/05 superficial culture MSSA
- 11/06 deep culture of bone by or - also MSSA
- 11/06 OR culture aerobic and anaerobic - MSSA and enterococcus
- blood cultures x2 in progress no growth to date
-febrile episode 11/06 most likely post op
-s/p right septic ankle debridement and pinning 11/06
-nonenhancing fluid lateral to the talocalcaneal articulation inferior to the fibula, which is complex joint fluid, and septic arthritis is certainly a consideration.
-Podiatry/Orthopedic eval appreciated right ankle debridement with right lower extremity external fixator application 11/13 Wound VAC dressing to remain intact until 11/18. Wound VAC dressing changes 3X weekly thereafter.
-ID recs appreciated vancomycin ertapenem
-IV abx - continue through 12/17/23
-ASA for DVT ppx
-STRICT NWB RLE
-PT/OT consult appreciated SNF rehab
#Transaminitis
-most likely 2/2 to acute infection, bone involvement
-improved
# Postoperative blood loss anemia
#Iron deficiency anemia
-Hemoglobin from 12.3 in August
-Continue to monitor for source of bleed - no evidence at this time of active bleeding
-oral iron supplements
-primary/secondary screening outpatient
#Nausea/vomiting
--improved following switch from flagyll/cefazolin to ertapenem as per ID
-antiemetics prn
PAD
-Patient had normal JONAS during recent admission
-continue ASA/statin
Recent hypoglycemia
Type 2 diabetes
-now resolved
-A1c of 7.7
-Lantus 30 units, Novolog 10U
-ISS
-hold metformin
Diabetic neuropathy/chronic pain with opiate dependence
-continue pregabalin
-continue percocet, prn oxycodone morphine
Diabetic retinopathy
Chronic kidney disease
-renal function baseline
Essential hypertension
-continue losartan
Full code
DVT prophylaxis�aspirin 325
Diabetic diet
I spent a total of 40 minutes with the patient or on the floor. More than 50% of this time involved counseling and coordination of care.
Anticipated Discharge: 24 - 48 hours
Subjective/Interval History
-
Date of Service: November 17, 2023
No acute distress appears comfortable. Denies new acute issues at this time.
Objective Data
-
Labs:
Laboratory Results
11/17/23
06:00
WBC Pending
Hgb Pending
Hct Pending
Plt Count Pending
Sodium Pending
Potassium Pending
Chloride Pending
Carbon Dioxide Pending
BUN Pending
Creatinine Pending
Glucose Pending
Calcium Pending
Vital Signs:
Vital Signs
Temp Pulse Resp BP Pulse Ox
98.3 F 87 16 145/61 94
11/16/23 23:41 11/16/23 23:41 11/16/23 23:41 11/16/23 23:41 11/16/23 23:41
I&O
11/16/23 11/17/23 11/18/23
06:59 06:59 06:59
Intake Total 1200 / 1200 2085 350 / 350
Output Total 780 / 780
Balance 420 / 420 2085 350 / 350
[2023-11-17 07:48] LABS: Glucose - Point of Care 276 mg/dl (70-99)
[2023-11-17] MEDS: VISBIOME 2 CAP PO (07:52)
[2023-11-17] MEDS: COLACE PO ×2 (07:53→20:41)
[2023-11-17] MEDS: ASPIRIN 325 MG PO (07:53)
[2023-11-17] MEDS: SENOKOT PO ×2 (07:53→20:41)
[2023-11-17] MEDS: LIPITOR 20 MG PO (07:53)
[2023-11-17] MEDS: PERCOCET 5/325 1 TABLET PO ×2 (07:54→20:40)
[2023-11-17] MEDS: COZAAR 25 MG PO (07:54)
[2023-11-17 08:13] LABS: Hematocrit 23.1 % (39.0-52.0); Hemoglobin 7.4 g/dL (13.0-18.0); Mean Corpuscular Hgb 26.5 pg (27.0-31.0); Mean Corpuscular Volume 82.8 fL (80.0-94.0); Mean Platelet Volume 9.9 fL (7.4-10.4); Platelet Count 430 10^3/uL (130-400); Red Blood Cell Count 2.79 10^6/uL (4.70-6.10); Red Cell Dist. Width 15.3 % (11.5-14.5); White Blood Cell Count 12.7 10^3/uL (4.8-10.8)
[2023-11-17 08:32] LABS: Blood Urea Nitrogen 20 mg/dl (9-20); Calcium 7.9 mg/dl (8.4-10.2); Carbon Dioxide 32 mmol/L (22-30); Chloride 100 mmol/L (98-107); Estimated Creatinine Clearance 63 ml/min; Glucose 254 mg/dl (70-99); Phosphorus 2.8 mg/dl (2.5-4.5); Potassium 4.3 mmol/L (3.5-5.1); Sodium 138 mmol/L (135-145); eGFR > 60.00
[2023-11-17] MEDS: NOVOLOG FLEXPEN 8 UNITS SC (08:51)
[2023-11-17] MEDS: NOVOLOG FLEXPEN-LOW RESISTANCE 3 UNITS SC (08:52)
[2023-11-17] MEDS: ROXICODONE 5 MG PO ×2 (10:08→16:34)
--- NOTE | 2023-11-17 10:30 | PHA.VAN.FU ---
Vancomycin Assessment / Plan
- Assessment
Renal Function: Stable
WBC's are: Trending Down
In the past 24 hrs, patient has been: Afebrile
Concomitant Antimicrobials: ertapenem
- Dosing Plan
Continue: vancomycin 1250 q24h - first dose of this regimen 11/16 0600
- Monitoring Plan
No level(s) ordered at this time: consider level in next few days
Monitoring Comments: follow renal function closely
if SCr continues to rise may require change to dose by level
- Follow Up
Pharmacy will continue to follow.
Vancomycin Follow UP
- -
Patient Age: 73
Patient Sex: Male
Vancomycin Day #: 9
Indication: Bone And Joint
Requesting Provider: Dr. Johnson
Pertinent Antimicrobial Allergies:
penicillin - SOB at 9 years old
Height / Weight:
Height 5 ft 8 in
Actual Weight 78.16 kg
Pertinent Past Medical History: DM, CKD, PAD
- Vital Signs / Lab Results
Temp Pulse Resp BP Pulse Ox
98 F 85 16 141/68 97
11/17/23 07:15 11/17/23 07:15 11/17/23 07:15 11/17/23 07:15 11/17/23 07:15
Lab Results - Hematology
11/15/23 11/16/23 11/17/23
05:40 05:22 07:41
WBC 20.7 H 14.4 H 12.7 H
Lab Results - Chemistry
11/15/23 11/16/23 11/17/23
05:40 05:22 07:41
BUN 18 20 20
Creatinine 0.8 1.0 1.0
Estimated Creat Clear 78 63 63
Therapeutic Drug Monitoring
Vancomycin Peak 26.7 ug/ml (18-26) H 11/15/23 21:54
Vancomycin Trough 19.0 ug/ml (5-20) 11/16/23 05:22
Random Vancomycin 10.5 ug/ml 11/07/23 07:22
--- NOTE | 2023-11-17 11:37 | W.PN.UPDATE ---
Update Note
Progress Note Update
73M POD3 multiplane external fixator, repair of ankle fracture nonunion, ankle arthrodesis, application of wound graft, and application of Wound V.A.C.
--Strict nonweightbearing right lower extremity
--Wound VAC in place. Wound VAC dressing to remain intact until 11/18. Wound VAC dressing changes 3X weekly thereafter.
--wound care consult
--Aspirin for DVT prophylaxis
--Antibiotics per infectious disease
--Orthopedics/podiatry to follow along
[2023-11-17 12:21] LABS: Glucose - Point of Care 175 mg/dl (70-99)
[2023-11-17] MEDS: NOVOLOG FLEXPEN SC (12:53)
[2023-11-17] MEDS: FEOSOL 325 MG PO (13:01)
[2023-11-17] MEDS: NOVOLOG FLEXPEN 10 UNITS SC ×2 (13:02→17:58)
[2023-11-17] MEDS: NOVOLOG FLEXPEN-LOW RESISTANCE 1 UNITS SC (13:02)
[2023-11-17 15:10] VITALS: BP 132/67
[2023-11-17 16:55] LABS: Glucose - Point of Care 131 mg/dl (70-99)
[2023-11-17] MEDS: NOVOLOG FLEXPEN-LOW RESISTANCE SC (16:57)
[2023-11-17] MEDS: INVANZ 60 MG IV (17:59)
[2023-11-17] MEDS: LANTUS 0.3 UNITS SC (21:49)
[2023-11-17 21:50] LABS: Glucose - Point of Care 195 mg/dl (70-99)
[2023-11-17 23:37] VITALS: BP 168/75
[2023-11-18] MEDS: LYRICA 100 MG PO ×3 (05:09→22:13)
[2023-11-18] MEDS: VANCOCIN 275 MG IV (05:10)
[2023-11-18 05:37] LABS: Hematocrit 23.7 % (39.0-52.0); Hemoglobin 7.6 g/dL (13.0-18.0); Mean Corp Hgb Conc. 32.1 g/dL (33.0-37.0); Mean Corpuscular Hgb 26.6 pg (27.0-31.0); Mean Corpuscular Volume 82.9 fL (80.0-94.0); Platelet Count 408 10^3/uL (130-400); Red Blood Cell Count 2.86 10^6/uL (4.70-6.10); Red Cell Dist. Width 15.1 % (11.5-14.5); White Blood Cell Count 12.2 10^3/uL (4.8-10.8)
[2023-11-18 05:59] LABS: Blood Urea Nitrogen 21 mg/dl (9-20); Calcium 8.2 mg/dl (8.4-10.2); Carbon Dioxide 33 mmol/L (22-30); Chloride 102 mmol/L (98-107); Estimated Creatinine Clearance 63 ml/min; Glucose 196 mg/dl (70-99); Phosphorus 2.8 mg/dl (2.5-4.5); Potassium 4.4 mmol/L (3.5-5.1); Sodium 139 mmol/L (135-145); eGFR > 60.00
--- NOTE | 2023-11-18 07:16 | W.PN.HOSP.TC ---
Today's Communication/Plan
-
abx as per ID
wound care as per orthopedic
PT/OT
Glycemic control
Discharge planning SNF rehab
Assessment / Plan
Assessment / Plan
Physical Exam
Constitutional: No Acute Distress
Cardiovascular: Regular Rate and S1/S2; Negative Murmur or Rub
Pulmonary: Clear and Symmetric; Negative Wheezes or Rales
Gastrointestinal: Soft, Non Tender, Non Distended and Normal Bowel Sounds
Skin: Warm and Dry; Negative Rash or Jaundice
Ext: RLE bandaging clean dry intact wound vac in place
Neuro: Awake alert conversant coherent
#Acute Osteomyelitis and hardware infection of the right ankle
#Leukocytosis
#Sepsis
- 11/05 superficial culture MSSA
- 11/06 deep culture of bone by or - also MSSA
- 11/06 OR culture aerobic and anaerobic - MSSA and enterococcus
- blood cultures x2 in progress no growth to date
-febrile episode 11/06 most likely post op
-s/p right septic ankle debridement and pinning 11/06
-nonenhancing fluid lateral to the talocalcaneal articulation inferior to the fibula, which is complex joint fluid concerning for septic arthritis
-Podiatry/Orthopedic eval appreciated right ankle debridement with right lower extremity external fixator application 11/13 Wound VAC dressing to remain intact until 11/18. Wound VAC dressing changes 3X weekly thereafter.
-ID recs appreciated vancomycin ertapenem
-IV abx - continue through 12/17/23
-ASA for DVT ppx
-STRICT NWB RLE
-PT/OT consult appreciated SNF rehab
#Transaminitis
-most likely 2/2 to acute infection, bone involvement
-improved
# Postoperative blood loss anemia
#Iron deficiency anemia
-monitor H&H
-oral iron supplements
-primary/secondary screening outpatient
#Nausea/vomiting
--improved following switch from flagyll/cefazolin to ertapenem as per ID
-antiemetics prn
PAD
-Patient had normal JONAS during recent admission
-continue ASA/statin
Recent hypoglycemia
Type 2 diabetes
-now resolved
-A1c of 7.7
-Lantus 35 units, Novolog 10U
-ISS
-metformin resumed
Diabetic neuropathy/chronic pain with opiate dependence
-continue pregabalin
-continue percocet, prn oxycodone morphine
Diabetic retinopathy
Chronic kidney disease
-renal function baseline
Essential hypertension
-continue losartan
Full code
DVT prophylaxis�aspirin 325
Diabetic diet
I spent a total of 40 minutes with the patient or on the floor. More than 50% of this time involved counseling and coordination of care.
Anticipated Discharge: 24 - 48 hours
Subjective/Interval History
-
Date of Service: November 18, 2023
No acute distress appears comfortable at this time. Reports overall feeling well, denies new acute issues.
Objective Data
-
Labs:
Laboratory Results
11/18/23
05:19
WBC 12.2 H
Hgb 7.6 L
Hct 23.7 L
Plt Count 408 H
Sodium 139
Potassium 4.4
Chloride 102
Carbon Dioxide 33 H
BUN 21 H
Creatinine 1.0
Glucose 196 H
Calcium 8.2 L
Vital Signs:
Vital Signs
Temp Pulse Resp BP Pulse Ox
98.9 F 85 18 168/75 96
11/17/23 23:37 11/17/23 23:37 11/17/23 23:37 11/17/23 23:37 11/17/23 23:37
I&O
11/17/23 11/18/23 11/19/23
06:59 06:59 06:59
Intake Total 2085 1585 / 1585
Output Total 1000 / 1000
Balance 2085 585 / 585
[2023-11-18 07:21] LABS: Glucose - Point of Care 209 mg/dl (70-99)
[2023-11-18 07:45] VITALS: BP 168/79
[2023-11-18] MEDS: VISBIOME 2 CAP PO (07:48)
[2023-11-18] MEDS: ASPIRIN 325 MG PO (07:48)
[2023-11-18] MEDS: LIPITOR 20 MG PO (07:49)
[2023-11-18] MEDS: PERCOCET 5/325 1 TABLET PO ×2 (07:49→20:54)
[2023-11-18] MEDS: COZAAR 25 MG PO (07:49)
[2023-11-18] MEDS: NOVOLOG FLEXPEN-LOW RESISTANCE 2 UNITS SC ×3 (07:50→16:50)
[2023-11-18] MEDS: COLACE PO ×2 (07:50→20:54)
[2023-11-18] MEDS: SENOKOT PO ×2 (07:50→20:54)
[2023-11-18] MEDS: NOVOLOG FLEXPEN 10 UNITS SC ×3 (07:51→16:50)
--- NOTE | 2023-11-18 09:38 | W.PN.UPDATE ---
Update Note
Progress Note Update
73M POD4 multiplane external fixator, repair of ankle fracture nonunion, ankle arthrodesis, application of wound graft, and application of Wound V.A.C.
--Strict nonweightbearing right lower extremity
--Wound VAC in place. Wound VAC dressing to remain intact until 11/18. Wound VAC dressing changes 3X weekly thereafter.
--wound care consult
--Aspirin for DVT prophylaxis
--Antibiotics per infectious disease
--Orthopedics/podiatry to follow along
--- NOTE | 2023-11-18 10:45 | PHA.VAN.FU ---
Vancomycin Assessment / Plan
- Assessment
Renal Function: Stable
WBC's are: Trending Down
In the past 24 hrs, patient has been: Afebrile
Concomitant Antimicrobials: Ertapenem
- Dosing Plan
Continue: vancomycin 1250 mg q24h ( first dose of this regimen 11/16 0600)
- Monitoring Plan
No level(s) ordered at this time: consider levels in a few days
Monitoring Comments: follow renal function closely
- Follow Up
Pharmacy will continue to follow.
Vancomycin Follow UP
- -
Patient Age: 73
Patient Sex: Male
Vancomycin Day #: 10
Indication: Bone And Joint
Requesting Provider: Dr. Johnson
Pertinent Antimicrobial Allergies:
penicillin - SOB at 9 years old
Height / Weight:
Height 5 ft 8 in
Actual Weight 78.16 kg
Pertinent Past Medical History: DM, CKD, PAD
- Vital Signs / Lab Results
Temp Pulse Resp BP Pulse Ox
98.2 F 79 20 168/79 98
11/18/23 07:45 11/18/23 07:45 11/18/23 07:45 11/18/23 07:45 11/18/23 07:45
Lab Results - Hematology
11/16/23 11/17/23 11/18/23
05:22 07:41 05:19
WBC 14.4 H 12.7 H 12.2 H
Lab Results - Chemistry
11/16/23 11/17/23 11/18/23
05:22 07:41 05:19
BUN 20 20 21 H
Creatinine 1.0 1.0 1.0
Estimated Creat Clear 63 63 63
Therapeutic Drug Monitoring
Vancomycin Peak 26.7 ug/ml (18-26) H 11/15/23 21:54
Vancomycin Trough 19.0 ug/ml (5-20) 11/16/23 05:22
Random Vancomycin 10.5 ug/ml 11/07/23 07:22
[2023-11-18] MEDS: ROXICODONE 5 MG PO ×2 (10:50→16:50)
[2023-11-18 12:03] LABS: Glucose - Point of Care 228 mg/dl (70-99)
[2023-11-18 15:55] VITALS: BP 144/66
--- NOTE | 2023-11-18 16:13 | CM ---
Patient seen at bedside. Patient states he wants [facility], no beds available. left for admissions at [facility] requesting update. Bed available at [facility]. CM will continue to follow for discharge planning needs.
Plan; SNF; pending auth
[2023-11-18 16:47] LABS: Glucose - Point of Care 202 mg/dl (70-99)
[2023-11-18] MEDS: INVANZ 60 MG IV (17:37)
[2023-11-18 21:49] LABS: Glucose - Point of Care 192 mg/dl (70-99)
[2023-11-18] MEDS: LANTUS 0.35 UNITS SC (22:14)
[2023-11-18 23:29] VITALS: BP 166/79
[2023-11-19 05:03] LABS: Hematocrit 22.3 % (39.0-52.0); Hemoglobin 7.2 g/dL (13.0-18.0); Mean Corp Hgb Conc. 32.3 g/dL (33.0-37.0); Mean Corpuscular Hgb 26.7 pg (27.0-31.0); Mean Corpuscular Volume 82.6 fL (80.0-94.0); Platelet Count 391 10^3/uL (130-400); Red Cell Dist. Width 15.4 % (11.5-14.5); White Blood Cell Count 12.6 10^3/uL (4.8-10.8)
[2023-11-19] MEDS: VANCOCIN 275 MG IV (05:16)
[2023-11-19] MEDS: LYRICA 100 MG PO ×3 (05:16→22:03)
[2023-11-19 05:20] LABS: Blood Urea Nitrogen 19 mg/dl (9-20); Carbon Dioxide 30 mmol/L (22-30); Chloride 103 mmol/L (98-107); Estimated Creatinine Clearance 70 ml/min; Glucose 204 mg/dl (70-99); Magnesium 1.9 mg/dl (1.6-2.3); Phosphorus 2.8 mg/dl (2.5-4.5); Potassium 4.5 mmol/L (3.5-5.1); Sodium 139 mmol/L (135-145); eGFR > 60.00
[2023-11-19 07:41] LABS: Glucose - Point of Care 224 mg/dl (70-99)
[2023-11-19 07:45] VITALS: BP 163/80
[2023-11-19] MEDS: NOVOLOG FLEXPEN 10 UNITS SC ×3 (07:47→17:13)
[2023-11-19] MEDS: NOVOLOG FLEXPEN-LOW RESISTANCE 2 UNITS SC ×2 (07:47→13:04)
[2023-11-19] MEDS: PERCOCET 5/325 1 TABLET PO ×2 (07:47→20:28)
[2023-11-19] MEDS: COZAAR 25 MG PO (07:48)
[2023-11-19] MEDS: GLUCOPHAGE 500 MG PO ×2 (07:48→17:00)
[2023-11-19] MEDS: LIPITOR 20 MG PO (07:49)
[2023-11-19] MEDS: ASPIRIN 325 MG PO (07:49)
[2023-11-19] MEDS: SENOKOT PO ×2 (07:49→20:28)
[2023-11-19] MEDS: VISBIOME 2 CAP PO (07:49)
[2023-11-19] MEDS: COLACE PO ×2 (07:49→20:27)
--- NOTE | 2023-11-19 07:53 | WOUNDNOTE ---
WOC RN note: Confirmed with Dr. Carmona that he (podiatry/ortho service) will be changing patient's RLE wound vac today.
--- NOTE | 2023-11-19 09:20 | PHA.VAN.FU ---
Vancomycin Assessment / Plan
- Assessment
Renal Function: Stable
WBC's are: Stable
In the past 24 hrs, patient has been: Afebrile
Concomitant Antimicrobials: ertapenem
- Dosing Plan
Continue: Vanc 1250mg Q24H
- Monitoring Plan
Trough Level: 11/19 05:30 - if patient remains admitted
- Follow Up
Pharmacy will continue to follow.
Vancomycin Follow UP
- -
Patient Age: 73
Patient Sex: Male
Vancomycin Day #: 11
Indication: Bone And Joint
Requesting Provider: Dr. Johnson
Pertinent Antimicrobial Allergies:
penicillin - SOB at 9 years old
Height / Weight:
Height 5 ft 8 in
Actual Weight 78.16 kg
Pertinent Past Medical History: DM, CKD, PAD
- Vital Signs / Lab Results
Temp Pulse Resp BP Pulse Ox
99.2 F 82 16 166/79 97
11/18/23 23:29 11/18/23 23:29 11/18/23 23:29 11/18/23 23:29 11/18/23 23:29
Lab Results - Hematology
11/17/23 11/18/23 11/19/23
07:41 05:19 04:30
WBC 12.7 H 12.2 H 12.6 H
Lab Results - Chemistry
11/17/23 11/18/23 11/19/23
07:41 05:19 04:30
BUN 20 21 H 19
Creatinine 1.0 1.0 0.9
Estimated Creat Clear 63 63 70
Therapeutic Drug Monitoring
Vancomycin Peak 26.7 ug/ml (18-26) H 11/15/23 21:54
Vancomycin Trough 19.0 ug/ml (5-20) 11/16/23 05:22
Random Vancomycin 10.5 ug/ml 11/07/23 07:22
--- NOTE | 2023-11-19 10:11 | W.PN.ID1 ---
Date of Service
Date of Service: November 19, 2023
Today's Communication
Continue with vancomycin and ertapenem through 12/17/2023.
Assessment / Plan
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
- s/p right ankle debridement with right lower extremity external fixator application
Leukocytosis
DM2 - moderate control
Transaminitis
H/o shortness of breath with penicillin
- 11/05 superficial culture - MSSA
- 11/06 deep culture of bone - MSSA
- 11/06 OR culture aerobic and anaerobic - MSSA and enterococcus
- blood cultures - no growth to date
- PICC in place
Continue with vancomycin and ertapenem through 12/17/2023.
����������������������������������������������������������
Chief Complaint
-: Other (hardwear infection, osteomyelitis, right ankle)
Subjective / Review of Systems
afebrile
bp stable
no events overnight
Vital Signs / Physical Exam
Vital Signs
Vital Signs
Temp Pulse Resp BP Pulse Ox
99.2 F 82 16 166/79 97
11/18/23 23:29 11/18/23 23:29 11/18/23 23:29 11/18/23 23:29 11/18/23 23:29
Physical Exam
Constitutional: No Acute Distress and Chronically Ill
Cardiovascular: Regular Rate and S1/S2; Negative Murmur or Rub
Pulmonary: Clear and Symmetric; Negative Wheezes or Rales
Gastrointestinal: Soft, Non Tender, Non Distended and Normal Bowel Sounds
Skin: Warm and Dry; Negative Rash or Jaundice
Objective Data
Lab Data
Lab Results
11/19/23 04:30
11/19/23 04:30
Estimated Creat Clear 70 ml/min 11/19/23 04:30
Total Bilirubin 0.2 mg/dl (0.2-1.3) 11/12/23 07:32
AST 32 U/L (17-59) 11/12/23 07:32
ALT 13 U/L (0-50) 11/12/23 07:32
Alkaline Phosphatase 168 U/L (38-126) H 11/12/23 07:32
Most recent labs reviewed.
Micro Results:
11/08/23 09:34 Blood Culture - Final
Blood/Venous No Growth - Final Report
11/07/23 17:20 Wound Culture - Final
Ankle - Right Enterococcus faecalis
S aureus-Methicillin Sensitive
Gram Stain - Final
11/07/23 17:20 Anaerobic Culture - Final
Ankle - Right NO ANAEROBES ISOLATED
11/06/23 19:11 Blood Culture - Final
Blood/Venous No Growth - Final Report
11/06/23 18:14 Blood Culture - Final
Blood/Venous No Growth - Final Report
11/07/23 10:01 Wound Culture - Final
Bone S aureus-Methicillin Sensitive
Gram Stain - Final
11/06/23 11:42 Wound Culture - Final
Ankle - Right S aureus-Methicillin Sensitive
Gram Stain - Final
11/06/23 17:41 MRSA Screen - Final
Nose No Methicillin Resistant Staphylococcus aureus isolated.
[2023-11-19] MEDS: ROXICODONE 5 MG PO ×2 (10:30→16:59)
[2023-11-19 12:36] LABS: Glucose - Point of Care 216 mg/dl (70-99)
[2023-11-19] MEDS: FEOSOL 325 MG PO (13:05)
--- NOTE | 2023-11-19 15:07 | CM ---
No beds available at [facility].
[facility] has a bed available.
Patient in agreement.
Ariela Draper NPI# [id number]
Dr Mendez NPI# [id number]
Frances auth received
approved skilled rehab
Start date 11/20/23- NRD 11/26/23
Auth # [id number]
Ariela Draper phone# [phone]
--- NOTE | 2023-11-19 15:18 | W.PN.HOSP.TC ---
Today's Communication/Plan
-
abx
wound vac change today
tentative dc within 24 hours
pain control, bm regimen
Assessment / Plan
Assessment / Plan
Physical Exam
Constitutional: No Acute Distress
Cardiovascular: Regular Rate and S1/S2; Negative Murmur or Rub
Pulmonary: Clear and Symmetric; Negative Wheezes or Rales
Gastrointestinal: Soft, Non Tender, Non Distended and Normal Bowel Sounds
Skin: Warm and Dry; Negative Rash or Jaundice
Ext: RLE bandaging clean dry intact wound vac in place
Neuro: Awake alert conversant coherent
#Acute Osteomyelitis and hardware infection of the right ankle
#Leukocytosis
#Sepsis
- 11/05 superficial culture MSSA
- 11/06 deep culture of bone by fl - also MSSA
- 11/06 OR culture aerobic and anaerobic - MSSA and enterococcus
- blood cultures x2 in progress no growth to date
-febrile episode 11/06 most likely post op
-s/p right septic ankle debridement and pinning 11/06
-nonenhancing fluid lateral to the talocalcaneal articulation inferior to the fibula, which is complex joint fluid concerning for septic arthritis
-Podiatry/Orthopedic eval appreciated right ankle debridement with right lower extremity external fixator application 11/13 Wound VAC dressing to remain intact until 11/18. Wound VAC dressing changes 3X weekly thereafter.
-ID recs appreciated vancomycin ertapenem - Continue with vancomycin and ertapenem through 12/17/2023
-IV abx - continue through 12/17/23
-ASA for DVT ppx
-STRICT NWB RLE
-Wound VAC dressing to remain intact until 11/18. Wound VAC dressing changes 3X weekly thereafter.
-PT/OT consult appreciated SNF rehab
#Transaminitis
-most likely 2/2 to acute infection, bone involvement
-improved
# Postoperative blood loss anemia
#Iron deficiency anemia
-monitor H&H
-oral iron supplements
-primary/secondary screening outpatient
#Nausea/vomiting
--improved following switch from flagyll/cefazolin to ertapenem as per ID
-antiemetics prn
PAD
-Patient had normal JONAS during recent admission
-continue ASA/statin
Recent hypoglycemia
Type 2 diabetes
-now resolved
-A1c of 7.7
-Lantus 35 units, Novolog 10U
-ISS
-metformin resumed
Diabetic neuropathy/chronic pain with opiate dependence
-continue pregabalin
-continue percocet, prn oxycodone morphine
Diabetic retinopathy
Chronic kidney disease
-renal function baseline
Essential hypertension
-continue losartan
Full code
DVT prophylaxis�aspirin 325
Diabetic diet
Anticipated Discharge: Within 24 hours
Subjective/Interval History
-
Date of Service: November 19, 2023
No acute events overnight
Objective Data
-
Labs:
Laboratory Results
11/19/23
04:30
WBC 12.6 H
Hgb 7.2 L
Hct 22.3 L
Plt Count 391
Sodium 139
Potassium 4.5
Chloride 103
Carbon Dioxide 30
BUN 19
Creatinine 0.9
Glucose 204 H
Calcium 8.0 L
Vital Signs:
Vital Signs
Temp Pulse Resp BP Pulse Ox
98.2 F 82 20 163/80 99
11/19/23 07:45 11/19/23 07:45 11/19/23 07:45 11/19/23 07:45 11/19/23 07:45
I&O
11/18/23 11/19/23 11/20/23
06:59 06:59 06:59
Intake Total 1585 / 1585 1235 / 1235
Output Total 1000 / 1000 600 / 600
Balance 585 / 585 635 / 635
Review of Systems
-
History Source: Patient
All other systems: Not reviewed unless documented
Physical Exam
-
General: Well Developed, Well Nourished, No Apparent Distress and Comfortable
Respiratory: Clear to Auscultation; Negative Wheezes
Cardiac: Regular Rhythm and S1/S2; Negative Murmur
GI: Soft, Nontender, Nondistended and Normal Bowel Sounds
Skin: Warm, Dry, Lesions and Decubitus Ulcers
Neuro: Awake, Alert, Oriented and AO x 3
Psych: Calm
Data Reviewed
-
Diagnostic Radiology: Image personally visualized and interpreted and Report Reviewed by me
Ultrasound: Image personally visualized and interpreted
MRI: Report Reviewed by me
Labs: Labs Reviewed by me
[2023-11-19 16:00] VITALS: BP 136/63; PULSE 87; O2SAT 98
--- NOTE | 2023-11-19 16:18 | PTCARENOTE ---
Pt refusing bowel regimen for the past couple days. Multiple conversations with patient about importance of taking medications to prevent constipation and worsening problems like ileus or obstruction. Pt reminded that he is taking narcotics and not
as mobile and he is at an even higher risk. Pt told physician that he has not moved his bowels in a couple days and MD ordered miralax. Went into give miralax and pt said he did not want to take it. Encouraged pt and still declined. Will continue to
encourage pt to take medications as prescribed. Pt OOBTC this shift and worked with PT/OT. MD made aware about refusal. Plan of care continues.
[2023-11-19 16:29] LABS: Glucose - Point of Care 142 mg/dl (70-99)
[2023-11-19 16:31] VITALS: BP 157/85
[2023-11-19] MEDS: NOVOLOG FLEXPEN-LOW RESISTANCE SC (17:13)
[2023-11-19] MEDS: INVANZ 60 MG IV (17:14)
[2023-11-19 21:25] LABS: Glucose - Point of Care 144 mg/dl (70-99)
[2023-11-19] MEDS: LANTUS 0.35 UNITS SC (22:03)
[2023-11-19 22:50] VITALS: BP 124/83
[2023-11-20] MEDS: LYRICA 100 MG PO ×2 (04:55→14:25)
[2023-11-20 05:15] LABS: Vancomycin Trough 15.4 ug/ml (5-20)
[2023-11-20 05:19] LABS: Hematocrit 23.9 % (39.0-52.0); Hemoglobin 7.8 g/dL (13.0-18.0); Mean Corp Hgb Conc. 32.6 g/dL (33.0-37.0); Mean Corpuscular Hgb 26.6 pg (27.0-31.0); Mean Corpuscular Volume 81.6 fL (80.0-94.0); Mean Platelet Volume 10.1 fL (7.4-10.4); Platelet Count 380 10^3/uL (130-400); Red Blood Cell Count 2.93 10^6/uL (4.70-6.10); Red Cell Dist. Width 15.3 % (11.5-14.5); White Blood Cell Count 10.9 10^3/uL (4.8-10.8)
[2023-11-20 05:32] LABS: ALT (SGPT) 15 U/L (0-50); AST (SGOT) 26 U/L (17-59); Albumin 2.6 g/dl (3.5-5.0); Alkaline Phosphatase 157 U/L (38-126); Blood Urea Nitrogen 16 mg/dl (9-20); Calcium 8.2 mg/dl (8.4-10.2); Carbon Dioxide 29 mmol/L (22-30); Chloride 102 mmol/L (98-107); Estimated Creatinine Clearance 70 ml/min; Glucose 130 mg/dl (70-99); Potassium 4.6 mmol/L (3.5-5.1); Sodium 140 mmol/L (135-145); Total Bilirubin 0.3 mg/dl (0.2-1.3); Total Protein 5.4 g/dl (6.3-8.2); eGFR > 60.00
[2023-11-20] MEDS: VANCOCIN 275 MG IV (05:51)
[2023-11-20 07:50] VITALS: BP 185/90
[2023-11-20 08:10] LABS: Glucose - Point of Care 140 mg/dl (70-99)
[2023-11-20] MEDS: PERCOCET 5/325 1 TABLET PO (08:24)
[2023-11-20] MEDS: GLUCOPHAGE 500 MG PO (08:24)
[2023-11-20] MEDS: COZAAR 25 MG PO (08:24)
[2023-11-20] MEDS: ASPIRIN 325 MG PO (08:24)
[2023-11-20] MEDS: LIPITOR 20 MG PO (08:24)
[2023-11-20] MEDS: VISBIOME 2 CAP PO (08:24)
[2023-11-20] MEDS: SENOKOT PO (08:28)
[2023-11-20] MEDS: COLACE PO (08:28)
[2023-11-20] MEDS: NOVOLOG FLEXPEN-LOW RESISTANCE SC ×2 (08:29→12:35)
[2023-11-20] MEDS: NOVOLOG FLEXPEN 10 UNITS SC (08:30)
[2023-11-20 09:30] VITALS: BP 150/70
[2023-11-20 10:17] LABS: Vancomycin Peak 26.1 ug/ml (18-26)
--- NOTE | 2023-11-20 10:28 | WOUNDNOTE ---
WON RN NOTE: Notified nurse Carie that if discharged today to remove vac dressing and apply saline wtd dressing and Xeroform around pins, external fixator back on leg. Place hospital wound vac in soiled utility for greens picker. Available if needs
assist.
[2023-11-20 11:47] LABS: Glucose - Point of Care 117 mg/dl (70-99)
--- NOTE | 2023-11-20 12:13 | W.PN.HOSP.TC ---
Today's Communication/Plan
-
Continue with vancomycin and ertapenem through 12/17/2023; ESR, CRP, CBC, CMP, vanc levels until completion of antibiotic course
-IV abx - continue through 12/17/23
-ASA for DVT ppx
-STRICT NWB RLE
-Wound VAC dressing changes 3X weekly thereafter. See DC wound care notes
-PT/OT consult appreciated SNF rehab
-F/u Podiatry, ID outpatient
-oral iron supplements
-primary/secondary screening outpatient including endoscopy - f/u GI
-F/u outpatient
Assessment / Plan
Assessment / Plan
Physical Exam
Constitutional: No Acute Distress
Cardiovascular: Regular Rate and S1/S2; Negative Murmur or Rub
Pulmonary: Clear and Symmetric; Negative Wheezes or Rales
Gastrointestinal: Soft, Non Tender, Non Distended and Normal Bowel Sounds
Skin: Warm and Dry; Negative Rash or Jaundice
Ext: RLE bandaging clean dry intact wound vac in place
Neuro: Awake alert conversant coherent
#Acute Osteomyelitis and hardware infection of the right ankle
#Leukocytosis
#Sepsis
- 11/05 superficial culture MSSA
- 11/06 deep culture of bone by tn - also MSSA
- 11/06 OR culture aerobic and anaerobic - MSSA and enterococcus
- blood cultures x2 in progress no growth to date
-febrile episode 11/06 most likely post op
-s/p right septic ankle debridement and pinning 11/06
-nonenhancing fluid lateral to the talocalcaneal articulation inferior to the fibula, which is complex joint fluid concerning for septic arthritis
-Podiatry/Orthopedic eval appreciated right ankle debridement with right lower extremity external fixator application 11/13 Wound VAC dressing to remain intact until 11/18. Wound VAC dressing changes 3X weekly thereafter.
-ID recs appreciated vancomycin ertapenem - Continue with vancomycin and ertapenem through 12/17/2023; ESR, CRP, CBC, CMP, vanc levels until completion of antibiotic course
-IV abx - continue through 12/17/23
-ASA for DVT ppx
-STRICT NWB RLE
-Wound VAC dressing changes 3X weekly thereafter. See DC wound care notes
-PT/OT consult appreciated SNF rehab
-F/u Podiatry, ID outpatient
#Transaminitis
-most likely 2/2 to acute infection, bone involvement
-improved, f/u outpatient
# Postoperative blood loss anemia
#Iron deficiency anemia
-monitor H&H
-oral iron supplements
-primary/secondary screening outpatient including endoscopy - f/u GI
-F/u outpatient
#Nausea/vomiting
--improved following switch from flagyll/cefazolin to ertapenem as per ID
-antiemetics prn
PAD
-Patient had normal JONAS during recent admission
-continue ASA/statin
Recent hypoglycemia
Type 2 diabetes
-now resolved
-A1c of 7.7
-home insulin
-ISS
-metformin resumed
Diabetic neuropathy/chronic pain with opiate dependence
-continue pregabalin
-continue percocet, prn oxycodone morphine
Diabetic retinopathy
Chronic kidney disease
-renal function baseline
Essential hypertension
-continue losartan
Full code
DVT prophylaxis�aspirin 325
Diabetic diet
More than 30 minutes spent in discharge including
Final examination of the patient
Summarizing hospital stay
Instructions for continuing care to all relevant caregivers
Preparation of discharge records, prescriptions, and referral forms
Total time spent (35 in minutes):
Anticipated Discharge: Today
Subjective/Interval History
-
Date of Service: November 20, 2023
no acute events
Objective Data
-
Labs:
Laboratory Results
11/20/23
04:41
WBC 10.9 H
Hgb 7.8 L
Hct 23.9 L
Plt Count 380
Sodium 140
Potassium 4.6
Chloride 102
Carbon Dioxide 29
BUN 16
Creatinine 0.9
Glucose 130 H
Calcium 8.2 L
Total Bilirubin 0.3
AST 26
ALT 15
Alkaline Phosphatase 157 H
Vital Signs:
Vital Signs
Temp Pulse Resp BP Pulse Ox
98.7 F 88 18 150/70 95
11/20/23 07:50 11/20/23 09:30 11/20/23 09:30 11/20/23 09:30 11/20/23 08:30
I&O
11/19/23 11/20/23 11/21/23
06:59 06:59 06:59
Intake Total 1235 / 1235 1475 / 1475
Output Total 600 / 600 1650 / 1650
Balance 635 / 635 -175 / -175
Review of Systems
-
History Source: Patient
All other systems: Not reviewed unless documented
Data Reviewed
-
Diagnostic Radiology: Image personally visualized and interpreted and Report Reviewed by me
Ultrasound: Image personally visualized and interpreted
MRI: Report Reviewed by me
Labs: Labs Reviewed by me
--- NOTE | 2023-11-20 12:18 | W.DS.TRANS ---
Addendum entered and electronically signed by Richie Ramirez MD 11/20/23 14:39:
Vancomycin [Vancocin] 1,000 mg IV Q24H 11/20/23; not 1.25gm
Original Note:
DC Summary - Weekend Caregiver
-
Discharge Instructions:
Discharge Diagnosis/Procedures #Acute Osteomyelitis and hardware infection of
the right ankle
#Leukocytosis
#Sepsis
Diet Low Cholesterol,Low Fat,Diabetic, Carb
Controlled
Activity Do not bear weight R leg,Other activity
Additional Activity Strict nonweightbearing right lower extremity
Driving Restrictions No driving
Blood Work weekly cbc, cmp, esr, crp while on antibiotics;
Vancomycin levels as appropriate(ideally 24-48
hours) while on vancomycin(Goal vanc level 15-20
)
Instructions:
Stand-Alone Forms:
Changes to Home Medications: Yes
Discharge Medications:
DC Medications w/original date entered in [facility]
atorvastatin 20 mg tablet 20 mg PO DAILY High Cholesterol 08/07/23
insulin aspart U-100 100 unit/mL (3 mL) subcutaneous pen (Novolog FlexPen U-100 Insulin aspart) 8 - 10 sliding scale dose SC AC Diabetes 08/07/23
losartan 25 mg tablet 25 mg PO DAILY Blood Pressure 08/07/23
pregabalin 100 mg capsule 100 mg PO Q8H Pain 08/07/23
aspirin 325 mg tablet 325 mg PO DAILY #30 tabs 08/12/23
metformin 500 mg tablet 500 mg PO BID@0800,1700 Diabetes #30 tabs 09/03/23
insulin degludec 100 unit/mL (3 mL) subcutaneous pen (Tresiba FlexTouch U-100 insulin) 34 unit SC BID 11/06/23
Ertapenem [Invanz] 1,000 mg 120 mls/hr IV Q24H 11/20/23
Lactobac/Bifidobac [Visbiome] 2 cap PO DAILY ##0 11/20/23
Vancomycin [Vancocin] 1,250 mg 183.33 mls/hr IV Q24H 11/20/23
docusate sodium 100 mg capsule 100 mg PO BID #0 caps 11/20/23
ferrous sulfate 325 mg (65 mg iron) tablet (FeroSul) 325 mg PO Q48H #0 tabs 11/20/23
oxycodone 5 mg tablet 5 mg PO Q4HPRN PRN moderate pain #18 tabs 11/20/23
oxycodone-acetaminophen 5 mg-325 mg tablet 1 tab PO BID #6 tabs 11/20/23
polyethylene glycol 3350 17 gram oral powder packet (HealthyLax) 17 g PO DAILY PRN constipation #0 ea 11/20/23
sennosides 8.6 mg tablet (Senna Laxative) 8.6 mg PO BID #0 tabs 11/20/23
Home Medication Changes
Vancomycin [Vancocin] 1,250 mg 183.33 mls/hr IV Q24H 11/20/23
docusate sodium 100 mg capsule 100 mg PO BID #0 caps 11/20/23
ferrous sulfate 325 mg (65 mg iron) tablet (FeroSul) 325 mg PO Q48H #0 tabs 11/20/23
oxycodone 5 mg tablet 5 mg PO Q4HPRN PRN moderate pain #18 tabs 11/20/23
oxycodone-acetaminophen 5 mg-325 mg tablet 1 tab PO BID #6 tabs 11/20/23
polyethylene glycol 3350 17 gram oral powder packet (HealthyLax) 17 g PO DAILY PRN constipation #0 ea 11/20/23
sennosides 8.6 mg tablet (Senna Laxative) 8.6 mg PO BID #0 tabs 11/20/23
Ertapenem [Invanz] 1,000 mg 120 mls/hr IV Q24H 11/20/23
Lactobac/Bifidobac [Visbiome] 2 cap PO DAILY ##0 11/20/23
Pending Results: No
--- NOTE | 2023-11-20 12:27 | CM ---
Addendum entered by Berna Gonsales 11/20/23 14:44:
New antibiotic script sent via [facility]. [facility] Liaison updated.
Original Note:
Patient for transfer to [facility] today.
Spoke with Maye, antibiotics and wound vac available.
PICC line info sent via [facility].
Updated wound notes via [facility].
Ambulance transport forms completed.
IMM completed.
Plan: [facility] today via ambulance transport.
[facility]
phone# [phone]
[2023-11-20] MEDS: NOVOLOG FLEXPEN SC (12:35)
[2023-11-20] MEDS: ROXICODONE 5 MG PO (12:45)
--- NOTE | 2023-11-20 13:09 | PHA.VAN.FU ---
Vancomycin Assessment / Plan
- Assessment
Renal Function: Stable
WBC's are: Trending Down
In the past 24 hrs, patient has been: Afebrile
Concomitant Antimicrobials: ertapenem
- Assessment - Therapeutic Drug Monitoring
Extrapolated Cmax (mcg/mL): 27.8
Peak level was drawn: Appropriately (drawn ~2.4H after end of previous infusion)
Extrapolated Cmin (mcg/mL): 15.2
Trough Drawn: Appropriately
Levels were drawn: At steady state (levels drawn as trough --> dose --> peak around 4th dose of new regimen)
Calculated AUC (mcg*h/mL): 501
Calculated ke: 0.027
Calculated half life (H): 25.7
Calculated Vd (L): 92.5 (~1.18 L/kg)
Calculated Vanc CL (ml/min): 41.6
Levels extrapolated for calculations as if drawn from same dosing interval which may decrease accuracy of calculations
- Dosing Plan
Adjust Regimen to: Vanc 1000mg Q24H
New Regimen Predicts: AUC (410), Peak (22.7), Trough (12.2)
Patient with more accumulation than anticipated - will reduce dosing as patient may have increased AUC over time, increasing risk for nephrotoxicity
New regimen also predicts trough ~12 utilizing linear PK
- Monitoring Plan
No level(s) ordered at this time: consider repeat level around 11/25
- Follow Up
Pharmacy will continue to follow.
Vancomycin Follow UP
- -
Patient Age: 73
Patient Sex: Male
Vancomycin Day #: 12
Indication: Bone And Joint
Requesting Provider: Dr. Johnson
Pertinent Antimicrobial Allergies:
penicillin - SOB at 9 years old
Height / Weight:
Height 5 ft 8 in
Actual Weight 78.16 kg
Pertinent Past Medical History: DM, CKD, PAD
- Vital Signs / Lab Results
Temp Pulse Resp BP Pulse Ox
98.7 F 88 18 150/70 95
11/20/23 07:50 11/20/23 09:30 11/20/23 09:30 11/20/23 09:30 11/20/23 08:30
Lab Results - Hematology
11/18/23 11/19/23 11/20/23
05:19 04:30 04:41
WBC 12.2 H 12.6 H 10.9 H
Lab Results - Chemistry
11/18/23 11/19/23 11/20/23
05:19 04:30 04:41
BUN 21 H 19 16
Creatinine 1.0 0.9 0.9
Estimated Creat Clear 63 70 70
Albumin 2.6 L
Therapeutic Drug Monitoring
Vancomycin Peak 26.1 ug/ml (18-26) H 11/20/23 09:42
Vancomycin Trough 15.4 ug/ml (5-20) 11/20/23 04:41
Random Vancomycin 10.5 ug/ml 11/07/23 07:22
[2023-11-20 14:17] VITALS: BP 149/71
--- NOTE | 2023-11-20 14:47 | WOUNDNOTE ---
ROSHAN RN NOTE: With assist of nurse Darnell, removed wound vac dressing to R medial ankle, applied saline moistened gauze, abd pad and lillian. Adaptic was being used under black foam wound vac dressing. Updated discharge instructions to include adaptic
under black foam, nurse Carie made aware. Reinforced pin site dressings then applied Pato wrap over external fixator. Supplies at bedside will be sent with patient upon discharge to [facility] today. Placed hospital wound vac machine in soiled
utility rm. for pickup. Will update express of discharge.
--- NOTE | 2023-11-20 15:34 | PTCARENOTE ---
Received patient this am AAOx3. Wound vac remove and NSS wet to dressing applied by the wound care nurse an RN. Pt for transfer to [facility] today. Pt tolerated diet well for breakfast. Pt's BS 117 at lunch time. Pt refused to eat lunch.
Ashley made aware. Standing Insulin at lunch time held as per MD. Pt complained of pain in right ankle. Pt medicated with standing Percocet and Roxicodone PRN with relief. Made patient comfortable. Cont to assess patient status.
--- NOTE | 2023-11-20 16:16 | W.PN.UPDATE ---
Update Note
Progress Note Update
Dose of vancomycin adjusted to 1 gm iv q24
no other changes
aw
== END 2023-11-20 15:48 | DRG 463 ==
LOC: 4 EAST ACU 13:07
PROVIDERS: Internal Medicine; Physician Assistant; Student in an Organized Health Care Education/Training Program; ADMITTING PHYSICIAN Hospitalist; ATTENDING PHYSICIAN Internal Medicine; EMERGENCY PHYSICIAN Emergency Medicine; FAMILY PHYSICIAN Family Medicine; OTHER PHYSICIAN Student in an Organized Health Care Education/Training Program
PROC: 0QBG0ZX Excision of Right Tibia, Open Approach, Diagnostic (ICD-10-PCS; 2023-11-06)
PROC: 0SSF04Z Reposition Right Ankle Joint with Internal Fixation Device, Open Approach (ICD-10-PCS; 2023-11-06)
PROC: 0QBG0ZZ Excision of Right Tibia, Open Approach (ICD-10-PCS; 2023-11-06)
PROC: 0QBL0ZX Excision of Right Tarsal, Open Approach, Diagnostic (ICD-10-PCS; 2023-11-06)
PROC: 02HV33Z Insertion of Infusion Device into Superior Vena Cava, Percutaneous Approach (ICD-10-PCS; 2023-11-08)
PROC: 0HRKXK3 Replacement of Right Lower Leg Skin with Nonautologous Tissue Substitute, Full Thickness, External Approach (ICD-10-PCS; 2023-11-14)
PROC: 0SGF05Z Fusion of Right Ankle Joint with External Fixation Device, Open Approach (ICD-10-PCS; 2023-11-14)
DX: T84.622A Infection and inflammatory reaction due to internal fixation device of right tibia, initial encounter (principal); A41.9 Sepsis, unspecified organism; F11.20 Opioid dependence, uncomplicated; S82.51 Displaced fracture of medial malleolus of right tibia; M86.171 Other acute osteomyelitis, right ankle and foot; M00.071 Staphylococcal arthritis, right ankle and foot; D62 Acute posthemorrhagic anemia; T81.31XA Disruption of external operation (surgical) wound, not elsewhere classified, initial encounter; E11.69 Type 2 diabetes mellitus with other specified complication; E11.40 Type 2 diabetes mellitus with diabetic neuropathy, unspecified; E11.51 Type 2 diabetes mellitus with diabetic peripheral angiopathy without gangrene; E11.22 Type 2 diabetes mellitus with diabetic chronic kidney disease; E11.319 Type 2 diabetes mellitus with unspecified diabetic retinopathy without macular edema; I12.9 Hypertensive chronic kidney disease with stage 1 through stage 4 chronic kidney disease, or unspecified chronic kidney disease; N18.9 Chronic kidney disease, unspecified; R74.01 Elevation of levels of liver transaminase levels; T36.4X5A Adverse effect of tetracyclines, initial encounter; G89.29 Other chronic pain; D50.9 Iron deficiency anemia, unspecified; B95.61 Methicillin susceptible Staphylococcus aureus infection as the cause of diseases classified elsewhere; B95.2 Enterococcus as the cause of diseases classified elsewhere; R11.2 Nausea with vomiting, unspecified; S80.212A Abrasion, left knee, initial encounter; Y79.2 Prosthetic and other implants, materials and accessory orthopedic devices associated with adverse incidents; Y83.8 Other surgical procedures as the cause of abnormal reaction of the patient, or of later complication, without mention of misadventure at the time of the procedure; Z88.0 Allergy status to penicillin; Z79.4 Long term (current) use of insulin; Z79.84 Long term (current) use of oral hypoglycemic drugs; Z79.82 Long term (current) use of aspirin; Z79.899 Other long term (current) drug therapy; X58.XXXA Exposure to other specified factors, initial encounter; W19.XXXD Unspecified fall, subsequent encounter
CPT/HCPCS: 88304; 88311; 71045; 73600; 73610; 73723; 76000; 80048; 80053; 80202; 82728; 82962; 83036; 83540; 83550; 83735; 84100; 85025; 85027; 87040; 87070; 87075; 87077; 87147; 87186; 87205; 93005; 97163; 97167; 97530; 99285; A9575; J1335

== ENCOUNTER 2023-12-08 18:25 | Emergency (ER) | payer OTHER, SELFPAY ==
--- NOTE | 2023-12-08 19:10 | ED.GENMED ---
History of Present Illness
General
Chief Complaint: Catheter/Tube Problem
Time Seen by Provider: 12/08/23 18:38
History of Present Illness
History of Present Illness:
. Patient is a 73-year-old man presenting to the emergency department with PICC line problem. Per chart review patient was discharged on November 19 after he was admitted for osteomyelitis. He was discharged on antibiotics of vancomycin and
ertapenem that were supposed to continue until 12/16. Unfortunately while patient was sleeping he states that the PICC line fell out. He was then sent in for further evaluation. Otherwise patient is in his usual state of health. Denies any
fevers chills. No new numbness tingling or weakness. He was found to be COVID positive but is asymptomatic at this time
Past History
Past History
ED Past Medical History: HTN, NIDDM and Other (Diabetic neuropathy BLE)
ED Past Surgical History: Other (wisdom teeth, cataracts)
Social History
Tobacco: Non-smoker
Drug: None
Phy Exam
Physical Exam
Physical Exam:
GENERAL: in no acute distress
HEENT: normocephalic, extraocular movements intact, moist oral mucosa
NECK: normal inspection
RESPIRATORY: no respiratory distress, clear to auscultation bilaterally
CARDIOVASCULAR: regular rate and rhythm
ABDOMEN/: soft, non-distended, non-tender to palpation, no rebound or guarding
EXTREMITIES: non-tender, no edema/swelling, PICC line tegaderm over right upper extremity with no PICC line in place, no associated swelling or ecchymoses
NEUROLOGIC: awake and alert, moves all extremities
SKIN: warm
Course
Orders/Labs/Results
Orders:
Orders
12/08/23 20:57
Chest Single View Frontal CR [CR Chest Single View] Urgent
Comment:
Reason For Exam: PICC line placement
12/08/23 21:10
PICC Line As Directed
Vital Signs
Initial and Last Documented VS:
Initial Vital Signs
Pulse Resp BP Pulse Ox
70 18 159/63 99
12/08/23 20:05 12/08/23 20:05 12/08/23 20:05 12/08/23 20:05
Last Documented Vital Signs
Pulse Resp BP Pulse Ox
70 18 159/63 99
12/08/23 20:05 12/08/23 20:05 12/08/23 20:05 12/08/23 20:05
MDM/Problems Addressed
Differential Diagnosis Includes:
Patient is a 73-year-old man presenting to the emergency department after his PICC line was accidentally removed while he was sleeping. Vitals are unremarkable and exam shows an area where the PICC line used to be without any surrounding ecchymosis
erythema or swelling. Given that the PICC line is for antibiotics are needed for 9 more days patient will need PICC line to be replaced. Will discuss with IV team.
*Critical Care Note
Total Time (30-74mins, 75-104mins- exclusive of procedures): Not Applicable
Update Note
Update Note:
IV team placed PICC at bedside. Repeat chest x-ray does show PICC line in appropriate position. Per the official read there is possible pneumonia. Patient is not febrile here is not coughing and has clear breath sounds. Will hold off on any
additional antibiotics. He is COVID-positive and he is at a facility who will continue to monitor. Strict return precautions given.
ED Attending Note
-
Portions of this chart may have been created with voice recognition software.� Occasional wrong word or��sound alike� substitutions may have occurred due to the inherent limitations of voice recognition software.
Discharge Plan
Departure
Patient Disposition: Home (Routine Discharge)
Date of Disposition: 12/08/23
Time of Disposition: 22:37
Patient with high blood pressure during this ER visit?: No
Discharge Problem:
Status post PICC central line placement
Prescriptions:
No Action
atorvastatin 20 mg tablet
20 mg PO HS
losartan 25 mg tablet
25 mg PO DAILY
insulin aspart U-100 [Novolog FlexPen U-100 Insulin] 100 unit/mL (3 mL) insulin pen
8 - 10 sliding scale dose SC AC
pregabalin 100 mg capsule
100 mg PO Q8H
aspirin 325 mg tablet
325 mg PO DAILY Qty: 30 0RF
metformin 500 mg Tablet
500 mg PO BID@0800,1700 Qty: 30 0RF
insulin degludec [Tresiba FlexTouch U-100] 100 unit/mL (3 mL) Insulin Pen
24 unit SC HS
ferrous sulfate [FeroSul] 325 mg (65 mg iron) Tablet
325 mg PO Q48H Qty: 0 0RF
oxycodone 5 mg Tablet
5 mg PO Q4HPRN PRN (Reason: moderate pain) Qty: 18 0RF
oxycodone-acetaminophen 5-325 mg tablet
1 tab PO BID Qty: 6 0RF
vancomycin in 0.9 % sodium chl 1 gram/200 mL Piggyback
1 g IV DAILY@0600 Qty: 0 0RF
acetaminophen 325 mg Tablet
650 mg PO Q6HPRN PRN (Reason: mild pain)
ondansetron HCl [Zofran] 4 mg Tablet
4 mg PO Q6HPRN PRN (Reason: nausea)
magnesium hydroxide [Milk of Magnesia] 400 mg/5 mL Suspension
2,400 mg PO DAILYPRN PRN (Reason: if no bm on 3rd day)
heparin lock flush (porcine) [heparin lock flush] 10 unit/mL Solution
5 unit IV TID
bisacodyl [Dulcolax (bisacodyl)] 10 mg Suppository
[address] DAILYPRN PRN (Reason: if no bm aftr mom)
ertapenem 1 gram Recon Soln
1 g IM QPM
Visbiome 112.5 billion cell Capsule
1 cap PO DAILY
insulin degludec [Tresiba FlexTouch U-100] 100 unit/mL (3 mL) Insulin Pen
30 unit SC DAILY
Referrals:
Randal Mendez DO [Family Provider] -
Interventions
Interventions:
[id number] Assessment Last Done: 12/08/23 20:05
ED-Male Genitourinary Assessment Last Done: 12/08/23 20:05
Discharge Date and Time
Print Language: CUBAN
[2023-12-08 20:05] VITALS: BP 159/63
[2023-12-08 21:14] VITALS: BMI 27.3
== END 2023-12-08 23:56 | disposition home or self-care (01) ==
LOC: EMR 18:25
PROVIDERS: EMERGENCY PHYSICIAN Student in an Organized Health Care Education/Training Program; FAMILY PHYSICIAN Internal Medicine
DX: Z45.2 Encounter for adjustment and management of vascular access device (principal); U07.1 COVID-19
CPT/HCPCS: 36569; 99284; 71045

== ENCOUNTER 2023-12-23 08:29 | Emergency (ER) | payer OTHER, SELFPAY ==
[2023-12-23] VITALS (8 sets, daily range): BP systolic 137–178; BP diastolic 60–112; BMI 25.5
--- NOTE | 2023-12-23 09:00 | ED.GENMED ---
History of Present Illness
General
Chief Complaint: Change in Mental Status
Source: patient and halfway records
Time Seen by Provider: 12/23/23 08:59
Nursing documentation reviewed up to this point in time: agreed with
History of Present Illness
History of Present Illness:
73-year-old male from halfway with history of IDDM, diabetic neuropathy, HTN, admitted here 10/2023 for osteomyelitis and hardware infection of right ankle, discharged with a PICC line on vancomycin and ertapenem until 12/17/2023 (MSSA,
enterococcus cx from debridement of the ankle).
Presents today for reported change in mental state. Pt states 'they thought I was acting uncooperatively.' Pt has pins with metal halo in right ankle. He states he attempted to get out of bed to go to the bathroom, fell and crawled. He has a large
deep clean abrasion left knee and a smaller deep clean abrasion right knee. He denies hitting head. Denies CP, SOB, abd pain. States he's had some diarrhea. States he is very thirsty (mouth is very dry and skin dry and flaking on lips). Denies
fever/chills.
Has wound vac right ankle, dressing intact, wound vac tube is not hooked up to anything, simply dangling in the air.
Past History
Past History
ED Past Medical History: HTN, IDDM, Other (CKD, transaminitis) and Other (Diabetic neuropathy BLE)
ED Past Surgical History: Other (wisdom teeth, cataracts. 10/2023 osteomyelitis right ankle with debridement, cultures grew MRSA and Enterococcus infection, sepsis)
Social History
Tobacco: Non-smoker
Drug: None
Living: halfway
Review of Systems
Review of Systems
Allergies reviewed?: Yes
All Other Systems: ROS reviewed and negative except as documented in HPI and ROS
Constitutional: Denies fever
Respiratory: Denies trouble breathing
Cardiac: Denies chest pain
ABD/GI: Reports diarrhea; Denies nausea or vomiting
: Denies dysuria or difficulty voiding
Musculoskeletal: Reports other (right ankle osteomyelitis debridement 10/2023, now with pins and halo apparatus, dressing dry.)
Skin: Reports other (abrasion both knees)
Neurological: Reports other (neuropathy both hands and feet); Denies dizzy or headache
Endocrine: Reports polydipsia
Phy Exam
Physical Exam
Physical Exam:
GENERAL: No acute distress. A&Ox3.
CONSTITUTIONAL: Afebrile.
EYES: PERRL, conjunctivae normal
ENMT: dry mucus membranes, Pharynx nl
RESPIRATORY: Regular respirations, nonlabored, lungs clear.
CARDIOVASCULAR: Regular rate and rhythm, no murmurs, no rubs.
GI: Soft, nontender, normal BS
MUSCULOSKELETAL: Right ankle with pins, dressing, wound vac. Moves with ease. Well perfused. No edema.
SKIN: Warm, dry, pink, Abrasions both knees
PSYCH: Normal mood and affect. Well kept, interactive and appropriate
NEUROLOGIC: Awake, alert and oriented. No focal neurological deficits
Sepsis
Sepsis Screening
Sepsis Assessment: Sepsis Ruled Out
Sepsis Screen
Sepsis Screen: Sepsis Ruled Out
Date: 12/23/23
Time: 17:42
Course
Orders/Labs/Results
Orders:
Orders
12/23/23 08:39
EKG [Electrocardiogram (*1)] Urgent
Reason for Study: Chest Pain
12/23/23 08:40
EKG- Treatment ONCE
12/23/23 10:18
Complete Blood Count/With Diff Urgent
Comprehensive Metabolic Panel Urgent
Urinalysis Reflex To Culture Urgent
Date Specimen was Collected: 12/23/23
Time Specimen was Collected: 08:40
Urine Microscopic Reflex Cult Urgent
Urine Culture Urgent
MARIA T Source: U
Specimen Description:
Date Specimen was Collected: 12/23/23
Time Specimen was Collected: 08:40
12/23/23 11:45
Insulin Human Regular [Novolin R] 4 units IV NOW STA
12/23/23 11:46
CR Chest - 2 Views Urgent
Comment:
Reason For Exam: change in mental state, mild leukocytosis
12/23/23 12:17
Insulin Aspart [NOVOLOG vial] 4 units SC NOW STA
12/23/23 12:21
CT Head W/o Iv Contrast Urgent
Comment:
Reason For Exam: change in mental state
12/23/23 14:53
Insulin Aspart [NOVOLOG vial] 100 units .ROUTE .STK-MED ONE
Abnormal Lab Results
12/23/23
10:18
WBC 12.0 H 10^3/uL
(4.8-10.8)
RBC 3.78 L 10^6/uL
(4.70-6.10)
Hgb 9.4 L g/dL
(13.0-18.0)
Hct 28.7 L %
(39.0-52.0)
MCV 75.9 L fL
(80.0-94.0)
MCH 24.9 L pg
(27.0-31.0)
MCHC 32.8 L g/dL
(33.0-37.0)
RDW 16.3 H %
(11.5-14.5)
Abs Immat Gran (auto) 0.1 H 10^3/uL
(0-0.05)
Absolute Neuts (auto) 10.3 H 10^3/uL
(1.4-6.5)
Absolute Lymphs (auto) 0.8 L 10^3/uL
(1.2-3.4)
Absolute Monos (auto) 0.7 H 10^3/uL
(0.1-0.6)
Neutrophils % 85.6 H %
(42.2-75.2)
Lymphocytes % 6.7 L %
(20.5-51.1)
BUN 31 H mg/dl
(9-20)
Glucose 230 H mg/dl
(70-99)
Total Bilirubin 1.4 H mg/dl
(0.2-1.3)
Alkaline Phosphatase 158 H U/L
(38-126)
Urine Ketones 1+ A
(Negative)
Ur Occult Blood Reflex 1+ A
(Negative)
Leukocyte Esterase Rfl 1+ A
(Negative)
Urine Glucose Trace A
(Negative)
12/23/23 10:18
12/23/23 10:18
Vital Signs
Initial and Last Documented VS:
Initial Vital Signs
Pulse Resp
94 11
12/23/23 08:39 12/23/23 08:39
Last Documented Vital Signs
Temp Pulse Resp BP Pulse Ox
99.0 F 93 19 161/112 99
12/23/23 08:51 12/23/23 10:00 12/23/23 10:15 12/23/23 10:00 12/23/23 08:51
MDM/Problems Addressed
Differential Diagnosis Includes:
Dehydration, UTI, hypo/hyperglycemia
MDM/Problems Addressed:
73-year-old male from halfway with history of NIDDM with sliding scale Insulin prn, diabetic neuropathy, HTN, admitted here 10/2023 for osteomyelitis and hardware infection of right ankle, discharged with a PICC line on vancomycin and ertapenem
until 12/17/2023 (MSSA, enterococcus cx from debridement of the ankle).
Presents today for reported change in mental state. Pt states 'they thought I was acting uncooperatively.' Pt has pins with metal halo in right ankle. He states he attempted to get out of bed to go to the bathroom, fell and crawled. He has a large
deep clean abrasion left knee and a smaller deep clean abrasion right knee. He denies hitting head. Denies CP, SOB, abd pain. States he's had some diarrhea. States he is very thirsty (mouth is very dry and skin dry and flaking on lips). Denies
fever/chills.
Has wound vac right ankle, dressing intact, wound vac tube is not hooked up to anything, simply dangling in the air.
Afebrile, NAD, pleasant, conversive, appropriate.
Very thirsty, drinking water
Spoke with Norma at [facility], states pt sent here for change in mental state. Very confused, talking 'abnormal' bleeding from knees, walking on his pinned ankle, non weight bearing right foot, put himself in someone else's bed, throwing
things around, agitated saying he has things to do today.
She states he fell yesterday. Scrapes both knees noted today at [place]. Wound vac is supposed to be connected to machine, no machine sent with him.
CBC WBC 12.0, Hgb9.4 improving.
CMP: Glucose 230 otherwise unremarkable. Ordered Insulin 4 U SQ per his sliding scale. He is eating.
U/A w 6-10 WBC, culture pending.
Head CT with no acute abnormality
Pt stable for DC back to [place]
4:45 p.m.
Awaiting transport back to [place]. Does try to get OOB and states he knows he is to be non weight bearing on the right foot.
He is oriented, conversation appropriate most of time. Does state he has 'something important to do and I can tell anyone what it is' when asked why he is trying to get OOB.
May simply be noncompliant vs mild dementia
*Critical Care Note
Total Time (30-74mins, 75-104mins- exclusive of procedures): Not Applicable
ED Attending Note
-
Portions of this chart may have been created with voice recognition software.� Occasional wrong word or��sound alike� substitutions may have occurred due to the inherent limitations of voice recognition software.
Discharge Plan
Departure
Patient Disposition: Jail/SNF
Date of Disposition: 12/23/23
Time of Disposition: 13:06
Condition: Good
Discharge Problem:
Altered mental state
Instructions: Altered Mental Status (DC)
Prescriptions:
No Action
atorvastatin 20 mg tablet
20 mg PO HS
losartan 25 mg tablet
25 mg PO DAILY
insulin aspart U-100 [Novolog FlexPen U-100 Insulin] 100 unit/mL (3 mL) insulin pen
0 sliding scale dose SC AC
Rx Instructions:
151-200=2u,201-250=4u,251-300=6u,301-350=8u,351-400=10u
pregabalin 100 mg capsule
100 mg PO Q8H
aspirin 325 mg tablet
325 mg PO DAILY Qty: 30 0RF
metformin 500 mg Tablet
500 mg PO BID@0800,1700 Qty: 30 0RF
ferrous sulfate [FeroSul] 325 mg (65 mg iron) Tablet
325 mg PO Q48H Qty: 0 0RF
oxycodone 5 mg Tablet
5 mg PO Q4HPRN PRN (Reason: moderate pain) Qty: 18 0RF
oxycodone-acetaminophen 5-325 mg tablet
1 tab PO BID Qty: 6 0RF
acetaminophen 325 mg Tablet
650 mg PO Q6HPRN MDD 3000 mg PRN (Reason: mild pain/temp >100.4)
ondansetron HCl [Zofran] 4 mg Tablet
4 mg PO Q6HPRN PRN (Reason: nausea)
magnesium hydroxide [Milk of Magnesia] 400 mg/5 mL Suspension
2,400 mg PO DAILYPRN PRN (Reason: if no bm on 3rd day)
bisacodyl [Dulcolax (bisacodyl)] 10 mg Suppository
10 mg MS DAILYPRN PRN (Reason: if no bm aftr mom)
Visbiome 112.5 billion cell Capsule
2 cap PO DAILY
MediHoney (honey) 100 % Paste
1 applic TOPICAL DAILY
insulin degludec 100 unit/mL Solution
20 unit SC BID
Referrals:
Randal Mendez I., DO [Family Provider] -
Activity Restrictions/Additional Instructions:
There is nothing worrisome in Mr. Horowitz's workup here today.
Labs are unremarkable
CXR normal
Head CT normal
EKG NSR
U/A no sign of infection, urine culture is pending due to mild increase in WBCs
Pt does seem a little confused at times but no significant neuro deficits.
Blood sugar here was 230, he was given Insulin 4 units SC
Discharge Date and Time
Print Language: POLISH
[2023-12-23 10:39] LABS: Urine Albumin Trace (Neg - Trace); Urine Bilirubin Negative (Negative); Urine Character Clear (Clear); Urine Color Yellow; Urine Glucose Trace (Negative); Urine Ketone 1+ (Negative); Urine Leukocyte 1+ (Negative); Urine Nitrite Negative (Negative); Urine Occult Blood 1+ (Negative); Urine Specific Gravity 1.015 (<1.030); Urine Urobilinogen Negative (Neg - 1+)
[2023-12-23 10:49] LABS: % Basophils 0.3 % (0-2); % Immature Granulocytes 0.4 % (0-0.5); % Lymphocytes 6.7 % (20.5-51.1); % Neutrophils 85.6 % (42.2-75.2); Absolute Eosinophils 0.1 10^3/uL (0-0.7); Absolute Immature Granulocytes 0.1 10^3/uL (0-0.05); Absolute Lymphocytes 0.8 10^3/uL (1.2-3.4); Absolute Monocytes 0.7 10^3/uL (0.1-0.6); Absolute Neutrophils 10.3 10^3/uL (1.4-6.5); Hematocrit 28.7 % (39.0-52.0); Hemoglobin 9.4 g/dL (13.0-18.0); Mean Corp Hgb Conc. 32.8 g/dL (33.0-37.0); Mean Corpuscular Hgb 24.9 pg (27.0-31.0); Mean Corpuscular Volume 75.9 fL (80.0-94.0); Nucleated Red Blood Cells % 0 % (-); Red Blood Cell Count 3.78 10^6/uL (4.70-6.10); Red Cell Dist. Width 16.3 % (11.5-14.5)
[2023-12-23 10:58] LABS: ALT (SGPT) 16 U/L (0-50); AST (SGOT) 22 U/L (17-59); Albumin 3.8 g/dl (3.5-5.0); Alkaline Phosphatase 158 U/L (38-126); Blood Urea Nitrogen 31 mg/dl (9-20); Calcium 9.4 mg/dl (8.4-10.2); Carbon Dioxide 25 mmol/L (22-30); Chloride 103 mmol/L (98-107); Estimated Creatinine Clearance 52 ml/min; Glucose 230 mg/dl (70-99); Potassium 4.5 mmol/L (3.5-5.1); Sodium 142 mmol/L (135-145); Total Bilirubin 1.4 mg/dl (0.2-1.3); Total Protein 6.6 g/dl (6.3-8.2); eGFR > 60.00
[2023-12-23 11:02] LABS: Urine Amorphous Seen
[2023-12-23 11:03] LABS: Urine Red Blood Cell 0-2 /HPF (0-2)
[2023-12-23] MEDS: NOVOLOG vial 4 UNITS SC (14:11)
== END 2023-12-23 17:40 ==
LOC: EMR 08:29
PROVIDERS: Emergency Medicine; EMERGENCY PHYSICIAN Student in an Organized Health Care Education/Training Program; FAMILY PHYSICIAN Internal Medicine
DX: R41.82 Altered mental status, unspecified (principal); S80.211A Abrasion, right knee, initial encounter; S80.212A Abrasion, left knee, initial encounter; W19.XXXA Unspecified fall, initial encounter; E11.22 Type 2 diabetes mellitus with diabetic chronic kidney disease; E11.36 Type 2 diabetes mellitus with diabetic cataract; E11.40 Type 2 diabetes mellitus with diabetic neuropathy, unspecified; I12.9 Hypertensive chronic kidney disease with stage 1 through stage 4 chronic kidney disease, or unspecified chronic kidney disease; N18.9 Chronic kidney disease, unspecified; Z86.14 Personal history of Methicillin resistant Staphylococcus aureus infection
CPT/HCPCS: 99284; 96372; 70450; 71046; 80053; 81003; 81015; 85025; 87086; 93005

== ENCOUNTER → 2024-02-05 08:48 | Outpatient (REF) | payer MEDICARE, SELFPAY | LOC: RAD 08:48 | PROVIDERS: ATTENDING PHYSICIAN Student in an Organized Health Care Education/Training Program; FAMILY PHYSICIAN Nurse Practitioner Family | DX: Z87.81 Personal history of (healed) traumatic fracture (principal); M79.671 Pain in right foot | CPT/HCPCS: 73610; 73630; 73700 ==

== ENCOUNTER 2024-02-18 10:29 | Inpatient (IN) | payer MEDICARE, SELFPAY ==
[2024-02-18] VITALS (11 sets, daily range): BP systolic 135–182; BP diastolic 60–82; BMI 24.8
[2024-02-18] MEDS: TYLENOL 1000 MG PO (11:18)
[2024-02-18] MEDS: CELEBREX 200 MG PO (11:19)
[2024-02-18] MEDS: NORMOSOL-R/PLASMALYTE-A 1000 IV (11:39)
[2024-02-18] MEDS: VANCOCIN IV (11:40)
[2024-02-18 11:42] LABS: Glucose - Point of Care 96 mg/dl (70-99)
[2024-02-18 11:56] LABS: Hematocrit 28.2 % (39.0-52.0); Hemoglobin 9.2 g/dL (13.0-18.0); Mean Corp Hgb Conc. 32.6 g/dL (33.0-37.0); Mean Corpuscular Hgb 24.5 pg (27.0-31.0); Mean Platelet Volume 9.8 fL (7.4-10.4); Platelet Count 393 10^3/uL (130-400); Red Blood Cell Count 3.76 10^6/uL (4.70-6.10); Red Cell Dist. Width 16.8 % (11.5-14.5); White Blood Cell Count 11.8 10^3/uL (4.8-10.8)
[2024-02-18] MEDS: VANCOCIN 200 IV (12:05)
[2024-02-18 12:14] LABS: ALT (SGPT) 11 U/L (0-50); AST (SGOT) 17 U/L (17-59); Albumin 3.1 g/dl (3.5-5.0); Alkaline Phosphatase 127 U/L (38-126); Blood Urea Nitrogen 16 mg/dl (9-20); Carbon Dioxide 28 mmol/L (22-30); Chloride 102 mmol/L (98-107); Estimated Creatinine Clearance 78 ml/min; Glucose 84 mg/dl (70-99); Potassium 4.4 mmol/L (3.5-5.1); Sodium 137 mmol/L (135-145); Total Bilirubin 0.5 mg/dl (0.2-1.3); Total Protein 6.2 g/dl (6.3-8.2); eGFR > 60.00
--- NOTE | 2024-02-18 15:29 | W.PN.SURGUPD ---
Surgical Update
Surgical Update
73 yo M with complex right ankle open fracture with subsequent complication requiring external fixation, wound vacs, and extended course of antibiotics. Now s/p R ankle external fixator removal, lateral plate hardware removal, and wound debridements.
-2x cultures, 1x pathology specimens obtained
-Limb prognosis is poor. Recommend BKA at this point
-Recommend ID input, would recommend waiting until 02/18 for ID input once treatment course has been determined with the patient
-PT/OT
-Posterior splint to remain C/D/I
-Strict NWB to RLE
[2024-02-18 15:45] LABS: Glucose - Point of Care 111 mg/dl (70-99)
--- NOTE | 2024-02-18 16:02 | HPS.HSE ---
Family Physician
-
Family Physician: INTERVIEWE UNKNOWN - PT NOT
Chief Complaint
-
complicated right ankle infection
History of Present Illness
Mr. Jacques Horowitz is a 73 yo man with hx IDDM, diabetic neuropathy, HTN, right ankle fracture in July 2023 (s/p ORIF 08/06) complicated by wound dehiscence and infection (admission 09/18) s/p antibiotic course with repeat admission 11/05-11/20/23 for
acute osteomyelitis and hardware infection status post debridement and pinning 11/07/23; s/p right ankle salvage reconstruction surgery 11/14/23 discharged with wound vac; now s/p right ankle external fixator removal, lateral plate hardware removal
and wound debridement today.
Patient seen post-op. Currently pain controlled, just waking up. Denies chest pain or shortness of breath. No abdominal pain. No recent fevers/chills.
Wound cultures have grown MSSA, Enterococcus faecalis and Micrococcus.
Medical History
Past Medical History
Past Medical History: Reports Other (Diabetes, CKD, hypertension, diabetic neuropathy, retinopathy, chronic pain with opiate dependence)
Past Surgical History: Reports Other (ORIF on 08/06; status post debridement and pinning 11/07/23; s/p right ankle salvage reconstruction surgery 11/14/23 discharged with wound vac; now s/p right ankle external fixator removal, lateral plate hardware
removal and wound debridement today)
Social History
Tobacco: Non-smoker
Alcohol: None
Drug: None
Family History
Family History: Not pertinent
Allergies / Home Medications
Allergies reflects when Allergies were last updated in [facility].
Home Medications with original date entered in [facility]
Allergy/Medication List:
Allergies
Allergy/AdvReac Type Severity Reaction Status Date / Time
Penicillins Allergy at 9 Verified 02/18/24 11:22
years old,
shortness
of breath
Home Medications
atorvastatin 20 mg tablet 20 mg PO HS High Cholesterol 06/11/24
insulin aspart U-100 100 unit/mL (3 mL) subcutaneous pen (Novolog FlexPen U-100 Insulin aspart) 0 sliding scale dose SC AC Diabetes 08/07/23
losartan 25 mg tablet 25 mg PO DAILY Blood Pressure 08/07/23
pregabalin 100 mg capsule 100 mg PO TID Pain 08/07/23
metformin 500 mg tablet 500 mg PO BID@0800,1700 Diabetes #30 tabs 09/03/23
ferrous sulfate 325 mg (65 mg iron) tablet (FeroSul) 325 mg PO Q48H #0 tabs 11/20/23
oxycodone 5 mg tablet 5 mg PO Q4HPRN PRN moderate pain #18 tabs 11/20/23
oxycodone-acetaminophen 5 mg-325 mg tablet 1 tab PO BID #6 tabs 11/20/23
acetaminophen 325 mg tablet 650 mg PO Q6HPRN PRN mild pain/temp >100.4 12/08/23
bisacodyl 10 mg rectal suppository (Dulcolax (bisacodyl)) 10 mg NM DAILYPRN PRN if no bm aftr mom 12/08/23
magnesium hydroxide 400 mg/5 mL oral suspension (Milk of Magnesia) 30 ml PO DAILYPRN PRN if no bm on 3rd day 12/08/23
ondansetron HCl 4 mg tablet 4 mg PO Q6HPRN PRN nausea 12/08/23
insulin degludec 100 unit/mL subcutaneous solution 20 unit SC BID 12/23/23
dextrose 40 % oral gel (Glucose Gel) 1 ea PO PRN PRN hypoglycemia 02/13/24
glucagon 1 mg solution for injection 1 mg SC Q15M PRN hypoglycemia 02/13/24
Review of Systems
-
History Source: Patient
A 12 point ROS was completed and negative except as noted: Yes
Physical Exam
Vital Signs
Vital Signs
Temp Pulse Resp BP Pulse Ox
98.4 F 83 13 135/64 96
02/18/24 15:30 02/18/24 15:45 02/18/24 15:45 02/18/24 15:45 02/18/24 15:45
Physical Exam
General: No Apparent Distress
HEENT: PERRLA
Respiratory: Clear; No Wheezes
Cardiac: S1/S2 and Regular Rhythm
GI: Soft and Non Tender
Musculoskeletal: Other (RLE wrapped)
Skin: Warm and Dry; No Rash
Neuro: AO x 3
Psych: Calm
Laboratory Results
-
02/18/24 11:45
02/18/24 11:45
Laboratory Results
Total Bilirubin 0.5 mg/dl (0.2-1.3) 02/18/24 11:45
AST 17 U/L (17-59) 02/18/24 11:45
ALT 11 U/L (0-50) 02/18/24 11:45
Alkaline Phosphatase 127 U/L (38-126) H 02/18/24 11:45
Data Reviewed
-
Diagnostic Radiology: Report Reviewed by me
Lab Data: Labs Reviewed by me
Impression/Plan
-
Mr. Jacques Horowitz is a 73 yo man with hx IDDM, diabetic neuropathy, HTN, right ankle fracture in July 2023 (s/p ORIF 08/06) complicated by wound dehiscence and infection (admission 09/18) s/p antibiotic course with repeat admission 11/05-11/20/23 for
acute osteomyelitis and hardware infection status post debridement and pinning 11/07/23; s/p right ankle salvage reconstruction surgery 11/14/23 discharged with wound vac; now s/p right ankle external fixator removal, lateral plate hardware removal
and wound debridement today.
Right Ankle Hardware Infection
-s/p right ankle external fixator removal, lateral plate hardware removal and wound debridement today.
-appreciate Podiatry
-admit to med/surg
-F/U cultures and Pathology specimen obtained
-IV Vancomycin
-ID input (will wait until surgical plan regarding BKA discussed between Podiatry and patient)
-posterior splint to remain C/D/I
-strict NWB RLE
-pain control
HLD
-GENERAL INTERNIST Statin
IDDM
-Patient is on Insulin Degludec 20 BID at home - BGL low 100's, patient reports decreased appetite. Will order 5 units BID for now and adjust as needed
-ISS low
-Diabetic diet
Diabetic Neuropathy
-GENERAL INTERNIST Lyrica
Essential HTN
-GENERAL INTERNIST Losartan
DVT PPx - Hep subQ (OK'd by Dr. Napier)
FULL CODE
[2024-02-18 18:17] LABS: Glucose - Point of Care 124 mg/dl (70-99)
[2024-02-18] MEDS: ROXICODONE 5 MG PO (18:33)
[2024-02-18 20:55] LABS: Glucose - Point of Care 188 mg/dl (70-99)
[2024-02-18] MEDS: PERCOCET 5/325 1 TABLET PO (20:55)
[2024-02-18] MEDS: LYRICA 100 MG PO (20:55)
[2024-02-18] MEDS: LIPITOR 20 MG PO (20:55)
[2024-02-18] MEDS: LANTUS 0.05 UNITS SC (20:55)
[2024-02-18] MEDS: HEPARIN 5000 UNITS SC (20:57)
[2024-02-19] VITALS (8 sets, daily range): BP systolic 118–138; BP diastolic 52–73; PULSE 80–82; O2SAT 98
[2024-02-19] MEDS: ROXICODONE 5 MG PO ×2 (03:19→17:37)
[2024-02-19] MEDS: TYLENOL 650 MG PO (03:19)
[2024-02-19 06:28] LABS: % Basophils 0.9 % (0-2); % Eosinophils 2.2 % (0-6); % Immature Granulocytes 0.4 % (0-0.5); % Lymphocytes 9.6 % (20.5-51.1); % Monocytes 7.7 % (1.7-9.3); % Neutrophils 79.2 % (42.2-75.2); Absolute Basophils 0.1 10^3/uL (0-0.2); Absolute Eosinophils 0.2 10^3/uL (0-0.7); Absolute Monocytes 0.8 10^3/uL (0.1-0.6); Absolute Neutrophils 8.4 10^3/uL (1.4-6.5); Hematocrit 25.8 % (39.0-52.0); Hemoglobin 8.3 g/dL (13.0-18.0); Mean Corp Hgb Conc. 32.2 g/dL (33.0-37.0); Mean Corpuscular Hgb 24.6 pg (27.0-31.0); Mean Corpuscular Volume 76.3 fL (80.0-94.0); Mean Platelet Volume 10.4 fL (7.4-10.4); Nucleated Red Blood Cells % 0 % (-); Platelet Count 343 10^3/uL (130-400); Red Blood Cell Count 3.38 10^6/uL (4.70-6.10); Red Cell Dist. Width 16.7 % (11.5-14.5); White Blood Cell Count 10.6 10^3/uL (4.8-10.8)
[2024-02-19 06:54] LABS: Blood Urea Nitrogen 18 mg/dl (9-20); Calcium 8.1 mg/dl (8.4-10.2); Carbon Dioxide 29 mmol/L (22-30); Chloride 99 mmol/L (98-107); Estimated Creatinine Clearance 70 ml/min; Glucose 198 mg/dl (70-99); Magnesium 1.8 mg/dl (1.6-2.3); Potassium 4.8 mmol/L (3.5-5.1); Sodium 135 mmol/L (135-145); eGFR > 60.00
[2024-02-19 08:24] LABS: Glucose - Point of Care 171 mg/dl (70-99)
--- NOTE | 2024-02-19 08:38 | W.PN.HOSP.TC ---
Today's Communication/Plan
-
see plan
Assessment / Plan
Assessment / Plan
Mr. Jacques Horowitz is a 73 yo man with hx IDDM, diabetic neuropathy, HTN, right ankle fracture in July 2023 (s/p ORIF 08/06) complicated by wound dehiscence and infection (admission 09/18) s/p antibiotic course with repeat admission 11/05-11/20/23 for
acute osteomyelitis and hardware infection status post debridement and pinning 11/07/23; s/p right ankle salvage reconstruction surgery 11/14/23 discharged with wound vac; now s/p right ankle external fixator removal, lateral plate hardware removal
and wound debridement on 02/18/24.
Right Ankle Hardware Infection
-s/p right ankle external fixator removal, lateral plate hardware removal and wound debridement today.
-appreciate Podiatry
-admit to med/surg
-F/U cultures and Pathology specimen obtained
-IV Vancomycin
-ID input (will wait until surgical plan regarding BKA discussed between Podiatry and patient)
-posterior splint to remain C/D/I
-strict NWB RLE
-pain control
HLD
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
IDDM
-Patient is on Insulin Degludec 20 BID at home
-increase lantus to 10 BID and monitor
-ISS low
-Diabetic diet
Diabetic Neuropathy
-[employer] COMPENSATION Lyrica
Essential HTN
-[employer] COMPENSATION Losartan
DVT PPx - Hep subQ (OK'd by Dr. Napier)
FULL CODE
Anticipated Discharge: > 48 hours
Subjective/Interval History
-
Date of Service: February 19, 2024
feeling okay this morning
pain controlled
Objective Data
-
Labs:
Laboratory Results
02/19/24
05:06
WBC 10.6
Hgb 8.3 L
Hct 25.8 L
Plt Count 343
Sodium 135
Potassium 4.8
Chloride 99
Carbon Dioxide 29
BUN 18
Creatinine 0.9
Glucose 198 H
Calcium 8.1 L
Vital Signs:
Vital Signs
Temp Pulse Resp BP Pulse Ox
98.4 F 75 18 132/71 97
02/19/24 07:15 02/19/24 07:15 02/19/24 07:15 02/19/24 07:15 02/19/24 07:15
I&O
02/18/24 02/19/24 02/20/24
06:59 06:59 06:59
Intake Total 1620 / 1620
Output Total 300 / 300
Balance 1320 / 1320
Review of Systems
-
History Source: Patient
All other systems: Reviewed and negative
Physical Exam
-
General: Well Developed, Well Nourished, No Apparent Distress and Comfortable
Respiratory: Clear to Auscultation; Negative Wheezes
Cardiac: Regular Rhythm and S1/S2; Negative Murmur
GI: Soft, Nontender, Nondistended and Normal Bowel Sounds
Musculoskeletal: Other (RLE wrapped)
Skin: Warm and Dry
Neuro: Awake, Alert, Oriented and AO x 3
Psych: Calm
Data Reviewed
-
Diagnostic Radiology: Report Reviewed by me
Labs: Labs Reviewed by me
--- NOTE | 2024-02-19 08:58 | PHA.VAN.IN ---
Assessment
- Assessment
Renal Function: Appears similar to baseline
Concomitant Antimicrobials: none
- Previous Dosing Experience
Previous Regimen: 750 mg q12h
Date of Regimen: 10/2023
Provided Trough of: 12.3
Provided AUC of: 419
Patient's SCR is: Similar to previous dosing experience
Patient's weight is: Decreased compared to previous dosing experience (74 kg vs 78 kg)
AUC Dosing Plan
- Dosing Variables
Dosing Weight (kg): 74
Dosing CrCl (ml/min): 70
Vd coefficient (L/kg): 0.7
- Empiric Dosing
Initial / Loading Dose: 1000 mg - 02/17 120
Maintenance Regimen: 750 mg q12h - first dose now
Estimated AUC (mcg*h/mL): 478
Estimated Peak (mcg*h/mL): 27.4
Estimated Trough (mcg/ml): 13.8
Estimated Half Life (H): 11.1
- Monitoring
No levels ordered at this time: consider levels after pt reached steady state
Pharmacokinetics Vancomycin I
- -
Patient Age: 73
Patient Sex: Male
Vancomycin Day #: 1
Indication: Skin And Soft Tissue
Requesting Provider: Adrienne
Pertinent Antimicrobial Allergies:
penicillin - SOB at 9 years old
Height / Weight:
Height 5 ft 8 in
Actual Weight 74.026 kg
Pertinent Past Medical History: R ankle fx 08/19; hardware infection 11/19
- Vital Signs / Lab Results
Temp Pulse Resp BP Pulse Ox
98.4 F 75 18 132/71 97
02/19/24 07:15 02/19/24 07:15 02/19/24 07:15 02/19/24 07:15 02/19/24 07:15
Lab Results - Hematology
02/18/24 02/19/24
11:45 05:06
WBC 11.8 H 10.6
Lab Results - Chemistry
02/18/24 02/19/24
11:45 05:06
BUN 16 18
Creatinine 0.8 0.9
Estimated Creat Clear 78 70
Albumin 3.1 L
Microbiology Results
02/18/24 14:21 Gram Stain - Preliminary
Ankle - Right
02/18/24 14:24 Gram Stain - Preliminary
Ankle - Right
[2024-02-19] MEDS: COZAAR 25 MG PO (09:06)
[2024-02-19] MEDS: PERCOCET 5/325 1 TABLET PO ×2 (09:06→21:06)
[2024-02-19] MEDS: LYRICA 100 MG PO ×3 (09:06→21:06)
[2024-02-19] MEDS: HEPARIN 5000 UNITS SC ×2 (09:06→21:07)
[2024-02-19] MEDS: VANCOCIN 150 IV (09:17)
[2024-02-19] MEDS: FLUSH (NSS) 1 FLUSH IV (09:20)
[2024-02-19] MEDS: NOVOLOG FLEXPEN-LOW RESISTANCE SC (10:16)
[2024-02-19] MEDS: LANTUS 0.1 UNITS SC ×2 (10:16→21:06)
[2024-02-19] MEDS: LANTUS SC (10:24)
--- NOTE | 2024-02-19 11:10 | CM ---
CM following re: discharge planning.
Reviewed pt's chart, met with pt.
Pt is a 73 year old male, admitted with primary dx of Right Ankle Hardware Infection, s/p right ankle external fixator removal, lateral plate hardware removal and wound debridement.
Pt reports he lives alone in an apartment, has supportive sister, brother and an uncle. Pt reports he has been at [facility] for a short term rehab since 11/19/23 and pt stated he will return back to [facility] to continue rehab
services and his ultimate goal is to return back home when he can walk and his wounds are healed. Pt reports he uses a walker at [facility] and a wheelchair.
CM spoke to [facility] salary and wage administrator and liaison and they confirmed that pt will be accepted back when medically stable. Pt has Medicare and Medicaid pending and the senior living for the pt is to return back home after the completion of a short
term rehab and when pt is independent with functional ability. Pt is on 15 day Medicaid pending bed hold.
D/C plan: return back to [facility] when medically stable.
CM will follow with discharge plan updates as hospitalization progresses
[2024-02-19 12:15] LABS: Glucose - Point of Care 220 mg/dl (70-99)
--- NOTE | 2024-02-19 12:59 | PTCARENOTE ---
verbal nursing report given to Sheela GONZALES on 2N. pt and all personal belongings moved via bed to rm 2127. pt aware of need to move to 2N for contact precautions.
--- NOTE | 2024-02-19 13:01 | PTCARENOTE ---
Patient transferred to room 7 from on contact precautions. Patient AAOx3, VSS, oriented to room and call Dr. Quyen tristan at bedside.
[2024-02-19] MEDS: NOVOLOG FLEXPEN-LOW RESISTANCE 2 UNITS SC (13:15)
--- NOTE | 2024-02-19 13:37 | W.PN.SURGUPD ---
Surgical Update
Surgical Update
73 yo M s/p R external fixator removal, wound debridement, deep hardware removal
-Patient seen and evaluated at bedside. Removed dressings and re-applied betadine, DSD, well padded posterior splint
-Had a lengthy discussion about RLE limb prognosis. Patient has a grossly unstable limb with evidence of residual deep infection. He was strongly encouraged to consider a RLE proximal amputation given his life threatening limb infection. Patient
adamantly refused this despite the risks being thoroughly discussed. Patient understands that he likely will be unable to bear weight on his right limb in the near future, if ever.
-Ongoing treatment with consist of additional course of antibiotics per ID recs, local wound, and strict offloading
-Recommend nursing dressing changes to RLE 3x weekly starting later this week, see below and orders
Please pack medial ankle wound and posterior proximal calf wound with iodoform packing OR betadine soaking DSD. Apply betadine soaked gauze pads to right ankle incisions and pin sites, following by ABDs and gratuitous amounts of casting padding,
followed by posterior splint secured with TALIA bandages.
-Patient would like to pursue second opinion at [facility] as an outpatient which will be arranged from him
-Will continue to follow
[2024-02-19 14:34] LABS: Glycohemoglobin (HgbA1c) 6.6 % (4.0-5.6)
--- NOTE | 2024-02-19 15:41 | CON.ID ---
Consultation
-
Date/Time Consultation Requested: 02/19/2024 1352
Date/Time Consultation Performed: 02/19/2024 1527
Requesting Provider: Dr. Deleon
Performing Provider: Dr. Ricardo
Reason for Consultation: Right ankle infection / septic arthritis
Chief Complaint / Past History
History of Present Illness
Jacques Horowitz is a 73-year-old man being evaluated at the request of Dr. Deleon in regards to right ankle septic arthritis. History is obtained from chart review, along with patient interview.
Patient has a significant past medical history of diabetes mellitus with associated neuropathy. In mid July he sustained a fall, once at his friend's home, and then on his driveway. Reviewed notes from that time indicate that he developed
significant ankle pain, but did not immediately seek medical care, and was reportedly crawling on his knees for approximately 2 days to keep his ankle off the floor. Ultimately when he was brought to the emergency room he was found to have a large
and deep wound of the ankle, and imaging revealed a comminuted distal fibular fracture. He was taken emergently to the OR and underwent an ORIF. He received appropriate postop prophylactic antibiotics, and was discharged to home on 08/11.
He had close follow-up with orthopedics in the outpatient setting, and was subsequently found to have a dehiscence of the medial ankle wound. He was started on antibiotics, and ultimately discharged home on Bactrim twice daily.
He presented back to the ER on 11/06/2023 with a worsening medial malleoli are wound, with exposed tibia after a failed ankle ORIF and fracture subluxation with loosened and bent hardware. He was taken to the OR and underwent repair and application
of wound VAC. Cultures at that time grew out Enterococcus faecalis and MSSA. He ultimately was discharged to home to continue with ertapenem and vancomycin through 12/17/2023.
The patient was evaluated by Orthopedics on 01/27 and reviewed notes indicate that the wound was doing well and further wound VAC was to be discontinued.
He presents to the hospital on 02/17 for right external fixator removal and right fibular hardware removal. Intraoperative findings were significant for pin tract infection and a new lateral wound. Cultures of those wounds now revealed the
presence of MRSA. Amputation (BKA) has been discussed with the patient and he is reluctant to go that route at present, preferring to attempt further limb salvage with antibiotic therapy. Infectious Diseases is asked to comment and manage further
antibiotics.
The patient denies any recent fevers or chills.
Past History
Additional Past Medical History:
Diabetes mellitus
Neuropathy
Hypertension
Dyslipidemia
Depression
Additional Past Surgical History:
Ankle surgery
Allergy History:
Penicillins Allergy (Verified 02/18/24 11:22)
at 9 years old, shortness of breath
Medications Reviewed: Yes
Current Antibiotics:
Vanco
Social History
Tobacco: Non-Smoker
Alcohol: None
Drug: None
Personal: Single
Living: Alone
Employment: Not Employed
Family History
Family History: Not Pertinent
Review of Systems
Vital Signs
Temp Pulse Resp BP Pulse Ox
99.3 F 81 18 138/66 100
02/19/24 15:36 02/19/24 15:36 02/19/24 15:36 02/19/24 15:36 02/19/24 15:36
Physical Exam
Physical Exam
Constitutional: No Acute Distress, Comfortable and Non-toxic
Eyes: No Conjunctival Hemorrhage and Sclera Anicteric
Oral: No Thrush and No Ulcers
Cardiovascular: S1/S2; Negative S3/S4
Pulmonary: Clear; Negative Wheezes or Rales
Gastrointestinal: Soft and Non Tender
Extremities: Negative Edema or Cyanosis
Wound: Other (Right distal leg wrapped in Pato wrap. Leg and ankle in splint.)
Neurological: Awake and Alert
Psychological: Calm
Lab / Diagnostic Study Results
02/19/24 05:06
02/19/24 05:06
Abs Immat Gran (auto) 0.0 10^3/uL (0-0.05) 02/19/24 05:06
Absolute Neuts (auto) 8.4 10^3/uL (1.4-6.5) H 02/19/24 05:06
Absolute Lymphs (auto) 1.0 10^3/uL (1.2-3.4) L 02/19/24 05:06
Absolute Monos (auto) 0.8 10^3/uL (0.1-0.6) H 02/19/24 05:06
Absolute Basos (auto) 0.1 10^3/uL (0-0.2) 02/19/24 05:06
Immature Gran % 0.4 % (0-0.5) 02/19/24 05:06
Neutrophils % 79.2 % (42.2-75.2) H 02/19/24 05:06
Lymphocytes % 9.6 % (20.5-51.1) L 02/19/24 05:06
Monocytes % 7.7 % (1.7-9.3) 02/19/24 05:06
Eosinophils % 2.2 % (0-6) 02/19/24 05:06
Basophils % 0.9 % (0-2) 02/19/24 05:06
Microbiology Results
Micro:
02/18/24 14:21 Anaerobic Culture - Preliminary
Ankle - Right Culture pending. Anaerobic cultures are examined after 3
days incubation. Additional information to follow.
02/18/24 14:21 Wound Culture - Preliminary
Ankle - Right Staph aureus MRSA
Gram Stain - Preliminary
02/18/24 14:24 Anaerobic Culture - Preliminary
Ankle - Right Culture pending. Anaerobic cultures are examined after 3
days incubation. Additional information to follow.
02/18/24 14:24 Wound Culture - Preliminary
Ankle - Right Staph aureus MRSA
Gram Stain - Preliminary
Assessment / Plan
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
- Hx right ankle debridement with right lower extremity external fixator application
- s/p ExFix removal 02/18/24
Pin tract infection
Leukocytosis
DM2 - moderate control
Recommendations:
Chart reviewed extensively. Orthopedics has offered and suggested BKA, although at the present time, the patient would like to exhaust all possible options.
Will continue with course of antibiotics in the treatment of recovered MRSA.
Patient also notes that he would like a second opinion at a tertiary care center.
Given recovery of MRSA, will transition to daptomycin for ease of administration.
Patient understands high risk situation. Given extent of infection, patient even with IV antibiotics is at high risk for limb loss.
Care Review
Plan reviewed with: Physician (Podiatry)
[2024-02-19 17:36] LABS: Glucose - Point of Care 158 mg/dl (70-99)
[2024-02-19] MEDS: NOVOLOG FLEXPEN-LOW RESISTANCE 1 UNITS SC (17:38)
[2024-02-19] MEDS: CUBICIN 16 MG IV (17:57)
[2024-02-19 21:07] LABS: Glucose - Point of Care 204 mg/dl (70-99)
[2024-02-20 06:04] LABS: Hemoglobin 7.8 g/dL (13.0-18.0); Mean Corp Hgb Conc. 31.2 g/dL (33.0-37.0); Mean Corpuscular Hgb 23.9 pg (27.0-31.0); Mean Corpuscular Volume 76.7 fL (80.0-94.0); Mean Platelet Volume 10.2 fL (7.4-10.4); Platelet Count 329 10^3/uL (130-400); Red Blood Cell Count 3.26 10^6/uL (4.70-6.10); Red Cell Dist. Width 16.7 % (11.5-14.5); White Blood Cell Count 9.1 10^3/uL (4.8-10.8)
[2024-02-20 06:24] LABS: Blood Urea Nitrogen 15 mg/dl (9-20); Calcium 8.1 mg/dl (8.4-10.2); Carbon Dioxide 31 mmol/L (22-30); Chloride 101 mmol/L (98-107); Creatine Phosphokinase 30 U/L (55-170); Estimated Creatinine Clearance 70 ml/min; Glucose 153 mg/dl (70-99); Potassium 4.1 mmol/L (3.5-5.1); Sodium 136 mmol/L (135-145); eGFR > 60.00
[2024-02-20 07:05] VITALS: BP 141/80
[2024-02-20] MEDS: HEPARIN 5000 UNITS SC ×2 (07:56→20:38)
[2024-02-20] MEDS: COZAAR 25 MG PO (07:57)
[2024-02-20] MEDS: LYRICA 100 MG PO ×3 (07:57→20:39)
[2024-02-20] MEDS: PERCOCET 5/325 1 TABLET PO ×2 (07:57→20:39)
[2024-02-20 08:25] LABS: Erythrocyte Sed Rate 89 mm/hour (0-20)
[2024-02-20 08:25] LABS: Glucose - Point of Care 136 mg/dl (70-99)
[2024-02-20] MEDS: NOVOLOG FLEXPEN-LOW RESISTANCE SC (08:59)
[2024-02-20] MEDS: LANTUS 0.1 UNITS SC ×2 (08:59→23:17)
--- NOTE | 2024-02-20 09:47 | W.PN.HOSP.TC ---
Today's Communication/Plan
-
see plan
Assessment / Plan
Assessment / Plan
Mr. Jacques Horowitz is a 73 yo man with hx IDDM, diabetic neuropathy, HTN, right ankle fracture in July 2023 (s/p ORIF 08/06) complicated by wound dehiscence and infection (admission 09/18) s/p antibiotic course with repeat admission 11/05-11/20/23 for
acute osteomyelitis and hardware infection status post debridement and pinning 11/07/23; s/p right ankle salvage reconstruction surgery 11/14/23 discharged with wound vac; now s/p right ankle external fixator removal, lateral plate hardware removal
and wound debridement on 02/18/24.
Right Ankle Hardware Infection MRSA
-s/p right ankle external fixator removal, lateral plate hardware removal and wound debridement 02/17.
-appreciate Podiatry
-appreciate ID
-IV Daptomycin
-posterior splint to remain C/D/I
-strict NWB RLE
-pain control
-patient wishing to seek second opinion, BKA was advised
HLD
-INSTRUMENT CALIBRATOR Statin
IDDM
-Patient is on Insulin Degludec 20 BID at home
-increase lantus to 10 BID and monitor
-ISS low
-Diabetic diet
Diabetic Neuropathy
-INSTRUMENT CALIBRATOR Lyrica
Essential HTN
-INSTRUMENT CALIBRATOR Losartan
DVT PPx - Hep subQ (OK'd by Dr. Napier)
FULL CODE
Anticipated Discharge: > 48 hours
Subjective/Interval History
-
Date of Service: February 20, 2024
no new complaints
wants to go home
Objective Data
-
Labs:
Laboratory Results
02/20/24
04:46
WBC 9.1
Hgb 7.8 L
Hct 25.0 L
Plt Count 329
Sodium 136
Potassium 4.1
Chloride 101
Carbon Dioxide 31 H
BUN 15
Creatinine 0.9
Glucose 153 H
Calcium 8.1 L
Vital Signs:
Vital Signs
Temp Pulse Resp BP Pulse Ox
98.5 F 82 14 141/80 96
02/20/24 07:05 02/20/24 07:05 02/20/24 07:05 02/20/24 07:05 02/20/24 07:05
I&O
02/19/24 02/20/24 02/21/24
06:59 06:59 06:59
Intake Total 1620 / 1620 1110 / 1110
Output Total 300 / 300
Balance 1320 / 1320 1110 / 1110
Review of Systems
-
History Source: Patient
All other systems: Reviewed and negative
Physical Exam
-
General: Well Developed, Well Nourished, No Apparent Distress and Comfortable
Respiratory: Clear to Auscultation; Negative Wheezes
Cardiac: Regular Rhythm and S1/S2; Negative Murmur
GI: Soft, Nontender, Nondistended and Normal Bowel Sounds
Musculoskeletal: Other (RLE wrapped)
Skin: Warm and Dry
Neuro: Awake, Alert, Oriented and AO x 3
Psych: Calm
Data Reviewed
-
Diagnostic Radiology: Report Reviewed by me
Labs: Labs Reviewed by me
[2024-02-20 11:52] LABS: Iron 26 ug/dl (49-181)
[2024-02-20 12:02] LABS: Percent Saturation 15 % (20-50); Total Iron Binding Capacity 163 ug/dl (261-462)
[2024-02-20 12:37] LABS: Glucose - Point of Care 174 mg/dl (70-99)
[2024-02-20] MEDS: NOVOLOG FLEXPEN-LOW RESISTANCE 1 UNITS SC (12:52)
[2024-02-20] MEDS: FEOSOL PO (12:56)
[2024-02-20] MEDS: ROXICODONE 5 MG PO ×3 (12:56→23:20)
[2024-02-20 15:35] VITALS: BP 134/66
[2024-02-20 16:41] LABS: Glucose - Point of Care 208 mg/dl (70-99)
[2024-02-20] MEDS: CUBICIN 16 MG IV (17:06)
[2024-02-20] MEDS: NOVOLOG FLEXPEN-LOW RESISTANCE 2 UNITS SC (17:07)
[2024-02-20 21:52] LABS: Glucose - Point of Care 163 mg/dl (70-99)
[2024-02-20 23:54] VITALS: BP 158/74
[2024-02-21 07:01] LABS: Hematocrit 24.7 % (39.0-52.0); Hemoglobin 7.9 g/dL (13.0-18.0); Mean Corpuscular Hgb 24.4 pg (27.0-31.0); Mean Corpuscular Volume 76.2 fL (80.0-94.0); Mean Platelet Volume 9.8 fL (7.4-10.4); Platelet Count 342 10^3/uL (130-400); Red Blood Cell Count 3.24 10^6/uL (4.70-6.10); Red Cell Dist. Width 16.6 % (11.5-14.5)
[2024-02-21 07:31] LABS: Blood Urea Nitrogen 13 mg/dl (9-20); Calcium 8.4 mg/dl (8.4-10.2); Carbon Dioxide 31 mmol/L (22-30); Chloride 101 mmol/L (98-107); Estimated Creatinine Clearance 70 ml/min; Glucose 123 mg/dl (70-99); Potassium 4.3 mmol/L (3.5-5.1); Sodium 137 mmol/L (135-145); eGFR > 60.00
[2024-02-21 07:51] VITALS: BP 147/72
[2024-02-21] MEDS: HEPARIN 5000 UNITS SC ×2 (08:09→20:55)
[2024-02-21] MEDS: LYRICA 100 MG PO ×3 (08:09→20:55)
[2024-02-21] MEDS: PERCOCET 5/325 1 TABLET PO ×2 (08:09→20:54)
[2024-02-21] MEDS: COZAAR 25 MG PO (08:09)
--- NOTE | 2024-02-21 08:11 | W.PN.HOSP.TC ---
Today's Communication/Plan
-
see plan
Assessment / Plan
Assessment / Plan
Mr. Jacques Horowitz is a 73 yo man with hx IDDM, diabetic neuropathy, HTN, right ankle fracture in July 2023 (s/p ORIF 08/06) complicated by wound dehiscence and infection (admission 09/18) s/p antibiotic course with repeat admission 11/05-11/20/23 for
acute osteomyelitis and hardware infection status post debridement and pinning 11/07/23; s/p right ankle salvage reconstruction surgery 11/14/23 discharged with wound vac; now s/p right ankle external fixator removal, lateral plate hardware removal
and wound debridement on 02/18/24.
Right Ankle Hardware Infection MRSA
-s/p right ankle external fixator removal, lateral plate hardware removal and wound debridement 02/17.
-appreciate Podiatry
-appreciate ID
-IV Daptomycin
-posterior splint to remain C/D/I
-strict NWB RLE
-pain control
-patient wishing to seek second opinion, BKA was advised; now stating he doesn't think he'll get down to [place]. Wishes to go home and give antibiotics 2 week course
HLD
-FOOD SERVICE Statin
IDDM
-Patient is on Insulin Degludec 20 BID at home
-increase lantus to 10 BID and monitor
-ISS low
-Diabetic diet
Diabetic Neuropathy
-FOOD SERVICE Lyrica
Essential HTN
-FOOD SERVICE Losartan
DVT PPx - Hep subQ
FULL CODE
Anticipated Discharge: 24 - 48 hours
Subjective/Interval History
-
Date of Service: February 21, 2024
no new complaints
will refuse SNF, states he can get around
Objective Data
-
Labs:
Laboratory Results
02/21/24
06:43
WBC 8.0
Hgb 7.9 L
Hct 24.7 L
Plt Count 342
Sodium 137
Potassium 4.3
Chloride 101
Carbon Dioxide 31 H
BUN 13
Creatinine 0.9
Glucose 123 H
Calcium 8.4
Vital Signs:
Vital Signs
Temp Pulse Resp BP Pulse Ox
98.0 F 72 14 147/72 99
02/21/24 07:51 02/21/24 07:51 02/21/24 07:51 02/21/24 07:51 02/21/24 07:51
I&O
02/20/24 02/21/24 02/22/24
06:59 06:59 06:59
Intake Total 1110 / 1110 840 / 840 420 / 420
Output Total 450 / 450 450 / 450
Balance 1110 / 1110 390 / 390 -30 / -30
Review of Systems
-
History Source: Patient
All other systems: Reviewed and negative
Physical Exam
-
General: Well Developed, Well Nourished, No Apparent Distress and Comfortable
Respiratory: Clear to Auscultation; Negative Wheezes
Cardiac: Regular Rhythm and S1/S2; Negative Murmur
GI: Soft, Nontender, Nondistended and Normal Bowel Sounds
Musculoskeletal: Other (RLE wrapped)
Skin: Warm and Dry
Neuro: Awake, Alert, Oriented and AO x 3
Psych: Calm
Data Reviewed
-
Diagnostic Radiology: Report Reviewed by me
Labs: Labs Reviewed by me
[2024-02-21 08:15] LABS: Glucose - Point of Care 122 mg/dl (70-99)
[2024-02-21] MEDS: LANTUS 0.1 UNITS SC ×2 (08:26→20:55)
[2024-02-21] MEDS: NOVOLOG FLEXPEN-LOW RESISTANCE SC (08:27)
[2024-02-21] MEDS: FEOSOL 325 MG PO (08:33)
--- NOTE | 2024-02-21 08:49 | PN.CDI ---
CDI
- -
CDI:
Physician Documentation Request
Admit Date: 02/18/24 10:29
Dear Doctor Adrienne,
Please review the following and provide your response in the progress notes.
Clinical Indicators:
Laboratory Tests
02/18/24 02/19/24 02/20/24
11:45 05:06 04:46
Hgb 9.2 L 8.3 L 7.8 L
02/21/24
06:43
Hgb 7.9 L
Based on the above and your clinical assessment, please clarify, the the most likely condition/diagnosis evaluated, monitored and/or treated?
Acute blood loss anemia
Acute blood loss anemia with baseline chronic anemia (Specify type)
Anemia of chronic disease - indicate if neoplastic disease, CKD or other
Other(please specify)
Use of terms such as suspected, likely, concern for, or probable (associated with a specific diagnosis that is being evaluated, monitored, or treated as if it exists) are acceptable and can be coded in the inpatient setting, when documented at the
time of discharge.
Thank you,
Leighann Cleveland RN BSN CCDS
CDI Specialist
please contact via tiger text
Please use your independent medical judgment in providing your response.
--- NOTE | 2024-02-21 10:59 | W.PN.SURGUPD ---
Surgical Update
Surgical Update
73 yo M s/p R external fixator removal, wound debridement, deep hardware removal
-Patient seen and evaluated at bedside
-Posterior splint remains C/D/I. Strict NWB to RLE
-See previous note on 02/18 for wound care instructions
-Anticipate extended course of antibiotics, appreciate ID recs
-Patient will require 3x home nursing dressing changes upon discharge. Same wound care instructions as inpatient instructions
-Will continue to follow
--- NOTE | 2024-02-21 11:36 | W.PN.ID1 ---
Date of Service
Date of Service: February 21, 2024
Today's Communication
Continue antibiotics.
Assessment / Plan
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
- Hx right ankle debridement with right lower extremity external fixator application
- s/p ExFix removal 02/18/24
Pin tract infection
Leukocytosis
DM2 - moderate control
Recommendations:
Chart reviewed extensively. Orthopedics has offered and suggested BKA, although at the present time, the patient would like to exhaust all possible options.
Will continue with a 6-week course of daptomycin in the treatment of recovered MRSA.
Outpatient infusion sheet has been given to case management.
Will follow-up in the office in approximately 2 to 3 weeks.
--> Hold statin while he is on daptomycin <--
Patient also notes that he would like a second opinion at a tertiary care center.
Patient understands high risk situation. Given extent of infection, patient even with IV antibiotics is at high risk for limb loss.
����������������������������������������������������������
Chief Complaint
-: Other (Osteomyelitis right ankle)
Subjective / Review of Systems
Review of Systems: No Fever and No Chills
Vital Signs / Physical Exam
Vital Signs
Vital Signs
Temp Pulse Resp BP Pulse Ox
98.0 F 72 14 147/72 99
02/21/24 07:51 02/21/24 07:51 02/21/24 07:51 02/21/24 07:51 02/21/24 07:51
Physical Exam
Constitutional: No Acute Distress, Comfortable, Chronically Ill and Non-toxic
Eyes: Sclera Anicteric
Cardiovascular: S1/S2; Negative S3/S4
Pulmonary: Non Labored; Negative Wheezes
Gastrointestinal: Non Distended
Musculoskeletal: Other (Right ankle and foot dressed in Pato wrap.)
Skin: Negative Rash or Jaundice
Neurological: Awake and Alert
Psychological: Calm
Objective Data
Lab Data
Lab Results
02/21/24 06:43
02/21/24 06:43
ESR 89 mm/hour (0-20) H 02/20/24 04:46
Estimated Creat Clear 70 ml/min 02/21/24 06:43
Total Bilirubin 0.5 mg/dl (0.2-1.3) 02/18/24 11:45
AST 17 U/L (17-59) 02/18/24 11:45
ALT 11 U/L (0-50) 02/18/24 11:45
Alkaline Phosphatase 127 U/L (38-126) H 02/18/24 11:45
C-Reactive Protein 147.40 mg/L (0.0-10.00) H 02/20/24 04:46
Most recent labs reviewed.
Micro Results:
02/18/24 14:21 Anaerobic Culture - Preliminary
Ankle - Right NO ANAEROBES ISOLATED
02/18/24 14:24 Anaerobic Culture - Preliminary
Ankle - Right NO ANAEROBES ISOLATED
02/18/24 14:21 Wound Culture - Preliminary
Ankle - Right Staph aureus MRSA
Gram Stain - Preliminary
02/18/24 14:24 Wound Culture - Preliminary
Ankle - Right Staph aureus MRSA
Gram Stain - Preliminary
[2024-02-21 11:43] VITALS: BP 162/81; PULSE 89
--- NOTE | 2024-02-21 13:13 | CM ---
Patient seen at bedside with brother Christiano
s/p Right external fixator removal, right fibular
hardware removal x2
Will need IV antibiotic until 04/02/24
Faxed script for IV Daptomycin 800 mg IV Q24h to [facility] at [facility]
Patient to have PICC placed today
Patient stating he does not wish to return to [facility].
Offered other options - states he would like to return home.
PLAN: SNF vs. home with IV antibiotics - CM to follow up for dispo planning
[2024-02-21 13:18] LABS: Glucose - Point of Care 187 mg/dl (70-99)
[2024-02-21] MEDS: NOVOLOG FLEXPEN-LOW RESISTANCE 1 UNITS SC ×2 (13:19→17:24)
[2024-02-21 15:40] VITALS: BP 130/66
[2024-02-21 16:55] LABS: Glucose - Point of Care 191 mg/dl (70-99)
[2024-02-21] MEDS: ROXICODONE 5 MG PO (17:16)
[2024-02-21] MEDS: CUBICIN 16 MG IV (17:16)
[2024-02-21 21:34] LABS: Glucose - Point of Care 161 mg/dl (70-99)
[2024-02-21 23:13] VITALS: BP 149/71
[2024-02-22 07:39] VITALS: BP 167/87
[2024-02-22 08:27] LABS: Glucose - Point of Care 111 mg/dl (70-99)
[2024-02-22] MEDS: PERCOCET 5/325 1 TABLET PO ×2 (08:53→20:15)
[2024-02-22] MEDS: LYRICA 100 MG PO ×3 (08:53→22:38)
[2024-02-22] MEDS: NOVOLOG FLEXPEN-LOW RESISTANCE SC ×2 (08:53→12:00)
[2024-02-22] MEDS: LANTUS 0.1 UNITS SC ×2 (08:56→22:38)
[2024-02-22] MEDS: COZAAR 25 MG PO (08:56)
[2024-02-22] MEDS: HEPARIN 5000 UNITS SC ×2 (08:57→20:14)
--- NOTE | 2024-02-22 09:00 | W.PN.HOSP.TC ---
Addendum entered and electronically signed by Sonia Deleon MD 02/22/24 09:04:
Acute blood loss anemia with baseline chronic anemia - mixed PARRISH and anemia of chronic disease
-Hg stable, transfuse for < 7
-follow up with GI as outpatient
-continue TRAFFIC LIEUTENANT iron pills
Original Note:
Today's Communication/Plan
-
dispo planning for home infusion IV antibiotic therapy
PICC ordered
wound care ordered by Dr. Diaz's note
Assessment / Plan
Assessment / Plan
Mr. Jacques Horowitz is a 73 yo man with hx IDDM, diabetic neuropathy, HTN, right ankle fracture in July 2023 (s/p ORIF 08/06) complicated by wound dehiscence and infection (admission 09/18) s/p antibiotic course with repeat admission 11/05-11/20/23 for
acute osteomyelitis and hardware infection status post debridement and pinning 11/07/23; s/p right ankle salvage reconstruction surgery 11/14/23 discharged with wound vac; now s/p right ankle external fixator removal, lateral plate hardware removal
and wound debridement on 02/18/24.
Right Ankle Hardware Infection MRSA
-s/p right ankle external fixator removal, lateral plate hardware removal and wound debridement 02/17.
-appreciate Podiatry
-appreciate ID
-IV Daptomycin - continue 6 week course; order PICC today. Patient does not want SNF --> discussing with CM setting up home infusion therapy
-posterior splint to remain C/D/I
-strict NWB RLE
-pain control
-patient wishing to seek second opinion, BKA was advised; now stating he doesn't think he'll get down to [place].
HLD
-hold statin while on Daptomycin
IDDM
-Patient is on Insulin Degludec 20 BID at home
-increase lantus to 10 BID and monitor
-ISS low
-Diabetic diet
Diabetic Neuropathy
-TRAFFIC LIEUTENANT Lyrica
Essential HTN
-TRAFFIC LIEUTENANT Losartan
DVT PPx - Hep subQ
FULL CODE
Anticipated Discharge: Within 24 hours
Subjective/Interval History
-
Date of Service: February 22, 2024
no new complaints
Objective Data
-
Vital Signs:
Vital Signs
Temp Pulse Resp BP Pulse Ox
97.9 F 77 12 167/87 98
02/22/24 07:39 02/22/24 07:39 02/22/24 07:39 02/22/24 07:39 02/22/24 07:39
I&O
02/21/24 02/22/24 02/23/24
06:59 06:59 06:59
Intake Total 840 / 840 1860 / 1860
Output Total 450 / 450 450 / 450
Balance 390 / 390 1410 / 1410
Review of Systems
-
History Source: Patient
All other systems: Reviewed and negative
Physical Exam
-
General: Well Developed, Well Nourished, No Apparent Distress and Comfortable
Respiratory: Clear to Auscultation; Negative Wheezes
Cardiac: Regular Rhythm and S1/S2; Negative Murmur
GI: Soft, Nontender, Nondistended and Normal Bowel Sounds
Musculoskeletal: Other (RLE wrapped)
Skin: Warm and Dry
Neuro: Awake, Alert, Oriented and AO x 3
Psych: Calm
Data Reviewed
-
Diagnostic Radiology: Report Reviewed by me
Labs: Labs Reviewed by me
[2024-02-22 11:56] LABS: Glucose - Point of Care 149 mg/dl (70-99)
--- NOTE | 2024-02-22 12:00 | W.PN.ID1 ---
Date of Service
Date of Service: February 22, 2024
Today's Communication
Continue antibiotics.
Assessment / Plan
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
- Hx right ankle debridement with right lower extremity external fixator application
- s/p ExFix removal 02/18/24
Pin tract infection
Elevated ESR / CRP
Leukocytosis
DM2 - moderate control
Recommendations:
Chart reviewed extensively. Orthopedics has offered and suggested BKA, although at the present time, the patient would like to exhaust all possible options.
Will continue with a 6-week course of daptomycin in the treatment of recovered MRSA.
Outpatient infusion sheet has been given to case management.
Will follow-up in the office in approximately 2 to 3 weeks.
--> Hold statin while he is on daptomycin <--
Patient also notes that he would like a second opinion at a tertiary care center.
Patient understands high risk situation. Given extent of infection, patient even with IV antibiotics is at high risk for limb loss.
����������������������������������������������������������
Chief Complaint
-: Other (Osteomyelitis right ankle)
Subjective / Review of Systems
Review of Systems: No Fever and No Chills
Vital Signs / Physical Exam
Vital Signs
Vital Signs
Temp Pulse Resp BP Pulse Ox
97.9 F 77 12 167/87 98
02/22/24 07:39 02/22/24 08:56 02/22/24 07:39 02/22/24 08:56 02/22/24 07:39
Physical Exam
Constitutional: No Acute Distress, Comfortable, Chronically Ill and Non-toxic
Eyes: Sclera Anicteric
Cardiovascular: S1/S2; Negative S3/S4
Pulmonary: Clear and Non Labored; Negative Wheezes
Gastrointestinal: Soft, Non Tender and Non Distended
Musculoskeletal: Other (Right ankle and foot dressed in Pato wrap.)
Skin: Negative Rash or Jaundice
Neurological: Awake and Alert
Psychological: Calm
Objective Data
Lab Data
Lab Results
02/21/24 06:43
02/21/24 06:43
ESR 89 mm/hour (0-20) H 02/20/24 04:46
Estimated Creat Clear 70 ml/min 02/21/24 06:43
Total Bilirubin 0.5 mg/dl (0.2-1.3) 02/18/24 11:45
AST 17 U/L (17-59) 02/18/24 11:45
ALT 11 U/L (0-50) 02/18/24 11:45
Alkaline Phosphatase 127 U/L (38-126) H 02/18/24 11:45
C-Reactive Protein 147.40 mg/L (0.0-10.00) H 02/20/24 04:46
Most recent labs reviewed.
Micro Results:
02/18/24 14:21 Anaerobic Culture - Preliminary
Ankle - Right NO ANAEROBES ISOLATED
02/18/24 14:24 Anaerobic Culture - Preliminary
Ankle - Right NO ANAEROBES ISOLATED
02/18/24 14:21 Wound Culture - Preliminary
Ankle - Right Staph aureus MRSA
Gram Stain - Preliminary
02/18/24 14:24 Wound Culture - Preliminary
Ankle - Right Staph aureus MRSA
Gram Stain - Preliminary
Wound/abscess/other Cult Preliminary 02/18/24
1. Staph aureus MRSA
M.I.C. RX
--------- ---
Amoxicillin/Potas. Clavulanate >4/2 R
Ampicillin >8 R
Clindamycin <=0.5 S
Gentamicin <=4 S
Erythromycin >4 R
Levofloxacin >4 R
Oxacillin >2 R
Tetracycline >8 R
Trimethoprim/Sulfamethoxazole <=0.5/9.5 S
Vancomycin 1 S
[2024-02-22] MEDS: FEOSOL 325 MG PO (14:00)
[2024-02-22] MEDS: ROXICODONE 5 MG PO (15:45)
[2024-02-22 16:53] LABS: Glucose - Point of Care 163 mg/dl (70-99)
[2024-02-22] MEDS: CUBICIN 16 MG IV (17:20)
[2024-02-22] MEDS: NOVOLOG FLEXPEN-LOW RESISTANCE 1 UNITS SC (17:20)
[2024-02-22 21:51] LABS: Glucose - Point of Care 283 mg/dl (70-99)
[2024-02-22 23:05] VITALS: BP 147/65
[2024-02-23 07:05] VITALS: BP 168/68
[2024-02-23 07:14] LABS: Glucose - Point of Care 129 mg/dl (70-99)
--- NOTE | 2024-02-23 08:40 | W.PN.HOSP.TC ---
Today's Communication/Plan
-
dispo planning
Assessment / Plan
Assessment / Plan
Mr. Jacques Horowitz is a 73 yo man with hx IDDM, diabetic neuropathy, HTN, right ankle fracture in July 2023 (s/p ORIF 08/06) complicated by wound dehiscence and infection (admission 09/18) s/p antibiotic course with repeat admission 11/05-11/20/23 for
acute osteomyelitis and hardware infection status post debridement and pinning 11/07/23; s/p right ankle salvage reconstruction surgery 11/14/23 discharged with wound vac; now s/p right ankle external fixator removal, lateral plate hardware removal
and wound debridement on 02/18/24.
Right Ankle Hardware Infection MRSA
-s/p right ankle external fixator removal, lateral plate hardware removal and wound debridement 02/17.
-appreciate Podiatry
-appreciate ID
-IV Daptomycin - continue 6 week course; s/p PICC placement 02/21. Patient does not want SNF --> discussing with CM setting up home infusion therapy
-posterior splint to remain C/D/I
-strict NWB RLE
-pain control
-patient wishing to seek second opinion, BKA was advised; now stating he doesn't think he'll get down to [place].
HLD
-hold statin while on Daptomycin
IDDM
-Patient is on Insulin Degludec 20 BID at home; A1c 6.6% - consider decreasing to 15 units BID on discharge
-increase lantus to 10 BID and monitor
-ISS low
-Diabetic diet
Diabetic Neuropathy
-SUPERVISORY TRAINING SPECIALIST Lyrica
Essential HTN
-SUPERVISORY TRAINING SPECIALIST Losartan
DVT PPx - Hep subQ
FULL CODE
Anticipated Discharge: 24 - 48 hours
Subjective/Interval History
-
Date of Service: February 23, 2024
no new complaints
Objective Data
-
Vital Signs:
Vital Signs
Temp Pulse Resp BP Pulse Ox
98.1 F 80 18 168/68 99
02/23/24 07:05 02/23/24 07:05 02/23/24 07:05 02/23/24 07:05 02/23/24 07:05
I&O
02/22/24 02/23/24 02/24/24
06:59 06:59 06:59
Intake Total 1860 / 1860 960 / 960 480 / 480
Output Total 450 / 450
Balance 1410 / 1410 960 / 960 480 / 480
Review of Systems
-
History Source: Patient
All other systems: Reviewed and negative
Physical Exam
-
General: Well Developed, Well Nourished, No Apparent Distress and Comfortable
Respiratory: Clear to Auscultation; Negative Wheezes
Cardiac: Regular Rhythm and S1/S2; Negative Murmur
GI: Soft, Nontender, Nondistended and Normal Bowel Sounds
Musculoskeletal: Other (RLE wrapped)
Skin: Warm and Dry
Neuro: Awake, Alert, Oriented and AO x 3
Psych: Calm
Data Reviewed
-
Diagnostic Radiology: Report Reviewed by me
Labs: Labs Reviewed by me
[2024-02-23] MEDS: NOVOLOG FLEXPEN-LOW RESISTANCE SC (09:00)
[2024-02-23] MEDS: LYRICA 100 MG PO ×3 (09:00→22:04)
[2024-02-23] MEDS: COZAAR 25 MG PO (09:00)
[2024-02-23] MEDS: PERCOCET 5/325 1 TABLET PO ×2 (09:01→19:57)
[2024-02-23] MEDS: LANTUS 0.1 UNITS SC ×2 (09:04→19:57)
[2024-02-23] MEDS: HEPARIN 5000 UNITS SC ×2 (09:05→19:58)
[2024-02-23 11:31] LABS: Glucose - Point of Care 210 mg/dl (70-99)
[2024-02-23] MEDS: NOVOLOG FLEXPEN-LOW RESISTANCE 2 UNITS SC ×2 (11:34→17:35)
[2024-02-23] MEDS: ROXICODONE 5 MG PO ×2 (11:40→17:53)
[2024-02-23 15:00] VITALS: BP 141/56
[2024-02-23 17:32] LABS: Glucose - Point of Care 209 mg/dl (70-99)
[2024-02-23] MEDS: CUBICIN 16 MG IV (17:37)
[2024-02-23] MEDS: FLUSH (NSS) 2 FLUSH IV (17:37)
[2024-02-23 19:58] LABS: Glucose - Point of Care 214 mg/dl (70-99)
[2024-02-23 23:13] VITALS: BP 144/80
[2024-02-24] MEDS: ROXICODONE 5 MG PO (06:17)
[2024-02-24 07:25] VITALS: BP 161/77
[2024-02-24 07:36] LABS: Glucose - Point of Care 119 mg/dl (70-99)
[2024-02-24] MEDS: NOVOLOG FLEXPEN-LOW RESISTANCE SC ×3 (07:44→17:42)
[2024-02-24] MEDS: LANTUS 0.1 UNITS SC ×2 (08:05→21:39)
[2024-02-24] MEDS: PERCOCET 5/325 1 TABLET PO ×2 (08:07→20:11)
[2024-02-24] MEDS: COZAAR 25 MG PO (08:07)
[2024-02-24] MEDS: LYRICA 100 MG PO ×3 (08:07→21:39)
[2024-02-24] MEDS: HEPARIN 5000 UNITS SC ×2 (08:07→20:11)
--- NOTE | 2024-02-24 09:43 | W.PN.HOSP.TC ---
Today's Communication/Plan
-
dispo planning for home infusion therapy
Assessment / Plan
Assessment / Plan
Mr. Jacques Horowitz is a 73 yo man with hx IDDM, diabetic neuropathy, HTN, right ankle fracture in July 2023 (s/p ORIF 08/06) complicated by wound dehiscence and infection (admission 09/18) s/p antibiotic course with repeat admission 11/05-11/20/23 for
acute osteomyelitis and hardware infection status post debridement and pinning 11/07/23; s/p right ankle salvage reconstruction surgery 11/14/23 discharged with wound vac; now s/p right ankle external fixator removal, lateral plate hardware removal
and wound debridement on 02/18/24.
Right Ankle Hardware Infection MRSA
-s/p right ankle external fixator removal, lateral plate hardware removal and wound debridement 02/17.
-appreciate Podiatry
-appreciate ID
-IV Daptomycin - continue 6 week course; s/p PICC placement 02/21. Patient does not want SNF --> discussing with CM setting up home infusion therapy
-posterior splint to remain C/D/I
-strict NWB RLE
-pain control
-patient wishing to seek second opinion, BKA was advised; now stating he doesn't think he'll get down to [place].
HLD
-hold statin while on Daptomycin
IDDM
-Patient is on Insulin Degludec 20 BID at home; A1c 6.6% - instructed to monitor BGL at home to ensure no episodes hypoglycemia
-increase lantus to 10 BID and monitor
-ISS low
-Diabetic diet
Diabetic Neuropathy
-HEMATOLOGIST ONCOLOGIST Lyrica
Essential HTN
-HEMATOLOGIST ONCOLOGIST Losartan
DVT PPx - Hep subQ
FULL CODE
Anticipated Discharge: 24 - 48 hours
Subjective/Interval History
-
Date of Service: February 24, 2024
no new complaints
Objective Data
-
Vital Signs:
Vital Signs
Temp Pulse Resp BP Pulse Ox
98.0 F 74 18 161/77 99
02/24/24 07:25 02/24/24 07:25 02/24/24 07:25 02/24/24 07:25 02/24/24 07:25
I&O
02/23/24 02/24/24 02/25/24
06:59 06:59 06:59
Intake Total 960 / 960 1740 / 1740
Balance 960 / 960 1740 / 1740
Review of Systems
-
History Source: Patient
All other systems: Reviewed and negative
Physical Exam
-
General: Well Developed, Well Nourished, No Apparent Distress and Comfortable
Respiratory: Clear to Auscultation; Negative Wheezes
Cardiac: Regular Rhythm and S1/S2; Negative Murmur
GI: Soft, Nontender, Nondistended and Normal Bowel Sounds
Musculoskeletal: Other (RLE wrapped)
Skin: Warm and Dry
Neuro: Awake, Alert, Oriented and AO x 3
Psych: Calm
Data Reviewed
-
Diagnostic Radiology: Report Reviewed by me
Labs: Labs Reviewed by me
--- NOTE | 2024-02-24 12:39 | W.PN.UPDATE ---
Update Note
Progress Note Update
Principal Diagnosis : s/p right ankle external fixator removal, lateral plate hardware removal and wound debridement on 02/18/24 with finding of pin tract infection and a new lateral wound; wound culture growing MRSA
Hospital Course :
Mr. Jacques Horowitz is a 73 yo man with hx IDDM, diabetic neuropathy, HTN, right ankle fracture in July 2023 (s/p ORIF 08/06) complicated by wound dehiscence and infection (admission 09/18) s/p antibiotic course with repeat admission 11/05-11/20/23 for
acute osteomyelitis and hardware infection status post debridement and pinning 11/07/23; s/p right ankle salvage reconstruction surgery 11/14/23 discharged with wound vac; now s/p right ankle external fixator removal, lateral plate hardware removal
and wound debridement on 02/18/24. Intra-op findings significant for new pin tract infection and new lateral wound.
He was admitted to medicine with Podiatry and ID consulting. Cultures grew MRSA. BKA discussed with patient but he preferred to attempt limb salvage with another course of IV antibiotic therapy. 6 week course of IV Daptomycin ordered per ID with
plans for close follow up. Holding statin while receiving IV Daptomycin. He would like a second opinion at a tertiary care center, but unsure if he can make it down to [place].
Patient does not want to return to SNF. He remains in-house while setting up home infusion therapy.
[2024-02-24 12:43] LABS: Glucose - Point of Care 111 mg/dl (70-99)
[2024-02-24] MEDS: FEOSOL 325 MG PO (13:15)
--- NOTE | 2024-02-24 13:56 | CM ---
Reviewed the chart notes. Clinicals faxed to [facility] for home IV abx. [facility] referral sent for PICC management and PT/OT through [facility]. No prescription in chart. Will need to fax once obtained. CM continues to be available to
patient/family and is monitoring medical plan for needs at discharge.
Plan: Home with IV abx through [facility] (waiting on cost analysis) and [facility].
[2024-02-24 15:05] VITALS: BP 140/66
[2024-02-24 17:31] LABS: Glucose - Point of Care 139 mg/dl (70-99)
[2024-02-24] MEDS: CUBICIN 16 MG IV (17:43)
[2024-02-24] MEDS: FLUSH (NSS) 2 FLUSH IV (17:44)
[2024-02-24 21:26] LABS: Glucose - Point of Care 215 mg/dl (70-99)
[2024-02-24 23:13] VITALS: BP 149/72
[2024-02-25] MEDS: ROXICODONE 5 MG PO ×2 (04:17→15:11)
[2024-02-25 07:05] VITALS: BP 141/90
[2024-02-25 08:01] LABS: Glucose - Point of Care 116 mg/dl (70-99)
[2024-02-25] MEDS: NOVOLOG FLEXPEN-LOW RESISTANCE SC ×2 (08:11→16:33)
[2024-02-25] MEDS: PERCOCET 5/325 1 TABLET PO ×2 (08:12→20:06)
[2024-02-25] MEDS: LYRICA 100 MG PO ×3 (08:12→21:31)
[2024-02-25] MEDS: COZAAR 25 MG PO (08:12)
[2024-02-25] MEDS: LANTUS 0.15 UNITS SC (08:13)
[2024-02-25] MEDS: HEPARIN 5000 UNITS SC ×2 (08:13→20:06)
--- NOTE | 2024-02-25 09:59 | CM ---
Addendum entered by Beba Ritchie 02/25/24 17:10:
Faxed script to [facility] for wheelchair. [phone]
Dulce from [facility] to teach tomorrow here at hospital.
Discussed with brother Christiano ([phone])
[facility] to admit Wed 02/26.
PLAN: Discharge to home with [facility] & [facility] Fax #: [phone]
[facility] Fax #: [phone]
Addendum entered by Beba Ritchie 02/25/24 13:20:
tt regarding wheelchair
Spoke with Samantha from [facility] does not have wheelchairs at this time.
Left message for [facility]
Addendum entered by Beba Ritchie 02/25/24 11:34:
Call back from Dulce Martins. Cost of supplies/drug is approx $152.00 per week.
Discussed with patient and he is willing to pay this. He spoke with Dulce from [facility] who obtained his information.
Dulce to come to hospital tomorrow and do a teach. She will follow up to see if [facility] to check if they can make visit on New 's Day.
PT/OT to see today.
tt hospitalist regarding wheelchair
Original Note:
Spoke with Shahla from [facility] - referral received.
Per Shahla Cardona from [facility] will get back to regarding cost of supplies/med.
Spoke with patient and will let him know cost.
[2024-02-25 12:34] LABS: Glucose - Point of Care 182 mg/dl (70-99)
[2024-02-25] MEDS: NOVOLOG FLEXPEN-LOW RESISTANCE 1 UNITS SC (12:34)
--- NOTE | 2024-02-25 13:15 | W.PN.HOSP.TC ---
Addendum entered and electronically signed by Robert Maynard MD 02/25/24 13:33:
He is strict nonweightbearing on right lower extremity
-He will require a wheelchair for mobility in order to complete daily activities at home
Original Note:
Today's Communication/Plan
-
dc home once home infusion is set up
Assessment / Plan
Assessment / Plan
Right Ankle Hardware Infection MRSA
-s/p right ankle external fixator removal, lateral plate hardware removal and wound debridement 02/17.
-appreciate Podiatry
-appreciate ID
-IV Daptomycin - continue 6 week course; s/p PICC placement 02/21. Does not want SNF --> discussing with CM setting up home infusion therapy
--Will need weekly CMP, CK, CBC
-posterior splint to remain C/D/I
-strict NWB RLE
-pain control
-wishing to seek second opinion, BKA was advised; now stating he doesn't think he'll get down to [place]
-- I personally reviewed with him the extent of infection, even with IV antibiotics high risk for limb loss
-- I personally reviewed with him recommendation of discharge to SNF however adamantly states that he wants to go home as he has only been home for 2 weeks since August
HLD
-hold statin while on Daptomycin
IDDM
-Insulin Degludec 20 BID at home; A1c 6.6% - instructed to monitor BGL at home to ensure no episodes hypoglycemia
-increase lantus to 10 BID and monitor
-ISS low
-Diabetic diet
Diabetic Neuropathy
-FIELD SALES ASSOCIATE Lyrica
Essential HTN
-FIELD SALES ASSOCIATE Losartan
DVT PPx - Hep subQ
FULL CODE
Anticipated Discharge: Within 24 hours
Subjective/Interval History
-
Date of Service: February 25, 2024
Seen and examined. No new complaints. No acute overnight events
Objective Data
-
Vital Signs:
Vital Signs
Temp Pulse Resp BP Pulse Ox
98.1 F 72 17 141/90 99
02/25/24 07:05 02/25/24 08:12 02/25/24 07:05 02/25/24 08:12 02/25/24 09:55
I&O
02/24/24 02/25/24 02/26/24
06:59 06:59 06:59
Intake Total 1740 / 1740 1500 / 1500
Balance 1740 / 1740 1500 / 1500
Physical Exam
-
General: Well Developed and Well Nourished
HEENT: Normocephalic and Atraumatic
Respiratory: Clear to Auscultation
Cardiac: Regular Rhythm and S1/S2
GI: Soft, Nontender, Nondistended and Normal Bowel Sounds
Musculoskeletal: Other (Right lower extremity in a cast, able to wiggle toes)
Skin: Warm and Dry
Neuro: Awake, Alert, Oriented and AO x 3
Psych: Calm
[2024-02-25 15:15] VITALS: BP 158/73
--- NOTE | 2024-02-25 15:48 | W.PN.ID1 ---
Date of Service
Date of Service: February 25, 2024
Today's Communication
Continue antibiotics.
Assessment / Plan
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
- Hx right ankle debridement with right lower extremity external fixator application
- s/p ExFix removal 02/18/24
Pin tract infection
Elevated ESR / CRP
Leukocytosis
DM2 - moderate control
Recommendations:
Chart reviewed extensively. Orthopedics has offered and suggested BKA, although at the present time, the patient would like to exhaust all possible medical options.
Will continue with a 6-week course of daptomycin in the treatment of recovered MRSA.
Outpatient infusion sheet has been given to case management.
Will follow-up in the office in approximately 2 to 3 weeks.
--> Hold statin while he is on daptomycin <--
Patient also notes that he would like a second opinion at a tertiary care center.
Patient understands high risk situation. Given extent of infection, patient, even with IV antibiotics, is at high risk for limb loss.
����������������������������������������������������������
Chief Complaint
-: Other (Osteomyelitis right ankle)
Subjective / Review of Systems
Review of Systems: No Fever and No Chills
Vital Signs / Physical Exam
Vital Signs
Vital Signs
Temp Pulse Resp BP Pulse Ox
97.9 F 76 16 158/73 98
02/25/24 15:15 02/25/24 15:15 02/25/24 15:15 02/25/24 15:15 02/25/24 15:15
Physical Exam
Constitutional: No Acute Distress, Comfortable, Chronically Ill and Non-toxic
Eyes: Sclera Anicteric
Cardiovascular: S1/S2; Negative S3/S4
Pulmonary: Clear and Non Labored; Negative Wheezes
Gastrointestinal: Soft, Non Tender and Non Distended
Musculoskeletal: Other (Right ankle and foot dressed in Pato wrap. Splint in place.)
Skin: Negative Rash or Jaundice
Neurological: Awake and Alert
Psychological: Calm
Objective Data
Lab Data
Lab Results
02/21/24 06:43
02/21/24 06:43
ESR 89 mm/hour (0-20) H 02/20/24 04:46
Estimated Creat Clear 70 ml/min 02/21/24 06:43
Total Bilirubin 0.5 mg/dl (0.2-1.3) 02/18/24 11:45
AST 17 U/L (17-59) 02/18/24 11:45
ALT 11 U/L (0-50) 02/18/24 11:45
Alkaline Phosphatase 127 U/L (38-126) H 02/18/24 11:45
C-Reactive Protein 147.40 mg/L (0.0-10.00) H 02/20/24 04:46
Most recent labs reviewed.
Micro Results:
02/18/24 14:21 Wound Culture - Final
Ankle - Right Staph aureus MRSA
Gram Stain - Final
02/18/24 14:24 Wound Culture - Final
Ankle - Right Staph aureus MRSA
Gram Stain - Final
02/18/24 14:24 Anaerobic Culture - Final
Ankle - Right NO ANAEROBES ISOLATED
02/18/24 14:21 Anaerobic Culture - Final
Ankle - Right NO ANAEROBES ISOLATED
Wound/abscess/other Cult Preliminary 02/18/24
1. Staph aureus MRSA
M.I.C. RX
--------- ---
Amoxicillin/Potas. Clavulanate >4/2 R
Ampicillin >8 R
Clindamycin <=0.5 S
Gentamicin <=4 S
Erythromycin >4 R
Levofloxacin >4 R
Oxacillin >2 R
Tetracycline >8 R
Trimethoprim/Sulfamethoxazole <=0.5/9.5 S
Vancomycin 1 S
[2024-02-25 16:11] VITALS: BMI 24.8
[2024-02-25 16:14] LABS: Glucose - Point of Care 113 mg/dl (70-99)
[2024-02-25] MEDS: CUBICIN 16 MG IV (17:16)
[2024-02-25] MEDS: FLUSH (NSS) 2 FLUSH IV (17:16)
[2024-02-25 21:36] LABS: Glucose - Point of Care 160 mg/dl (70-99)
[2024-02-25] MEDS: LANTUS 0.1 UNITS SC (21:58)
[2024-02-25 23:05] VITALS: BP 163/74
[2024-02-26 08:01] VITALS: BP 135/74
[2024-02-26] MEDS: COZAAR 25 MG PO (08:06)
[2024-02-26] MEDS: LYRICA 100 MG PO (08:06)
[2024-02-26] MEDS: HEPARIN 5000 UNITS SC (08:07)
[2024-02-26] MEDS: PERCOCET 5/325 1 TABLET PO (08:07)
[2024-02-26] MEDS: NOVOLOG FLEXPEN-LOW RESISTANCE SC (08:16)
[2024-02-26] MEDS: LANTUS 0.15 UNITS SC (08:16)
[2024-02-26 08:17] LABS: Glucose - Point of Care 124 mg/dl (70-99)
--- NOTE | 2024-02-26 11:06 | CM ---
CM spoke with Odalys at [facility], discussed plan for discharge, [facility] will admit patient tomorrow. [facility] coming to Hospital to do bedside teaching around 12:00 p.m. Script and clinicals faxed to [facility] for WC- per Allison at [facility],
will deliver . Patient seen bedside, aware of [facility] coming for teaching, [facility] to admit tomorrow. Patient reports his friend will provide transportation home, asking if he can take hospital walker. Patient reports he has a walker at
home but believes it is upstairs. CM discussed with PT- unable to provide patient a walker as insurance is providing WC. IMM reviewed with patient verbally, provided with copy, placed in chart. CM will continue to follow for all discharge planning
needs.
PLAN: Discharge to home with [facility] & [facility] Fax #: [phone]
[facility] Fax #: [phone]
[2024-02-26 11:42] LABS: Glucose - Point of Care 233 mg/dl (70-99)
--- NOTE | 2024-02-26 12:44 | W.PN.ID1 ---
Date of Service
Date of Service: February 26, 2024
Today's Communication
Continue antibiotics.
Assessment / Plan
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
- Hx right ankle debridement with right lower extremity external fixator application
- s/p ExFix removal 02/18/24
Pin tract infection
Elevated ESR / CRP
Leukocytosis
DM2 - moderate control
Recommendations:
Chart reviewed extensively. Orthopedics has offered and suggested BKA, although at the present time, the patient would like to exhaust all possible medical options.
Will continue with a 6-week course of daptomycin in the treatment of recovered MRSA.
Outpatient infusion has been set up.
For D/C today.
Will follow-up in the office in approximately 2 to 3 weeks.
--> Hold statin while he is on daptomycin <--
Patient also notes that he would like a second opinion at a tertiary care center.
Patient understands high risk situation. Given extent of infection, patient, even with IV antibiotics, is at high risk for limb loss.
����������������������������������������������������������
Chief Complaint
-: Other (Osteomyelitis right ankle)
Subjective / Review of Systems
Review of Systems: No Fever and No Chills
Vital Signs / Physical Exam
Vital Signs
Vital Signs
Temp Pulse Resp BP Pulse Ox
98.3 F 78 16 135/74 98
02/26/24 08:01 02/26/24 08:06 02/26/24 08:01 02/26/24 08:06 02/26/24 09:22
Physical Exam
Constitutional: No Acute Distress, Comfortable, Chronically Ill and Non-toxic
Eyes: Sclera Anicteric
Pulmonary: Clear and Non Labored
Gastrointestinal: Non Distended
Musculoskeletal: Other (Right ankle and foot dressed in Pato wrap. Splint in place.)
Skin: Negative Rash or Jaundice
Neurological: Awake and Alert
Psychological: Calm
Lines: PICC (RUE)
Objective Data
Lab Data
Lab Results
02/21/24 06:43
02/21/24 06:43
ESR 89 mm/hour (0-20) H 02/20/24 04:46
Estimated Creat Clear 70 ml/min 02/21/24 06:43
Total Bilirubin 0.5 mg/dl (0.2-1.3) 02/18/24 11:45
AST 17 U/L (17-59) 02/18/24 11:45
ALT 11 U/L (0-50) 02/18/24 11:45
Alkaline Phosphatase 127 U/L (38-126) H 02/18/24 11:45
C-Reactive Protein 147.40 mg/L (0.0-10.00) H 02/20/24 04:46
Most recent labs reviewed.
Micro Results:
02/18/24 14:21 Wound Culture - Final
Ankle - Right Staph aureus MRSA
Gram Stain - Final
02/18/24 14:24 Wound Culture - Final
Ankle - Right Staph aureus MRSA
Gram Stain - Final
02/18/24 14:24 Anaerobic Culture - Final
Ankle - Right NO ANAEROBES ISOLATED
02/18/24 14:21 Anaerobic Culture - Final
Ankle - Right NO ANAEROBES ISOLATED
Wound/abscess/other Cult Preliminary 02/18/24
1. Staph aureus MRSA
M.I.C. RX
--------- ---
Amoxicillin/Potas. Clavulanate >4/2 R
Ampicillin >8 R
Clindamycin <=0.5 S
Gentamicin <=4 S
Erythromycin >4 R
Levofloxacin >4 R
Oxacillin >2 R
Tetracycline >8 R
Trimethoprim/Sulfamethoxazole <=0.5/9.5 S
Vancomycin 1 S
[2024-02-26] MEDS: FEOSOL 325 MG PO (12:58)
[2024-02-26] MEDS: NOVOLOG FLEXPEN-LOW RESISTANCE 2 UNITS SC (12:58)
[2024-02-26] MEDS: CUBICIN 16 MG IV (13:15)
--- NOTE | 2024-02-26 13:17 | W.PN.HOSP.TC ---
Today's Communication/Plan
-
DC home
Wheelchair has been ordered by case resolution specialist
Infusion company will drop off home antibiotics later tonight
He states he understands that we will take a few days for the wheelchair to be delivered. He feels confident enough to go home and ambulate with a walker however understands that he has to be strict nonweightbearing on the right right lower
extremity.
He states that his neighbor Leighann will provide him with assistance with any needs at home
Again advised SNF however declined.
More than 30 minutes spent in discharge including
Final examination of the patient
Summarizing hospital stay
Instructions for continuing care to all relevant caregivers
Preparation of discharge records, prescriptions, and referral forms
Total time spent (in minutes): 33mins
Assessment / Plan
Assessment / Plan
Right Ankle Hardware Infection MRSA
-s/p right ankle external fixator removal, lateral plate hardware removal and wound debridement 02/17.
-appreciate Podiatry
-appreciate ID
-IV Daptomycin - continue 6 week course; s/p PICC placement 02/21. Does not want SNF --> discussing with CM setting up home infusion therapy
--Will need weekly CMP, CK, CBC
-posterior splint to remain C/D/I
-strict NWB RLE
-pain control
-wishing to seek second opinion, [facility] was advised; now stating he doesn't think he'll get down to [place]
-- I personally reviewed with him the extent of infection, even with IV antibiotics high risk for limb loss
-- I personally reviewed with him recommendation of discharge to SNF however adamantly states that he wants to go home as he has only been home for 2 weeks since August
HLD
-hold statin while on Daptomycin
IDDM
-Insulin Degludec 20 BID at home; A1c 6.6% - instructed to monitor BGL at home to ensure no episodes hypoglycemia
-increase lantus to 10 BID and monitor
-ISS low
-Diabetic diet
Diabetic Neuropathy
-CLINICAL SERVICES ASSISTANT Lyrica
Essential HTN
-CLINICAL SERVICES ASSISTANT Losartan
DVT PPx - Hep subQ
FULL CODE
DC home
Anticipated Discharge: Today
Subjective/Interval History
-
Date of Service: February 26, 2024
Seen and examined. No new complaints. No acute overnight events.
Objective Data
-
Vital Signs:
Vital Signs
Temp Pulse Resp BP Pulse Ox
98.3 F 78 16 135/74 98
02/26/24 08:01 02/26/24 08:06 02/26/24 08:01 02/26/24 08:06 02/26/24 09:22
I&O
02/25/24 02/26/24 02/27/24
06:59 06:59 06:59
Intake Total 1500 / 1500 1250 / 1250
Balance 1500 / 1500 1250 / 1250
Physical Exam
-
General: Well Developed and Well Nourished
HEENT: Normocephalic and Atraumatic
Respiratory: Clear to Auscultation
Cardiac: Regular Rhythm and S1/S2
GI: Soft, Nontender, Nondistended and Normal Bowel Sounds
Neuro: Awake, Alert, Oriented and AO x 3
Psych: Calm
--- NOTE | 2024-02-26 13:20 | W.DCSUMMARY ---
Addendum entered and electronically signed by Robert Maynard MD 02/26/24 14:56:
Please disreguard this one and please see the most recent dc summary.
Original Note:
Discharge Summary
Discharge Data
Date of Admission: 02/18/24
Date of Discharge: 02/26/24
-
Pending Results: No
Hospital Course
73 yo man with hx IDDM, diabetic neuropathy, HTN, right ankle fracture in July 2023 (s/p ORIF 08/06) complicated by wound dehiscence and infection (admission 09/18) s/p antibiotic course with repeat admission 11/05-11/20/23 for acute osteomyelitis and
hardware infection status post debridement and pinning 11/07/23; s/p right ankle salvage reconstruction surgery 11/14/23 discharged with wound vac
Presented for right ankle external fixator removal, lateral plate hardware removal, and wound debridement. Cultures were obtained from the wound/OR which grew out MRSA. Evaluated by infectious diseases recommended 6 weeks of IV antibiotics with
daptomycin. Was evaluated [facility] physical therapy [facility] declined and wanted to go home. Wheelchair has been ordered. Infusion company has been set up. Will need to stop taking Lipitor while on daptomycin and
can resume once safe by outpatient PCP.
-Strict nonweightbearing on right lower extremity. Ambulate with assistance of walker and remain off of right lower extremity
Discharge Plan
-
Patient Disposition: Home with Home Care
Discharge Diagnosis/Procedures: s/p right ankle external fixator removal, lateral plate hardware removal and wound debridement on 02/18/24 with finding of pin tract infection and a new lateral wound; wound culture growing MRSA
Diet: Diabetic, Carb Controlled
Activity: As tolerated
Driving Restrictions: As prior to admission
Bathing Restrictions: None
Blood Work: Labs per IV Infusion orders
Wound Care: dressing changes to RLE 3x weekly
Pack medial ankle wound and posterior proximal calf wound with iodoform packing OR betadine soaking DSD.
Apply betadine soaked gauze pads to right ankle incisions and pin sites, following by ABDs and gratuitous amounts of casting padding, followed by posterior splint secured with TALIA bandages.
Activity Restrictions/Additional Instructions:
Presented for right ankle external fixator removal, lateral plate hardware removal, and wound debridement. Cultures were obtained from the wound/OR which grew out MRSA. Evaluated by infectious diseases recommended 6 weeks of IV antibiotics with
daptomycin. Was evaluated by physical therapy [facility] facility however declined and wanted to go home. Wheelchair has been ordered. Infusion company has been set up. Will need to stop taking Lipitor while on daptomycin and
can resume once safe by outpatient PCP.
-Strict nonweightbearing on right lower extremity. Ambulate with assistance of walker and remain off of right lower extremity
Referrals:
Max Ricardo, DO [Active] - in two to three weeks
Rafael Napier MD [Active] - in two to three weeks
UNKNOWN - PT NOT,INTERVIEWE [Family Provider] -
Additional Discharge Medication Instructions: STOP ATORVASTATIN - do not take this while receiving IV Daptomycin, can resume after Daptomycin has been completed and cleared by PCP to resume
Prescriptions:
New
DAPTOmycin [Cubicin] 800 MG
Syringe [Syringe-Pump] 0 ML
As Directed mls/hr IV Q24H
Ordered By: Robert Maynard MD
Last Taken: 02/25/24 17:16 16 mls
Rx Instructions:
infusion
Continued
losartan 25 mg tablet
25 mg PO DAILY
insulin aspart U-100 [Novolog FlexPen U-100 Insulin] 100 unit/mL (3 mL) insulin pen
0 sliding scale dose SC AC
Rx Instructions:
151-200=2u,201-250=4u,251-300=6u,301-350=8u,351-400=10u
pregabalin 100 mg capsule
100 mg PO TID
metformin 500 mg Tablet
500 mg PO BID@0800,1700 Qty: 30 0RF
ferrous sulfate [FeroSul] 325 mg (65 mg iron) Tablet
325 mg PO Q48H Qty: 0 0RF
oxycodone 5 mg Tablet
5 mg PO Q4HPRN PRN (Reason: moderate pain) Qty: 18 0RF
oxycodone-acetaminophen 5-325 mg tablet
1 tab PO BID Qty: 6 0RF
acetaminophen 325 mg Tablet
650 mg PO Q6HPRN MDD 3000 mg PRN (Reason: mild pain/temp >100.4)
ondansetron HCl 4 mg Tablet
4 mg PO Q6HPRN PRN (Reason: nausea)
magnesium hydroxide [Milk of Magnesia] 400 mg/5 mL Suspension
30 ml PO DAILYPRN PRN (Reason: if no bm on 3rd day)
bisacodyl [Dulcolax (bisacodyl)] 10 mg Suppository
10 mg [place] DAILYPRN PRN (Reason: if no bm aftr mom)
dextrose [Glucose Gel] 40 % Gel
1 ea PO PRN PRN (Reason: hypoglycemia)
glucagon 1 mg Recon Soln
1 mg SC Q15M PRN (Reason: hypoglycemia)
Changed
insulin degludec 100 unit/mL Solution
15 unit SC BID Qty: 0 0RF
Patient Comments:
16 Units given per instructions.
Held
atorvastatin 20 mg tablet
20 mg PO HS
Hold Instructions: Resume on 04/25/24. do not take while on daptomycin
Discharge Orders:
Discharge Patient (As Directed); Ordered 02/26/24
Ordered By: Robert Maynard
Discharge Date and Time
Print Language: WELSH
[2024-02-26 14:03] VITALS: BP 154/69
--- NOTE | 2024-02-26 14:55 | W.DCSUMMARY ---
Discharge Summary
Discharge Data
Date of Admission: 02/18/24
Date of Discharge: 02/26/24
-
Pending Results: No
Hospital Course
73 yo man with hx IDDM, diabetic neuropathy, HTN, right ankle fracture in July 2023 (s/p ORIF 08/06) complicated by wound dehiscence and infection (admission 09/18) s/p antibiotic course with repeat admission 11/05-11/20/23 for acute osteomyelitis and
hardware infection status post debridement and pinning 11/07/23; s/p right ankle salvage reconstruction surgery 11/14/23 discharged with wound vac
Presented for right ankle external fixator removal, lateral plate hardware removal, and wound debridement. Cultures were obtained from the wound/OR which grew out MRSA. Evaluated by infectious diseases recommended 6 weeks of IV antibiotics with
daptomycin. Was evaluated by physical therapy recommended [facility] facility however declined and wanted to go home. Wheelchair has been ordered. Infusion company has been set up. Will need to stop taking Lipitor while on daptomycin and
can resume once safe by outpatient PCP.
-Strict nonweightbearing on right lower extremity. Ambulate with assistance of walker and remain off of right lower extremity
-A1c 6.6. DC home with home metformin and sliding scale
Discharge Plan
-
Patient Disposition: Home with Home Care
Discharge Diagnosis/Procedures: s/p right ankle external fixator removal, lateral plate hardware removal and wound debridement on 02/18/24 with finding of pin tract infection and a new lateral wound; wound culture growing MRSA
Condition: Good
Diet: Diabetic, Carb Controlled
Activity: As tolerated
Driving Restrictions: As prior to admission
Bathing Restrictions: None
Blood Work: Labs per IV Infusion orders
Wound Care: dressing changes to RLE 3x weekly
Pack medial ankle wound and posterior proximal calf wound with iodoform packing OR betadine soaking DSD.
Apply betadine soaked gauze pads to right ankle incisions and pin sites, following by ABDs and gratuitous amounts of casting padding, followed by posterior splint secured with TALIA bandages.
Activity Restrictions/Additional Instructions:
Presented for right ankle external fixator removal, lateral plate hardware removal, and wound debridement. Cultures were obtained from the wound/OR which grew out MRSA. Evaluated by infectious diseases recommended 6 weeks of IV antibiotics with
daptomycin. Was evaluated by physical therapy recommended [facility] facility however declined and wanted to go home. Wheelchair has been ordered. Infusion company has been set up. Will need to stop taking Lipitor while on daptomycin and
can resume once safe by outpatient PCP.
-Strict nonweightbearing on right lower extremity. Ambulate with assistance of walker and remain off of right lower extremity
-A1c 6.6. DC home with home metformin and sliding scale
Instructions: Low blood sugar in people with diabetes
Referrals:
Max Ricardo, DO [Active] - in two to three weeks
Rafael Napier MD [Active] - in two to three weeks
UNKNOWN - PT NOT,INTERVIEWE [Family Provider] -
Additional Discharge Medication Instructions: STOP ATORVASTATIN - do not take this while receiving IV Daptomycin, can resume after Daptomycin has been completed and cleared by PCP to resume
Prescriptions:
New
DAPTOmycin [Cubicin] 800 MG
Syringe [Syringe-Pump] 0 ML
As Directed mls/hr IV Q24H
Ordered By: Robert Maynard MD
Last Taken: 02/26/24 13:15 16 mls
Rx Instructions:
infusion
sennosides-docusate sodium 8.6-50 mg Tablet
1 tab PO BIDPRN PRN (Reason: constipation) Qty: 30 0RF
Continued
acetaminophen 325 mg Tablet
650 mg PO Q6HPRN MDD 3000 mg PRN (Reason: mild pain/temp >100.4)
metformin 500 mg Tablet
500 mg PO BID@0800,1700 Qty: 30 0RF
magnesium hydroxide [Milk of Magnesia] 400 mg/5 mL Suspension
30 ml PO DAILYPRN PRN (Reason: if no bm on 3rd day) Qty: 3780 0RF
bisacodyl [Dulcolax (bisacodyl)] 10 mg Suppository
10 mg [place] DAILYPRN PRN (Reason: if no bm aftr mom) Qty: 30 0RF
ferrous sulfate [FeroSul] 325 mg (65 mg iron) Tablet
325 mg PO Q48H Qty: 30 0RF
losartan 25 mg tablet
25 mg PO DAILY Qty: 30 0RF
oxycodone 5 mg Tablet
5 mg PO Q4HPRN PRN (Reason: moderate pain) Qty: 18 0RF
pregabalin 100 mg capsule
100 mg PO TID Qty: 90 0RF
Changed
insulin aspart U-100 [Novolog FlexPen U-100 Insulin] 100 unit/mL (3 mL) insulin pen
1 sliding scale dose SC AC Qty: 15 0RF
Rx Instructions:
151-200=2u,201-250=4u,251-300=6u,301-350=8u,351-400=10u
Held
atorvastatin 20 mg tablet
20 mg PO HS
Hold Instructions: Resume on 04/25/24. do not take while on daptomycin
Discontinued
oxycodone-acetaminophen 5-325 mg tablet
1 tab PO BID Qty: 6 0RF
ondansetron HCl 4 mg Tablet
4 mg PO Q6HPRN PRN (Reason: nausea)
insulin degludec 100 unit/mL Solution
20 unit SC BID
Patient Comments:
16 Units given per instructions.
dextrose [Glucose Gel] 40 % Gel
1 ea PO PRN PRN (Reason: hypoglycemia)
glucagon 1 mg Recon Soln
1 mg SC Q15M PRN (Reason: hypoglycemia)
Discharge Orders:
Discharge Patient (As Directed); Ordered 02/26/24
Ordered By: Robert Maynard
Discharge Date and Time
Print Language: ROMANIAN
== END 2024-02-26 17:54 | disposition home health service (06) | DRG 478 ==
LOC: 2 NORTH 10:29
PROVIDERS: Radiology Vascular & Interventional Radiology; Student in an Organized Health Care Education/Training Program; ADMITTING PHYSICIAN Student in an Organized Health Care Education/Training Program; ATTENDING PHYSICIAN Hospitalist; CONSULT PHYSICIAN Internal Medicine Infectious Disease
PROC: 0SPFX5Z Removal of External Fixation Device from Right Ankle Joint, External Approach (ICD-10-PCS; 2024-02-18)
PROC: 0QBJ0ZX Excision of Right Fibula, Open Approach, Diagnostic (ICD-10-PCS; 2024-02-18)
PROC: 0QPJ04Z Removal of Internal Fixation Device from Right Fibula, Open Approach (ICD-10-PCS; 2024-02-18)
PROC: 02H633Z Insertion of Infusion Device into Right Atrium, Percutaneous Approach (ICD-10-PCS; 2024-02-22)
DX: T84.624A Infection and inflammatory reaction due to internal fixation device of right fibula, initial encounter (principal); D62 Acute posthemorrhagic anemia; F11.20 Opioid dependence, uncomplicated; M00.071 Staphylococcal arthritis, right ankle and foot; M86.161 Other acute osteomyelitis, right tibia and fibula; B95.62 Methicillin resistant Staphylococcus aureus infection as the cause of diseases classified elsewhere; E11.40 Type 2 diabetes mellitus with diabetic neuropathy, unspecified; E78.5 Hyperlipidemia, unspecified; I10 Essential (primary) hypertension; F32.A Depression, unspecified; G89.29 Other chronic pain; K59.00 Constipation, unspecified; B95.7 Other staphylococcus as the cause of diseases classified elsewhere; Y79.2 Prosthetic and other implants, materials and accessory orthopedic devices associated with adverse incidents; Z79.84 Long term (current) use of oral hypoglycemic drugs; Z79.4 Long term (current) use of insulin; Z79.82 Long term (current) use of aspirin; Z88.0 Allergy status to penicillin
CPT/HCPCS: 88304; 88305; 88311; 71045; 73610; 76000; 80048; 80053; 82550; 82728; 82962; 83036; 83540; 83550; 83735; 85025; 85027; 85652; 86140; 87070; 87075; 87147; 87186; 87205; 93005; 97162; 97166; 97530; J0878